=== PATIENT | male | born 1930 | race Caucasian/White ===

== ENCOUNTER 2018-11-24 11:47 | Inpatient (IN) | payer MEDICARE, OTHER ==
[~2018-11-24] VITALS: Ht 177.8 cm; Wt 61.9 kg
--- NOTE | 2018-11-24 12:27 | ERD ---
ER Documentation Chief Complaint Chief Complaint pt bib family with c/o weakness and slurred speech Sun/Mon sent by PMD HPI 88-year-old male with a history of hypertension sent by his primary care doctor, Dr. Sada Morris, for evaluation of possible stroke. Patient has had progressive generalized weakness, mostly in bilateral legs with associated slurred speech. Denies any headache, vision disturbance, focal weakness or numbness. 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 ROS All systems reviewed and are negative except as per history of present illness. Allergies Allergies: Coded Allergies: Sulfa (Sulfonamide Antibiotics) (Verified Allergy, Unknown, 11/24/18) metformin (Verified Allergy, Unknown, 11/24/18) paroxetine (Verified Allergy, Unknown, 11/24/18) pramipexole (Verified Allergy, Unknown, 11/24/18) PMhx/Soc History of Surgery: Yes (Whipple surgery) Hx Cardiac Disorders: Yes (HTN) Hx Miscellaneous Medical Probl: Yes (Duodenal cancer, bladder cancer, DM) FmHx Family History: No diabetes Physical Exam Vitals Vital Signs Date Temp Pulse Resp B/P (MAP) Pulse Ox O2 O2 Flow FiO2 Time Delivery Rate 11/24/18 Nasal 2 12:27 Cannula 11/24/18 97.6 71 16 153/94 100 11:54 (113) Physical Exam Const: No acute distress Head: Atraumatic Eyes: Normal Conjunctiva, PERRLA, EOMI, no nystagmus ENT: Normal External Ears, Nose and Mouth. Neck: Full range of motion. No meningismus. Resp: Clear to auscultation bilaterally Cardio: Regular rate and rhythm, no murmurs. 2+ distal pulses Abd: Soft, non tender, non distended. Normal bowel sounds Skin: No petechiae or rashes Back: No midline or flank tenderness Ext: No cyanosis, or edema Neur: Awake and alert, oriented x3, somewhat slowed speech, not really slurred. No facial asymmetry. Cranial nerves intact. Strength and sensations grossly intact in all 4 extremities. Able to lift and hold legs for about 10 seconds. No pronator drift. Psych: Normal Mood and Affect Result Diagram: 11/24/18 1229 11/24/18 1229 Results 24 hrs Laboratory Tests Test 11/24/18 12:29 White Blood Count 3.1 10^3/ul Red Blood Count 3.75 10^6/ul Hemoglobin 11.8 g/dl Hematocrit 35.3 % Mean Corpuscular Volume 94.1 fl Mean Corpuscular Hemoglobin 31.5 pg Mean Corpuscular Hemoglobin Concent 33.4 g/dl Red Cell Distribution Width 14.5 % Platelet Count 80 10^3/UL Mean Platelet Volume 9.9 fl Immature Granulocytes % 0.300 % Neutrophils % 71.0 % Lymphocytes % 17.3 % Monocytes % 6.8 % Eosinophils % 3.6 % Basophils % 1.0 % Nucleated Red Blood Cells % 0.0 /100WBC Immature Granulocytes # 0.010 10^3/ul Neutrophils # 2.2 10^3/ul Lymphocytes # 0.5 10^3/ul Monocytes # 0.2 10^3/ul Eosinophils # 0.1 10^3/ul Basophils # 0.0 10^3/ul Nucleated Red Blood Cells # 0.0 10^3/ul Prothrombin Time 13.5 Sec Prothrombin Time Ratio 1.1 INR International Normalized Ratio 1.02 Activated Partial Thromboplast Time 31.7 Sec Sodium Level 142 mmol/L Potassium Level 4.6 mmol/L Chloride Level 109 mmol/L Carbon Dioxide Level 24 mmol/L Anion Gap 9 Blood Urea Nitrogen 30 mg/dl Creatinine 1.25 mg/dl Est Glomerular Filtrat Rate mL/min mL/min Glucose Level 202 mg/dl Hemoglobin A1c 7.7 % Calcium Level 9.6 mg/dl Troponin I < 0.012 ng/ml Triglycerides Level 111 mg/dl Cholesterol Level 126 mg/dl LDL Cholesterol, Calculated 45 mg/dl HDL Cholesterol 59 mg/dl Cholesterol/HDL Ratio 2.1 RATIO Current Medications Medications Dose Sig/Korin Start Time Status Last (Trade) Ordered Route PRN Stop Time Admin Dose Reason Admin Ondansetron 4 mg ER BRIDGE 11/24/18 HCl (Zofran PRN IV 13:30 11/25/18 Inj) NAUSEA/VOMITI 13:29 NG 650 mg ER BRIDGE 11/24/18 Acetaminophen PRN PO 13:30 11/25/18 (Tylenol .MILD PAIN 13:29 Tab) 1-3 OR TEMP Procedures/MDM EMERGENT LABS AND DIAGNOSTIC STUDIES: Lab Results above were reviewed and interpreted by me. CBC: Pancytopenia with leukopenia, mild anemia, and thrombocytopenia of unclear etiology CMP: Elevated BUN and creatinine, may be secondary to dehydration versus renal failure. No evidence of clinically significant electrolyte abnormality, acidosis, hypoglycemia Troponin within normal limits, not indicative of cardiac ischemia UA: Pending 12-lead EKG was interpreted by Kalin Rosario MD: Sinus bradycardia at 59 beats per minute Normal axis Normal intervals No acute ST or T wave changes suggestive of acute ischemia or STEMI. Radiology Results as interpreted by Radiology below were reviewed by Rell Rosario MD: Chest x-ray shows no acute abnormalities CT brain shows no acute abnormalities MRI brain pending Initial Nursing notes reviewed. Previous Medical Records requested via the Electronic Health Record. EMERGENCY DEPARTMENT COURSE / MEDICAL DECISION MAKING: Patient is presenting with a few days of generalized weakness and slurred speech noticed by family. He is not having any focal findings on exam other than somewhat slurred speech. However this seems more slowed to me than slurred. As the patient's symptoms have been going on for several days, he is not a TPA candidate regardless. CT brain was done showing no acute abnormalities and no evidence of recent stroke. MRI brain was ordered and is pending. He was noted to have pancytopenia on his labs, but the chronicity of this is unclear at this time. He also has some evidence of renal insufficiency again chronicity unknown as no previous labs are available. There is no evidence of ACS. No evidence of acute infection but urinalysis is still pending. I spoke with Dr. Sada Morris, who will be admitting the patient for further work-up and management. Accepting Care Team: Current data and ongoing care discussed. Time: Time of admission Primary Provider: Dr. Sada Morris Outstanding Data: MRI Brain Departure Diagnosis: Primary Impression: Acute weakness Additional Impressions: Pancytopenia Renal insufficiency Condition: Fair GEORGE ROSARIO MD Nov 24, 2018 12:27
[2018-11-24] MEDS ORDERED: ONDANSETRON 4 MG INJ IV PRN (13:30)
[2018-11-24] MEDS ORDERED: ACETAMINOPHEN 325 MG TAB PO PRN ×2 (13:30→23:30)
[2018-11-24] MEDS ORDERED: ERGO500013 PO (14:04)
[2018-11-24] MEDS ORDERED: INSU100I27 SQ (14:05)
[2018-11-24] MEDS ORDERED: OMEP40CA6 PO (14:06)
[2018-11-24] MEDS ORDERED: GABA300C16 PO (14:06)
[2018-11-24] MEDS ORDERED: GLIP5TAB13 PO (14:07)
[2018-11-24] MEDS ORDERED: LIPA1CAP45 PO (14:07)
[2018-11-24] MEDS ORDERED: LEVO175T6 PO (14:07)
--- NOTE | 2018-11-24 19:00 | CONS ---
DATE OF ADMISSION: 11/24/2018 DATE OF CONSULTATION: 11/24/2018 HISTORY OF PRESENT ILLNESS: The patient is an 88-year old with a past medical history of hypertensio n, diabetes. The patient was admitted with acute onset of slurred speech and acute confusion status, in which I get a call about him by Dr. Sada Morris for more evaluation and treatment. The patient is in the emergency room bed 19, awaiting for his MRI. ALLERGIES: THE PATIENT HAS ALLERGY TO MULTIPLE MEDICATIONS INCLUDIN. SULFA. 2. METFORMIN. 3. PAXIL. 4. . CURRENT MEDICATIONS: Include. 1. Zofran 4 mg every 4 hours. 2. Tylenol 650 mg once a day. PHYSICAL EXAMINATION: GENERAL: Today, the patient is alert, awake and follows simple commands, accompanied by his in the room. CRANIAL NERVES: Cranial nerve II: Pupils are equal on both sides, reactive to light. Cranial nerve s III, IV and : Extraocular muscles are intact without nystagmus. Cranial nerve V: Equal sensati on to face. Cranial nerve VII: Symmetrical face. Cranial nerve VIII: Decreased hearing bilaterall y. Cranial IX and X: Elevates palate. Cranial nerve XI: Elevates shoulder 5/5. Cranial nerve XII : With straight tongue. MOTOR: Moving both upper and lower extremity against gravity, scored 4+/5. Sensation decreased for glove and sock area for light touch and temperature. COORDINATION: Nrgrtc-tz-teod test intact. CARDIOVASCULAR: Regular rate and rhythm. LUNGS: Equal breath sounds. ABDOMEN: Soft, relaxed, nondistended, no tenderness. ASSESSMENT AND PLAN: 1. The patient is an 88-year male with the possibility of underlying new transient ischemic attack. I will start the patient on aspirin 81 mg for stroke prophylaxis. Follow up the patient with caroti d Doppler, 2D echocardiogram. MRI was ordered, still pending. CT scan of his head done, no acute ch evelyne with generalized atrophy. 2. Possibility of underlying seizure. Follow up the patient with electroencephalogram for more eval uation and treatment. 3. Keep the patient under fall precaution and seizure precaution for now. 4. Keep the patient under deep venous thrombosis prophylaxis and decubitus ulcer prophylaxis. 5. History of hypertension. Keep the blood pressure at the level of 130/80 to avoid any extension o f the stroke. 6. History of diabetes. Follow up the patient with sliding scale insulin, Accu-Chek. 7. Follow up the patient with lipid panel. Again, thank you for asking me to see the patient with you. Dictated By: DANETTE BECK/GILBERT Conf#: [id number] DID#: [id number]
[2018-11-24 21:00] VITALS: PULSE 63
[2018-11-24] MEDS ORDERED: hydrALAzine 20 MG INJ IV PRN (21:30)
[2018-11-24] MEDS ORDERED: SOD CHLORIDE 0.9% 500 ML IV ONE (21:30)
[2018-11-24] MEDS ORDERED: INSULIN DETEMIR [LEVEMIR] 3ML CART SC SCH (21:30)
[2018-11-24 21:36] VITALS: Ht 177.8 cm; Wt 61.9 kg
[2018-11-24] MEDS: SOD CHLORIDE 0.9% 1,000 ML IV SCH (23:43)
[2018-11-24 23:46] VITALS: BP 156/70; PULSE 57
[2018-11-25] VITALS (13 sets, daily range): BP systolic 134–165; BP diastolic 62–87; PULSE 54–72; RESP 16–18
[2018-11-25] MEDS: ACCU-CHEK XX SCH (02:00)
[2018-11-25] MEDS: LORAZEPAM 0.5 MG TAB PO PRN ×2 (02:05→21:33)
[2018-11-25] MEDS: LEVOTHYROXINE 175 MCG TAB PO SCH (06:11)
[2018-11-25] MEDS: PANTOPRAZOLE (EC) 40 MG TAB PO SCH ×2 (06:12→18:23)
[2018-11-25] MEDS: INSULIN ASPART [NOVOLOG] 3 ML PEN SC SCH ×4 (07:55→21:32)
[2018-11-25] MEDS: GABAPENTIN 100 MG CAP PO SCH (08:10)
[2018-11-25] MEDS: ASPIRIN 81 MG TAB PO SCH (08:10)
[2018-11-25] MEDS: BENAZEPRIL 10 MG TAB PO SCH (08:11)
[2018-11-25] MEDS: INSULIN GLARGINE [LANTus] (100 UNITS/ML) SYG SC SCH (08:16)
--- NOTE | 2018-11-25 16:48 | HP ---
Date/Time of Note Date/Time of Note DATE: 11/24/18 TIME: 10:48 Assessment/Plan VTE Prophylaxis Risk score (from Ns)>0 risk: 4 SCD applied (from [facility]): Yes Pharmacological prophylaxis: other (asa, plavix) Lines/Catheters IV Catheter Type (from Nrs): Saline Lock Central line still needed: No Urinary Cath still in place: No Assessment/Plan Assessment/Plan 1. balance/ gait/ fine motor ds---cerebellum prob? 2. multi chr ischemia of cerebrum 3. 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 anxiety/ depression 5. fluctuating bp 6. copd 7. dm 8. periph neuropathy leg pain 9. dehydration/ low po eleanor intake/ wt loss ---admit tele bed ---neuro ref ---ivf ---PT/ OT eval ---ST swallow eval Result Diagram: 11/25/18 0759 11/24/18 1229 Results 24hrs Laboratory Tests Test 11/24/18 19:24 11/24/18 21:18 11/25/18 07:59 11/25/18 08:09 Urine Color YELLOW Urine Clarity CLEAR Urine pH 6.0 Urine Specific [place] 1.009 Urine Ketones NEGATIVE Urine Nitrite NEGATIVE Urine Bilirubin NEGATIVE Urine Urobilinogen NEGATIVE Urine Leukocyte Esterase NEGATIVE Urine Hemoglobin NEGATIVE Urine Glucose NEGATIVE Urine Total Protein NEGATIVE Urine Opiates Screen Negative Urine Barbiturates Negative Urine Amphetamines Negative Screen Urine Benzodiazepines Negative Screen Urine Cocaine Screen Negative Urine Cannabinoids Negative Bedside Glucose 227 H 114 White Blood Count 2.2 #L Red Blood Count 3.39 L Hemoglobin 10.8 L Hematocrit 32.1 L Mean Corpuscular Volume 94.7 Mean Corpuscular 31.9 Hemoglobin Mean Corpuscular 33.6 Hemoglobin Concent Red Cell Distribution 14.3 Width Platelet Count 73 L Mean Platelet Volume 10.2 Immature Granulocytes % 0.000 L Neutrophils % Segmented Neutrophils 70 % (Manual) Lymphocytes % Lymphocytes % (Manual) 18 Monocytes % Monocytes % (Manual) 9 Eosinophils % Eosinophils % (Manual) 2 Basophils % Myelocytes % (Manual) 1 H Nucleated Red Blood 0.0 Cells % Immature Granulocytes # 0.000 Neutrophils # Lymphocytes (Manual) 0.3 L Lymphocytes # Monocytes # Monocytes # (Manual) 0.1 L Eosinophils # Basophils # Myelocytes # 0.0 Nucleated Red Blood Cells # Platelet Estimate DECREASED Giant Platelets 1 H Poikilocytosis 1+ Calcium Level 9.1 Magnesium Level 1.9 Ammonia 31 H Creatine Kinase 37 Creatine Kinase Index 2.0 Creatinine Kinase MB 0.73 (Mass) Troponin I < 0.012 B-Type Natriuretic 295 Peptide Test 11/25/18 12:28 Bedside Glucose 194 HPI/ROS Admit Date/Time Admit Date/Time Nov 24, 2018 at 13:04 Hx of Present Illness no f/c/v/cp/sob/dysuria/bm change, yes feeling n/ anorexia. for a few days; low bp, more balance/ gait unsteady, more feeling shaky doing anything, more sleepy. but while in [facility] er, very high bp, very high gluc. brain mri showing cerebellar impinging & chr multi ischemic changes. PMH/Family/Social Past Medical History dm, htn, high chol, copd, gerd, ckd II, anemia, anxiety, depression, periph neuropathy leg pain Medications Current Medications Pantoprazole (Protonix Tab) 40 mg BID@06,18 PO Last administered on 11/25/18at 06:12; Admin Dose 40 MG; Start 11/25/18 at 06:00 Aspirin (Aspirin) 81 mg DAILY PO Last administered on 11/25/18at 08:10; Admin Dose 81 MG; Start 11/25/18 at 09:00 Levothyroxine Sodium (Synthroid) 175 mcg BEFORE BREAKFAST PO Last administered on 11/25/18at 06:11; Admin Dose 175 MCG; Start 11/25/18 at 07:00 Gabapentin (Neurontin) 100 mg AM PO Last administered on 11/25/18at 08:10; Admin Dose 100 MG; Start 11/25/18 at 09:00 Gabapentin (Neurontin) 300 mg HS PO ; Start 11/25/18 at 21:00 Lorazepam (Ativan) 0.5 mg QID PRN PO ANXIETY Last administered on 11/25/18at 02:05; Admin Dose 0.5 MG; Start 11/24/18 at 21:30 Diagnostic Test (Pha) (Accu-Chek) 1 ea 02 XX ; Start 11/25/18 at 02:00 Insulin Aspart (Novolog Insulin Pen) NOVOLOG *MILD* ALGORITHM WITH MEALS BEDTIME SC Last administered on 11/25/18at 12:36; Admin Dose 2 UNIT; Start 11/25/18 at 07:55 Sodium Chloride 1,000 ml @ 50 mls/hr Q20H IV Last administered on 11/24/18at 23:43; Admin Dose 50 MLS/HR; Start 11/24/18 at 21:30 Hydralazine HCl (Apresoline) 10 mg Q6H PRN IV ELEVATED BLOOD PRESSURE; Start 11/24/18 at 21:30 Insulin Glargine (Lantus) 15 units DAILY SC Last administered on 11/25/18at 08:16; Admin Dose 15 UNITS; Start 11/25/18 at 09:00 Acetaminophen (Tylenol Tab) 650 mg Q6H PRN PO MILD PAIN(1-3)OR ELEVATED TEMP; Start 11/24/18 at 23:30 Benazepril HCl (Lotensin) 10 mg DAILY PO Last administered on 11/25/18at 08:11; Admin Dose 10 MG; Start 11/25/18 at 09:00 Coded Allergies: Sulfa (Sulfonamide Antibiotics) (Verified Allergy, Unknown, 11/24/18) metformin (Verified Allergy, Unknown, 11/24/18) paroxetine (Verified Allergy, Unknown, 11/24/18) pramipexole (Verified Allergy, Unknown, 11/24/18) Past Surgical History whiple's, turp Family History Significant Family History: heart disease, COPD, diabetes Social History Alcohol Use: rarely Smoking Status: Former smoker Drug Use: none Exam/Review of Systems Vital Signs Vitals Vital Signs Date Temp Pulse Resp B/P (MAP) Pulse Ox O2 O2 Flow FiO2 Time Delivery Rate 11/25/18 65 16:14 11/25/18 97.7 16 134/62 98 Room Air 15:14 (86) 11/24/18 2 12:27 Intake and Output 11/24/18 11/24/18 11/25/18 1515:00 23:00 07:00 IntakeIntake Total 800 ml OutputOutput Total 500 ml BalanceBalance 300 ml Exam Exam a&o x3, eyes--perrla, eomi, ears/ nose/ throat--nl, neck--supple/ no bruite or jvd, lungs--cta, heart--rr syst m+, abd--nd/ nt/ hypo-bs/ no mass, ext--no c/c/e vasc--+1 pulses thruout, neuro--c2-12 grossly intact, sensory dec toward legs & toes, motor strength 3/5, worsening hand shakings when intended+ VIRGINIA CA MD Nov 25, 2018 16:48
--- NOTE | 2018-11-25 16:56 | PN ---
Date/Time of Note Date/Time of Note DATE: 11/25/18 TIME: 16:48 Subjective weak, still shaky Objective Vitals Vital Signs Date Temp Pulse Resp B/P (MAP) Pulse Ox O2 O2 Flow FiO2 Time Delivery Rate 11/25/18 65 16:14 11/25/18 97.7 16 134/62 98 Room Air 15:14 (86) 11/24/18 2 12:27 Intake and Output 11/24/18 11/24/18 11/25/18 1515:00 23:00 07:00 IntakeIntake Total 800 ml OutputOutput Total 500 ml BalanceBalance 300 ml rr, cta, no c/c/e, pale+, voluntary shaking+ Results Result Diagram: 11/25/18 0759 11/24/18 1229 Medications Medications Current Medications Pantoprazole (Protonix Tab) 40 mg BID@06,18 PO Last administered on 11/25/18at 06:12; Admin Dose 40 MG; Start 11/25/18 at 06:00 Aspirin (Aspirin) 81 mg DAILY PO Last administered on 11/25/18at 08:10; Admin Dose 81 MG; Start 11/25/18 at 09:00 Levothyroxine Sodium (Synthroid) 175 mcg BEFORE BREAKFAST PO Last administered on 11/25/18at 06:11; Admin Dose 175 MCG; Start 11/25/18 at 07:00 Gabapentin (Neurontin) 100 mg AM PO Last administered on 11/25/18at 08:10; Admin Dose 100 MG; Start 11/25/18 at 09:00 Gabapentin (Neurontin) 300 mg HS PO ; Start 11/25/18 at 21:00 Lorazepam (Ativan) 0.5 mg QID PRN PO ANXIETY Last administered on 11/25/18at 02:05; Admin Dose 0.5 MG; Start 11/24/18 at 21:30 Diagnostic Test (Pha) (Accu-Chek) 1 ea 02 XX ; Start 11/25/18 at 02:00 Insulin Aspart (Novolog Insulin Pen) NOVOLOG *MILD* ALGORITHM WITH MEALS BEDTIME SC Last administered on 11/25/18at 12:36; Admin Dose 2 UNIT; Start 11/25/18 at 07:55 Sodium Chloride 1,000 ml @ 50 mls/hr Q20H IV Last administered on 11/24/18at 23:43; Admin Dose 50 MLS/HR; Start 11/24/18 at 21:30 Hydralazine HCl (Apresoline) 10 mg Q6H PRN IV ELEVATED BLOOD PRESSURE; Start 11/24/18 at 21:30 Insulin Glargine (Lantus) 15 units DAILY SC Last administered on 11/25/18at 08:16; Admin Dose 15 UNITS; Start 11/25/18 at 09:00 Acetaminophen (Tylenol Tab) 650 mg Q6H PRN PO MILD PAIN(1-3)OR ELEVATED TEMP; Start 11/24/18 at 23:30 Benazepril HCl (Lotensin) 10 mg DAILY PO Last administered on 11/25/18at 08:11; Admin Dose 10 MG; Start 11/25/18 at 09:00 VTE Prophylaxis Risk score (from Ns)>0 risk: 4 SCD applied (from [facility]): Yes Lines/Catheters IV Catheter Type: Saline Lock Central line still needed: No Smith in Place: No Assessment/Plan Assessment/Plan 1. 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 anxiety/ depression 4. copd 5. severe gerd 6. low bp/ multi chr cerebral ischemia 7. periph neuropathy burning leg pain 8. dm 9. no appetite/ dehydration/ low po eleanor intake 10. anemia/ ckd II ---per neuro ---cont ivf ---cont all supportive cares ---PT/ OT eval & exercises ---ST swallow VIRGINIA Herbert MD Nov 25, 2018 16:56
--- NOTE | 2018-11-25 17:21 | RADRPT ---
Echocardiogram Report Patient Name: ELIZABETH MCKINNONPatient ID: [id number] : 1930 (88y 3m)Study Date: 11/25/2018 8:22:06 AM Gender: Angellacession #: [id number] Tech: LE Location: [facility] Ref.Physician: DANETTE ADAM Height(Cm): BSA: Weight(Kg): Quality: GoodOrder Physician: DANETTE ADAM Account #: Procedures: Echocardiographic Report: Transthoracic echocardiogram with complete 2D, M-Mode, and doppler examination. Indications: Cerebrovascular Accident. Measurements: 2D/M Mode Doppler Measurement Value Normal Range Measurement Value Normal Range LVIDd 2D 4.5 [ 4.2 - 5.8 ] cm AV Mean Dillan 1.1 [ 70.0 - 90.0 ] cm/sec LVIDs 2D 3.0 [ 2.5 - 4.0 ] cm AV Mean PG 5.0 [ 2.0 - 4.0 ] mmHg LVPWd 2D 1.1 [ 0.6 - 1.0 ] cm AV Peak Dillan 1.8 [ 100.0 - 170.0 ] cm/sec IVSd 2D 1.0 [ 0.6 - 1.0 ] cm AV Peak PG 12.0 [ 2.0 - 9.0 ] mmHg EDV 2D 92.4 [ 62.0 - 150.0 ] ml AV VTI 37.8 cm ESV 2D 36.4 [ 21.0 - 61.0 ] ml LVOT Peak Dillan 1.1 [ 70.0 - 110.0 ] cm/sec EF 2D 60.6 [ 52.0 - 72.0 ] percent LVOT Peak PG 5.0 [ 2.0 - 6.0 ] mmHg LVOT Diam 2.1 [ 2.3 - 2.9 ] cm MV E Peak Dillan 0.9 [ 60.0 - 130.0 ] cm/sec MV A Peak Dillan 1.0 [ 100.0 - 120.0 ] cm/sec MV E/A 0.8 [ 0.8 - 1.5 ] ratio MV Decel Time 310 [ 104 - 258 ] msec Lat E` Dillan 0.1 [ 10.0 - 15.0 ] cm/sec Lateral E/E` 10.1 [ 1.0 - 2.0 ] ratio Med E` Dillan 0.1 cm/sec MV E/A 0.8 [ 0.8 - 1.5 ] ratio TR Peak Dillan 2.3 [ 100.0 - 280.0 ] cm/sec TR Peak PG 22.0 mmHg PV Peak Dillan 0.9 [ 40.0 - 80.0 ] cm/sec PV Peak PG 3.0 mmHg Findings: Left Ventricle: Normal left ventricular systolic function. Normal left ventricular cavity size. Normal left ventricular wall thickness. Ejection fraction is visually estimated at 60 %. Tissue Doppler/Mitral Doppler indices are consistent with impaired relaxation (Stage I diastolic dysfunction). Right Ventricle: Normal right ventricular size. Normal right ventricular systolic function. Left Atrium: There is mild enlargement of left atrium. Right Atrium: The right atrium is normal in size. Mitral Valve: Normal appearance and function of the mitral valve with trace physiologic regurgitation. Aortic Valve: Normal appearance of the aortic valve. No significant aortic stenosis or insufficiency. Tricuspid Valve: Normal appearance of the tricuspid valve. The estimated Peak RVSP is 25 mmHg. There is trace tricuspid regurgitation. Pulmonic Valve: Normal pulmonic valve appearance. Pericardium: Normal pericardium with no significant pericardial effusion. Possible pleural effusion seen. Aorta: Normal aortic root. IVC: Normal size and normal respiratory collapse consistent with normal right atrial pressure. Conclusions: Normal left ventricular systolic function. Normal left ventricular cavity size. Normal left ventricular wall thickness. Ejection fraction is visually estimated at 60 %. Tissue Doppler/Mitral Doppler indices are consistent with impaired relaxation (Stage I diastolic dysfunction). There is mild enlargement of left atrium. Normal appearance and function of the mitral valve with trace physiologic regurgitation. Normal appearance of the aortic valve. No significant aortic stenosis or insufficiency. Normal appearance of the tricuspid valve. The estimated Peak RVSP is 25 mmHg. There is trace tricuspid regurgitation. Electronically Signed By: Familia Dukes 2018-11-25 17:20:36 PDT
--- NOTE | 2018-11-25 17:23 | RADRPT ---
Vent Rate: 65 bpm RR Interval: 916 msec WA Interval: 229 msec QRS Duration: 107 msec QT Interval: 468 msec QTC Interval: 489 msec P-R-T Hutchinson: 57 - 7 - 56 degrees Sinus rhythm...normal P axis, V-rate 50- 99 Prolonged WA interval...WA >220, V-rate 50- 90 Electronically Signed By: Familia Dukes
[2018-11-25] MEDS: SOD CHLORIDE 0.9% 1,000 ML IV SCH (17:30)
[2018-11-25] MEDS ORDERED: NA PHOSPHATE/BIPHOS 133 ML ENEMA PR ONE (19:30)
[2018-11-25] MEDS ORDERED: MAGNESIUM HYDROXIDE 30ML CUP PO PRN (19:30)
[2018-11-25] MEDS: DOCUSATE SODIUM 100 MG CAP PO PRN (21:34)
[2018-11-25] MEDS: GABAPENTIN 300 MG CAP PO SCH (21:35)
[2018-11-26] VITALS (11 sets, daily range): BP systolic 121–146; BP diastolic 59–71; PULSE 53–68; RESP 17–19
[2018-11-26] MEDS: ACCU-CHEK XX SCH (02:33)
[2018-11-26] MEDS: SOD CHLORIDE 0.9% 1,000 ML IV SCH (03:23)
--- NOTE | 2018-11-26 05:51 | CONS ---
DATE OF ADMISSION: 11/24/2018 DATE OF CONSULTATION: HISTORY OF PRESENT ILLNESS: The patient was admitted to the hospital with acute onset of slurred spe ech, word-finding difficulty, acute confusion status, in which the patient was admitted to the hospit al for more evaluation and treatment. CURRENT MEDICATIONS: Include: 1. Protonix 40 mg once a day. 2. Aspirin 81 mg once a day. 3. Levothyroxine 175 mcg once a day. 4. Gabapentin 300 mg at night. 5. Ativan 0.5 mg as needed. 6. Hydralazine 10 mg as needed for elevated blood pressure. 7. Insulin sliding scale. 8. Lantus 15 units subcutaneous once a night. 9. Tylenol as needed. 10. Benazepril 10 mg once a day. PHYSICAL EXAMINATION: GENERAL: The patient is alert, awake, looks angry. He looks confused. CRANIAL NERVES: Cranial nerve II: Pupils are equal on both sides, reactive to light. Cranial nerve s III, IV and : Extraocular muscle intact. No nystagmus. Cranial nerve V: Equal sensation to fa ce. Cranial nerve VII: Symmetrical face. Cranial nerve VIII: Decreased hearing bilaterally. Cran ial nerve IX and X: Elevates palate. Cranial nerve XI: Elevates shoulder 5/5. Cranial nerve XII: With straight tongue. MOTOR: Moving both upper and lower extremity against gravity. Decreased bilateral hand radio program director. Sensa tion decreased for glove and sock area for light touch and temperature. COORDINATION: [id number]-st-mlks test intact. CARDIOVASCULAR: Regular rate and rhythm. LUNGS: Equal breath sounds. ABDOMEN: Soft, relaxed, nondistended, no tenderness. ASSESSMENT AND PLAN: 1. The patient is an 88-year old who is suspected of underlying transient ischemic attack. Keep the patient on aspirin 81 mg for stroke prophylaxis. 2. 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 Underlying postictal status in which I am going to start the patient on Keppra 250 mg twice a day and keep the patient under seizure precaution and fall precaution. 4. Hypertension. Keep the blood pressure at the level of 130/80. 5. History of diabetes. Follow up the patient with sliding scale insulin. 6. We will follow up the patient with carotid Doppler, 2D echocardiogram. 7. Peripheral neuropathy, probably secondary to diabetes. We will follow up the patient with nerve conduction study and electromyogram when he is stable as an outpatient. 8. We will follow up the patient with physical therapy. Again, thank you for asking me to see the patient with you. Dictated By: DANETTE BECK/NTS Conf#: [id number] DID#: [id number] CC: VIRGINIA CA MD;*EndCC*
[2018-11-26] MEDS: PANTOPRAZOLE (EC) 40 MG TAB PO SCH ×2 (06:13→17:56)
[2018-11-26] MEDS: LEVOTHYROXINE 175 MCG TAB PO SCH (06:13)
[2018-11-26] MEDS: GABAPENTIN 100 MG CAP PO SCH (08:54)
[2018-11-26] MEDS: ASPIRIN 81 MG TAB PO SCH (08:54)
[2018-11-26] MEDS: BENAZEPRIL 10 MG TAB PO SCH (08:54)
[2018-11-26] MEDS: LEVETIRACETAM 250 MG TAB PO SCH ×2 (08:55→20:36)
[2018-11-26] MEDS ORDERED: RIFA550T4 PO (08:59)
[2018-11-26] MEDS: INSULIN ASPART [NOVOLOG] 3 ML PEN SC SCH ×4 (10:20→20:36)
[2018-11-26] MEDS: INSULIN GLARGINE [LANTus] (100 UNITS/ML) SYG SC SCH (10:20)
[2018-11-26] MEDS: RIFAXIMIN 550 MG TAB PO SCH (12:31)
[2018-11-26] MEDS: metFORMIN (XR) 500 MG TAB PO SCH (17:56)
[2018-11-26] MEDS ORDERED: RISPERIDONE 0.25 MG TAB PO PRN (19:00)
[2018-11-26] MEDS ORDERED: DIPHENHYDRAMINE 25 MG CAP PO PRN (19:00)
[2018-11-26] MEDS: GABAPENTIN 300 MG CAP PO SCH (20:12)
--- NOTE | 2018-11-26 23:33 | PN ---
DATE: 11/26/2018 SUBJECTIVE: The patient without complaints. This patient is sleeping comfortably. OBJECTIVE: VITAL SIGNS: Temperature 97.5, pulse 62, respirations 18, blood pressure 134/66, oxygen saturation 9 8% on room air. GENERAL: A well-developed, thin male in no acute distress, lying in bed. CHEST: Clear to auscultation bilaterally. HEART: Regular rate and rhythm without ectopy. ABDOMEN: Normoactive bowel sounds, nontender. EXTREMITIES: No cyanosis or clubbing. LABORATORY DATA: White blood cell count 3.0, hemoglobin 11.4, hematocrit 33.2, platelets of 74. Sod ium 138, potassium 4.6, bicarbonate 22, chloride 105, BUN of 26, creatinine 1.19, glucose 200, calciu m 9.0. ASSESSMENT AND PLAN 1. Gait abnormality. 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 We will continue with attempts at physical therapy as the patient is refusing due to weakness. The patient may not be a candidate for acute rehabilitation due to the patient's level of participation and may need a fdc facility instead. Appreciate __ ___ input into this case. 2. Diabetes. Stable. Continue with meds, diet, and sliding scale. 3. Possible seizure activity. The patient refused the Keppra that was ordered earlier as he claims it causes fatigue. We will continue to try to push the medications in further seizure activity. 4. Hypothyroidism, stable. Continue with meds. 5. Hypertension, stable. Continue with meds. 6. Pancytopenia. We will continue to monitor, but no intervention is needed at this time. 7. 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 The patient is on gabapentin for this at this time. Dictated By: STEVEN MALIK MD SR/NTS Conf#: [id number] DID#: [id number] CC: BEAU CHATTERJEE MD; [place] CA MD;*End*
[2018-11-27] VITALS (13 sets, daily range): BP systolic 115–161; BP diastolic 63–96; PULSE 56–74; RESP 17–19
[2018-11-27] MEDS: ACCU-CHEK XX SCH (02:00)
[2018-11-27] MEDS: LEVOTHYROXINE 175 MCG TAB PO SCH (06:05)
[2018-11-27] MEDS: PANTOPRAZOLE (EC) 40 MG TAB PO SCH ×2 (06:05→18:13)
[2018-11-27] MEDS: metFORMIN (XR) 500 MG TAB PO SCH ×2 (07:55→17:19)
[2018-11-27] MEDS: SOD CHLORIDE 0.9% 1,000 ML IV SCH (08:03)
[2018-11-27] MEDS: GABAPENTIN 100 MG CAP PO SCH (08:04)
[2018-11-27] MEDS: RIFAXIMIN 550 MG TAB PO SCH (08:04)
[2018-11-27] MEDS: DOCUSATE SODIUM 100 MG CAP PO PRN (08:04)
[2018-11-27] MEDS: ASPIRIN 81 MG TAB PO SCH (08:05)
[2018-11-27] MEDS: BENAZEPRIL 10 MG TAB PO SCH (08:10)
[2018-11-27] MEDS: LEVETIRACETAM 250 MG TAB PO SCH ×2 (08:10→21:00)
[2018-11-27] MEDS: INSULIN GLARGINE [LANTus] (100 UNITS/ML) SYG SC SCH (08:22)
[2018-11-27] MEDS: INSULIN ASPART [NOVOLOG] 3 ML PEN SC SCH ×4 (08:22→21:15)
[2018-11-27] MEDS ORDERED: CYANOCOBALAMIN 1000 MCG INJ IM ONE (10:30)
--- NOTE | 2018-11-27 10:44 | CONS ---
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 He will continue with insulin regimen but I will add back in his multifold operator. (2) Diabetes mellitus type 2 in nonobese Onset Date: ~ 11/2003 Status: Chronic Comment: Use of low-dose multifold operator therapy. 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 He had been in his usual state of health and was admitted with a possible neurologic event. These note he has not been having hypoglycemic reactions and to the best of my knowledge had never had seizure disorder. He did have a history of diabetic peripheral neuropathy treated with gabapentin, and also hypothyroidism Constitutional: no complaints (Denies any fevers chills or sweats) Eyes: no complaints ENT: no complaints Respiratory: no complaints Cardiovascular: no complaints Gastrointestinal: no complaints, constipation Neurologic: other (Ulceration ambulation and speech) Past Medical History Medical History: diabetes (Combination of insulin resistance and pancreatic beta cell insufficiency), GERD, hypothyroid, other (Post pancreatectomy with pancreatic exocrine insufficiency; beta cell insufficiency; vitamin D deficiency) Home Meds Reported Medications Rifaximin* (Xifaxan*) 550 Mg Tablet, 550 MG PO DAILY, TAB 11/26/18 Ceyvzd-Ecmrjjqt-Okmyuys* (Ho TURNER* 36,000) 36,000 L-114,000-180,000 Unit Capsule., 1 CAP PO WITH MEALS, CAP 11/24/18 Levothyroxine Sodium* (Levothyroxine Sodium*) 175 Mcg Tablet, 175 MCG PO BEFORE BREAKFAST, #30 TAB 11/24/18 Glipizide* (Glipizide*) 5 Mg Tablet, 5 MG PO AC BREAKFAST DINNER, TAB 11/24/18 Omeprazole* (Omeprazole*) 40 Mg Capsule.dr, 40 MG PO DAILY, #30 CAP 11/24/18 Gabapentin* (Gabapentin*) 300 Mg Capsule, 300 MG PO BID, #60 CAP TAKE 1 CAP-QAM AND 3 CAP-QHS 11/24/18 Insulin Detemir (Levemir Flextouch) 100 Unit/1 Ml Insuln.pen, UNIT SQ DAILY, EA SLIDING SCALE 11/24/18 Ergocalciferol (Vitamin D2) (VITAMIN D2) 50,000 Unit Capsule, 66535 UNIT PO Q NOEL N, CAP 11/24/18 Medications Current Medications Pantoprazole (Protonix Tab) 40 mg BID@06,18 PO Last administered on 11/27/18at 06:05; Admin Dose 40 MG; Start 11/25/18 at 06:00 Aspirin (Aspirin) 81 mg DAILY PO Last administered on 11/27/18at 08:05; Admin Dose 81 MG; Start 11/25/18 at 09:00 Levothyroxine Sodium (Synthroid) 175 mcg BEFORE BREAKFAST PO Last administered on 11/27/18at 06:05; Admin Dose 175 MCG; Start 11/25/18 at 07:00 Gabapentin (Neurontin) 100 mg AM PO Last administered on 11/27/18at 08:04; Admin Dose 100 MG; Start 11/25/18 at 09:00 Gabapentin (Neurontin) 300 mg HS PO Last administered on 11/26/18at 20:12; Admin Dose 300 MG; Start 11/25/18 at 21:00 Diagnostic Test (Pha) (Accu-Chek) 1 ea 02 XX Last administered on 11/27/18at 02:00; Admin Dose 1 EA; Start 11/25/18 at 02:00 Insulin Aspart (Novolog Insulin Pen) NOVOLOG *MILD* ALGORITHM WITH MEALS BEDTIME SC Last administered on 11/27/18at 08:22; Admin Dose 1 UNIT; Start 11/25/18 at 07:55 Sodium Chloride 1,000 ml @ 50 mls/hr Q20H IV Last administered on 11/27/18at 08:03; Admin Dose 50 MLS/HR; Start 11/24/18 at 21:30 Hydralazine HCl (Apresoline) 10 mg Q6H PRN IV ELEVATED BLOOD PRESSURE; Start at 21:30 Insulin Glargine (Lantus) 15 units DAILY SC Last administered on 11/27/18 08:22; Admin Dose 15 UNITS; Start 11/25/18 at 09:00 Acetaminophen (Tylenol Tab) 650 mg Q6H PRN PO MILD PAIN(1-3)OR ELEVATED TEMP; Start 11/24/18 at 23:30 Benazepril HCl (Lotensin) 10 mg DAILY PO Last administered on 11/27/18at 08:10; Admin Dose 10 MG; Start 11/25/18 at 09:00 Docusate Sodium (Colace) 100 mg BID PRN PO CONSTIPATION Last administered on 11/27/18 08:04; Admin Dose 100 MG; Start 11/25/18 at 19:30 Magnesium Hydroxide (Milk Of Mag) 30 ml DAILY PRN PO constipation Last administered on 11/25/18 21:36; Admin Dose 30 ML; Start 11/25/18 at 19:30 Levetiracetam (Keppra) 250 mg BID PO Last administered on 11/26/18at 08:55; Admin Dose 250 MG; Start 11/26/18 at 09:00 Rifaximin (Xifaxan) 550 mg DAILY PO Last administered on 11/27/18 08:04; Admin Dose 550 MG; Start 11/26/18 at 11:30 Metformin HCl (Glucophage Xr) 500 mg BID WITH MEALS PO Last administered on 11/27/18 07:55; Admin Dose 500 MG; Start 11/26/18 at 17:55 Diphenhydramine HCl (Benadryl) 25 mg HS PRN PO insomnia; Start 11/26/18 at 19:00 Risperidone (Risperdal) 0.25 mg BID PRN PO agitation; Start 11/26/18 at 19:00 Allergies: Coded Allergies: Sulfa (Sulfonamide Antibiotics) (Verified Allergy, Unknown, 11/24/18) paroxetine (Verified Allergy, Unknown, 11/24/18) pramipexole (Verified Allergy, Unknown, 11/24/18) Past Surgical History Past Surgical Hx: other (Status post pancreatectomy) Family History Significant Family History: no pertinent family hx Social History Alcohol Use: rarely Smoking Status: Former smoker Drug Use: none Exam/Review of Systems Exam Vitals Vital Signs Date Temp Pulse Resp B/P (MAP) Pulse Ox O2 O2 Flow FiO2 Time Delivery Rate 11/27/18 97.4 64 18 161/81 97 Room Air 08:14 (107) 11/24/18 2 12:27 Intake and Output 11/26/18 11/26/18 11/27/18 1515:00 23:00 07:00 OutputOutput Total 700 ml BalanceBalance -700 ml Constitutional: alert, oriented ENMT: nl external ears & nose, nl lips & teeth, nl nasal mucosa & septum, mucosa pink and moist Neck: supple, non-tender Neurological: other (His speech is significantly changed versus where it was 2 months ago) Results Result Diagram: 11/27/18 0554 11/27/18 0554 Results 24hrs Laboratory Tests Test 11/26/18 10:44 11/26/18 12:34 11/26/18 17:54 11/26/18 20:08 White Blood Count 3.0 #L Red Blood Count 3.57 L Hemoglobin 11.4 L Hematocrit 33.2 L Mean Corpuscular 93.0 Volume Mean Corpuscular 31.9 Hemoglobin Mean Corpuscular 34.3 Hemoglobin Concent Red Cell Distribution 14.3 Width Platelet Count 74 L Mean Platelet Volume 9.8 Immature Granulocytes 0.300 % Neutrophils % 73.9 Segmented Neutrophils 77 % (Manual) Lymphocytes % 13.1 L Lymphocytes % 9 L (Manual) Reactive Lymphocytes 3 H % (Manual) Monocytes % 8.4 Monocytes % (Manual) 4 Eosinophils % 4.0 Eosinophils % 7 (Manual) Basophils % 0.3 Nucleated Red Blood 0.0 Cells % Immature Granulocytes 0.010 # Neutrophils # 2.2 Lymphocytes (Manual) 0.2 L Lymphocytes # 0.4 L Reactive Lymphocytes 0.0 # Monocytes # 0.3 Monocytes # (Manual) 0.1 L Eosinophils # 0.1 Basophils # 0.0 Nucleated Red Blood 0.0 Cells # Platelet Estimate SIG DECREASED Polychromasia 3+ Poikilocytosis 1+ Anisocytosis 1+ Ovalocytes 1+ Sodium Level 138 Potassium Level 4.6 Chloride Level 108 Carbon Dioxide Level 22 Anion Gap 8 Blood Urea Nitrogen 26 H Creatinine 1.19 Est Glomerular Filtrat Rate mL/min Glucose Level 200 Calcium Level 9.0 Bedside Glucose 222 H 168 235 H Test 11/27/18 02:51 11/27/18 05:54 11/27/18 07:52 Bedside Glucose 186 166 White Blood Count 2.9 L Red Blood Count 3.75 L Hemoglobin 12.0 L Hematocrit 35.1 L Mean Corpuscular 93.6 Volume Mean Corpuscular 32.0 Hemoglobin Mean Corpuscular 34.2 Hemoglobin Concent Red Cell Distribution 14.5 Width Platelet Count 82 L Mean Platelet Volume 10.3 Immature Granulocytes 0.000 L % Neutrophils % 68.2 Lymphocytes % 17.5 Monocytes % 9.1 Eosinophils % 4.5 Basophils % 0.7 Nucleated Red Blood 0.0 Cells % Immature Granulocytes 0.000 # Neutrophils # 2.0 Lymphocytes # 0.5 L Monocytes # 0.3 Eosinophils # 0.1 Basophils # 0.0 Nucleated Red Blood 0.0 Cells # Sodium Level 141 Potassium Level 4.5 Chloride Level 112 H Carbon Dioxide Level 23 Anion Gap 6 Blood Urea Nitrogen 23 H Creatinine 1.10 Est Glomerular Filtrat Rate mL/min Glucose Level 168 Calcium Level 9.4 Phosphorus Level 3.4 Magnesium Level 2.2 Ammonia 110 #H Medications Medication Current Medications Pantoprazole (Protonix Tab) 40 mg BID@06,18 PO Last administered on 11/27/18 06:05; Admin Dose 40 MG; Start 11/25/18 at 06:00 Aspirin (Aspirin) 81 mg DAILY PO Last administered on 11/27/18 08:05; Admin Dose 81 MG; Start 11/25/18 at 09:00 Levothyroxine Sodium (Synthroid) 175 mcg BEFORE BREAKFAST PO Last administered on 11/27/18 06:05; Admin Dose 175 MCG; Start 11/25/18 at 07:00 Gabapentin (Neurontin) 100 mg AM PO Last administered on 11/27/18at 08:04; Admin Dose 100 MG; Start 11/25/18 at 09:00 Gabapentin (Neurontin) 300 mg HS PO Last administered on 11/26/18 20:12; Admin Dose 300 MG; Start 11/25/18 at 21:00 Diagnostic Test (Pha) (Accu-Chek) 1 ea 02 XX Last administered on 11/27/18 02:00; Admin Dose 1 EA; Start 11/25/18 at 02:00 Insulin Aspart (Novolog Insulin Pen) NOVOLOG *MILD* ALGORITHM WITH MEALS BEDTIME SC Last administered on 11/27/18 08:22; Admin Dose 1 UNIT; Start 11/25/18 at 07:55 Sodium Chloride 1,000 ml @ 50 mls/hr Q20H IV Last administered on 11/27/18 08:03; Admin Dose 50 MLS/HR; Start 11/24/18 at 21:30 Hydralazine HCl (Apresoline) 10 mg Q6H PRN IV ELEVATED BLOOD PRESSURE; Start 11/24/18 at 21:30 Insulin Glargine (Lantus) 15 units DAILY SC Last administered on 11/27/18 08:22; Admin Dose 15 UNITS; Start 11/25/18 at 09:00 Acetaminophen (Tylenol Tab) 650 mg Q6H PRN PO MILD PAIN(1-3)OR ELEVATED TEMP; Start 11/24/18 at 23:30 Benazepril HCl (Lotensin) 10 mg DAILY PO Last administered on 11/27/18 08:10; Admin Dose 10 MG; Start 11/25/18 at 09:00 Docusate Sodium (Colace) 100 mg BID PRN PO CONSTIPATION Last administered on 11/27/18 08:04; Admin Dose 100 MG; Start 11/25/18 at 19:30 Magnesium Hydroxide (Milk Of Mag) 30 ml DAILY PRN PO constipation Last administered on 11/25/18 21:36; Admin Dose 30 ML; Start 11/25/18 at 19:30 Levetiracetam (Keppra) 250 mg BID PO Last administered on 11/26/18 08:55; Admin Dose 250 MG; Start 11/26/18 at 09:00 Rifaximin (Xifaxan) 550 mg DAILY PO Last administered on 11/27/18 08:04; Admin Dose 550 MG; Start 11/26/18 at 11:30 Metformin HCl (Glucophage Xr) 500 mg BID WITH MEALS PO Last administered on 11/27/18 07:55; Admin Dose 500 MG; Start 11/26/18 at 17:55 Diphenhydramine HCl (Benadryl) 25 mg HS PRN PO insomnia; Start 11/26/18 at 19:00 Risperidone (Risperdal) 0.25 mg BID PRN PO agitation; Start 11/26/18 at 19:00 BEAU CHATTERJEE MD Nov 27, 2018 10:44
[2018-11-27] MEDS ORDERED: GLUCOSE GEL 15 GRAM TUBE BUCCAL PRN (11:30)
[2018-11-27] MEDS ORDERED: GLUCAGON 1 MG INJ IM PRN (11:30)
[2018-11-27] MEDS ORDERED: DEXTROSE 50% 50 ML SYRINGE IV PRN ×2 (11:30)
[2018-11-27] MEDS ORDERED: GLUCOSE GEL 15 GRAM TUBE PO PRN ×2 (11:30)
[2018-11-27] MEDS ORDERED: LACTULOSE 30ML CUP PO ONE (15:00)
[2018-11-27] MEDS: ARTIFICIAL TEARS 15 ML OPH BOTH EYES SCH ×3 (15:00→21:06)
[2018-11-27] MEDS: GABAPENTIN 300 MG CAP PO SCH (21:06)
[2018-11-28] VITALS (11 sets, daily range): BP systolic 103–144; BP diastolic 55–89; PULSE 51–81; RESP 18–20
--- NOTE | 2018-11-28 00:54 | PN ---
DATE: 11/27/2018 SUBJECTIVE: The patient is without complaint. The patient is sleeping and did not wake up ____. OBJECTIVE: VITAL SIGNS: Temperature 97.4, pulse regular and 73, respirations 19 and unlabored, blood pressure 1 47/64, oxygen saturation 98% on room air. GENERAL: Well-developed, thin male in no acute distress, lying in bed. LUNGS: Clear to auscultation bilaterally. HEART: Regular rate and rhythm. ABDOMEN: Normoactive bowel sounds, soft, nondistended. NEUROLOGIC: Nonfocal. LABORATORY DATA: Sodium 141, potassium 4.5, chloride 112, bicarbonate 23, BUN of 23, creatinine 1.10 , glucose 168. Magnesium 2.2, phosphorus 3.4, calcium 9.4, hemoglobin 12.0, hematocrit 35.1, platele ts 82, white blood cell count 2.9, ammonia level 110. ASSESSMENT AND PLAN: 1. Gait abnormality. The patient with no further incidents. The patient has been accepted to acute rehab for rehabilitation for possible cerebellar hygroma versus transient ischemic attack. The priscila ent needs clearance from cardiology, as the patient had a run of nonsustained ventricular tachycardia . 2. Nonsustained ventricular tachycardia. The patient with multiple PVCs multifocal as well as a run of nonsustained ventricular tachycardia of 3 beats. We will continue with telemetry monitoring. Mo nitor potassium, magnesium and electrolytes; and await cardiology consultation. 3. Diabetes, some lability. I appreciate Dr. Goodrich's input and adjustments of medications. We will continue with diet, medications, sliding scale. 4. Possible seizure. The patient continues to refuse Keppra despite possible benefits. The patient is adamant against taking it and will continue off this, but continue to offer the medication. 5. Hypothyroidism, stable. Continue with medications. 6. Hypertension, stable. Continue with medications and diet. 7. Pancytopenia, stable. Continue to monitor, unclear etiology. Dictated By: STEVEN MALIK MD SR/NTS Conf#: [id number] DID#: [id number] CC: [place] CA MD;*EndCC*
[2018-11-28] MEDS: ACCU-CHEK XX SCH (02:08)
[2018-11-28] MEDS: LEVOTHYROXINE 175 MCG TAB PO SCH (06:03)
[2018-11-28] MEDS: PANTOPRAZOLE (EC) 40 MG TAB PO SCH ×2 (06:03→17:12)
[2018-11-28] MEDS: ARTIFICIAL TEARS 15 ML OPH BOTH EYES SCH ×4 (08:07→22:28)
[2018-11-28] MEDS: BENAZEPRIL 10 MG TAB PO SCH (08:07)
[2018-11-28] MEDS: LEVETIRACETAM 250 MG TAB PO SCH (08:07)
[2018-11-28] MEDS: MEGESTROL (40 MG/ML) 10ML CUP PO SCH (08:07)
[2018-11-28] MEDS: ASPIRIN 81 MG TAB PO SCH (08:08)
[2018-11-28] MEDS: GABAPENTIN 100 MG CAP PO SCH (08:08)
[2018-11-28] MEDS: RIFAXIMIN 550 MG TAB PO SCH (08:08)
[2018-11-28] MEDS: INSULIN GLARGINE [LANTus] (100 UNITS/ML) SYG SC SCH (08:32)
[2018-11-28] MEDS: INSULIN ASPART [NOVOLOG] 3 ML PEN SC SCH ×4 (08:32→21:00)
[2018-11-28] MEDS ORDERED: SERTRALINE 50 MG TAB PO SCH (09:00)
[2018-11-28] MEDS ORDERED: MEGESTROL 40 MG TAB PO SCH (09:00)
--- NOTE | 2018-11-28 12:20 | EN ---
Date/Time of Note Date/Time of Note DATE: 11/28/18 TIME: 12:10 Event Note Medicine Medicine Event Note Rapid response called for sustained V tach followed by vomiting. Briefly, this is an 88 yo man admitted by Dr. Morris on 11/25 for lethargy and unsteady gait. When I saw the patient he was awake but lethargic. BP 112/58, pulse low 60s, saturating well on room air in no respiratory distress. He was covered in yellowish-brown emesis. He reported feeling better after vomiting, before which he felt "sick". Denies chest pain, pressure, or palpitations. He was disoriented to date but oriented to name. His was at bedside. 12-lead EKG was done showing normal sinus alternating with runs of PVCs. Review of tele was more concerning. Around 10:24 am he had a 57 second run of continuous V tach (56 beats with a sinus pause, then 17 beats). Then there was normal sinus mixed with bigeminy and trigeminy. Then again, around 11:26 (just after walking with PT) he had another interrupted episode of Vtach. Again, the patient was hemodynamically stable and denies ischemic chest pain, so per ACS protocol no cardioversion. I tried to call Dr. Morris's office and spoke to the receptionist scheduler who said she would call the doctor. The last several progress notes mention a cardiology consult in the plan but I see no cardiology notes. The nurse reached out to Dr. Dukes who said he will see the patient. PLAN: 1. Keep patient on telemetry 2. Urgent cardiology consult 3. Consider cardioversion if patient develops V tach with ischemic symptoms or hemodynamic instability 40 minutes of critical care time spent on this patient. SHON PARSON MD Nov 28, 2018 12:20
--- NOTE | 2018-11-28 13:23 | PN ---
Date/Time of Note Date/Time of Note DATE: 11/28/18 TIME: 13:13 Subjective weak, sleepy Objective Vitals Vital Signs Date Temp Pulse Resp B/P (MAP) Pulse Ox O2 O2 Flow FiO2 Time Delivery Rate 11/28/18 66 12:11 11/28/18 97.0 18 106/59 95 Room Air 11:47 (75) 11/24/18 2 12:27 Intake and Output 11/27/18 11/27/18 11/28/18 1515:00 23:00 07:00 IntakeIntake Total 600 ml 250 ml OutputOutput Total 700 ml 300 ml BalanceBalance -100 ml -50 ml in bed, soft voice, awakable, a&o x2, dry mouth+ irreg irreg on/off, cta, mouth open breather+ no c/c/e, Results Result Diagram: 11/28/18 0811/28/18 08 Medications Medications Current Medications Pantoprazole (Protonix Tab) 40 mg BID@06,18 PO Last administered on 11/28/18 06:03; Admin Dose 40 MG; Start 11/25/18 at 06:00 Aspirin (Aspirin) 81 mg DAILY PO Last administered on 11/28/18 08:08; Admin Dose 81 MG; Start 11/25/18 at 09:00 Levothyroxine Sodium (Synthroid) 175 mcg BEFORE BREAKFAST PO Last administered on 11/28/18 06:03; Admin Dose 175 MCG; Start 11/25/18 at 07:00 Gabapentin (Neurontin) 100 mg AM PO Last administered on 11/28/18 08:08; Admin Dose 100 MG; Start 11/25/18 at 09:00 Gabapentin (Neurontin) 300 mg HS PO Last administered on 11/27/18at 21:06; Admin Dose 300 MG; Start 11/25/18 at 21:00 Diagnostic Test (Pha) (Accu-Chek) 1 ea 02 XX Last administered on 11/28/18at 02:08; Admin Dose 1 EA; Start 11/25/18 at 02:00 Insulin Aspart (Novolog Insulin Pen) NOVOLOG *MILD* ALGORITHM WITH MEALS BEDTIME SC Last administered on 11/28/18at 12:07; Admin Dose 2 UNIT; Start 11/25/18 at 07:55 Hydralazine HCl (Apresoline) 10 mg Q6H PRN IV ELEVATED BLOOD PRESSURE; Start 11/24/18 at 21:30 Insulin Glargine (Lantus) 15 units DAILY SC Last administered on 11/28/18at 08:32; Admin Dose 15 UNITS; Start 11/25/18 at 09:00 Acetaminophen (Tylenol Tab) 650 mg Q6H PRN PO MILD PAIN(1-3)OR ELEVATED TEMP; Start 11/24/18 at 23:30 Benazepril HCl (Lotensin) 10 mg DAILY PO Last administered on 11/28/18at 08:07; Admin Dose 10 MG; Start 11/25/18 at 09:00 Docusate Sodium (Colace) 100 mg BID PRN PO CONSTIPATION Last administered on 11/27/18at 08:04; Admin Dose 100 MG; Start 11/25/18 at 19:30 Magnesium Hydroxide (Milk Of Mag) 30 ml DAILY PRN PO constipation Last administered on 11/25/18at 21:36; Admin Dose 30 ML; Start 11/25/18 at 19:30 Rifaximin (Xifaxan) 550 mg DAILY PO Last administered on 11/28/18at 08:08; Admin Dose 550 MG; Start 11/26/18 at 11:30 Diphenhydramine HCl (Benadryl) 25 mg HS PRN PO insomnia; Start 11/26/18 at 19:00 Risperidone (Risperdal) 0.25 mg BID PRN PO agitation; Start 11/26/18 at 19:00 Metformin HCl (Glucophage Xr) 500 mg AC DINNER PO Last administered on 11/27/18at 17:19; Admin Dose 500 MG; Start 11/27/18 at 17:25 Miscellaneous Information 1 ea NOTE XX ; Start 11/27/18 at 11:30 Glucose (Glutose) 15 gm Q15M PRN PO DECREASED GLUCOSE; Start 11/27/18 at 11:30 Glucose (Glutose) 22.5 gm Q15M PRN PO DECREASED GLUCOSE; Start 11/27/18 at 11:30 Dextrose (D50w Syringe) 25 ml Q15M PRN IV DECREASED GLUCOSE; Start 11/27/18 at 11:30 Dextrose (D50w Syringe) 50 ml Q15M PRN IV DECREASED GLUCOSE; Start 11/27/18 at 11:30 Glucagon (Glucagen) 1 mg Q15M PRN IM DECREASED GLUCOSE; Start 11/27/18 at 11:30 Glucose (Glutose) 15 gm Q15M PRN BUCCAL DECREASED GLUCOSE; Start 11/27/18 at 11:30 Eye Lubricant (Artificial Tears Oph) 2 drop QID BOTH EYES Last administered on 11/28/18at 11:56; Admin Dose 2 DROP; Start 11/27/18 at 15:00 Megestrol Acetate (Megace Susp) 400 mg DAILY PO Last administered on 11/28/18at 08:07; Admin Dose 400 MG; Start 11/28/18 at 09:00 VTE Prophylaxis Risk score (from [facility])>0 risk: 6 SCD applied (from [facility]): Yes Lines/Catheters IV Catheter Type: Saline Lock Central line still needed: No Smith in Place: No Assessment/Plan Assessment/Plan 1. encephalopathy? 2. tia/ multi chr cerebrum ischemia 3. arrythemia--v tach runs today/ htn/ ashd 4. copd 5. old age weak/ balance-gait ds 6. dm/ worsening neuropathy 7. anxiety/ depression 8. low b12 anemia 9. ckd II ---per neuro ---per cards ---per endo ---must cont PT ---OT? ---thickened fluid only, add glucerna ---will remove any/ every orientation disrupting meds V[place] CA MD Nov 28, 2018 13:23
--- NOTE | 2018-11-28 13:45 | CONS ---
Assessment/Plan Assessment/Plan Problems: (1) Diabetes mellitus type 2 in nonobese Onset Date: ~ 11/2003 Status: Chronic Comment: Sugar control improved with use of combination insulin with a national recruiter drug. Continue current therapeutics. (2) Post-pancreatectomy diabetes Onset Date: ~ 11/2003 Status: Chronic Comment: Please note the beta cell insufficiency hence the usage of insulin to supplement to goal. Doing better (3) Chronic kidney disease, stage II (mild) Comment: Noted and stable (4) Hypothyroidism Status: Chronic Comment: On replacement therapy Qualifiers: Hypothyroidism type: acquired Qualified Codes: E03.9 - Hypothyroidism, unspecified Consultation Date/Type/Reason Admit Date/Time Nov 24, 2018 at 13:04 Initial Consult Date 11/26/18 Type of Consult Endocrinology Reason for Consultation Patient reports he is still feeling tired. Requesting Provider: STEVEN MALIK MD- Date/Time of Note DATE: 11/28/18 TIME: 13:42 24 HR Interval Summary Constitutional: no complaints Detailed Summary Respiratory: no complaints Cardiovascular: no complaints Gastrointestinal: no complaints Exam/Review of Systems Exam Vitals Vital Signs Date Temp Pulse Resp B/P (MAP) Pulse Ox O2 O2 Flow FiO2 Time Delivery Rate 11/28/18 66 12:11 11/28/18 97.0 18 106/59 95 Room Air 11:47 (75) 11/24/18 2 12:27 Intake and Output 11/27/18 11/27/18 11/28/18 1515:00 23:00 07:00 IntakeIntake Total 600 ml 250 ml OutputOutput Total 700 ml 300 ml BalanceBalance -100 ml -50 ml Constitutional: alert, oriented Respiratory: clear to auscultation, normal air movement Cardiovascular: regular rate and rhythm, nl pulses Gastrointestinal: soft, nl liver, spleen, non-tender Neurological: other (Right facial droop; right-sided weakness) Results Result Diagram: 11/28/18 0802 11/28/18 0802 Results 24hrs Laboratory Tests Test 11/27/18 17:17 11/27/18 21:05 11/28/18 02:05 11/28/18 08:02 Bedside Glucose 199 189 176 White Blood Count 4.0 #L Red Blood Count 3.95 L Hemoglobin 12.5 L Hematocrit 36.6 L Mean Corpuscular 92.7 Volume Mean Corpuscular 31.6 Hemoglobin Mean Corpuscular 34.2 Hemoglobin Concent Red Cell 14.7 H Distribution Width Platelet Count 88 L Mean Platelet Volume 10.8 H Immature 0.200 Granulocytes % Neutrophils % 72.1 Lymphocytes % 13.5 L Monocytes % 9.5 Eosinophils % 4.0 Basophils % 0.7 Nucleated Red Blood 0.0 Cells % Immature 0.010 Granulocytes # Neutrophils # 2.9 Lymphocytes # 0.5 L Monocytes # 0.4 Eosinophils # 0.2 Basophils # 0.0 Nucleated Red Blood 0.0 Cells # Sodium Level 144 Potassium Level 4.3 Chloride Level 113 H Carbon Dioxide Level 22 Anion Gap 9 Blood Urea Nitrogen 28 H Creatinine 1.33 H Est Glomerular Filtrat Rate mL/min Glucose Level 151 Calcium Level 9.3 Magnesium Level 2.2 Ammonia 103 H B-Type Natriuretic 736 H Peptide Test 11/28/18 08:06 11/28/18 11:54 Bedside Glucose 149 217 Medications Medication Current Medications Pantoprazole (Protonix Tab) 40 mg BID@06,18 PO Last administered on 11/28/18 06:03; Admin Dose 40 MG; Start 11/25/18 at 06:00 Aspirin (Aspirin) 81 mg DAILY PO Last administered on 11/28/18 08:08; Admin Dose 81 MG; Start 11/25/18 at 09:00 Levothyroxine Sodium (Synthroid) 175 mcg BEFORE BREAKFAST PO Last administered on 11/28/18 06:03; Admin Dose 175 MCG; Start 11/25/18 at 07:00 Gabapentin (Neurontin) 100 mg AM PO Last administered on 11/28/18 08:08; Admin Dose 100 MG; Start 11/25/18 at 09:00 Gabapentin (Neurontin) 300 mg HS PO Last administered on 11/27/18 21:06; Admin Dose 300 MG; Start 11/25/18 at 21:00 Diagnostic Test (Pha) (Accu-Chek) 1 ea 02 XX Last administered on 11/28/18 02:08; Admin Dose 1 EA; Start 11/25/18 at 02:00 Insulin Aspart (Novolog Insulin Pen) NOVOLOG *MILD* ALGORITHM WITH MEALS BEDTIME SC Last administered on 11/28/18 12:07; Admin Dose 2 UNIT; Start 11/25/18 at 07:55 Hydralazine HCl (Apresoline) 10 mg Q6H PRN IV ELEVATED BLOOD PRESSURE; Start 11/24/18 at 21:30 Insulin Glargine (Lantus) 15 units DAILY SC Last administered on 11/28/18at 08:32; Admin Dose 15 UNITS; Start 11/25/18 at 09:00 Acetaminophen (Tylenol Tab) 650 mg Q6H PRN PO MILD PAIN(1-3)OR ELEVATED TEMP; Start 11/24/18 at 23:30 Benazepril HCl (Lotensin) 10 mg DAILY PO Last administered on 11/28/18at 08:07; Admin Dose 10 MG; Start 11/25/18 at 09:00 Docusate Sodium (Colace) 100 mg BID PRN PO CONSTIPATION Last administered on 11/27/18at 08:04; Admin Dose 100 MG; Start 11/25/18 at 19:30 Magnesium Hydroxide (Milk Of Mag) 30 ml DAILY PRN PO constipation Last administered on 11/25/18at 21:36; Admin Dose 30 ML; Start 11/25/18 at 19:30 Rifaximin (Xifaxan) 550 mg DAILY PO Last administered on 11/28/18at 08:08; Admin Dose 550 MG; Start 11/26/18 at 11:30 Diphenhydramine HCl (Benadryl) 25 mg HS PRN PO insomnia; Start 11/26/18 at 19:00 Risperidone (Risperdal) 0.25 mg BID PRN PO agitation; Start 11/26/18 at 19:00 Metformin HCl (Glucophage Xr) 500 mg AC DINNER PO Last administered on 11/27/18at 17:19; Admin Dose 500 MG; Start 11/27/18 at 17:25 Miscellaneous Information 1 ea NOTE XX ; Start 11/27/18 at 11:30 Glucose (Glutose) 15 gm Q15M PRN PO DECREASED GLUCOSE; Start 11/27/18 at 11:30 Glucose (Glutose) 22.5 gm Q15M PRN PO DECREASED GLUCOSE; Start 11/27/18 at 11:30 Dextrose (D50w Syringe) 25 ml Q15M PRN IV DECREASED GLUCOSE; Start 11/27/18 at 11:30 Dextrose (D50w Syringe) 50 ml Q15M PRN IV DECREASED GLUCOSE; Start 11/27/18 at 11:30 Glucagon (Glucagen) 1 mg Q15M PRN IM DECREASED GLUCOSE; Start 11/27/18 at 11:30 Glucose (Glutose) 15 gm Q15M PRN BUCCAL DECREASED GLUCOSE; Start 11/27/18 at 11:30 Eye Lubricant (Artificial Tears Oph) 2 drop QID BOTH EYES Last administered on 11/28/18at 11:56; Admin Dose 2 DROP; Start 11/27/18 at 15:00 Megestrol Acetate (Megace Susp) 400 mg DAILY PO Last administered on 11/28/18at 08:07; Admin Dose 400 MG; Start 11/28/18 at 09:00 Potassium Chloride 10 meq/ Sodium Chloride 1,005 ml @ 60 mls/hr [id number] IV ; Start 11/28/18 at 14:30 Testosterone Cypionate (Depo-Testosterone) 200 mg ONCE ONCE IM ; Start 11/28/18 at 14:00; Stop 11/28/18 at 14:01; Status BEAU ORTEGA MD Nov 28, 2018 13:45
[2018-11-28] MEDS ORDERED: METOPROLOL 5 MG INJ IV PRN (14:00)
[2018-11-28] MEDS ORDERED: TESTOSTERONE CYPIONATE 200 MG/ML INJ IM ONE (14:00)
[2018-11-28] MEDS: METOPROLOL 25 MG TAB PO SCH ×2 (14:53→22:29)
[2018-11-28] MEDS: POTASSIUM CHLORIDE 10 MEQ in SOD CHLORIDE 0.45% 1,000 ML IV SCH (14:54)
--- NOTE | 2018-11-28 16:07 | CONS ---
DATE OF ADMISSION: 11/24/2018 DATE OF CONSULTATION: 11/28/2018 TYPE OF CONSULTATION: Cardiology. REASON FOR CONSULTATION: Wide complex tachycardia, assess for nonsustained ventricular tachycardia a s well as episodes of bigeminy. REQUESTING PHYSICIAN: Sada Ca MD HISTORY OF PRESENT ILLNESS: Mr. Sanchez is an 88-year-old male with history of diabetes mellitus, COPD with a [id number] smoking, has not smoked now 20 years per patient, peripheral neuropathy, sta tus post prior Whipple procedure and transurethral prostatectomy, coronary artery disease, who presen tara from his chronic care facility with worsening generalized weakness per at bedside of the low er extremities with also decreased balance, unsteady gait, generalized lethargy and low blood pressur e per chart biopsy. Initially upon arrival, temperature was 97.6, blood pressure 150/94, pulse 79, r espiratory rate 16, satting 100%. The patient's labs revealed a white blood cell count of 3.1, hemog lobin 11.8, platelet count of 80, sodium 144, potassium 4.3, creatinine 1.33, BUN 28, BNP of 736, ___ __. INR 1.0. Tox screen negative. 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 The patient's electrocardi ogram revealed a sinus rhythm, rate 65 with normal axis, normal intervals, nonspecific ST-T wave abno rmalities. The patient was subsequently admitted to the floor and since admit to floor was counseled by neurology due to lower extremity weakness and hygroma formation. The patient additionally has be en seen by the endocrinology service due to hypothyroidism, post-pancreatectomy and diabetes. The tramaine masters has been then monitored on telemetry and was noted to have recurrent episodes of possible bigem iny and episodes of wide complex tachycardia with multiple beats up to 50 at time which were extremel y irregular, wide complex, likely concerning for aberrant atrial fibrillation. The patient then had intervening episodes of just wide complex rhythms with intervening narrow complex rhythms. The patie nt's heart rates have remained in the 60s when in sinus rhythm and not having tachycardia. Episodes of wide complex tachyarrhythmias up to the 130s to 150s which were extremely irregular, concerning fo r probable aberrant atrial fibrillation and also has episodes of bigeminy. The patient's heart rates when not in tachyarrhythmias primarily remained in the 60s to 70s, no significant bradyarrhythmias n oted. The patient since admit additionally undergone 2D echo revealing preserved ejection fraction o f 60% with no significant valvular abnormalities and thus far, the patient has had negative troponins x2. Upon further questioning, the patient is slow to respond but denies chest pain, shortness of br eath. PAST MEDICAL HISTORY: As above in HPI. MEDICATIONS CURRENTLY IN HOSPITAL: 1. Potassium chloride. 2. Megace 40 mg daily. 3. Metformin 500 mg daily. 4. Risperdal. 5. Rifaximin. 6. Gabapentin 300 mg at bedtime. 7. Colace p.r.n. 8. Aspirin 81 mg daily. 9. Gabapentin 100 mg daily. 10. Lantus 15 units subcutaneously daily. 11. Benazepril 10 mg daily. 12. Protonix. 13. Synthroid 175 mcg daily. 14. Tylenol. ALLERGIES: 1. SULFA. 2. PAROXETINE. SOCIAL HISTORY: No current tobacco, EtOH or illicit drug use with positive history of tobacco approx imately [id number]. REVIEW OF SYSTEMS: As above in HPI. CONSTITUTIONAL: No fevers, chills. PULMONARY: No current shortness of breath. CARDIOVASCULAR: No current chest pain, but arrhythmias. GASTROINTESTINAL: No nausea, vomiting. GENITOURINARY: No hematuria, dysuria. MUSCULOSKELETAL: Degenerative joint disease. PSYCHIATRIC: No documented psych history. NEUROLOGICAL: Hygroma. ENDOCRINE: Diabetes mellitus, hypothyroidism. PHYSICAL EXAMINATION: VITAL SIGNS: Temperature of 97, blood pressure 106/59, pulse 88, respiratory rate 18, satting 95%. GENERAL: The patient is alert, awake, but somewhat lethargic and slow to respond to questions. NECK: JVP of 8 to 9 cm of water. CHEST: Fair air movement throughout. HEART: Currently regular rate and rhythm. Normal S1, S2 with some ectopic beats, nondisplaced PMI. ABDOMEN: Positive bowel sounds, soft. EXTREMITIES: No edema. A 1+ pulses bilaterally posterior tibial. LABORATORY DATA: As above in HPI with most recently from today: Sodium 144, potassium 4.3, creatini ne 1.33, BUN of 28. White blood cell count 4.0, hemoglobin 12.5, platelet count of 88. IMAGING STUDIES: As above in HPI. No further imaging studies for my review at this time. ELECTROCARDIOGRAM: As above in HPI with followup EKG most recently from today revealing normal sinus rhythm at a rate of 62, normal axis, normal intervals, nonspecific ST-T wave abnormalities. IMPRESSION: 1. Wide complex tachycardia, likely more consistent with aberrant atrial fibrillation at this time. 2. Intermittent bigeminy and generalized wide complex rhythms, rule out acute coronary syndrome with wide complex rhythms likely consistent with generalized progression of conduction system disease in this 88-year-old male. 3. Hypertension, labile, at this time and generally under reasonable control. 4. Episodes of nausea and vomiting. 5. Gait instability with signs of hygroma, rule out transient ischemic attack. Neurology is followi ambrocio. 6. Diabetes mellitus, status post pancreatectomy, status post Whipple. 7. Hypothyroidism. 8. Pancytopenia with more pronounced leukopenia and thrombocytopenia. RECOMMENDATIONS: 1. At this time, we would complete the patient's rule out for myocardial infarction to assure that t he patient's coughing symptoms and wide complex rhythms are not due to any acute coronary syndromes s uch as an acute myocardial infarction unlikely at this time with negative troponin x2. 2. We will continue to check serial EKGs to assess for any significant ongoing changes. 3. Continue to monitor the patient closely on telemetry for ongoing cardiac arrhythmia. 4. We will initiate the patient on low dose beta william and follow for developing any bradycardia, heart block with possible suppression of wide complex rhythms and follow blood pressure closely but p ossible need to adjust benazepril as patient's blood pressure becomes low. 5. Check a TSH to further assess patient's current thyroid state at this time and its possible contr ibution to any wide complex tachyarrhythmias such as aberrant atrial fibrillation. 6. Ongoing treatment and evaluation of patient's diabetes per endocrinology with adjustment of insul in as necessary. 7. Continue the patient's Synthroid at this time and we will adjust it according to TSH as stated ab ove. 8. PT evaluation. 9. Ongoing neurologic followup of hygroma. 10. We will initiate the patient on very low dose of Lovenox along with aspirin for prevention of po ssible thromboembolic complications in setting of a probable aberrant episodes of paroxysmal atrial f ibrillation. Thank you for allowing me to take part in the care of this patient. I will continue to follow him ve ry closely with you with further recommendations to be made as the patient progresses through his [facility] clinical [facility]. Dictated By: SHON ELLER/NTS Conf#: [id number] DID#: [id number] CC: SADA CA MD;*EndCC*
[2018-11-28] MEDS: metFORMIN (XR) 500 MG TAB PO SCH (17:12)
[2018-11-28] MEDS: GABAPENTIN 300 MG CAP PO SCH (22:28)
[2018-11-29] VITALS (11 sets, daily range): BP systolic 130–149; BP diastolic 63–69; PULSE 49–65; RESP 18–20
[2018-11-29] MEDS: ACCU-CHEK XX SCH (02:00)
[2018-11-29] MEDS: LEVOTHYROXINE 175 MCG TAB PO SCH (05:43)
[2018-11-29] MEDS: PANTOPRAZOLE (EC) 40 MG TAB PO SCH ×2 (05:43→17:24)
[2018-11-29] MEDS: POTASSIUM CHLORIDE 10 MEQ in SOD CHLORIDE 0.45% 1,000 ML IV SCH (07:52)
[2018-11-29] MEDS: INSULIN ASPART [NOVOLOG] 3 ML PEN SC SCH ×4 (07:55→20:38)
[2018-11-29] MEDS: METOPROLOL 25 MG TAB PO SCH ×2 (09:00→20:27)
[2018-11-29] MEDS: ARTIFICIAL TEARS 15 ML OPH BOTH EYES SCH ×4 (09:11→20:26)
[2018-11-29] MEDS: MEGESTROL (40 MG/ML) 10ML CUP PO SCH (09:11)
[2018-11-29] MEDS: RIFAXIMIN 550 MG TAB PO SCH (09:12)
[2018-11-29] MEDS: BENAZEPRIL 10 MG TAB PO SCH (09:12)
[2018-11-29] MEDS: ASPIRIN 81 MG TAB PO SCH (09:13)
[2018-11-29] MEDS: GABAPENTIN 100 MG CAP PO SCH (09:13)
[2018-11-29] MEDS: ENOXAPARIN 30 MG/0.3 ML SYG SC SCH (09:29)
[2018-11-29] MEDS: INSULIN GLARGINE [LANTus] (100 UNITS/ML) SYG SC SCH (09:30)
--- NOTE | 2018-11-29 10:54 | CONS ---
Consult Date/Type/Reason Admit Date/Time Nov 24, 2018 at 13:04 Initial Consult Date 11/26/18 Requesting Provider: TSEVEN MALIK MD- Date/Time of Note DATE: 11/29/18 TIME: 10:52 Subjective NO acute events - becky without pauses - sleepy, but abusable - family at bedside - no recurrent WCT noted. ROS: No fever, no chills, no nausea, no vomiting, no diarrhea/constipation + fatigue, + hypersomnolence per family No recent weight changes No chest pain, no PND, no orthopnea No dizziness, blurred vision No thirst, no heat or cold intolerance Objective Vitals Vital Signs Date Temp Pulse Resp B/P (MAP) Pulse Ox O2 O2 Flow FiO2 Time Delivery Rate 11/29/18 51 08:17 11/29/18 97.6 20 146/68 96 Room Air 07:43 (94) Intake and Output 11/28/18 11/28/18 11/29/18 1515:00 23:00 07:00 IntakeIntake Total 360 ml OutputOutput Total 300 ml BalanceBalance 60 ml Exam General: WN/WD/NAD, AOx 1-2 sleepy HEENT: Unicetric/atraumatic/EOMI (does not follow commands) NECK: JVD elevated, no thyromegaly Lymph: no lymphadenopathy HEART: regular with no S3, II/ systolic murmur at apex, becky LUNGS: Coarse sounds ABD: soft, NT, ND, +BS : Intact Neuro: non focal SKIN: chronic changes EXT: trace edema Results/Medications Result Diagram: 11/28/18 0802 11/29/18 0552 Results 24 hrs Laboratory Tests Test 11/28/18 11:54 11/28/18 13:50 11/28/18 15:18 11/28/18 15:20 Bedside Glucose 217 Urine Color YELLOW Urine Clarity SLIGHTLY CLOUDY A Urine pH 5.0 Urine Specific 1.017 Gilbert Urine Ketones NEGATIVE Urine Nitrite NEGATIVE Urine Bilirubin NEGATIVE Urine NEGATIVE Urobilinogen Urine Leukocyte NEGATIVE Esterase Urine Microscopic 0 RBC Urine Microscopic 0 WBC Urine Amorphous FEW A Crystals Urine Bacteria FEW A Urine Hemoglobin NEGATIVE Urine Glucose NEGATIVE Urine Total NEGATIVE Protein Thyroid 0.190 L Stimulating Hormone (TSH) Ammonia 127 H Test 11/28/18 17:11 11/28/18 17:40 11/28/18 22:26 11/29/18 00:42 Bedside Glucose 234 H 172 Troponin I < 0.012 0.015 Test 11/29/18 05:52 11/29/18 07:53 Sodium Level 143 Potassium Level 4.3 Chloride Level 112 H Carbon Dioxide 22 Level Anion Gap 9 Blood Urea 34 H Nitrogen Creatinine 1.28 H Est Glomerular Filtrat Rate mL/min Glucose Level 123 Calcium Level 9.3 B-Type 562 H Natriuretic Peptide Bedside Glucose 121 Home Meds Reported Medications Rifaximin* (Xifaxan*) 550 Mg Tablet, 550 MG PO DAILY, TAB 11/26/18 Jakixf-[id number]-Hjmkprr* (Ho TURNER* 36,000) 36,000 L-114,000-180,000 Unit Capsule.dr, 1 CAP PO WITH MEALS, CAP 11/24/18 Levothyroxine Sodium* (Levothyroxine Sodium*) 175 Mcg Tablet, 175 MCG PO BEFORE BREAKFAST, #30 TAB 11/24/18 Glipizide* (Glipizide*) 5 Mg Tablet, 5 MG PO AC BREAKFAST DINNER, TAB 11/24/18 Omeprazole* (Omeprazole*) 40 Mg Capsule.dr, 40 MG PO DAILY, #30 CAP 11/24/18 Gabapentin* (Gabapentin*) 300 Mg Capsule, 300 MG PO BID, #60 CAP TAKE 1 CAP-QAM AND 3 CAP-QHS 11/24/18 Insulin Detemir (Levemir Flextouch) 100 Unit/1 Ml Insuln.pen, UNIT SQ DAILY, EA SLIDING SCALE 11/24/18 Ergocalciferol (Vitamin D2) (VITAMIN D2) 50,000 Unit Capsule, 06008 UNIT PO Q SUN, CAP 11/24/18 Medications Current Medications Pantoprazole (Protonix Tab) 40 mg BID@06,18 PO Last administered on 11/29/18at 05:43; Admin Dose 40 MG; Start 11/25/18 at 06:00 Aspirin (Aspirin) 81 mg DAILY PO Last administered on 11/29/18at 09:13; Admin Dose 81 MG; Start 11/25/18 at 09:00 Levothyroxine Sodium (Synthroid) 175 mcg BEFORE BREAKFAST PO Last administered on 11/29/18at 05:43; Admin Dose 175 MCG; Start 11/25/18 at 07:00 Gabapentin (Neurontin) 100 mg AM PO Last administered on 11/29/18 09:13; Admin Dose 100 MG; Start 11/25/18 at 09:00 Gabapentin (Neurontin) 300 mg HS PO Last administered on 11/28/18 22:28; Admin Dose 300 MG; Start 11/25/18 at 21:00 Diagnostic Test (Pha) (Accu-Chek) 1 ea 02 XX Last administered on 11/28/18 02:08; Admin Dose 1 EA; Start 11/25/18 at 02:00 Insulin Aspart (Novolog Insulin Pen) NOVOLOG *MILD* ALGORITHM WITH MEALS BEDTIME SC Last administered on 11/28/18 17:36; Admin Dose 3 UNIT; Start 11/25/18 at 07:55 Hydralazine HCl (Apresoline) 10 mg Q6H PRN IV ELEVATED BLOOD PRESSURE; Start 11/24/18 at 21:30 Insulin Glargine (Lantus) 15 units DAILY SC Last administered on 11/29/18 09:30; Admin Dose 15 UNITS; Start 11/25/18 at 09:00 Acetaminophen (Tylenol Tab) 650 mg Q6H PRN PO MILD PAIN(1-3)OR ELEVATED TEMP; Start 11/24/18 at 23:30 Benazepril HCl (Lotensin) 10 mg DAILY PO Last administered on 11/29/18 09:12; Admin Dose 10 MG; Start 11/25/18 at 09:00 Docusate Sodium (Colace) 100 mg BID PRN PO CONSTIPATION Last administered on 11/27/18 08:04; Admin Dose 100 MG; Start 11/25/18 at 19:30 Magnesium Hydroxide (Milk Of Mag) 30 ml DAILY PRN PO constipation Last adminis tered on 11/25/18 21:36; Admin Dose 30 ML; Start 11/25/18 at 19:30 Rifaximin (Xifaxan) 550 mg DAILY PO Last administered on 11/29/18 09:12; Admin Dose 550 MG; Start 11/26/18 at 11:30 Diphenhydramine HCl (Benadryl) 25 mg HS PRN PO insomnia; Start 11/26/18 at 19:00 Risperidone (Risperdal) 0.25 mg BID PRN PO agitation; Start 11/26/18 at 19:00 Metformin HCl (Glucophage Xr) 500 mg AC DINNER PO Last administered on 11/28/18at 17:12; Admin Dose 500 MG; Start 11/27/18 at 17:25 Miscellaneous Information 1 ea NOTE XX ; Start 11/27/18 at 11:30 Glucose (Glutose) 15 gm Q15M PRN PO DECREASED GLUCOSE; Start 11/27/18 at 11:30 Glucose (Glutose) 22.5 gm Q15M PRN PO DECREASED GLUCOSE; Start 11/27/18 at 11:30 Dextrose (D50w Syringe) 25 ml Q15M PRN IV DECREASED GLUCOSE; Start 11/27/18 at 11:30 Dextrose (D50w Syringe) 50 ml Q15M PRN IV DECREASED GLUCOSE; Start 11/27/18 at 11:30 Glucagon (Glucagen) 1 mg Q15M PRN IM DECREASED GLUCOSE; Start 11/27/18 at 11:30 Glucose (Glutose) 15 gm Q15M PRN BUCCAL DECREASED GLUCOSE; Start 11/27/18 at 11:30 Eye Lubricant (Artificial Tears Oph) 2 drop QID BOTH EYES Last administered on 11/29/18at 09:11; Admin Dose 2 DROP; Start 11/27/18 at 15:00 Megestrol Acetate (Megace Susp) 400 mg DAILY PO Last administered on 11/29/18at 09:11; Admin Dose 400 MG; Start 11/28/18 at 09:00 Potassium Chloride 10 meq/ Sodium Chloride 1,005 ml @ 60 mls/hr [id number] IV Last administered on 11/29/18at 07:52; Admin Dose 60 MLS/HR; Start 11/28/18 at 14:30 Metoprolol Tartrate (Lopressor) 25 mg BID PO Last administered on 11/28/18at 22:29; Admin Dose 25 MG; Start 11/28/18 at 14:00 Metoprolol Tartrate (Lopressor) 5 mg Q4H PRN IV HR>110 Hold SBP<100; Start 11/28/18 at 14:00 Enoxaparin Sodium (Lovenox) 30 mg DAILY SC Last administered on 11/29/18at 09:29; Admin Dose 30 MG; Start 11/29/18 at 09:00 Assessment/Plan Hospital Course (Demo Recall) 1. Wide complex tachycardia, likely more consistent with aberrant atrial fibrillation at this time - now in sinus, becky with norm,al BP - will monitor and try to keep more awake per family. 2. Intermittent bigeminy and generalized wide complex rhythms, rule out acute coronary syndrome with wide complex rhythms likely consistent with generalized progression of conduction system disease in this 88-year-old male. Flaco monitor to gather more information. 3. Hypertension, labile, at this time and generally under reasonable control. Stable now. 4. Episodes of nausea and vomiting. 5. Gait instability with signs of hygroma, rule out transient ischemic attack. Neurology is following. Treated. 6. Diabetes mellitus, status post pancreatectomy, status post Whipple.Surgical team follows. 7. Hypothyroidism. 8. Pancytopenia with more pronounced leukopenia and thrombocytopenia. RYLEE PITT MD Nov 29, 2018 10:54
--- NOTE | 2018-11-29 12:12 | PN ---
Date/Time of Note Date/Time of Note DATE: 11/29/18 TIME: 12:12 Subjective still sleepy, no appetite, whispers Objective Vitals Vital Signs Date Temp Pulse Resp B/P (MAP) Pulse Ox O2 O2 Flow FiO2 Time Delivery Rate 11/29/18 97.4 65 20 144/63 98 Room Air 11:38 (90) Intake and Output 11/28/18 11/28/18 11/29/18 1515:00 23:00 07:00 IntakeIntake Total 360 ml OutputOutput Total 300 ml BalanceBalance 60 ml in bed, awakable, cta, mouth breather, rr syst m+, no c/c/e Results Result Diagram: 11/28/18 0811/29/18 0552 Medications Medications Current Medications Pantoprazole (Protonix Tab) 40 mg BID@06,18 PO Last administered on 11/29/18at 05:43; Admin Dose 40 MG; Start 11/25/18 at 06:00 Aspirin (Aspirin) 81 mg DAILY PO Last administered on 11/29/18at 09:13; Admin Dose 81 MG; Start 11/25/18 at 09:00 Levothyroxine Sodium (Synthroid) 175 mcg BEFORE BREAKFAST PO Last administered on 11/29/18at 05:43; Admin Dose 175 MCG; Start 11/25/18 at 07:00 Gabapentin (Neurontin) 100 mg AM PO Last administered on 11/29/18at 09:13; Admin Dose 100 MG; Start 11/25/18 at 09:00 Gabapentin (Neurontin) 300 mg HS PO Last administered on 11/28/18at 22:28; Admin Dose 300 MG; Start 11/25/18 at 21:00 Diagnostic Test (Pha) (Accu-Chek) 1 ea 02 XX Last administered on 11/28/18at 02:08; Admin Dose 1 EA; Start 11/25/18 at 02:00 Insulin Aspart (Novolog Insulin Pen) NOVOLOG *MILD* ALGORITHM WITH MEALS BEDTIME SC Last administered on 11/28/18at 17:36; Admin Dose 3 UNIT; Start 11/25/18 at 07:55 Hydralazine HCl (Apresoline) 10 mg Q6H PRN IV ELEVATED BLOOD PRESSURE; Start 11/24/18 at 21:30 Insulin Glargine (Lantus) 15 units DAILY SC Last administered on 11/29/18at 09:30; Admin Dose 15 UNITS; Start 11/25/18 at 09:00 Acetaminophen (Tylenol Tab) 650 mg Q6H PRN PO MILD PAIN(1-3)OR ELEVATED TEMP; Start 11/24/18 at 23:30 Benazepril HCl (Lotensin) 10 mg DAILY PO Last administered on 11/29/18at 09:12; Admin Dose 10 MG; Start 11/25/18 at 09:00 Docusate Sodium (Colace) 100 mg BID PRN PO CONSTIPATION Last administered on 11/27/18at 08:04; Admin Dose 100 MG; Start 11/25/18 at 19:30 Magnesium Hydroxide (Milk Of Mag) 30 ml DAILY PRN PO constipation Last administered on 11/25/18at 21:36; Admin Dose 30 ML; Start 11/25/18 at 19:30 Rifaximin (Xifaxan) 550 mg DAILY PO Last administered on 11/29/18at 09:12; Admin Dose 550 MG; Start 11/26/18 at 11:30 Diphenhydramine HCl (Benadryl) 25 mg HS PRN PO insomnia; Start 11/26/18 at 19:00 Risperidone (Risperdal) 0.25 mg BID PRN PO agitation; Start 11/26/18 at 19:00 Metformin HCl (Glucophage Xr) 500 mg AC DINNER PO Last administered on 11/28/18at 17:12; Admin Dose 500 MG; Start 11/27/18 at 17:25 Miscellaneous Information 1 ea NOTE XX ; Start 11/27/18 at 11:30 Glucose (Glutose) 15 gm Q15M PRN PO DECREASED GLUCOSE; Start 11/27/18 at 11:30 Glucose (Glutose) 22.5 gm Q15M PRN PO DECREASED GLUCOSE; Start 11/27/18 at 11:30 Dextrose (D50w Syringe) 25 ml Q15M PRN IV DECREASED GLUCOSE; Start 11/27/18 at 11:30 Dextrose (D50w Syringe) 50 ml Q15M PRN IV DECREASED GLUCOSE; Start 11/27/18 at 11:30 Glucagon (Glucagen) 1 mg Q15M PRN IM DECREASED GLUCOSE; Start 11/27/18 at 11:30 Glucose (Glutose) 15 gm Q15M PRN BUCCAL DECREASED GLUCOSE; Start 11/27/18 at 11:30 Eye Lubricant (Artificial Tears Oph) 2 drop QID BOTH EYES Last administered on 11/29/18 09:11; Admin Dose 2 DROP; Start 11/27/18 at 15:00 Megestrol Acetate (Megace Susp) 400 mg DAILY PO Last administered on 11/29/18 09:11; Admin Dose 400 MG; Start 11/28/18 at 09:00 Potassium Chloride 10 meq/ Sodium Chloride 1,005 ml @ 60 mls/hr [id number] IV Last administered on 11/29/18at 07:52; Admin Dose 60 MLS/HR; Start 11/28/18 at 14:30 Metoprolol Tartrate (Lopressor) 25 mg BID PO Last administered on 11/28/18 22:29; Admin Dose 25 MG; Start 11/28/18 at 14:00 Metoprolol Tartrate (Lopressor) 5 mg Q4H PRN IV HR>110 Hold SBP<100; Start 11/28/18 at 14:00 Enoxaparin Sodium (Lovenox) 30 mg DAILY SC Last administered on 11/29/18 09:29; Admin Dose 30 MG; Start 11/29/18 at 09:00 VTE Prophylaxis Risk score (from Ns)>0 risk: 9 SCD applied (from Ns): Yes Lines/Catheters IV Catheter Type: Saline Lock Central line still needed: No Smith in Place: No Assessment/Plan Assessment/Plan 1. tia/ cerebellum synd/ shakes/ unstead balance-gait 2. encephalopathy/ ams 3. copd 4. dysrhythemia/ htn/ pvd 5. dm/ neuropathy 6. ckd II/ anemia 7. depression-anxiety ---full PT/ OT exercise ---per neuro ---per pulm ---per cards ---per endo ---must inc po eleanor intake ---let him stay awake more during daytime [place] MD Nov 29, 2018 12:12
--- NOTE | 2018-11-29 16:52 | RADRPT ---
Vent Rate: 61 bpm RR Interval: 980 msec NM Interval: 218 msec QRS Duration: 109 msec QT Interval: 469 msec QTC Interval: 474 msec P-R-T [place]: 22 - 3 - 63 degrees Sinus rhythm...normal P axis, V-rate 50- 99 Borderline prolonged NM interval...NM >212, V-rate 50- 90 Electronically Signed By: Chau London
--- NOTE | 2018-11-29 16:54 | RADRPT ---
Vent Rate: 62 bpm RR Interval: 0 msec VA Interval: 208 msec QRS Duration: 96 msec QT Interval: 446 msec QTC Interval: 452 msec P-R-T [place]: 43 - -9 - 75 degrees Normal sinus rhythm Low voltage QRS Borderline ECG Electronically Signed By: Chau London
[2018-11-29] MEDS: metFORMIN (XR) 500 MG TAB PO SCH (17:12)
--- NOTE | 2018-11-29 17:37 | CONS ---
Assessment/Plan Assessment/Plan Problems: (1) Diabetes mellitus type 2 in nonobese Onset Date: ~ 11/2003 Status: Chronic Comment: At this time with the current regimen in controlled setting we have adequate glycemic control. 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 Requesting Provider: STEVEN MALIK MD- Date/Time of Note DATE: 11/29/18 TIME: 17:35 24 HR Interval Summary Free Text/Dictation Patient complains that he is not feeling well. Detailed Summary Respiratory: no complaints Cardiovascular: no complaints Endocrine: no complaints Psychological: depression Exam/Review of Systems Exam Vitals Vital Signs Date Temp Pulse Resp B/P (MAP) Pulse Ox O2 O2 Flow FiO2 Time Delivery Rate 11/29/18 54 16:41 11/29/18 97.5 20 142/63 99 Room Air 15:22 (89) Intake and Output 11/28/18 11/28/18 11/29/18 1515:00 23:00 07:00 IntakeIntake Total 360 ml OutputOutput Total 300 ml BalanceBalance 60 ml Constitutional: alert, oriented Respiratory: clear to auscultation, normal air movement Cardiovascular: regular rate and rhythm, nl pulses Gastrointestinal: soft, nl liver, spleen, non-tender Results Result Diagram: 11/28/18 0802 11/29/18 0552 Results 24hrs Laboratory Tests Test 11/28/18 17:40 11/28/18 22:26 11/29/18 00:42 11/29/18 05:52 Troponin I < 0.012 0.015 Bedside Glucose 172 Sodium Level 143 Potassium Level 4.3 Chloride Level 112 H Carbon Dioxide Level 22 Anion Gap 9 Blood Urea Nitrogen 34 H Creatinine 1.28 H Est Glomerular Filtrat Rate mL/min Glucose Level 123 Calcium Level 9.3 B-Type Natriuretic 562 H Peptide Test 11/29/18 07:53 11/29/18 11:53 11/29/18 17:13 Bedside Glucose 121 209 136 Medications Medication Current Medications Pantoprazole (Protonix Tab) 40 mg BID@06,18 PO Last administered on 11/29/18at 17:24; Admin Dose 40 MG; Start 11/25/18 at 06:00 Aspirin (Aspirin) 81 mg DAILY PO Last administered on 11/29/18 09:13; Admin Dose 81 MG; Start 11/25/18 at 09:00 Levothyroxine Sodium (Synthroid) 175 mcg BEFORE BREAKFAST PO Last administered on 11/29/18 05:43; Admin Dose 175 MCG; Start 11/25/18 at 07:00 Gabapentin (Neurontin) 100 mg AM PO Last administered on 11/29/18 09:13; Admin Dose 100 MG; Start 11/25/18 at 09:00 Gabapentin (Neurontin) 300 mg HS PO Last administered on 11/28/18 22:28; Admin Dose 300 MG; Start 11/25/18 at 21:00 Diagnostic Test (Pha) (Accu-Chek) 1 ea 02 XX Last administered on 11/28/18 02:08; Admin Dose 1 EA; Start 11/25/18 at 02:00 Insulin Aspart (Novolog Insulin Pen) NOVOLOG *MILD* ALGORITHM WITH MEALS BEDTIME SC Last administered on 11/29/18 11:56; Admin Dose 2 UNIT; Start 11/25/18 at 07:55 Hydralazine HCl (Apresoline) 10 mg Q6H PRN IV ELEVATED BLOOD PRESSURE; Start 11/24/18 at 21:30 Insulin Glargine (Lantus) 15 units DAILY SC Last administered on 11/29/18 09:30; Admin Dose 15 UNITS; Start 11/25/18 at 09:00 Acetaminophen (Tylenol Tab) 650 mg Q6H PRN PO MILD PAIN(1-3)OR ELEVATED TEMP; Start 11/24/18 at 23:30 Benazepril HCl (Lotensin) 10 mg DAILY PO Last administered on 11/29/18 09:12; Admin Dose 10 MG; Start 11/25/18 at 09:00 Docusate Sodium (Colace) 100 mg BID PRN PO CONSTIPATION Last administered on 11/27/18 08:04; Admin Dose 100 MG; Start 11/25/18 at 19:30 Magnesium Hydroxide (Milk Of Mag) 30 ml DAILY PRN PO constipation Last administered on 11/25/18 21:36; Admin Dose 30 ML; Start 11/25/18 at 19:30 Rifaximin (Xifaxan) 550 mg DAILY PO Last administered on 11/29/18at 09:12; Admin Dose 550 MG; Start 11/26/18 at 11:30 Diphenhydramine HCl (Benadryl) 25 mg HS PRN PO insomnia; Start 11/26/18 at 19:00 Risperidone (Risperdal) 0.25 mg BID PRN PO agitation; Start 11/26/18 at 19:00 Metformin HCl (Glucophage Xr) 500 mg AC DINNER PO Last administered on 11/19 07/09at 17:12; Admin Dose 500 MG; Start 11/27/18 at 17:25 Miscellaneous Information 1 ea NOTE XX ; Start 11/27/18 at 11:30 Glucose (Glutose) 15 gm Q15M PRN PO DECREASED GLUCOSE; Start 11/27/18 at 11:30 Glucose (Glutose) 22.5 gm Q15M PRN PO DECREASED GLUCOSE; Start 11/27/18 at 11:30 Dextrose (D50w Syringe) 25 ml Q15M PRN IV DECREASED GLUCOSE; Start 11/27/18 at 11:30 Dextrose (D50w Syringe) 50 ml Q15M PRN IV DECREASED GLUCOSE; Start 11/27/18 at 11:30 Glucagon (Glucagen) 1 mg Q15M PRN IM DECREASED GLUCOSE; Start 11/27/18 at 11:30 Glucose (Glutose) 15 gm Q15M PRN BUCCAL DECREASED GLUCOSE; Start 11/27/18 at 11:30 Eye Lubricant (Artificial Tears Oph) 2 drop QID BOTH EYES Last administered on 11/29/18at 17:12; Admin Dose 2 DROP; Start 11/27/18 at 15:00 Megestrol Acetate (Megace Susp) 400 mg DAILY PO Last administered on 11/29/18at 09:11; Admin Dose 400 MG; Start 11/28/18 at 09:00 Potassium Chloride 10 meq/ Sodium Chloride 1,005 ml @ 60 mls/hr [id number] IV Last administered on 11/29/18at 07:52; Admin Dose 60 MLS/HR; Start 11/28/18 at 14:30 Metoprolol Tartrate (Lopressor) 25 mg BID PO Last administered on 11/28/18at 22:29; Admin Dose 25 MG; Start 11/28/18 at 14:00 Metoprolol Tartrate (Lopressor) 5 mg Q4H PRN IV HR>110 Hold SBP<100; Start 11/28/18 at 14:00 Enoxaparin Sodium (Lovenox) 30 mg DAILY SC Last administered on 11/29/18at 09:29; Admin Dose 30 MG; Start 11/29/18 at 09:00 BEAU CHATTERJEE MD Nov 29, 2018 17:37
[2018-11-29] MEDS: GABAPENTIN 300 MG CAP PO SCH (20:27)
[2018-11-30] VITALS (12 sets, daily range): BP systolic 130–159; BP diastolic 60–67; PULSE 50–83; RESP 17–18
[2018-11-30] MEDS: ACCU-CHEK XX SCH (01:33)
[2018-11-30] MEDS: POTASSIUM CHLORIDE 10 MEQ in SOD CHLORIDE 0.45% 1,000 ML IV SCH ×2 (01:33→16:15)
[2018-11-30] MEDS: LEVOTHYROXINE 175 MCG TAB PO SCH (05:45)
[2018-11-30] MEDS: PANTOPRAZOLE (EC) 40 MG TAB PO SCH ×2 (05:45→17:11)
[2018-11-30] MEDS: INSULIN ASPART [NOVOLOG] 3 ML PEN SC SCH ×4 (07:55→21:44)
[2018-11-30] MEDS: METOPROLOL 25 MG TAB PO SCH ×3 (08:25→21:14)
[2018-11-30] MEDS: RIFAXIMIN 550 MG TAB PO SCH (08:25)
[2018-11-30] MEDS: MEGESTROL (40 MG/ML) 10ML CUP PO SCH (08:25)
[2018-11-30] MEDS: GABAPENTIN 100 MG CAP PO SCH (08:25)
[2018-11-30] MEDS: ASPIRIN 81 MG TAB PO SCH (08:25)
[2018-11-30] MEDS: ARTIFICIAL TEARS 15 ML OPH BOTH EYES SCH ×4 (08:25→21:13)
[2018-11-30] MEDS: BENAZEPRIL 10 MG TAB PO SCH (08:25)
[2018-11-30] MEDS: INSULIN GLARGINE [LANTus] (100 UNITS/ML) SYG SC SCH (08:38)
[2018-11-30] MEDS: ENOXAPARIN 30 MG/0.3 ML SYG SC SCH (08:39)
--- NOTE | 2018-11-30 13:40 | CONS ---
Assessment/Plan Assessment/Plan Hospital Course (Demo Recall) IMPRESSION: 1. 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 NL EF by echo 2. Intermittent bigeminy and generalized wide complex rhythms, rule out acute coronary syndrome with wide complex rhythms likely consistent with generalized progression of conduction system disease in this 88-year-old male.- some recurrent wide complex rhythms but rate in 60's. 3. Hypertension, labile, at this time and generally under reasonable control. 4. Episodes of nausea and vomiting. 5. Gait instability with signs of hygroma, rule out transient ischemic attack. Neurology is following. 6. Diabetes mellitus, status post pancreatectomy, status post Whipple. 7. Hypothyroidism. 8. Pancytopenia with more pronounced leukopenia and thrombocytopenia. 9. Bradycardia to high 40's intermittent and mainly 50's-stable to elevated BP,- no definite indication for PPM at this time Recc: -Tele one more additional day to assure rate stability -Contineu low dose BB and ACEI -check Free T4 to further assess current thyroid state given suppresed TSH -Continue asa -PT Consultation Date/Type/Reason Admit Date/Time Nov 24, 2018 at 13:04 Initial Consult Date 11/26/18 Type of Consult Cardiology Reason for Consultation wide complex tachycardia Requesting Provider: STEVEN MALIK MD- Date/Time of Note DATE: 11/30/18 TIME: 13:31 Exam/Review of Systems Vital Signs Vitals Vital Signs Date Temp Pulse Resp B/P (MAP) Pulse Ox O2 O2 Flow FiO2 Time Delivery Rate 11/30/18 98.9 51 17 130/60 98 11:12 (83) 11/30/18 Room Air 04:05 Intake and Output 11/29/18 11/29/18 11/30/18 1515:00 23:00 07:00 IntakeIntake Total 350 ml 1120 ml 405 ml OutputOutput Total 400 ml 800 ml 700 ml BalanceBalance -50 ml 320 ml -295 ml Exam Exam Review of Systems: CONSTITUTIONAL: No fevers, chills. PULMONARY: No sob CARDIOVASCULAR: No chest pain/palpitations GASTROINTESTINAL: No nausea/vomiting. GENITOURINARY: No hematuria/dysuria. MUSCULOSKELETAL: No myagias/arthalgias. PSYCHIATRIC: The patient denies depression. NEUROLOGIC: No weakness Constitutional: alert Psych: no complaints ENMT: mucosa pink and moist Neck: supple, jvd (9 cm water) Respiratory: clear to auscultation Cardiovascular: other (bradycardic, regular rhythm) Gastrointestinal: soft, non-tender Musculoskeletal: muscle weakness (mild generalized weakness) Extremities: edema (none) Neurological: other (generealized weakness/unstable gait) Labs Result Diagram: 11/28/18 0802 11/29/18 0552 Results 24hrs Laboratory Tests Test 11/29/18 17:13 11/29/18 20:22 11/30/18 01:32 11/30/18 08:23 Bedside Glucose 136 203 90 95 Test 11/30/18 12:01 Bedside Glucose 187 Medications Medications Current Medications Pantoprazole (Protonix Tab) 40 mg BID@06,18 PO Last administered on 11/30/18 05:45; Admin Dose 40 MG; Start 11/25/18 at 06:00 Aspirin (Aspirin) 81 mg DAILY PO Last administered on 11/30/18 08:25; Admin Dose 81 MG; Start 11/25/18 at 09:00 Levothyroxine Sodium (Synthroid) 175 mcg BEFORE BREAKFAST PO Last administered on 11/30/18 05:45; Admin Dose 175 MCG; Start 11/25/18 at 07:00 Gabapentin (Neurontin) 100 mg AM PO Last administered on 11/30/18 08:25; Admin Dose 100 MG; Start 11/25/18 at 09:00 Gabapentin (Neurontin) 300 mg HS PO Last administered on 11/29/18 20:27; Admin Dose 300 MG; Start 11/25/18 at 21:00 Diagnostic Test (Pha) (Accu-Chek) 1 ea 02 XX Last administered on 11/30/18 01:33; Admin Dose 1 EA; Start 11/25/18 at 02:00 Insulin Aspart (Novolog Insulin Pen) NOVOLOG *MILD* ALGORITHM WITH MEALS BEDTIME SC Last administered on 11/30/18 12:08; Admin Dose 2 UNIT; Start 11/25/18 at 07:55 Hydralazine HCl (Apresoline) 10 mg Q6H PRN IV ELEVATED BLOOD PRESSURE; Start 11/24/18 at 21:30 Insulin Glargine (Lantus) 15 units DAILY SC Last administered on 6/12/19at 08:38; Admin Dose 15 UNITS; Start 11/25/18 at 09:00 Acetaminophen (Tylenol Tab) 650 mg Q6H PRN PO MILD PAIN(1-3)OR ELEVATED TEMP; Start 11/24/18 at 23:30 Benazepril HCl (Lotensin) 10 mg DAILY PO Last administered on 11/30/18at 08:25; Admin Dose 10 MG; Start 11/25/18 at 09:00 Docusate Sodium (Colace) 100 mg BID PRN PO CONSTIPATION Last administered on 11/27/18at 08:04; Admin Dose 100 MG; Start 11/25/18 at 19:30 Magnesium Hydroxide (Milk Of Mag) 30 ml DAILY PRN PO constipation Last administered on 11/25/18at 21:36; Admin Dose 30 ML; Start 11/25/18 at 19:30 Rifaximin (Xifaxan) 550 mg DAILY PO Last administered on 11/30/18at 08:25; Admin Dose 550 MG; Start 11/26/18 at 11:30 Diphenhydramine HCl (Benadryl) 25 mg HS PRN PO insomnia; Start 11/26/18 at 19:00 Risperidone (Risperdal) 0.25 mg BID PRN PO agitation; Start 11/26/18 at 19:00 Metformin HCl (Glucophage Xr) 500 mg AC DINNER PO Last administered on 11/29/18at 17:12; Admin Dose 500 MG; Start 11/27/18 at 17:25 Miscellaneous Information 1 ea NOTE XX ; Start 11/27/18 at 11:30 Glucose (Glutose) 15 gm Q15M PRN PO DECREASED GLUCOSE; Start 11/27/18 at 11:30 Glucose (Glutose) 22.5 gm Q15M PRN PO DECREASED GLUCOSE; Start 11/27/18 at 11:30 Dextrose (D50w Syringe) 25 ml Q15M PRN IV DECREASED GLUCOSE; Start 11/27/18 at 11:30 Dextrose (D50w Syringe) 50 ml Q15M PRN IV DECREASED GLUCOSE; Start 11/27/18 at 11:30 Glucagon (Glucagen) 1 mg Q15M PRN IM DECREASED GLUCOSE; Start 11/27/18 at 11:30 Glucose (Glutose) 15 gm Q15M PRN BUCCAL DECREASED GLUCOSE; Start 11/27/18 at 11:30 Eye Lubricant (Artificial Tears Oph) 2 drop QID BOTH EYES Last administered on 11/30/18 12:04; Admin Dose 2 DROP; Start 11/27/18 at 15:00 Megestrol Acetate (Megace Susp) 400 mg DAILY PO Last administered on 11/30/18 08:25; Admin Dose 400 MG; Start 11/28/18 at 09:00 Potassium Chloride 10 meq/ Sodium Chloride 1,005 ml @ 60 mls/hr [id number] IV Last administered on 11/30/18at 01:33; Admin Dose 60 MLS/HR; Start 11/28/18 at 14:30 Metoprolol Tartrate (Lopressor) 25 mg BID PO Last administered on 11/30/18 09:19; Admin Dose 25 MG; Start 11/28/18 at 14:00 Metoprolol Tartrate (Lopressor) 5 mg Q4H PRN IV HR>110 Hold SBP<100; Start 11/28/18 at 14:00 Enoxaparin Sodium (Lovenox) 30 mg DAILY SC Last administered on 11/30/18at 08:39 ; Admin Dose 30 MG; Start 11/29/18 at 09:00 [place] Nov 30, 2018 13:40
--- NOTE | 2018-11-30 16:47 | CONS ---
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 No new complaints Exam/Review of Systems Exam Vitals Vital Signs Date Temp Pulse Resp B/P (MAP) Pulse Ox O2 O2 Flow FiO2 Time Delivery Rate 11/30/18 52 16:07 11/30/18 98.2 17 134/62 99 15:13 (86) 11/30/18 Room Air 04:05 Intake and Output 11/29/18 11/29/18 11/30/18 1515:00 23:00 07:00 IntakeIntake Total 350 ml 1120 ml 405 ml OutputOutput Total 400 ml 800 ml 700 ml BalanceBalance -50 ml 320 ml -295 ml Exam Slightly more alert and vibrant today Respiratory: clear to auscultation, normal air movement Cardiovascular: regular rate and rhythm, nl pulses Gastrointestinal: soft, nl liver, spleen, non-tender Results Result Diagram: 11/28/18 0802 11/29/18 0552 Results 24hrs Laboratory Tests Test 11/29/18 17:13 11/29/18 20:22 11/30/18 01:32 11/30/18 08:23 Bedside Glucose 136 203 90 95 Test 11/30/18 12:01 11/30/18 14:59 Bedside Glucose 187 Free Thyroxine 2.08 H Medications Medication Current Medications Pantoprazole (Protonix Tab) 40 mg BID@06,18 PO Last administered on 11/30/18at 05:45; Admin Dose 40 MG; Start 11/25/18 at 06:00 Aspirin (Aspirin) 81 mg DAILY PO Last administered on 11/30/18at 08:25; Admin Dose 81 MG; Start 11/25/18 at 09:00 Levothyroxine Sodium (Synthroid) 175 mcg BEFORE BREAKFAST PO Last administered on 11/30/18 05:45; Admin Dose 175 MCG; Start 11/25/18 at 07:00 Gabapentin (Neurontin) 100 mg AM PO Last administered on 11/30/18 08:25; Admin Dose 100 MG; Start 11/25/18 at 09:00 Gabapentin (Neurontin) 300 mg HS PO Last administered on 11/29/18 20:27; Admin Dose 300 MG; Start 11/25/18 at 21:00 Diagnostic Test (Pha) (Accu-Chek) 1 ea 02 XX Last administered on 11/30/18 01:33; Admin Dose 1 EA; Start 11/25/18 at 02:00 Insulin Aspart (Novolog Insulin Pen) NOVOLOG *MILD* ALGORITHM WITH MEALS BEDTIME SC Last administered on 11/30/18 12:08; Admin Dose 2 UNIT; Start 11/25/18 at 07:55 Hydralazine HCl (Apresoline) 10 mg Q6H PRN IV ELEVATED BLOOD PRESSURE; Start 11/24/18 at 21:30 Insulin Glargine (Lantus) 15 units DAILY SC Last administered on 11/30/18 08:38; Admin Dose 15 UNITS; Start 11/25/18 at 09:00 Acetaminophen (Tylenol Tab) 650 mg Q6H PRN PO MILD PAIN(1-3)OR ELEVATED TEMP; Start 11/24/18 at 23:30 Benazepril HCl (Lotensin) 10 mg DAILY PO Last administered on 11/30/18 08:25; Admin Dose 10 MG; Start 11/25/18 at 09:00 Docusate Sodium (Colace) 100 mg BID PRN PO CONSTIPATION Last administered on 11/27/18 08:04; Admin Dose 100 MG; Start 11/25/18 at 19:30 Magnesium Hydroxide (Milk Of Mag) 30 ml DAILY PRN PO constipation Last administered on 11/25/18 21:36; Admin Dose 30 ML; Start 11/25/18 at 19:30 Rifaximin (Xifaxan) 550 mg DAILY PO Last administered on 11/30/18 08:25; Admin Dose 550 MG; Start 11/26/18 at 11:30 Diphenhydramine HCl (Benadryl) 25 mg HS PRN PO insomnia; Start 11/26/18 at 19:00 Risperidone (Risperdal) 0.25 mg BID PRN PO agitation; Start 11/26/18 at 19:00 Metformin HCl (Glucophage Xr) 500 mg AC DINNER PO Last administered on 11/29/18at 17:12; Admin Dose 500 MG; Start 11/27/18 at 17:25 Miscellaneous Information 1 ea NOTE XX ; Start 11/27/18 at 11:30 Glucose (Glutose) 15 gm Q15M PRN PO DECREASED GLUCOSE; Start 11/27/18 at 11:30 Glucose (Glutose) 22.5 gm Q15M PRN PO DECREASED GLUCOSE; Start 11/27/18 at 11:30 Dextrose (D50w Syringe) 25 ml Q15M PRN IV DECREASED GLUCOSE; Start 11/27/18 at 11:30 Dextrose (D50w Syringe) 50 ml Q15M PRN IV DECREASED GLUCOSE; Start 11/27/18 at 11:30 Glucagon (Glucagen) 1 mg Q15M PRN IM DECREASED GLUCOSE; Start 11/27/18 at 11:30 Glucose (Glutose) 15 gm Q15M PRN BUCCAL DECREASED GLUCOSE; Start 11/27/18 at 11:30 Eye Lubricant (Artificial Tears Oph) 2 drop QID BOTH EYES Last administered on 11/30/18at 16:15; Admin Dose 2 DROP; Start 11/27/18 at 15:00 Megestrol Acetate (Megace Susp) 400 mg DAILY PO Last administered on 11/30/18at 08:25; Admin Dose 400 MG; Start 11/28/18 at 09:00 Potassium Chloride 10 meq/ Sodium Chloride 1,005 ml @ 60 mls/hr [id number] IV Last administered on 11/30/18at 16:15; Admin Dose 60 MLS/HR; Start 11/28/18 at 14:30 Metoprolol Tartrate (Lopressor) 25 mg BID PO Last administered on 11/30/18at 09:19; Admin Dose 25 MG; Start 11/28/18 at 14:00 Metoprolol Tartrate (Lopressor) 5 mg Q4H PRN IV HR>110 Hold SBP<100; Start 11/28/18 at 14:00 Enoxaparin Sodium (Lovenox) 30 mg DAILY SC Last administered on 11/30/18at 08:39; Admin Dose 30 MG; Start 11/29/18 at 09:00 BEAU CHATTERJEE MD Nov 30, 2018 16:47
[2018-11-30] MEDS: metFORMIN (XR) 500 MG TAB PO SCH (17:11)
--- NOTE | 2018-11-30 19:17 | PN ---
Date/Time of Note Date/Time of Note DATE: 11/30/18 TIME: 13:10 Subjective more awake, more coherent speech Objective Vitals Vital Signs Date Temp Pulse Resp B/P (MAP) Pulse Ox O2 O2 Flow FiO2 Time Delivery Rate 11/30/18 52 16:07 11/30/18 98.2 17 134/62 99 15:13 (86) 11/30/18 Room Air 04:05 Intake and Output 11/29/18 11/29/18 11/30/18 1515:00 23:00 07:00 IntakeIntake Total 350 ml 1120 ml 405 ml OutputOutput Total 400 ml 800 ml 700 ml BalanceBalance -50 ml 320 ml -295 ml in bed, ate more, exercised outside bed more with PT, rr syst m+, cta, no c/c/e Results Result Diagram: 11/28/18 0802 11/29/18 0552 Medications Medications Current Medications Pantoprazole (Protonix Tab) 40 mg BID@06,18 PO Last administered on 11/30/18at 17:11; Admin Dose 40 MG; Start 11/25/18 at 06:00 Aspirin (Aspirin) 81 mg DAILY PO Last administered on 11/30/18 08:25; Admin Dose 81 MG; Start 11/25/18 at 09:00 Gabapentin (Neurontin) 100 mg AM PO Last administered on 11/30/18 08:25; Admin Dose 100 MG; Start 11/25/18 at 09:00 Gabapentin (Neurontin) 300 mg HS PO Last administered on 11/29/18 20:27; Admin Dose 300 MG; Start 11/25/18 at 21:00 Diagnostic Test (Pha) (Accu-Chek) 1 ea 02 XX Last administered on 11/30/18at 01:33; Admin Dose 1 EA; Start 11/25/18 at 02:00 Insulin Aspart (Novolog Insulin Pen) NOVOLOG *MILD* ALGORITHM WITH MEALS BEDTIME SC Last administered on 11/30/18 12:08; Admin Dose 2 UNIT; Start 11/25/18 at 07:55 Hydralazine HCl (Apresoline) 10 mg Q6H PRN IV ELEVATED BLOOD PRESSURE; Start 11/24/18 at 21:30 Insulin Glargine (Lantus) 15 units DAILY SC Last administered on 11/30/18at 08:38; Admin Dose 15 UNITS; Start 11/25/18 at 09:00 Acetaminophen (Tylenol Tab) 650 mg Q6H PRN PO MILD PAIN(1-3)OR ELEVATED TEMP; Start 11/24/18 at 23:30 Benazepril HCl (Lotensin) 10 mg DAILY PO Last administered on 11/30/18at 08:25; Admin Dose 10 MG; Start 11/25/18 at 09:00 Docusate Sodium (Colace) 100 mg BID PRN PO CONSTIPATION Last administered on 11/27/18at 08:04; Admin Dose 100 MG; Start 11/25/18 at 19:30 Magnesium Hydroxide (Milk Of Mag) 30 ml DAILY PRN PO constipation Last a dministered on 11/25/18at 21:36; Admin Dose 30 ML; Start 11/25/18 at 19:30 Rifaximin (Xifaxan) 550 mg DAILY PO Last administered on 11/30/18at 08:25; Admin Dose 550 MG; Start 11/26/18 at 11:30 Diphenhydramine HCl (Benadryl) 25 mg HS PRN PO insomnia; Start 11/26/18 at 19:00 Risperidone (Risperdal) 0.25 mg BID PRN PO agitation; Start 11/26/18 at 19:00 Metformin HCl (Glucophage Xr) 500 mg AC DINNER PO Last administered on 11/30/18at 17:11; Admin Dose 500 MG; Start 11/27/18 at 17:25 Miscellaneous Information 1 ea NOTE XX ; Start 11/27/18 at 11:30 Glucose (Glutose) 15 gm Q15M PRN PO DECREASED GLUCOSE; Start 11/27/18 at 11:30 Glucose (Glutose) 22.5 gm Q15M PRN PO DECREASED GLUCOSE; Start 11/27/18 at 11:30 Dextrose (D50w Syringe) 25 ml Q15M PRN IV DECREASED GLUCOSE; Start 11/27/18 at 11:30 Dextrose (D50w Syringe) 50 ml Q15M PRN IV DECREASED GLUCOSE; Start 11/27/18 at 11:30 Glucagon (Glucagen) 1 mg Q15M PRN IM DECREASED GLUCOSE; Start 11/27/18 at 11:30 Glucose (Glutose) 15 gm Q15M PRN BUCCAL DECREASED GLUCOSE; Start 11/27/18 at 11:30 Eye Lubricant (Artificial Tears Oph) 2 drop QID BOTH EYES Last administered on 11/30/18 16:15; Admin Dose 2 DROP; Start 11/27/18 at 15:00 Megestrol Acetate (Megace Susp) 400 mg DAILY PO Last administered on 11/30/18 08:25; Admin Dose 400 MG; Start 11/28/18 at 09:00 Potassium Chloride 10 meq/ Sodium Chloride 1,005 ml @ 60 mls/hr [id number] IV Last administered on 11/30/18at 16:15; Admin Dose 60 MLS/HR; Start 11/28/18 at 14:30 Metoprolol Tartrate (Lopressor) 25 mg BID PO Last administered on 11/30/18 09:19; Admin Dose 25 MG; Start 11/28/18 at 14:00 Metoprolol Tartrate (Lopressor) 5 mg Q4H PRN IV HR>110 Hold SBP<100; Start 11/28/18 at 14:00 Enoxaparin Sodium (Lovenox) 30 mg DAILY SC Last administered on 11/30/18at 08:39; Admin Dose 30 MG; Start 11/29/18 at 09:00 Levothyroxine Sodium (Synthroid) 150 mcg BEFORE BREAKFAST PO ; Start 12/01/18 at 07:00 VTE Prophylaxis Risk score (from Nsg)>0 risk: 9 SCD applied (from Nsg): Yes Pharmacological prophylaxis: other (plavix) Lines/Catheters IV Catheter Type: Saline Lock Central line still needed: No Smith in Place: No Assessment/Plan Assessment/Plan 1. cerebellum synd/ tia/ shaking 2. cardiac dysrrythemia/ htn 3. encephalopathy/ ams 4. dm/ neuropathy 5. depression-anxiety 6. hard hearing 7. low t4 8. ckd II/ anemia ---per neuro ---per cards ---per PT/ OT, do full exercises ---per endo ---cont all supportive cares ---awaits acute rehab transfer V[place] CA MD Nov 30, 2018 19:17
[2018-11-30] MEDS ORDERED: MEGE400O4 PO (19:40)
[2018-11-30] MEDS ORDERED: BENA10TA4 PO (19:40)
[2018-11-30] MEDS ORDERED: GLUC1VIA6 IM (19:40)
[2018-11-30] MEDS ORDERED: DEXT37.54 PO (19:40)
[2018-11-30] MEDS ORDERED: DOCU-144 PO (19:40)
[2018-11-30] MEDS ORDERED: METO-448 PO (19:40)
[2018-11-30] MEDS ORDERED: GABA100C14 PO (19:40)
[2018-11-30] MEDS ORDERED: BEN25 PO (19:40)
[2018-11-30] MEDS ORDERED: ACET325T33 PO (19:40)
[2018-11-30] MEDS ORDERED: METF500T3 PO (19:40)
[2018-11-30] MEDS ORDERED: DEXT50DI2 IV (19:40)
[2018-11-30] MEDS ORDERED: Nursing Note XX (19:40)
[2018-11-30] MEDS ORDERED: UDMOM PO (19:40)
[2018-11-30] MEDS ORDERED: DEXT37.54 BUCCAL (19:40)
[2018-11-30] MEDS ORDERED: RISP0.2553 PO (19:40)
[2018-11-30] MEDS ORDERED: NOVO3I SC (19:40)
[2018-11-30] MEDS ORDERED: Insulin Glargine SC (19:40)
[2018-11-30] MEDS ORDERED: ENOX30DI2 SC (19:40)
[2018-11-30] MEDS ORDERED: Accu-Chek XX (19:40)
[2018-11-30] MEDS ORDERED: GABA300C16 PO (19:40)
[2018-11-30] MEDS ORDERED: LEVO150T7 PO (19:40)
[2018-11-30] MEDS ORDERED: POLY15DR11 BOTH EYES (19:40)
--- NOTE | 2018-11-30 19:58 | DS ---
Date/Time of Note Date/Time of Note DATE: 11/30/18 TIME: 19:42 Discharge Summary Admission/Discharge Info Admit Date/Time Nov 24, 2018 at 13:04 Discharge Date/Time 12/01/2018 Discharge Diagnosis 1. tia/ cerebellum synd 2. encephalopathy/ ams 3. dysrrhythemia/ htn 4. copd 5. dm/ neuropathy 6. low t4 7. ckd II/ anemia 8. depression-anxiety 9. hard hearing Patient Condition: Fair Consults PT, OT, ST, Neurology, Cardiology, Endocrinology, Acute Rehab Procedures brain ct & mri, carotid doppler, 2d echo, ekg, indu, blood/ urine tests Hx of Present Illness no f/c/v/cp/sob/dysuria/bm change, yes feeling n/ anorexia. for a few days; low bp, more balance/ gait unsteady, more feeling shaky doing anything, more sleepy. but while in [facility] er, very high bp, very high gluc. brain mri showing cerebellar impinging & chr multi ischemic changes. Hospital Course 1. neuro started anticoag & sz prevention meds, pt showed more ams, sz & benzo were stopped. 2. cards needed to add heart rate controlling meds, pt responded well, his rate & bp controlled better. 3. endo changed meds to control high gluc & high t4, pt responded well. 4. ST swallow eval recommended thicked liquid & soft diet. 5. PT/ OT slowly increased oob exercises for strengthening & pt cooperated & tolerated well. 6. afebrile, vss so far without any further cardiovasc incidents. Home Meds Active Scripts Acetaminophen* (Tylenol*) 325 Mg Tablet, 650 MG PO Q6H PRN for MILD PAIN(1-3)OR ELEVATED TEMP for 14 Days, TAB Prov:SADA MORRIS MD 11/30/18 [Nursing Note] 1 EA EA No Conflict Check, 1 EA XX NOTE Prov:SADA MORRIS MD 11/30/18 Megestrol Acetate (Megestrol Acetate) 400 Mg/10 Ml Oral.susp, 400 MG PO DAILY for 14 Days Prov:SADA MORRIS MD 11/30/18 Metformin* (Glucophage* XR) 500 Mg Tab.sr.24h, 500 MG PO AC DINNER for 14 Days Prov:SADA MORRIS MD 11/30/18 Levothyroxine Sodium* (Levothyroxine Sodium*) 150 Mcg Tablet, 150 MCG PO BEFORE BREAKFAST for 14 Days, TAB Prov:SADA MORRIS MD 11/30/18 [Insulin Glargine] 100 UNITS/ML SOLN No Conflict Check, 15 UNITS SC DAILY Prov:SADA MORRIS MD 11/30/18 Insulin Aspart* (Novolog Insulin Pen*) 100 Unit/Ml Soln, 0 UNIT SC WITH MEALS BEDTIME for 14 Days Prov:SADA MORRIS MD 11/30/18 Glucagon HCl (Glucagon HCl) 1 Mg Vial, 1 MG IM Q15M PRN for DECREASED GLUCOSE for 14 Days, VIAL Prov:SADA MORRIS MD 11/30/18 Magnesium Hydroxide* (Fox' MOM*) 30 Ml Susp, 30 ML PO DAILY PRN for con stipation for 14 Days Prov:SADA MORRIS MD 11/30/18 Docusate Sodium* (Colace*) 100 Mg Capsule, 100 MG PO BID PRN for CONSTIPATION for 14 Days, CAP Prov:SADA MORRIS MD 11/30/18 Polyvinyl Alcohol* (Akwa Tears*) 1.4% - 15 Ml Drops, 2 DROP BOTH EYES QID for 14 Days, BOTTLE Prov:SADA MORRIS MD 11/30/18 Dextrose* (D50W Syringe*) 50 Ml Soln, 50 ML IV Q15M PRN for DECREASED GLUCOSE for 14 Days Prov:SADA MORRIS MD 11/30/18 Dextrose* (D50W Syringe*) 50 Ml Soln, 25 ML IV Q15M PRN for DECREASED GLUCOSE for 14 Days Prov:SADA MORRIS MD 11/30/18 Dextrose (Glutose 15) 37.5 Gm Gel..gm., 15 GM BUCCAL Q15M PRN for DECREASED GLUCOSE for 14 Days Prov:SADA MORRIS MD 11/30/18 Dextrose (Glutose 15) 37.5 Gm Gel..gm., 22.5 GM PO Q15M PRN for DECREASED GLUCOSE for 14 Days Prov:SADA MORRIS MD 11/30/18 Dextrose (Glutose 15) 37.5 Gm Gel..gm., 15 GM PO Q15M PRN for DECREASED GLUCOSE for 14 Days Prov:SADA MORRIS MD 11/30/18 [Accu-Chek] 1 EA EA No Conflict Check, 1 EA XX 02 Prov:SDAA MORRIS MD 11/30/18 Risperidone* (Risperdal*) 0.25 Mg Tablet, 0.25 MG PO BID PRN for agitation for 14 Days, TAB Prov:SADA MORRIS MD 11/30/18 Gabapentin* (Gabapentin*) 100 Mg Capsule, 100 MG PO AM for 14 Days, CAP Prov:SADA MORRIS MD 11/30/18 Gabapentin* (Gabapentin*) 300 Mg Capsule, 300 MG PO HS for 14 Days, CAP Prov:SADA MORRIS MD 11/30/18 Metoprolol Tartrate* (Lopressor*) 25 Mg Tab, 25 MG PO BID for 14 Days, TAB Prov:SADA MORRIS MD 11/30/18 Benazepril Hcl* (Benazepril Hcl*) 10 Mg Tablet, 10 MG PO DAILY for 14 Days, TAB Prov:SADA MORRIS MD 11/30/18 Diphenhydramine Hcl* (Benadryl*) 25 Mg Cap, 25 MG PO HS PRN for insomnia for 15 Days, CAP Prov:SADA MORRIS MD 11/30/18 Enoxaparin Sodium* (Enoxaparin Sodium*) 30 Mg/0.3 Ml Syringe, 30 MG SC DAILY for 15 Days Prov:SADA MORRIS MD 11/30/18 Reported Medications Rifaximin* (Xifaxan*) 550 Mg Tablet, 550 MG PO DAILY, TAB 11/26/18 Omeprazole* (Omeprazole*) 40 Mg Capsule., 40 MG PO DAILY, #30 CAP 11/24/18 Ergocalciferol (Vitamin D2) (VITAMIN D2) 50,000 Unit Capsule, 77187 UNIT PO Q SUN, CAP 11/24/18 Discontinued Reported Medications Lxubnj-Bnhgoodk-Vguvsdq* (Ho TURNER* 36,000) 36,000 L-114,000-180,000 Unit Capsul e., 1 CAP PO WITH MEALS, CAP 11/24/18 Levothyroxine Sodium* (Levothyroxine Sodium*) 175 Mcg Tablet, 175 MCG PO BEFORE BREAKFAST, #30 TAB 11/24/18 Glipizide* (Glipizide*) 5 Mg Tablet, 5 MG PO AC BREAKFAST DINNER, TAB 11/24/18 Gabapentin* (Gabapentin*) 300 Mg Capsule, 300 MG PO BID, #60 CAP TAKE 1 CAP-QAM AND 3 CAP-QHS 11/24/18 Insulin Detemir (Levemir Flextouch) 100 Unit/1 Ml Insuln.pen, UNIT SQ DAILY, EA SLIDING SCALE 11/24/18 Follow-up Plan pt will go to acute rehab, E MD Arturo will follow, ada [id number] eleanor thickened diet, do full PT/ OT strengthening exercises, Primary Care Provider Sada Morris MD Time spent on discharge: > 30 minutes Pending Labs Laboratory Tests Test 11/29/18 20:22 11/30/18 01:32 11/30/18 08:23 11/30/18 12:01 Bedside 203 90 95 187 Glucose mg/dL (70-220) mg/dL (70-220) mg/dL (70-220) mg/dL (70-220) Test 11/30/18 14:59 11/30/18 17:10 Free Thyroxine 2.08 ng/dl (0.85-1.9 3) Bedside 136 Glucose mg/dL (70-220) SADA MORRIS MD Nov 30, 2018 19:52
[2018-11-30] MEDS: GABAPENTIN 300 MG CAP PO SCH (21:13)
[2018-12-01] VITALS (10 sets, daily range): BP systolic 130–145; BP diastolic 60–67; PULSE 44–73; RESP 16–19
[2018-12-01] MEDS: POTASSIUM CHLORIDE 10 MEQ in SOD CHLORIDE 0.45% 1,000 ML IV SCH (00:18)
[2018-12-01] MEDS: ACCU-CHEK XX SCH (02:00)
[2018-12-01] MEDS: PANTOPRAZOLE (EC) 40 MG TAB PO SCH (06:10)
[2018-12-01] MEDS ORDERED: LEVOTHYROXINE 150 MCG TAB PO SCH (07:00)
[2018-12-01] MEDS: INSULIN ASPART [NOVOLOG] 3 ML PEN SC SCH ×2 (07:55→11:28)
[2018-12-01] MEDS: INSULIN GLARGINE [LANTus] (100 UNITS/ML) SYG SC SCH (08:05)
[2018-12-01] MEDS: GABAPENTIN 100 MG CAP PO SCH (09:19)
[2018-12-01] MEDS: MEGESTROL (40 MG/ML) 10ML CUP PO SCH (09:19)
[2018-12-01] MEDS: ARTIFICIAL TEARS 15 ML OPH BOTH EYES SCH ×2 (09:19→13:47)
[2018-12-01] MEDS: ASPIRIN 81 MG TAB PO SCH (09:20)
[2018-12-01] MEDS: RIFAXIMIN 550 MG TAB PO SCH (09:20)
[2018-12-01] MEDS: BENAZEPRIL 10 MG TAB PO SCH (09:20)
[2018-12-01] MEDS: METOPROLOL 25 MG TAB PO SCH (09:21)
[2018-12-01] MEDS: ENOXAPARIN 30 MG/0.3 ML SYG SC SCH (09:26)
[2018-12-01] MEDS ORDERED: CREON (24K-76K-120K) 1 CAP PO SCH (11:50)
== END 2018-12-01 17:23 | disposition short-term general hospital (02) | DRG 69 ==
LOC: E/R 11:47 → TEL 13:04
PROVIDERS: ADMIT Internal Medicine; ATTEND Internal Medicine
DX: G45.9 Transient cerebral ischemic attack, unspecified (principal); Z68.1 Body mass index [BMI] 19.9 or less, adult; D61.818 Other pancytopenia; G93.40 Encephalopathy, unspecified; I47.2 Ventricular tachycardia; E89.1 Postprocedural hypoinsulinemia; D18.1 Lymphangioma, any site; F32.9 Major depressive disorder, single episode, unspecified; F41.9 Anxiety disorder, unspecified; J44.9 Chronic obstructive pulmonary disease, unspecified; E86.0 Dehydration; I67.82 Cerebral ischemia; I12.9 Hypertensive chronic kidney disease with stage 1 through stage 4 chronic kidney disease, or unspecified chronic kidney disease; N18.2 Chronic kidney disease, stage 2 (mild); E78.00 Pure hypercholesterolemia, unspecified; D64.9 Anemia, unspecified; R00.1 Bradycardia, unspecified; I48.91 Unspecified atrial fibrillation; R63.4 Abnormal weight loss; E03.9 Hypothyroidism, unspecified; K21.9 Gastro-esophageal reflux disease without esophagitis; E13.42 Other specified diabetes mellitus with diabetic polyneuropathy; E13.22 Other specified diabetes mellitus with diabetic chronic kidney disease; Z88.2 Allergy status to sulfonamides; Z85.048 Personal history of other malignant neoplasm of rectum, rectosigmoid junction, and anus; Z85.51 Personal history of malignant neoplasm of bladder; Z90.411 Acquired partial absence of pancreas; Z79.4 Long term (current) use of insulin; Z79.82 Long term (current) use of aspirin; Z87.891 Personal history of nicotine dependence
CPT/HCPCS: 36415; 70450; 70551; 71045; 80048; 80061; 80307; 81001; 81003; 82140; 82310; 82550; 82553; 82607; 82962; 83036; 83735; 83880; 84100; 84439; 84443; 84484; 85025; 85610; 85730; 86765; 92523; 92526; 92610; 93005; 93306; 93880; 95819; 97110; 97116; 97162; 97165; 97168; 97530; J0360; J1071; J1650; J1815; J3420; J3480; J7030; J7040

== ENCOUNTER 2018-12-01 12:11 | Inpatient (IN) | payer MEDICARE, OTHER ==
[~2018-12-01] VITALS: Ht 177.8 cm; Wt 65.5 kg
[~2018-12-01 12:11] MED LIST: ACET325T33 PO; Accu-Chek XX; BEN25 PO; BENA10TA4 PO; DEXT37.54 BUCCAL; DEXT37.54 PO; DEXT50DI2 IV; DOCU-144 PO; ENOX30DI2 SC; ERGO500013 PO; GABA100C14 PO; GABA300C16 PO; GLUC1VIA6 IM; Insulin Glargine SC; LEVO150T7 PO; MEGE400O4 PO; METF500T3 PO; METO-448 PO; NOVO3I SC; Nursing Note XX; OMEP40CA6 PO; POLY15DR11 BOTH EYES; RIFA550T4 PO; RISP0.2553 PO; UDMOM PO
[2018-12-01 17:45] VITALS: BP 135/68; PULSE 88; RESP 18
[2018-12-01] MEDS ORDERED: LACTULOSE 30ML CUP PO PRN (19:00)
[2018-12-01] MEDS ORDERED: BISACODYL 10 MG SUPP PR PRN (19:00)
[2018-12-01 19:46] VITALS: BP 152/72; PULSE 68; RESP 18
[2018-12-01] MEDS ORDERED: metFORMIN (XR) 500 MG TAB PO SCH (20:14)
[2018-12-01] MEDS ORDERED: METOPROLOL 5 MG INJ IV PRN (20:14)
[2018-12-01] MEDS ORDERED: RISPERIDONE 0.25 MG TAB PO PRN (20:14)
[2018-12-01] MEDS ORDERED: GLUCAGON 1 MG INJ IM PRN (20:14)
[2018-12-01] MEDS ORDERED: BENAZEPRIL 10 MG TAB PO SCH (20:14)
[2018-12-01] MEDS ORDERED: GABAPENTIN 300 MG CAP PO SCH (20:14)
[2018-12-01] MEDS ORDERED: RIFAXIMIN 550 MG TAB PO SCH (20:14)
[2018-12-01] MEDS ORDERED: DIPHENHYDRAMINE 25 MG CAP PO PRN (20:14)
[2018-12-01] MEDS ORDERED: ACETAMINOPHEN 325 MG TAB PO PRN (20:14)
[2018-12-01] MEDS ORDERED: ENOXAPARIN 30 MG/0.3 ML SYG SC SCH (20:14)
[2018-12-01] MEDS ORDERED: INSULIN GLARGINE [LANTus] (100 UNITS/ML) SYG SC SCH (20:14)
[2018-12-01] MEDS ORDERED: MEGESTROL (40 MG/ML) 10ML CUP PO SCH (20:14)
[2018-12-01] MEDS ORDERED: ASPIRIN 81 MG TAB PO SCH (20:14)
[2018-12-01] MEDS ORDERED: GABAPENTIN 100 MG CAP PO SCH (20:14)
[2018-12-01] MEDS ORDERED: GLUCOSE GEL 15 GRAM TUBE BUCCAL PRN (20:14)
[2018-12-01] MEDS ORDERED: CREON (24K-76K-120K) 1 CAP PO SCH (20:14)
[2018-12-01] MEDS ORDERED: hydrALAzine 20 MG INJ IV PRN (20:14)
[2018-12-01] MEDS ORDERED: MAGNESIUM HYDROXIDE 30ML CUP PO PRN (20:14)
[2018-12-01] MEDS ORDERED: GLUCOSE GEL 15 GRAM TUBE PO PRN ×2 (20:14)
[2018-12-01] MEDS ORDERED: DEXTROSE 50% 50 ML SYRINGE IV PRN ×2 (20:14)
[2018-12-01] MEDS ORDERED: DOCUSATE SODIUM 100 MG CAP PO PRN (20:14)
--- NOTE | 2018-12-01 20:16 | CONS ---
Assessment/Plan Assessment/Plan Hospital Course (Demo Recall) IMPRESSION: 1. 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 NL EF by echo 2. Intermittent bigeminy and generalized wide complex rhythms, rule out acute coronary syndrome with wide complex rhythms likely consistent with generalized progression of conduction system disease in this 88-year-old male.- some recurrent wide complex rhythms but rate in 60's. 3. Hypertension, labile, at this time and generally under reasonable control. 4. Episodes of nausea and vomiting. 5. Gait instability with signs of hygroma, rule out transient ischemic attack. Neurology is following. 6. Diabetes mellitus, status post pancreatectomy, status post Whipple. 7. Hypothyroidism. 8. Pancytopenia with more pronounced leukopenia and thrombocytopenia. 9. Bradycardia to high 40's intermittent and mainly 50's-stable to elevated BP,- no definite indication for PPM at this time Recc: -Now transferred to rehab -Resume low dose BB on rehab and continue ACEI -Continue asa -PT Consultation Date/Type/Reason Admit Date/Time Dec 01, 2018 at 17:38 Initial Consult Date 11/30/18 Type of Consult Cardiology Reason for Consultation wide complex tachy Requesting Provider: VIRGINIA CA MD Date/Time of Note DATE: 12/01/18 TIME: 20:11 Exam/Review of Systems Vital Signs Vitals Vital Signs Date Temp Pulse Resp B/P (MAP) Pulse Ox O2 O2 Flow FiO2 Time Delivery Rate 12/01/18 98.0 68 18 152/72 94 Room Air 19:46 (98) Exam Exam Review of Systems: CONSTITUTIONAL: No fevers, chills. PULMONARY: No sob CARDIOVASCULAR: No chest pain/palpitations GASTROINTESTINAL: No nausea/vomiting. GENITOURINARY: No hematuria/dysuria. MUSCULOSKELETAL: No myagias/arthalgias. PSYCHIATRIC: The patient denies depression. NEUROLOGIC: generalized weakness Constitutional: alert Psych: no complaints Head: normocephalic ENMT: mucosa pink and moist Neck: supple, jvd Respiratory: clear to auscultation Cardiovascular: regular rate and rhythm Gastrointestinal: soft, non-tender Musculoskeletal: muscle tone (normal) Extremities: edema (none) Neurological: other (No focal deficits) Labs Results 24hrs Laboratory Tests Test 12/01/18 18:06 Bedside Glucose 137 Medications Medications Current Medications Docusate Sodium (Colace) 100 mg BID PO ; Start 12/01/18 at 21:00 Senna (Senokot) 1 tab HS PO ; Start 12/01/18 at 21:00 Lactulose (Enulose) 20 gm DAILY PRN PO CONSTIPATION; Start 12/01/18 at 19:00 Bisacodyl (Dulcolax Supp) 10 mg DAILY PRN [place] CONSTIPATION; Start 12/01/18 at 19:00 [place] Dec 01, 2018 20:16
[2018-12-01] MEDS ORDERED: DOCUSATE SODIUM 100 MG CAP PO SCH (21:00)
[2018-12-01 22:00] VITALS: Ht 177.8 cm; Wt 65.5 kg
[2018-12-01] MEDS: METOPROLOL 25 MG TAB PO SCH (22:15)
[2018-12-01] MEDS: ARTIFICIAL TEARS 15 ML OPH BOTH EYES SCH (22:15)
[2018-12-01] MEDS: SENNA TAB PO SCH (22:15)
[2018-12-01] MEDS: INSULIN ASPART [NOVOLOG] 3 ML PEN SC SCH (22:31)
--- NOTE | 2018-12-02 00:40 | CONS ---
Consult Date/Type/Reason Admit Date/Time Dec 01, 2018 at 17:38 Initial Consult Date 12/02/2018 Type of Consultation: Int Med Reason for Consultation 1. cerebellum synd/ tia 2. encephalopathy/ ams 3. sun downs 4. copd 5. dysrrhythemia/ htn/ pvd 6. dm/ neuropathy 7. depression-anxiety 8. low t4 Requesting Provider: VIRGINIA CA MD Date/Time of Note DATE: 12/02/18 TIME: 08:39 Subjective lying bed, sleeping Objective Vitals Vital Signs Date Temp Pulse Resp B/P (MAP) Pulse Ox O2 O2 Flow FiO2 Time Delivery Rate 12/01/18 98.0 68 18 152/72 94 Room Air 19:46 (98) Exam per nurse, pt disoriented at night, took benadryl @ 10pm, rr syst m+, cta, dry mouth+, no c/c/e Results/Medications Results 24 hrs Laboratory Tests Test 12/01/18 18:06 12/01/18 22:29 Bedside Glucose 137 197 Home Meds Active Scripts Acetaminophen* (Tylenol*) 325 Mg Tablet, 650 MG PO Q6H PRN for MILD PAIN(1-3)OR ELEVATED TEMP for 14 Days, TAB Prov:VIR[place]IA CA MD 11/30/18 [Nursing Note] 1 EA EA No Conflict Check, 1 EA XX NOTE Prov:VIR[place]IA CA MD 11/30/18 Megestrol Acetate (Megestrol Acetate) 400 Mg/10 Ml Oral.susp, 400 MG PO DAILY for 14 Days Prov:VIR[place]IA CA MD 11/30/18 Metformin* (Glucophage* XR) 500 Mg Tab.sr.24h, 500 MG PO AC DINNER for 14 Days Prov:VIR[place]IA CA MD 11/30/18 Levothyroxine Sodium* (Levothyroxine Sodium*) 150 Mcg Tablet, 150 MCG PO BEFORE BREAKFAST for 14 Days, TAB Prov:VIR[place]IA CA MD 11/30/18 [Insulin Glargine] 100 UNITS/ML SOLN No Conflict Check, 15 UNITS SC DAILY Prov:VIR[place]IA CA MD 11/30/18 Insulin Aspart* (Novolog Insulin Pen*) 100 Unit/Ml Soln, 0 UNIT SC WITH MEALS BEDTIME for 14 Days Prov:VIR[place]IA CA MD 11/30/18 Glucagon HCl (Glucagon HCl) 1 Mg Vial, 1 MG IM Q15M PRN for DECREASED GLUCOSE for 14 Days, VIAL Prov:VIRGINIA CA MD 11/30/18 Magnesium Hydroxide* (Fox' MOM*) 30 Ml Susp, 30 ML PO DAILY PRN for constipation for 14 Days Prov:VIR[place] CA MD 11/30/18 Docusate Sodium* (Colace*) 100 Mg Capsule, 100 MG PO BID PRN for CONSTIPATION for 14 Days, CAP Prov:VIR[place]IA CA MD 11/30/18 Polyvinyl Alcohol* (Akwa Tears*) 1.4% - 15 Ml Drops, 2 DROP BOTH EYES QID for 14 Days, BOTTLE Prov:VIR[place]IA CA MD 11/30/18 Dextrose* (D50W Syringe*) 50 Ml Soln, 50 ML IV Q15M PRN for DECREASED GLUCOSE for 14 Days Prov:VIR[place] CA MD 11/30/18 Dextrose* (D50W Syringe*) 50 Ml Soln, 25 ML IV Q15M PRN for DECREASED GLUCOSE for 14 Days Prov:VIR[place]IA CA MD 11/30/18 Dextrose (Glutose 15) 37.5 Gm Gel..gm., 15 GM BUCCAL Q15M PRN for DECREASED GLUCOSE for 14 Days Prov:VIR[place]IA CA MD 11/30/18 Dextrose (Glutose 15) 37.5 Gm Gel..gm., 22.5 GM PO Q15M PRN for DECREASED GLUCOSE for 14 Days Prov:VIR[place]IA CA MD 11/30/18 Dextrose (Glutose 15) 37.5 Gm Gel..gm., 15 GM PO Q15M PRN for DECREASED GLUCOSE for 14 Days Prov:V[place] CA MD 11/30/18 [Accu-Chek] 1 EA EA No Conflict Check, 1 EA XX 02 Prov:V[place] CA MD 11/30/18 Risperidone* (Risperdal*) 0.25 Mg Tablet, 0.25 MG PO BID PRN for agitation for 14 Days, TAB Prov:V[place]IA CA MD 11/30/18 Gabapentin* (Gabapentin*) 100 Mg Capsule, 100 MG PO AM for 14 Days, CAP Prov:VIR[place]IA CA MD 11/30/18 Gabapentin* (Gabapentin*) 300 Mg Capsule, 300 MG PO HS for 14 Days, CAP Prov:V[place]IA CA MD 11/30/18 Metoprolol Tartrate* (Lopressor*) 25 Mg Tab, 25 MG PO BID for 14 Days, TAB Prov:V[place] CA MD 11/30/18 Benazepril Hcl* (Benazepril Hcl*) 10 Mg Tablet, 10 MG PO DAILY for 14 Days, TAB Prov:VIRGIINA CA MD 11/30/18 Diphenhydramine Hcl* (Benadryl*) 25 Mg Cap, 25 MG PO HS PRN for insomnia for 15 Days, CAP Prov:V[place]IA CA MD 11/30/18 Enoxaparin Sodium* (Enoxaparin Sodium*) 30 Mg/0.3 Ml Syringe, 30 MG SC DAILY for 15 Days Prov:VIR[place]IA CA MD 11/30/18 Reported Medications Rifaximin* (Xifaxan*) 550 Mg Tablet, 550 MG PO DAILY, TAB 11/26/18 Omeprazole* (Omeprazole*) 40 Mg Capsule.dr, 40 MG PO DAILY, #30 CAP 11/24/18 Ergocalciferol (Vitamin D2) (VITAMIN D2) 50,000 Unit Capsule, 43404 UNIT PO Q SUN, CAP 11/24/18 Discontinued Reported Medications Nactnb-Xxpkwbsw-Wkzuspg* (Olga TURNER* 36,000) 36,000 L-114,000-180,000 Unit Capsule.dr, 1 CAP PO WITH MEALS, CAP 11/24/18 Levothyroxine Sodium* (Levothyroxine Sodium*) 175 Mcg Tablet, 175 MCG PO BEFORE BREAKFAST, #30 TAB 11/24/18 Glipizide* (Glipizide*) 5 Mg Tablet, 5 MG PO AC BREAKFAST DINNER, TAB 11/24/18 Gabapentin* (Gabapentin*) 300 Mg Capsule, 300 MG PO BID, #60 CAP TAKE 1 CAP-QAM AND 3 CAP-QHS 11/24/18 Insulin Detemir (Levemir Flextouch) 100 Unit/1 Ml Insuln.pen, UNIT SQ DAILY, EA SLIDING SCALE 11/24/18 Medications Current Medications Docusate Sodium (Colace) 100 mg BID PO Last administered on 12/01/18at 22:15; Admin Dose 100 MG; Start 12/01/18 at 21:00 Senna (Senokot) 1 tab HS PO Last administered on 12/01/18at 22:15; Admin Dose 1 TAB; Start 12/01/18 at 21:00 Lactulose (Enulose) 20 gm DAILY PRN PO CONSTIPATION; Start 12/01/18 at 19:00 Bisacodyl (Dulcolax Supp) 10 mg DAILY PRN [place] CONSTIPATION; Start 12/01/18 at 19:00 Pantoprazole (Protonix Tab) 40 mg BID@06,18 PO ; Start 12/01/18 at 20:14 Gabapentin (Neurontin) 100 mg AM PO ; Start 12/01/18 at 20:14 Gabapentin (Neurontin) 300 mg HS PO Last administered on 12/01/18at 22:14; Admin Dose 300 MG; Start 12/01/18 at 20:14 Diagnostic Test (Pha) (Accu-Chek) 1 ea 02 XX ; Start 12/01/18 at 20:14 Insulin Aspart (Novolog Insulin Pen) NOVOLOG *MILD* ALGORITHM WITH MEALS B EDTIME SC Last administered on 12/01/18at 22:31; Admin Dose 1 UNIT; Start 12/01/18 at 20:14 Insulin Glargine (Lantus) 15 units DAILY SC ; Start 12/01/18 at 20:14 Acetaminophen (Tylenol Tab) 650 mg Q6H PRN PO MILD PAIN(1-3)OR ELEVATED TEMP; Start 12/01/18 at 20:14 Benazepril HCl (Lotensin) 10 mg DAILY PO ; Start 12/01/18 at 20:14 Docusate Sodium (Colace) 100 mg BID PRN PO CONSTIPATION; Start 12/01/18 at 20:14 Magnesium Hydroxide (Milk Of Mag) 30 ml DAILY PRN PO constipation; Start 12/01/18 at 20:14 Rifaximin (Xifaxan) 550 mg DAILY PO ; Start 12/01/18 at 20:14 Diphenhydramine HCl (Benadryl) 25 mg HS PRN PO insomnia Last administered on 12/01/18at 22:15; Admin Dose 25 MG; Start 12/01/18 at 20:14 Risperidone (Risperdal) 0.25 mg BID PRN PO agitation; Start 12/01/18 at 20:14 Metformin HCl (Glucophage Xr) 500 mg AC DINNER PO ; Start 12/01/18 at 20:14 Miscellaneous Information 1 ea NOTE XX ; Start 12/01/18 at 20:14 Glucose (Glutose) 15 gm Q15M PRN PO DECREASED GLUCOSE; Start 12/01/18 at 20:14 Glucose (Glutose) 22.5 gm Q15M PRN PO DECREASED GLUCOSE; Start 12/01/18 at 20:14 Dextrose (D50w Syringe) 25 ml Q15M PRN IV DECREASED GLUCOSE; Start 12/01/18 at 20:14 Dextrose (D50w Syringe) 50 ml Q15M PRN IV DECREASED GLUCOSE; Start 12/01/18 at 20:14 Glucagon (Glucagen) 1 mg Q15M PRN IM DECREASED GLUCOSE; Start 12/01/18 at 20:14 Glucose (Glutose) 15 gm Q15M PRN BUCCAL DECREASED GLUCOSE; Start 12/01/18 at 20:14 Eye Lubricant (Artificial Tears Oph) 2 drop QID BOTH EYES Last administered on 12/01/18at 22:15; Admin Dose 2 DROP; Start 12/01/18 at 20:14 Megestrol Acetate (Megace Susp) 400 mg DAILY PO ; Start 12/01/18 at 20:14 Metoprolol Tartrate (Lopressor) 25 mg BID PO Last administered on 12/01/18at 22:15; Admin Dose 25 MG; Start 12/01/18 at 20:14 Enoxaparin Sodium (Lovenox) 30 mg DAILY SC ; Start 12/01/18 at 20:14 Levothyroxine Sodium (Synthroid) 150 mcg BEFORE BREAKFAST PO ; Start 12/01/18 at 20:14 Assessment/Plan Assessment/Plan (Daily) As Above reason to consult pt ---per rehab ---full PT/ OT exercises ---o2 2l/min to mouth ---inc po eleanor intake ---cont all supportive care ---more time oob ---restart olga 1 [facility] VIR[place]IA CA MD Dec 02, 2018 00:40
[2018-12-02] MEDS: ACCU-CHEK XX SCH (02:40)
[2018-12-02 02:45] VITALS: BP 152/60; PULSE 58; RESP 18
[2018-12-02 07:00] VITALS: BP_SYST 155; BP_SYST 175; BP_DIAS 72; PULSE 65; RESP 18
[2018-12-02] MEDS: LEVOTHYROXINE 150 MCG TAB PO SCH (07:00)
[2018-12-02] MEDS: PANTOPRAZOLE (EC) 40 MG TAB PO SCH ×2 (07:00→17:53)
[2018-12-02] MEDS: INSULIN ASPART [NOVOLOG] 3 ML PEN SC SCH ×4 (07:35→21:00)
[2018-12-02] MEDS: METOPROLOL 25 MG TAB PO SCH ×2 (09:00→21:29)
[2018-12-02] MEDS ORDERED: PETROLATUM 5 GM OINT TOP PRN (10:30)
[2018-12-02] MEDS: ARTIFICIAL TEARS 15 ML OPH BOTH EYES SCH ×4 (10:33→21:39)
[2018-12-02] MEDS ORDERED: PENDING SANTYL ORDER FOR WOUND CARE XX PRN (12:00)
[2018-12-02] MEDS: CREON (24K-76K-120K) 1 CAP PO SCH ×2 (12:00→17:35)
[2018-12-02 14:00] VITALS: BP 155/66; PULSE 68; RESP 18
[2018-12-02] MEDS ORDERED: SOD CHLORIDE 0.45% IV SCH (15:00)
[2018-12-02] MEDS ORDERED: POTASSIUM CHLORIDE IV SCH (15:00)
--- NOTE | 2018-12-02 18:00 | CONS ---
Assessment/Plan Assessment/Plan Hospital Course (Demo Recall) IMPRESSION: 1. 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 NL EF by echo this index admission 2. Intermittent bigeminy and generalized wide complex rhythms, rule out acute coronary syndrome with wide complex rhythms likely consistent with generalized progression of conduction system disease in this 88-year-old male.- some recurrent wide complex rhythms but rate in 60's while on tele 3. Hypertension-elevated today but did not receive medications due to lethargy 4. Episodes of nausea and vomiting. 5. Gait instability with signs of hygroma, rule out transient ischemic attack. Neurology is following. 6. Diabetes mellitus, status post pancreatectomy, status post Whipple. 7. Hypothyroidism. 8. Pancytopenia with more pronounced leukopenia and thrombocytopenia. 9. Bradycardia-stable now to 50's at times by vital sign asessment Recc: -Now in rehab -Continue BB/ACEI as able, held today due to lethargy after recieving benadryl overnight when agitated -Continue asa -PT as able -Follow MS closely and d/c or limit sedative medications(Benadryl/gabapentin) Consultation Date/Type/Reason Admit Date/Time Dec 01, 2018 at 17:38 Initial Consult Date 11/30/18 Type of Consult Cardiology Reason for Consultation tachycardia/wide complex tachycardia Requesting Provider: VIRGINIA CA MD Date/Time of Note DATE: 12/02/18 TIME: 17:55 Exam/Review of Systems Vital Signs Vitals Vital Signs Date Temp Pulse Resp B/P (MAP) Pulse Ox O2 O2 Flow FiO2 Time Delivery Rate 12/02/18 97.3 68 18 155/66 100 Nasal 2.0 14:00 (95) Cannula Intake and Output 12/01/18 12/01/18 12/02/18 1515:00 23:00 07:00 IntakeIntake Total 100 ml OutputOutput Total 800 ml BalanceBalance -700 ml Exam Exam Review of Systems: CONSTITUTIONAL: No fevers, chills. PULMONARY: No sob CARDIOVASCULAR: No chest pain/palpitations GASTROINTESTINAL: No nausea/vomiting. GENITOURINARY: No hematuria/dysuria. MUSCULOSKELETAL: No myagias/arthalgias. PSYCHIATRIC: The patient denies depression. NEUROLOGIC: lethargic with ams today Constitutional: other (awake now but lethargic) Head: normocephalic ENMT: mucosa pink and moist Neck: supple, jvd (8 cm water) Respiratory: clear to auscultation Cardiovascular: regular rate and rhythm Gastrointestinal: soft, non-tender Musculoskeletal: muscle weakness (mild generalized) Extremities: edema (none) Neurological: lethargic Labs Result Diagram: 12/02/18 0631 12/02/18 0631 Results 24hrs Laboratory Tests Test 12/01/18 18:06 12/01/18 22:29 12/02/18 02:26 12/02/18 06:31 Bedside Glucose 137 197 147 White Blood Count 4.2 L Red Blood Count 3.87 L Hemoglobin 12.3 L Hematocrit 35.2 L Mean Corpuscular 91.0 Volume Mean Corpuscular 31.8 Hemoglobin Mean Corpuscular 34.9 Hemoglobin Concent Red Cell 14.7 H Distribution Width Platelet Count 78 L Mean Platelet Volume 10.3 Immature 0.200 Granulocytes % Neutrophils % 70.5 Lymphocytes % 16.4 Monocytes % 9.5 Eosinophils % 2.9 Basophils % 0.5 Nucleated Red Blood 0.0 Cells % Immature 0.010 Granulocytes # Neutrophils # 3.0 Lymphocytes # 0.7 L Monocytes # 0.4 Eosinophils # 0.1 Basophils # 0.0 Nucleated Red Blood 0.0 Cells # Sodium Level 140 Potassium Level 4.5 Chloride Level 110 Carbon Dioxide Level 21 Anion Gap 9 Blood Urea Nitrogen 25 H Creatinine 1.29 H Est Glomerular Filtrat Rate mL/min Glucose Level 140 Calcium Level 10.1 Total Bilirubin 1.6 H Direct Bilirubin 0.00 Indirect Bilirubin 1.6 H Aspartate Amino 52 H Transf (AST/SGOT) Alanine 51 Aminotransferase (AL T/SGPT) Alkaline Phosphatase 168 H Total Protein 6.7 Albumin 3.7 Globulin 3.00 Albumin/Globulin 1.23 Ratio Test 12/02/18 08:54 12/02/18 11:44 12/02/18 17:50 Bedside Glucose 167 162 148 Medications Medications Current Medications Senna (Senokot) 1 tab HS PO Last administered on 12/01/18at 22:15; Admin Dose 1 TAB; Start 12/01/18 at 21:00 Lactulose (Enulose) 20 gm DAILY PRN PO CONSTIPATION; Start 12/01/18 at 19:00 Pantoprazole (Protonix Tab) 40 mg BID@06,18 PO ; Start 12/01/18 at 20:14 Diagnostic Test (Pha) (Accu-Chek) 1 ea 02 XX Last administered on 12/02/18at 02:40; Admin Dose 1 EA; Start 12/01/18 at 20:14 Insulin Aspart (Novolog Insulin Pen) NOVOLOG *MILD* ALGORITHM WITH MEALS BEDTIME SC Last administered on 12/01/18at 22:31; Admin Dose 1 UNIT; Start 12/01/18 at 20:14 Insulin Glargine (Lantus) 15 units DAILY SC ; Start 12/01/18 at 20:14 Acetaminophen (Tylenol Tab) 650 mg Q6H PRN PO MILD PAIN(1-3)OR ELEVATED TEMP; Start 12/01/18 at 20:14 Benazepril HCl (Lotensin) 10 mg DAILY PO ; Start 12/01/18 at 20:14 Docusate Sodium (Colace) 100 mg BID PRN PO CONSTIPATION; Start 12/01/18 at 20:14 Rifaximin (Xifaxan) 550 mg DAILY PO ; Start 12/01/18 at 20:14 Risperidone (Risperdal) 0.25 mg BID PRN PO agitation; Start 12/01/18 at 20:14 Metformin HCl (Glucophage Xr) 500 mg AC DINNER PO ; Start 12/01/18 at 20:14 Miscellaneous Information 1 ea NOTE XX ; Start 12/01/18 at 20:14 Glucose (Glutose) 15 gm Q15M PRN PO DECREASED GLUCOSE; Start 12/01/18 at 20:14 Glucose (Glutose) 22.5 gm Q15M PRN PO DECREASED GLUCOSE; Start 12/01/18 at 20:14 Dextrose (D50w Syringe) 25 ml Q15M PRN IV DECREASED GLUCOSE; Start 12/01/18 at 20:14 Dextrose (D50w Syringe) 50 ml Q15M PRN IV DECREASED GLUCOSE; Start 12/01/18 at 20:14 Glucagon (Glucagen) 1 mg Q15M PRN IM DECREASED GLUCOSE; Start 12/01/18 at 20:14 Glucose (Glutose) 15 gm Q15M PRN BUCCAL DECREASED GLUCOSE; Start 12/01/18 at 20:14 Eye Lubricant (Artificial Tears Oph) 2 drop QID BOTH EYES Last administered on 12/02/18at 17:45; Admin Dose 2 DROP; Start 12/01/18 at 20:14 Megestrol Acetate (Megace Susp) 400 mg DAILY PO ; Start 12/01/18 at 20:14 Metoprolol Tartrate (Lopressor) 25 mg BID PO Last administered on 12/01/18at 22:15; Admin Dose 25 MG; Start 12/01/18 at 20:14 Enoxaparin Sodium (Lovenox) 30 mg DAILY SC ; Start 12/01/18 at 20:14 Levothyroxine Sodium (Synthroid) 150 mcg BEFORE BREAKFAST PO ; Start 12/01/18 at 20:14 Amylase/Lipase/ Protease (Creon ([id number])) 1 cap WITH MEALS PO ; Start 12/02/18 at 12:00 Petrolatum (Vaseline) 1 ea PRN PRN TOP for dry lips; Start 12/02/18 at 10:30 Miscellaneous Information (Pending [facility] Order For Wound Care) This patient padilla... PRN PRN XX WOUND CARE; Start 12/02/18 at 12:00 Potassium Chloride 10 meq/ Sodium Chloride 505 ml @ 100 mls/hr Q5H3M IV Last administered on 12/02/18at 15:12; Admin Dose 100 MLS/HR; Start 12/02/18 at 15:00; Stop 12/02/18 at 20:02 Gabapentin (Neurontin) 300 mg DAILY@1700 PO ; Start 12/03/18 at 17:00 [place] Dec 02, 2018 18:00
[2018-12-02 20:02] VITALS: BP 150/62; PULSE 64; RESP 18
[2018-12-02] MEDS: SENNA TAB PO SCH (21:00)
[2018-12-03 02:00] VITALS: BP 153/64; PULSE 67; RESP 18
[2018-12-03] MEDS: ACCU-CHEK XX SCH (02:00)
--- NOTE | 2018-12-03 04:25 | CONS ---
DATE OF ADMISSION: 12/01/2018 DATE OF CONSULTATION: 12/02/2018 TYPE OF CONSULTATION: REHABILITATION POST-ADMISSION PHYSICIAN EVALUATION. REHABILITATION IMPAIRMENT CATEGORY: Cerebellar syndrome and metabolic encephalopathy. ACTIVE COMORBIDITIES: 1. Cardiac dysrhythmia. 2. 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 3. Hypertension. 4. Hypothyroidism. 5. Gastroesophageal reflux disease. 6. Chronic kidney disease. 7. Anemia. 8. Chronic obstructive pulmonary disease. 9. History of depression and anxiety. 10. Impairments in self-care, mobility and cognition. HISTORY OF PRESENT ILLNESS: The patient is an 88-year-old gentleman with a history of multiple medical comorbidities, who was admitted with the acute onset of dysarthria, confusion, lethargy. Imaging studies were performed and a brain MRI did demonstrate cerebellar impingement from a hygroma. The patient was also followed closely by endocrinology for his hypothyroidism and post-pancreatectomy and diabetes. The patient was followed closely by cardiology for cardiac arrhythmias. The patient had been cleared to transfer to the rehabilitation unit for comprehensive interdisciplinary rehab care. The patient reportedly had agitation last night and was given Benadryl to assist with sleep. The patient is currently quite lethargic. FUNCTIONAL HISTORY: Prior to recent events, the patient was independent with self-care tasks and mobility. Currently, requires total assist for self-care and mobility tasks. I have reviewed the preadmission screen, and the patient's current functional status does seem lower than the preadmission screen. FAMILY AND SOCIAL HISTORY: The patient lives at home with family and they hope to have him return home upon discharge. PAST MEDICAL HISTORY: 1. Diabetes with pancreatic beta cell insufficiency. 2. Pancreatectomy. 3. Hypertension. 4. Hypothyroidism. 5. Gastroesophageal reflux disease. 6. Chronic kidney disease. 7. Anemia. 8. Depression and anxiety. 9. Chronic obstructive pulmonary disease. CURRENT MEDICATIONS: 1. Lotensin 10 mg p.o. daily. 2. Insulin sliding scale. 3. Lovenox 30 mg subcutaneous daily. 4. Gabapentin 100 mg p.o. q.a.m. and 300 mg at bedtime. 5. Lantus 15 units subcu q. daily. 6. Synthroid 150 mcg p.o. q.a.m. 7. Megace 400 mg p.o. daily. 8. Glucophage 500 mg p.o. at bedtime. 9. Lopressor 25 mg p.o. b.i.d. 10. Protonix 40 mg p.o. b.i.d. 11. Rifaximin 550 mg p.o. daily. 12. Risperdal 0.25 mg p.o. b.i.d. p.r.n. ALLERGIES: 1. SULFA. 2. PAROXETINE. 3. PRAMIPEXOLE. PHYSICAL EXAMINATION: VITAL SIGNS: He is currently afebrile with stable vital signs. HEENT: The extraocular motions appear intact. Oropharynx clear. NECK: Supple. LUNGS: Clear anteriorly. CARDIAC: S1, S2. ABDOMEN: Soft, nontender, positive bowel sounds. NEUROLOGIC: He is quite lethargic. He does have withdrawal response to stimulation. PLAN: The patient has been admitted for comprehensive interdisciplinary acute rehabilitation. He currently is quite lethargic, presumed secondary to medications. The goal is to have him tolerate: 1. Physical therapy to focus on bed mobility, transfers, wheelchair mobility and progressive ambulation as tolerated. 2. Occupational therapy to focus on hygiene, grooming, dressing, bathing, and toileting activities with the goal of having the patient reach a standby assist level. 3. Rehabilitation nursing for carryover of therapeutic interventions, the goal of continent of bowel and bladder, and the goal of patient education with regard to the aforementioned issues. 4. Speech therapy for full cognitive assessment and retraining with the goal of having the patient return to baseline cognition and meet nutritional needs by mouth. 5. Neuropsychology for oversight of cognitive program, full cognitive evaluation and training. REHABILITATION BARRIER: Cognition, lethargy INTERVENTION FOR BARRIER: Interdisciplinary approach. ESTIMATED LENGTH OF STAY: 14 days. DISPOSITION GOAL: Home with family. I acknowledge that I performed a full physical examination on this patient within 24 hours of admission to the rehabilitation unit. I believe that the patient is a candidate for interdisciplinary rehabilitation given his diagnosis, however will need to monitor level of arousal/ cognition as the effects of his medications wear off. Will have neuro checks in place, and increase activities as tolerated. Dictated By: LIONEL ROSS/GILBERT Conf#: [id number] DID#: [id number] MTDD
[2018-12-03] MEDS: PANTOPRAZOLE (EC) 40 MG TAB PO SCH (06:53)
[2018-12-03] MEDS: LEVOTHYROXINE 150 MCG TAB PO SCH (06:53)
[2018-12-03 07:00] VITALS: BP 143/66; PULSE 68; RESP 18
[2018-12-03] MEDS: INSULIN ASPART [NOVOLOG] 3 ML PEN SC SCH (08:16)
[2018-12-03] MEDS ORDERED: GABAPENTIN 300 MG CAP PO SCH (17:00)
--- NOTE | 2018-12-09 13:00 | DS ---
Date/Time of Note Date/Time of Note DATE: 12/09/18 TIME: 12:56 Discharge Summary Admission/Discharge Info Admit Date/Time Dec 01, 2018 at 17:38 Discharge Date/Time Dec 03, 2018 at 09:25 Discharge Diagnosis 1. Altered Level of Consciousness, Cerebellar syndrome and metabolic encephalopathy. 2. 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 3. Hypertension. 4. Hypothyroidism. 5. Gastroesophageal reflux disease. 6. Chronic kidney disease. 7. Cardiac dysrhythmia. 8. Chronic obstructive pulmonary disease. 9. History of depression and anxiety. 10. Anemia 10. Impairments in self-care, mobility and cognition. Patient Condition: Serious Hospital Course Patient was admitted for comprehensive interdisciplinary rehabilitation program. He was noted to have significant lethargy after benadryl. His decreased level of arousal persisted, and patient was transferred to acute floor for closer monitoring and work up. Home Meds Active Scripts Acetaminophen* (Tylenol*) 325 Mg Tablet, 650 MG PO Q6H PRN for MILD PAIN(1-3)OR ELEVATED TEMP for 14 Days, TAB Prov:VIRGINIA CA MD 11/30/18 [Nursing Note] 1 EA EA No Conflict Check, 1 EA XX NOTE Prov:VIRGINIA CA MD 11/30/18 Megestrol Acetate (Megestrol Acetate) 400 Mg/10 Ml Oral.susp, 400 MG PO DAILY for 14 Days Prov:VIRGINIA CA MD 11/30/18 Metformin* (Glucophage* XR) 500 Mg Tab.sr.24h, 500 MG PO AC DINNER for 14 Days Prov:VIRGINIA CA MD 11/30/18 Levothyroxine Sodium* (Levothyroxine Sodium*) 150 Mcg Tablet, 150 MCG PO BEFORE BREAKFAST for 14 Days, TAB Prov:VIRGINIA CA MD 11/30/18 [Insulin Glargine] 100 UNITS/ML SOLN No Conflict Check, 15 UNITS SC DAILY Prov:VIRGINIA CA MD 11/30/18 Insulin Aspart* (Novolog Insulin Pen*) 100 Unit/Ml Soln, 0 UNIT SC WITH MEALS BEDTIME for 14 Days Prov:VIRGINIA CA MD 11/30/18 Glucagon HCl (Glucagon HCl) 1 Mg Vial, 1 MG IM Q15M PRN for DECREASED GLUCOSE for 14 Days, VIAL Prov:VIRGINIA CA MD 11/30/18 Magnesium Hydroxide* (Fox' MOM*) 30 Ml Susp, 30 ML PO DAILY PRN for constipation for 14 Days Prov:VIRGINIA CA MD 11/30/18 Docusate Sodium* (Colace*) 100 Mg Capsule, 100 MG PO BID PRN for CONSTIPATION for 14 Days, CAP Prov:VIRGINIA CA MD 11/30/18 Polyvinyl Alcohol* (Akwa Tears*) 1.4% - 15 Ml Drops, 2 DROP BOTH EYES QID for 14 Days, BOTTLE Prov:VIRGINIA CA MD 11/30/18 Dextrose* (D50W Syringe*) 50 Ml Soln, 50 ML IV Q15M PRN for DECREASED GLUCOSE for 14 Days Prov:VIRGINIA CA MD 11/30/18 Dextrose* (D50W Syringe*) 50 Ml Soln, 25 ML IV Q15M PRN for DECREASED GLUCOSE for 14 Days Prov:VIRGINIA CA MD 11/30/18 Dextrose (Glutose 15) 37.5 Gm Gel..gm., 15 GM BUCCAL Q15M PRN for DECREASED GLUCOSE for 14 Days Prov:VIRGINIA CA MD 11/30/18 Dextrose (Glutose 15) 37.5 Gm Gel..gm., 22.5 GM PO Q15M PRN for DECREASED GLUCOSE for 14 Days Prov:VIRGINIA CA MD 11/30/18 Dextrose (Glutose 15) 37.5 Gm Gel..gm., 15 GM PO Q15M PRN for DECREASED GLUCOSE for 14 Days Prov:VIRGINIA CA MD 11/30/18 [Accu-Chek] 1 EA EA No Conflict Check, 1 EA XX 02 Prov:VIRGINIA CA MD 11/30/18 Risperidone* (Risperdal*) 0.25 Mg Tablet, 0.25 MG PO BID PRN for agitation for 14 Days, TAB Prov:VIRGINIA CA MD 11/30/18 Gabapentin* (Gabapentin*) 100 Mg Capsule, 100 MG PO AM for 14 Days, CAP Prov:VIRGINIA CA MD 11/30/18 Gabapentin* (Gabapentin*) 300 Mg Capsule, 300 MG PO HS for 14 Days, CAP Prov:VIRGINIA CA MD 11/30/18 Metoprolol Tartrate* (Lopressor*) 25 Mg Tab, 25 MG PO BID for 14 Days, TAB Prov:VIRGINIA CA MD 11/30/18 Benazepril Hcl* (Benazepril Hcl*) 10 Mg Tablet, 10 MG PO DAILY for 14 Days, TAB Prov:VIRGINIA CA MD 11/30/18 Diphenhydramine Hcl* (Benadryl*) 25 Mg Cap, 25 MG PO HS PRN for insomnia for 15 Days, CAP Prov:VIRGINIA CA MD 11/30/18 Enoxaparin Sodium* (Enoxaparin Sodium*) 30 Mg/0.3 Ml Syringe, 30 MG SC DAILY for 15 Days Prov:VIRGINIA CA MD 11/30/18 Reported Medications Rifaximin* (Xifaxan*) 550 Mg Tablet, 550 MG PO DAILY, TAB 11/26/18 Omeprazole* (Omeprazole*) 40 Mg Capsule.dr, 40 MG PO DAILY, #30 CAP 11/24/18 Ergocalciferol (Vitamin D2) (VITAMIN D2) 50,000 Unit Capsule, 31290 UNIT PO Q SUN, CAP 11/24/18 Primary Care Provider MD CM Chin LIVA L. MD Dec 09, 2018 13:00
== END 2018-12-03 09:25 | disposition short-term general hospital (02) | DRG 70 ==
LOC: VRC 17:38
PROVIDERS: ADMIT Physical Medicine & Rehabilitation; ATTEND Internal Medicine
PROC: F07Z9FZ Gait Training/Functional Ambulation Treatment using Assistive, Adaptive, Supportive or Protective Equipment (ICD-10-PCS; principal; 2018-12-01)
PROC: F07Z8FZ Transfer Training Treatment using Assistive, Adaptive, Supportive or Protective Equipment (ICD-10-PCS; 2018-12-01)
PROC: F07Z5FZ Bed Mobility Treatment using Assistive, Adaptive, Supportive or Protective Equipment (ICD-10-PCS; 2018-12-01)
PROC: F08Z2FZ Grooming/Personal Hygiene Treatment using Assistive, Adaptive, Supportive or Protective Equipment (ICD-10-PCS; 2018-12-01)
PROC: F08Z0FZ Bathing/Showering Techniques Treatment using Assistive, Adaptive, Supportive or Protective Equipment (ICD-10-PCS; 2018-12-01)
PROC: F08Z1FZ Dressing Techniques Treatment using Assistive, Adaptive, Supportive or Protective Equipment (ICD-10-PCS; 2018-12-01)
DX: G46.4 Cerebellar stroke syndrome (principal); G93.41 Metabolic encephalopathy; E89.1 Postprocedural hypoinsulinemia; D61.818 Other pancytopenia; R53.83 Other fatigue; I12.9 Hypertensive chronic kidney disease with stage 1 through stage 4 chronic kidney disease, or unspecified chronic kidney disease; N18.9 Chronic kidney disease, unspecified; E03.9 Hypothyroidism, unspecified; K21.9 Gastro-esophageal reflux disease without esophagitis; D64.9 Anemia, unspecified; J44.9 Chronic obstructive pulmonary disease, unspecified; F32.9 Major depressive disorder, single episode, unspecified; F41.9 Anxiety disorder, unspecified; I48.91 Unspecified atrial fibrillation; R26.9 Unspecified abnormalities of gait and mobility; R00.1 Bradycardia, unspecified; E13.40 Other specified diabetes mellitus with diabetic neuropathy, unspecified; Z90.411 Acquired partial absence of pancreas; Z88.2 Allergy status to sulfonamides
CPT/HCPCS: 70450; 80053; 81001; 82962; 85025; 87081; 87086; 92610; 97163; 97167; J1650; J1815; J3480

== ENCOUNTER 2018-12-03 10:30 | Inpatient (IN) | payer MEDICARE, OTHER ==
[~2018-12-03] VITALS: Ht 177.8 cm; Wt 64.0 kg
[2018-12-03] VITALS (8 sets, daily range): BP systolic 134–152; BP diastolic 63–77; PULSE 68–92; RESP 18–20
[2018-12-03] MEDS: RIFAXIMIN 550 MG TAB PO SCH (12:30)
[2018-12-03] MEDS: BENAZEPRIL 10 MG TAB PO SCH (12:30)
[2018-12-03] MEDS ORDERED: RISPERIDONE 0.25 MG TAB PO PRN (12:30)
[2018-12-03] MEDS: ASPIRIN 81 MG TAB PO SCH (12:30)
--- NOTE | 2018-12-03 12:33 | PN ---
Date/Time of Note Date/Time of Note DATE: 12/03/18 TIME: 12:33 Subjective awakable, quickly drowsy, no pain, not angry Objective Vitals Vital Signs Date Temp Pulse Resp B/P (MAP) Pulse Ox O2 O2 Flow FiO2 Time Delivery Rate 12/03/18 71 12:18 12/03/18 98.0 18 136/77 96 11:18 (96) longer than 24hrs, pt's been sleeping, could not participate in full 3hr/day PT exercise, open mouth breather, dry mucus, has not eaten ~18hrs, rr, cta, no c/c/e Medications Medications Current Medications Potassium Chloride 10 meq/ Sodium Chloride 1,005 ml @ 100 mls/hr Q10H3M IV ; Start 12/03/18 at 12:30; Status UNV Levothyroxine Sodium (Synthroid) 137 mcg DAILY@06 PO ; Start 12/04/18 at 06:00; Status UNV VTE Prophylaxis SCD applied (from [facility] [place]): Yes SCD contraindication: bilateral LE trauma Lines/Catheters IV Catheter Type: Saline Lock Central line still needed: No Smith in Place: No Assessment/Plan Assessment/Plan 1. ams/ encephalopathy--today's CT brain showing no new change 2. tia/ cerebellum synd 3. htn/ pvd/ 4. dm/ neuropathy 5. low t4 6. anemia/ ckd II 7. depression-anxiety 8. sun down while in hosp ---back to Tele floor bed ---no lovenox ---no gabapentin ---no ativan ---no benadryl ---per cards ---start ivf till pt more awake to po intake ---ST & PT full eval & exercise VIRGINIA CA MD Dec 03, 2018 12:33
[2018-12-03] MEDS ORDERED: GLUCOSE GEL 15 GRAM TUBE PO PRN ×2 (13:00)
[2018-12-03] MEDS ORDERED: GLUCAGON 1 MG INJ IM PRN (13:00)
[2018-12-03] MEDS ORDERED: GLUCOSE GEL 15 GRAM TUBE BUCCAL PRN (13:00)
[2018-12-03] MEDS ORDERED: DEXTROSE 50% 50 ML SYRINGE IV PRN ×2 (13:00)
[2018-12-03] MEDS: POTASSIUM CHLORIDE 10 MEQ in SOD CHLORIDE 0.45% 1,000 ML IV SCH (15:02)
[2018-12-03] MEDS: INSULIN ASPART [NOVOLOG] 3 ML PEN SC SCH ×3 (15:02→21:08)
--- NOTE | 2018-12-03 17:19 | CONS ---
Assessment/Plan Assessment/Plan Assessment/Plan (Daily) Abnormal electrocardiogram Hypertension. Diabetes mellitus, status post pancreatectomy, status post Whipple. Hypothyroidism. Pancytopenia Continue Lopressor Stopped Benazepril due to renal failure Continue asa Continue Protonix Continue Levothyroxine Continue Metformin and Insulin Monitor on tele Trend Trops, BNP and TSH Echo Consultation Date/Type/Reason Admit Date/Time Dec 03, 2018 at 10:30 Type of Consult Cardiology Date/Time of Note DATE: 12/03/18 TIME: 17:13 Past Medical History Home Meds Active Scripts Acetaminophen* (Tylenol*) 325 Mg Tablet, 650 MG PO Q6H PRN for MILD PAIN(1-3)OR ELEVATED TEMP for 14 Days, TAB Prov:VIRGINIA CA MD 11/30/18 [Nursing Note] 1 EA EA No Conflict Check, 1 EA XX NOTE Prov:VIRGINIA CA MD 11/30/18 Megestrol Acetate (Megestrol Acetate) 400 Mg/10 Ml Oral.susp, 400 MG PO DAILY for 14 Days Prov:VIRGINIA CA MD 11/30/18 Metformin* (Glucophage* XR) 500 Mg Tab.sr.24h, 500 MG PO AC DINNER for 14 Days Prov:VIRGINIA CA MD 11/30/18 Levothyroxine Sodium* (Levothyroxine Sodium*) 150 Mcg Tablet, 150 MCG PO BEFORE BREAKFAST for 14 Days, TAB Prov:VIRGINIA CA MD 11/30/18 [Insulin Glargine] 100 UNITS/ML SOLN No Conflict Check, 15 UNITS SC DAILY Prov:VIRGINIA CA MD 11/30/18 Insulin Aspart* (Novolog Insulin Pen*) 100 Unit/Ml Soln, 0 UNIT SC WITH MEALS BEDTIME for 14 Days Prov:VIRGINIA CA MD 11/30/18 Glucagon HCl (Glucagon HCl) 1 Mg Vial, 1 MG IM Q15M PRN for DECREASED GLUCOSE for 14 Days, VIAL Prov:VIRGINIA CA MD 11/30/18 Magnesium Hydroxide* (Fox' MOM*) 30 Ml Susp, 30 ML PO DAILY PRN for constipation for 14 Days Prov:VIRGINIA CA MD 11/30/18 Docusate Sodium* (Colace*) 100 Mg Capsule, 100 MG PO BID PRN for CONSTIPATION for 14 Days, CAP Prov:VIRGINIA CA MD 11/30/18 Polyvinyl Alcohol* (Akwa Tears*) 1.4% - 15 Ml Drops, 2 DROP BOTH EYES QID for 14 Days, BOTTLE Prov:VIRGINIA CA MD 11/30/18 Dextrose* (D50W Syringe*) 50 Ml Soln, 50 ML IV Q15M PRN for DECREASED GLUCOSE for 14 Days Prov:VIRGINIA CA MD 11/30/18 Dextrose* (D50W Syringe*) 50 Ml Soln, 25 ML IV Q15M PRN for DECREASED GLUCOSE for 14 Days Prov:VIRGINIA CA MD 11/30/18 Dextrose (Glutose 15) 37.5 Gm Gel..gm., 15 GM BUCCAL Q15M PRN for DECREASED GLUCOSE for 14 Days Prov:VIRGINIA CA MD 11/30/18 Dextrose (Glutose 15) 37.5 Gm Gel..gm., 22.5 GM PO Q15M PRN for DECREASED GLUCOSE for 14 Days Prov:VIRGINIA CA MD 11/30/18 Dextrose (Glutose 15) 37.5 Gm Gel..gm., 15 GM PO Q15M PRN for DECREASED GLUCOSE for 14 Days Prov:VIRGINIA CA MD 11/30/18 [Accu-Chek] 1 EA EA No Conflict Check, 1 EA XX 02 Prov:VIRGINIA CA MD 11/30/18 Risperidone* (Risperdal*) 0.25 Mg Tablet, 0.25 MG PO BID PRN for agitation for 14 Days, TAB Prov:VIRGINIA CA MD 11/30/18 Gabapentin* (Gabapentin*) 100 Mg Capsule, 100 MG PO AM for 14 Days, CAP Prov:VIRGINIA CA MD 11/30/18 Gabapentin* (Gabapentin*) 300 Mg Capsule, 300 MG PO HS for 14 Days, CAP Prov:VIRGINIA CA MD 11/30/18 Metoprolol Tartrate* (Lopressor*) 25 Mg Tab, 25 MG PO BID for 14 Days, TAB Prov:VIRGINIA CA MD 11/30/18 Benazepril Hcl* (Benazepril Hcl*) 10 Mg Tablet, 10 MG PO DAILY for 14 Days, TAB Prov:VIRGINIA CA MD 11/30/18 Diphenhydramine Hcl* (Benadryl*) 25 Mg Cap, 25 MG PO HS PRN for insomnia for 15 Days, CAP Prov:VIRGINIA CA MD 11/30/18 Enoxaparin Sodium* (Enoxaparin Sodium*) 30 Mg/0.3 Ml Syringe, 30 MG SC DAILY for 15 Days Prov:VIRGINIA CA MD 11/30/18 Reported Medications Rifaximin* (Xifaxan*) 550 Mg Tablet, 550 MG PO DAILY, TAB 11/26/18 Omeprazole* (Omeprazole*) 40 Mg Capsule.dr, 40 MG PO DAILY, #30 CAP 11/24/18 Ergocalciferol (Vitamin D2) (VITAMIN D2) 50,000 Unit Capsule, 58228 UNIT PO Q SUN, CAP 11/24/18 Discontinued Reported Medications Fadcoq-Azcbroiz-Lbcmeje* (Ho TURNER* 36,000) 36,000 L-114,000-180,000 Unit Capsule.dr, 1 CAP PO WITH MEALS, CAP 11/24/18 Levothyroxine Sodium* (Levothyroxine Sodium*) 175 Mcg Tablet, 175 MCG PO BEFORE BREAKFAST, #30 TAB 11/24/18 Glipizide* (Glipizide*) 5 Mg Tablet, 5 MG PO AC BREAKFAST DINNER, TAB 11/24/18 Gabapentin* (Gabapentin*) 300 Mg Capsule, 300 MG PO BID, #60 CAP TAKE 1 CAP-QAM AND 3 CAP-QHS 11/24/18 Insulin Detemir (Levemir Flextouch) 100 Unit/1 Ml Insuln.pen, UNIT SQ DAILY, EA SLIDING SCALE 11/24/18 Medications Current Medications Potassium Chloride 10 meq/ Sodium Chloride 1,005 ml @ 100 mls/hr Q10H3M IV Last administered on 12/03/18at 15:02; Admin Dose 100 MLS/HR; Start 12/03/18 at 14:00 Levothyroxine Sodium (Synthroid) 137 mcg DAILY@06 PO ; Start 12/04/18 at 06:00 Benazepril HCl (Lotensin) 10 mg DAILY PO ; Start 12/03/18 at 12:30 Aspirin (Aspirin) 81 mg DAILY PO ; Start 12/03/18 at 12:30 Rifaximin (Xifaxan) 550 mg DAILY PO ; Start 12/03/18 at 12:30 Amylase/Lipase/ Protease (Creon ([id number])) 1 cap WITH MEALS PO ; Start 12/03/18 at 17:55 Risperidone (Risperdal) 0.25 mg BID PRN PO ANXIETY; Start 12/03/18 at 12:30 Metformin HCl (Glucophage) 500 mg WITH DINNER PO ; Start 12/03/18 at 17:55 Diagnostic Test (Pha) (Accu-Chek) 1 ea 02 XX ; Start 12/04/18 at 02:00 Insulin Aspart (Novolog Insulin Pen) NOVOLOG *MILD* ALGORI... Q4 SC Last administered on 12/03/18at 15:02; Admin Dose 2 UNIT; Start 12/03/18 at 13:30 Metoprolol Tartrate (Lopressor) 25 mg BID PO ; Start 12/03/18 at 21:00 Pantoprazole (Protonix Tab) 40 mg BID@06,18 PO ; Start 12/03/18 at 18:00 Risperidone (Risperdal) 0.25 mg BID PO ; Start 12/03/18 at 21:00 Senna (Senokot) 1 tab DAILY PO ; Start 12/04/18 at 09:00 Magnesium Hydroxide (Milk Of Mag) 30 ml DAILY PO ; Start 12/04/18 at 09:00 Miscellaneous Information 1 ea NOTE XX ; Start 12/03/18 at 13:00 Glucose (Glutose) 15 gm Q15M PRN PO DECREASED GLUCOSE; Start 12/03/18 at 13:00 Glucose (Glutose) 22.5 gm Q15M PRN PO DECREASED GLUCOSE; Start 12/03/18 at 13:00 Dextrose (D50w Syringe) 25 ml Q15M PRN IV DECREASED GLUCOSE; Start 12/03/18 at 13:00 Dextrose (D50w Syringe) 50 ml Q15M PRN IV DECREASED GLUCOSE; Start 12/03/18 at 13:00 Glucagon (Glucagen) 1 mg Q15M PRN IM DECREASED GLUCOSE; Start 12/03/18 at 13:00 Glucose (Glutose) 15 gm Q15M PRN BUCCAL DECREASED GLUCOSE; Start 12/03/18 at 13:00 Allergies: Coded Allergies: Sulfa (Sulfonamide Antibiotics) (Verified Allergy, Unknown, 11/24/18) paroxetine (Verified Allergy, Unknown, 11/24/18) pramipexole (Verified Allergy, Unknown, 11/24/18) Past Surgical History Past Surgical Hx: other Social History Smoking Status: Never smoker Exam/Review of Systems Vital Signs Vitals Vital Signs Date Temp Pulse Resp B/P (MAP) Pulse Ox O2 O2 Flow FiO2 Time Delivery Rate 12/03/18 68 16:12 12/03/18 98.4 19 136/63 99 15:54 (87) 12/03/18 Room Air 10:30 Exam Constitutional: other (lethergic) Neck: supple, non-tender Respiratory: clear to auscultation Cardiovascular: regular rate and rhythm (no m/r/g) Gastrointestinal: soft, non-tender Medications Medications Current Medications Potassium Chloride 10 meq/ Sodium Chloride 1,005 ml @ 100 mls/hr Q10H3M IV [place] st administered on 12/03/18at 15:02; Admin Dose 100 MLS/HR; Start 12/03/18 at 14:00 Levothyroxine Sodium (Synthroid) 137 mcg DAILY@06 PO ; Start 12/04/18 at 06:00 Benazepril HCl (Lotensin) 10 mg DAILY PO ; Start 12/03/18 at 12:30 Aspirin (Aspirin) 81 mg DAILY PO ; Start 12/03/18 at 12:30 Rifaximin (Xifaxan) 550 mg DAILY PO ; Start 12/03/18 at 12:30 Amylase/Lipase/ Protease (Creon ([id number])) 1 cap WITH MEALS PO ; Start 12/03/18 at 17:55 Risperidone (Risperdal) 0.25 mg BID PRN PO ANXIETY; Start 12/03/18 at 12:30 Metformin HCl (Glucophage) 500 mg WITH DINNER PO ; Start 12/03/18 at 17:55 Diagnostic Test (Pha) (Accu-Chek) 1 ea 02 XX ; Start 12/04/18 at 02:00 Insulin Aspart (Novolog Insulin Pen) NOVOLOG *MILD* ALGORI... Q4 SC Last administered on 12/03/18at 15:02; Admin Dose 2 UNIT; Start 12/03/18 at 13:30 Metoprolol Tartrate (Lopressor) 25 mg BID PO ; Start 12/03/18 at 21:00 Pantoprazole (Protonix Tab) 40 mg BID@06,18 PO ; Start 12/03/18 at 18:00 Risperidone (Risperdal) 0.25 mg BID PO ; Start 12/03/18 at 21:00 Senna (Senokot) 1 tab DAILY PO ; Start 12/04/18 at 09:00 Magnesium Hydroxide (Milk Of Mag) 30 ml DAILY PO ; Start 12/04/18 at 09:00 Miscellaneous Information 1 ea NOTE XX ; Start 12/03/18 at 13:00 Glucose (Glutose) 15 gm Q15M PRN PO DECREASED GLUCOSE; Start 12/03/18 at 13:00 Glucose (Glutose) 22.5 gm Q15M PRN PO DECREASED GLUCOSE; Start 12/03/18 at 13:00 Dextrose (D50w Syringe) 25 ml Q15M PRN IV DECREASED GLUCOSE; Start 12/03/18 at 13:00 Dextrose (D50w Syringe) 50 ml Q15M PRN IV DECREASED GLUCOSE; Start 12/03/18 at 13:00 Glucagon (Glucagen) 1 mg Q15M PRN IM DECREASED GLUCOSE; Start 12/03/18 at 13:00 Glucose (Glutose) 15 gm Q15M PRN BUCCAL DECREASED GLUCOSE; Start 12/03/18 at 13:00 CAREY BLAND M.D. Dec 03, 2018 17:19
[2018-12-03] MEDS: metFORMIN 500 MG TAB PO SCH (17:25)
[2018-12-03] MEDS: CREON (24K-76K-120K) 1 CAP PO SCH (17:25)
[2018-12-03] MEDS: PANTOPRAZOLE (EC) 40 MG TAB PO SCH (17:25)
[2018-12-03] MEDS: METOPROLOL 25 MG TAB PO SCH (21:00)
[2018-12-03] MEDS ORDERED: RISPERIDONE 0.25 MG TAB PO SCH (21:00)
[2018-12-04] VITALS (8 sets, daily range): BP systolic 133–148; BP diastolic 59–66; PULSE 59–86; RESP 18–20
[2018-12-04] MEDS: POTASSIUM CHLORIDE 10 MEQ in SOD CHLORIDE 0.45% 1,000 ML IV SCH ×2 (01:51→12:34)
[2018-12-04] MEDS: INSULIN ASPART [NOVOLOG] 3 ML PEN SC SCH ×6 (02:09→22:26)
[2018-12-04] MEDS: ACCU-CHEK XX SCH (02:28)
[2018-12-04] MEDS: PANTOPRAZOLE (EC) 40 MG TAB PO SCH ×2 (05:57→18:00)
[2018-12-04] MEDS: LEVOTHYROXINE 137 MCG TAB PO SCH (05:57)
[2018-12-04] MEDS: CREON (24K-76K-120K) 1 CAP PO SCH ×3 (07:55→17:55)
[2018-12-04] MEDS: MAGNESIUM HYDROXIDE 30ML CUP PO SCH (09:00)
[2018-12-04] MEDS: SENNA TAB PO SCH (09:00)
[2018-12-04] MEDS ORDERED: RIFAXIMIN 550 MG TAB PO SCH (09:00)
[2018-12-04] MEDS: METOPROLOL 25 MG TAB PO SCH ×2 (09:00→21:03)
[2018-12-04] MEDS: ASPIRIN 81 MG TAB PO SCH (09:00)
[2018-12-04] MEDS: BENAZEPRIL 10 MG TAB PO SCH (09:00)
[2018-12-04] MEDS: RIFAXIMIN 550 MG TAB PO SCH (09:00)
--- NOTE | 2018-12-04 13:51 | CONS ---
Assessment/Plan Assessment/Plan Assessment/Plan (Daily) Abnormal electrocardiogram Hypertension. Diabetes mellitus, status post pancreatectomy, status post Whipple. Hypothyroidism. Anemia Thrombocytopenia GERD Ruled out for ACS Clinically not in heart failure Tele Sinus rhythm with Bigeminy Continue Lopressor Stopped Benazepril due to renal failure Continue asa Continue Protonix Continue Levothyroxine Continue Metformin and Insulin Monitor on tele Consultation Date/Type/Reason Admit Date/Time Dec 03, 2018 at 10:30 Initial Consult Date Type of Consult Cardiology Date/Time of Note DATE: 12/04/18 TIME: 13:47 Exam/Review of Systems Vital Signs Vitals Vital Signs Date Temp Pulse Resp B/P (MAP) Pulse Ox O2 O2 Flow FiO2 Time Delivery Rate 12/04/18 59 12:00 12/04/18 97.6 20 145/63 99 Room Air 11:30 (90) Intake and Output 12/03/18 12/03/18 12/04/18 1515:00 23:00 07:00 OutputOutput Total 100 ml 250 ml BalanceBalance -100 ml -250 ml Exam Head: normocephalic, atraumatic Neck: supple, non-tender Respiratory: clear to auscultation Cardiovascular: regular rate and rhythm (no m/r/g) Gastrointestinal: soft Extremities: normal pulses Labs Result Diagram: 12/04/18 0610 12/04/18 0610 Results 24hrs Laboratory Tests Test 12/03/18 16:45 12/03/18 17:41 12/03/18 17:53 12/03/18 20:31 Urine Color TRICIA Urine Clarity SLIGHTLY CLOUDY A Urine pH 5.0 Urine Specific 1.016 [place] Urine Ketones 1+ H Urine Nitrite NEGATIVE Urine Bilirubin NEGATIVE Urine 2+ H Urobilinogen Urine Leukocyte NEGATIVE Esterase Urine Microscopic 1 RBC Urine Microscopic 2 WBC Urine Bacteria FEW A Urine Mucus FEW A Urine Hemoglobin NEGATIVE Urine Glucose NEGATIVE Urine Total NEGATIVE Protein Bedside Glucose 185 167 Troponin I 0.020 B-Type 679 H Natriuretic Peptide Thyroid 0.495 Stimulating Hormone (TSH) Test 12/04/18 00:59 12/04/18 01:50 12/04/18 05:27 12/04/18 06:10 Troponin I 0.035 0.029 Bedside Glucose 164 164 White Blood Count 4.8 Red Blood Count 3.82 L Hemoglobin 12.4 L Hematocrit 35.4 L Mean Corpuscular 92.7 Volume Mean Corpuscular 32.5 Hemoglobin Mean Corpuscular 35.0 Hemoglobin Concen t Red Cell 15.7 H Distribution Width Platelet Count 96 #L Mean Platelet 10.5 H Volume Immature 0.200 Granulocytes % Neutrophils % 71.1 Lymphocytes % 15.6 Monocytes % 9.4 Eosinophils % 3.1 Basophils % 0.6 Nucleated Red 0.0 Blood Cells % Immature 0.010 Granulocytes # Neutrophils # 3.4 Lymphocytes # 0.8 Monocytes # 0.5 Eosinophils # 0.2 Basophils # 0.0 Nucleated Red 0.0 Blood Cells # Prothrombin Time 15.1 H Prothrombin Time 1.2 Ratio INR International 1.18 Normalized Ratio Sodium Level 139 Potassium Level 4.7 Chloride Level 109 Carbon Dioxide 19 L Level Anion Gap 11 Blood Urea 38 #H Nitrogen Creatinine 1.58 H Est Glomerular Filtrat Rate mL/min Glucose Level 165 Calcium Level 9.4 Magnesium Level 1.8 Ammonia 50 H B-Type 761 H Natriuretic Peptide Free Thyroxine 2.04 H Test 12/04/18 09:09 12/04/18 12:33 Bedside Glucose 154 177 Medications Medications Current Medications Potassium Chloride 10 meq/ Sodium Chloride 1,005 ml @ 50 mls/hr Q20H6M IV Last administered on 12/04/18at 01:51; Admin Dose 100 MLS/HR; Start 12/03/18 at 14:00 Levothyroxine Sodium (Synthroid) 137 mcg DAILY@06 PO ; Start 12/04/18 at 06:00 Benazepril HCl (Lotensin) 10 mg DAILY PO ; Start 12/03/18 at 12:30 Aspirin (Aspirin) 81 mg DAILY PO ; Start 12/03/18 at 12:30 Rifaximin (Xifaxan) 550 mg DAILY PO ; Start 12/03/18 at 12:30 Amylase/Lipase/ Protease (Creon ([id number])) 1 cap WITH MEALS PO ; Start 12/03/18 at 17:55 Risperidone (Risperdal) 0.25 mg BID PRN PO ANXIETY; Start 12/03/18 at 12:30 Metformin HCl (Glucophage) 500 mg WITH DINNER PO ; Start 12/03/18 at 17:55 Diagnostic Test (Pha) (Accu-Chek) 1 ea 02 XX Last administered on 12/04/18at 02:28; Admin Dose 1 EA; Start 12/04/18 at 02:00 Insulin Aspart (Novolog Insulin Pen) NOVOLOG *MILD* ALGORI... Q4 SC Last ad ministered on 12/04/18at 09:56; Admin Dose 1 UNIT; Start 12/03/18 at 13:30 Metoprolol Tartrate (Lopressor) 25 mg BID PO ; Start 12/03/18 at 21:00 Pantoprazole (Protonix Tab) 40 mg BID@06,18 PO ; Start 12/03/18 at 18:00 Senna (Senokot) 1 tab DAILY PO ; Start 12/04/18 at 09:00 Magnesium Hydroxide (Milk Of Mag) 30 ml DAILY PO ; Start 12/04/18 at 09:00 Miscellaneous Information 1 ea NOTE XX ; Start 12/03/18 at 13:00 Glucose (Glutose) 15 gm Q15M PRN PO DECREASED GLUCOSE; Start 12/03/18 at 13:00 Glucose (Glutose) 22.5 gm Q15M PRN PO DECREASED GLUCOSE; Start 12/03/18 at 13:00 Dextrose (D50w Syringe) 25 ml Q15M PRN IV DECREASED GLUCOSE; Start 12/03/18 at 13:00 Dextrose (D50w Syringe) 50 ml Q15M PRN IV DECREASED GLUCOSE; Start 12/03/18 at 13:00 Glucagon (Glucagen) 1 mg Q15M PRN IM DECREASED GLUCOSE; Start 12/03/18 at 13:00 Glucose (Glutose) 15 gm Q15M PRN BUCCAL DECREASED GLUCOSE; Start 12/03/18 at 13:00 CAREY BLAND M.D. Dec 04, 2018 13:51
[2018-12-04] MEDS: metFORMIN 500 MG TAB PO SCH (17:55)
[2018-12-05] VITALS (10 sets, daily range): BP systolic 107–152; BP diastolic 54–65; PULSE 44–73; RESP 16–20
[2018-12-05] MEDS: INSULIN ASPART [NOVOLOG] 3 ML PEN SC SCH ×6 (00:52→22:14)
--- NOTE | 2018-12-05 01:43 | PN ---
Date/Time of Note Date/Time of Note DATE: 12/04/18 TIME: 08:42 Subjective awakable, but easy to fall back to sleep, denies of any pain Objective Vitals Vital Signs Date Temp Pulse Resp B/P (MAP) Pulse Ox O2 O2 Flow FiO2 Time Delivery Rate 12/05/18 49 00:00 12/05/18 98.0 20 152/65 100 00:00 (94) 12/04/18 Room Air 11:30 Intake and Output 12/04/18 12/04/18 12/05/18 1515:00 23:00 07:00 IntakeIntake Total 30 ml OutputOutput Total 500 ml BalanceBalance -470 ml in bed, hasn't eaten due to sleepiness, rr, cta, dry mucus, no c/c/e, no shaking Results Result Diagram: 12/04/18 0610 12/04/18 0610 Medications Medications Current Medications Potassium Chloride 10 meq/ Sodium Chloride 1,005 ml @ 50 mls/hr Q20H6M IV Last administered on 12/04/18at 12:34; Admin Dose 50 MLS/HR; Start 12/03/18 at 14:00 Levothyroxine Sodium (Synthroid) 137 mcg DAILY@06 PO ; Start 12/04/18 at 06:00 Aspirin (Aspirin) 81 mg DAILY PO ; Start 12/03/18 at 12:30 Rifaximin (Xifaxan) 550 mg DAILY PO ; Start 12/03/18 at 12:30 Amylase/Lipase/ Protease (Creon ([id number])) 1 cap WITH MEALS PO ; Start 12/03/18 at 17:55 Risperidone (Risperdal) 0.25 mg BID PRN PO ANXIETY; Start 12/03/18 at 12:30 Metformin HCl (Glucophage) 500 mg WITH DINNER PO ; Start 12/03/18 at 17:55 Diagnostic Test (Pha) (Accu-Chek) 1 ea 02 XX Last administered on 12/04/18at 02:28; Admin Dose 1 EA; Start 12/04/18 at 02:00 Insulin Aspart (Novolog Insulin Pen) NOVOLOG *MILD* ALGORI... Q4 SC Last administered on 12/05/18at 00:52; Admin Dose 1 UNIT; Start 12/03/18 at 13:30 Metoprolol Tartrate (Lopressor) 25 mg BID PO Last administered on 12/04/18at 21:03; Admin Dose 25 MG; Start 12/03/18 at 21:00 Pantoprazole (Protonix Tab) 40 mg BID@06,18 PO ; Start 12/03/18 at 18:00 Senna (Senokot) 1 tab DAILY PO ; Start 12/04/18 at 09:00 Magnesium Hydroxide (Milk Of Mag) 30 ml DAILY PO ; Start 12/04/18 at 09:00 Miscellaneous Information 1 ea NOTE XX ; Start 12/03/18 at 13:00 Glucose (Glutose) 15 gm Q15M PRN PO DECREASED GLUCOSE; Start 12/03/18 at 13:00 Glucose (Glutose) 22.5 gm Q15M PRN PO DECREASED GLUCOSE; Start 12/03/18 at 13:00 Dextrose (D50w Syringe) 25 ml Q15M PRN IV DECREASED GLUCOSE; Start 12/03/18 at 13:00 Dextrose (D50w Syringe) 50 ml Q15M PRN IV DECREASED GLUCOSE; Start 12/03/18 at 13:00 Glucagon (Glucagen) 1 mg Q15M PRN IM DECREASED GLUCOSE; Start 12/03/18 at 13:00 Glucose (Glutose) 15 gm Q15M PRN BUCCAL DECREASED GLUCOSE; Start 12/03/18 at 13:00 VTE Prophylaxis Risk score (from Nsg)>0 risk: 7 SCD applied (from Ns): Yes Lines/Catheters IV Catheter Type: Saline Lock Central line still needed: No Smith in Place: No Assessment/Plan Assessment/Plan 1. 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 depression/ anorexia 3. copd 4. dysrrhythemia/ htn/ chf/ pvd 5. dm/ neuropathy 6. ckd II/ amenia ---per cards ---per PT ---per ST swallow eval ---dec ivf ---will call neuro again, steroid trial?, ---cont all supportive cares VIR[place]IA CA MD Dec 05, 2018 01:43
[2018-12-05] MEDS: ACCU-CHEK XX SCH (02:18)
[2018-12-05] MEDS: PANTOPRAZOLE (EC) 40 MG TAB PO SCH ×2 (05:19→17:07)
[2018-12-05] MEDS: LEVOTHYROXINE 137 MCG TAB PO SCH (05:19)
[2018-12-05] MEDS: POTASSIUM CHLORIDE 10 MEQ in SOD CHLORIDE 0.45% 1,000 ML IV SCH (06:36)
[2018-12-05] MEDS: MAGNESIUM HYDROXIDE 30ML CUP PO SCH (09:00)
[2018-12-05] MEDS: ASPIRIN 81 MG TAB PO SCH (09:15)
[2018-12-05] MEDS: RIFAXIMIN 550 MG TAB PO SCH (09:15)
[2018-12-05] MEDS: CLOPIDOGREL 75 MG TAB PO SCH (09:16)
[2018-12-05] MEDS: SENNA TAB PO SCH (09:16)
[2018-12-05] MEDS: METOPROLOL 25 MG TAB PO SCH ×2 (09:17→21:00)
[2018-12-05] MEDS: CREON (24K-76K-120K) 1 CAP PO SCH ×3 (09:18→17:07)
[2018-12-05] MEDS: BALSAM PERU/CASTOR OIL 60 GM TUBE TOP SCH ×2 (11:01→22:07)
[2018-12-05] MEDS: DICLOFENAC SODIUM 1% GEL 100 GM TUBE TP SCH ×3 (14:28→22:08)
[2018-12-05] MEDS: metFORMIN 500 MG TAB PO SCH (17:07)
--- NOTE | 2018-12-05 17:38 | CONS ---
Assessment/Plan Assessment/Plan Hospital Course (Demo Recall) 1. Wide complex tachycardia-suppreseed for most part on low dose BB as tolerated. Had an episode which looked more like abberrant AF when first admittedNL EF by echo this index admission 2. Intermittent bigeminy and generalized wide complex rhythms-generally suppressed on low dose of BB. 3. Hypertension-reasonable control on monotherapy with BB with ACEI held in the setting of renal failure 4. Episodes of nausea and vomiting. 5. Gait instability with signs of hygroma-had been in PT but transferred back to med-surg for AMS. Was initially followed by neurology 6. Diabetes mellitus, status post pancreatectomy, status post Whipple. 7. Hypothyroidism. 8. Pancytopenia with more pronounced leukopenia and thrombocytopenia. 9. Bradycardia-stable now to 40's at times by vital sign asessment with stable BP. NL TSH with actually mmildly elevated Free T4 10.urinary retention s/p arredondo placement Recc: -Tele -Continue low dose BB as tolerated -Continue asa/plavix for now and follow closely for any bleeding complications and if platelet count falls further would d/c plavix likely -Continue creon -Continue synthroid -Follow MS closely now on risperdal Consultation Date/Type/Reason Admit Date/Time Dec 03, 2018 at 10:30 Initial Consult Date 12/03/18 Type of Consult Cardiology Reason for Consultation wide complex tachycardia/bradycardia Requesting Provider: VIRGINIA CA MD Date/Time of Note DATE: 12/05/18 TIME: 17:30 Exam/Review of Systems Vital Signs Vitals Vital Signs Date Temp Pulse Resp B/P (MAP) Pulse Ox O2 O2 Flow FiO2 Time Delivery Rate 12/05/18 98.4 44 18 107/54 98 15:27 (71) 12/04/18 Room Air 11:30 Intake and Output 12/04/18 12/04/18 12/05/18 1515:00 23:00 07:00 IntakeIntake Total 30 ml OutputOutput Total 500 ml BalanceBalance -470 ml Exam Exam Review of Systems: CONSTITUTIONAL: No fevers, chills. PULMONARY: No sob CARDIOVASCULAR: No chest pain/palpitations GASTROINTESTINAL: No nausea/vomiting. GENITOURINARY: No hematuria/dysuria. MUSCULOSKELETAL: No myagias/arthalgias. PSYCHIATRIC: The patient denies depression. NEUROLOGIC: confused Constitutional: alert Psych: confusion Head: normocephalic ENMT: mucosa pink and moist Neck: supple, jvd (9 cm water) Respiratory: clear to auscultation Cardiovascular: regular rate and rhythm (bradycardic, regular rhythm) Gastrointestinal: soft, non-tender Musculoskeletal: muscle tone (normal) Neurological: focal weakness (generalized) Labs Result Diagram: 12/04/18 0610 12/05/18 0639 Results 24hrs Laboratory Tests Test 12/04/18 18:14 12/04/18 20:48 12/05/18 00:25 12/05/18 00:41 Troponin I 0.021 0.023 Bedside Glucose 181 176 Test 12/05/18 05:18 12/05/18 06:39 12/05/18 09:14 12/05/18 12:18 Bedside Glucose 153 169 222 H Sodium Level 138 Potassium Level 4.4 Chloride Level 108 Carbon Dioxide Level 20 L Anion Gap 10 Blood Urea Nitrogen 36 H Creatinine 1.40 H Est Glomerular Filtrat Rate mL/min Glucose Level 173 Calcium Level 9.2 B-Type Natriuretic 616 H Peptide Test 12/05/18 17:06 Bedside Glucose 200 Medications Medications Current Medications Potassium Chloride 10 meq/ Sodium Chloride 1,005 ml @ 50 mls/hr Q20H6M IV Last administered on 12/05/18at 06:36; Admin Dose 50 MLS/HR; Start 12/03/18 at 14:00 Levothyroxine Sodium (Synthroid) 137 mcg DAILY@06 PO Last administered on 12/05/18at 05:19; Admin Dose 137 MCG; Start 12/04/18 at 06:00 Aspirin (Aspirin) 81 mg DAILY PO Last administered on 12/05/18at 09:15; Admin Dose 81 MG; Start 12/03/18 at 12:30 Rifaximin (Xifaxan) 550 mg DAILY PO Last administered on 12/05/18at 09:15; Admin Dose 550 MG; Start 12/03/18 at 12:30 Amylase/Lipase/ Protease (Creon ([id number])) 1 cap WITH MEALS PO Last administered on 12/05/18at 17:07; Admin Dose 1 CAP; Start 12/03/18 at 17:55 Risperidone (Risperdal) 0.25 mg BID PRN PO ANXIETY; Start 12/03/18 at 12:30 Metformin HCl (Glucophage) 500 mg WITH DINNER PO Last administered on at 17:07; Admin Dose 500 MG; Start 12/03/18 at 17:55 Diagnostic Test (Pha) (Accu-Chek) 1 ea 02 XX Last administered on 12/05/18at 02:18; Admin Dose 1 EA; Start 12/04/18 at 02:00 Insulin Aspart (Novolog Insulin Pen) NOVOLOG *MILD* ALGORI... Q4 SC Last administered on 12/05/18at 17:28; Admin Dose 2 UNIT; Start 12/03/18 at 13:30 Metoprolol Tartrate (Lopressor) 25 mg BID PO Last administered on 12/05/18at 09:17; Admin Dose 25 MG; Start 12/03/18 at 21:00 Pantoprazole (Protonix Tab) 40 mg BID@06,18 PO Last administered on 12/05/18at 17:07; Admin Dose 40 MG; Start 12/03/18 at 18:00 Senna (Senokot) 1 tab DAILY PO Last administered on 12/05/18at 09:16; Admin Dose 1 TAB; Start 12/04/18 at 09:00 Magnesium Hydroxide (Milk Of Mag) 30 ml DAILY PO ; Start 12/04/18 at 09:00 Miscellaneous Information 1 ea NOTE XX ; Start 12/03/18 at 13:00 Glucose (Glutose) 15 gm Q15M PRN PO DECREASED GLUCOSE; Start 12/03/18 at 13:00 Glucose (Glutose) 22.5 gm Q15M PRN PO DECREASED GLUCOSE; Start 12/03/18 at 13:0 0 Dextrose (D50w Syringe) 25 ml Q15M PRN IV DECREASED GLUCOSE; Start 12/03/18 at 13:00 Dextrose (D50w Syringe) 50 ml Q15M PRN IV DECREASED GLUCOSE; Start 12/03/18 at 13:00 Glucagon (Glucagen) 1 mg Q15M PRN IM DECREASED GLUCOSE; Start 12/03/18 at 13:00 Glucose (Glutose) 15 gm Q15M PRN BUCCAL DECREASED GLUCOSE; Start 12/03/18 at 13:00 Clopidogrel Bisulfate (plaVIX) 75 mg DAILY PO Last administered on 12/05/18at 09:16; Admin Dose 75 MG; Start 12/05/18 at 09:00 Diclofenac Sodium (Voltaren 1% Gel) 2 gm QID TP Last administered on 12/05/18at 17:07; Admin Dose 2 GM; Start 12/05/18 at 14:00 [place] Dec 05, 2018 17:38
--- NOTE | 2018-12-05 22:32 | PN ---
Date/Time of Note Date/Time of Note DATE: 12/05/18 TIME: 11:31 Subjective more awake, low abd pain, cannot pee Objective Vitals Vital Signs Date Temp Pulse Resp B/P (MAP) Pulse Ox O2 O2 Flow FiO2 Time Delivery Rate 12/05/18 97.5 73 16 124/61 99 Nasal 20:20 (82) Cannula Intake and Output 12/04/18 12/04/18 12/05/18 1515:00 23:00 07:00 IntakeIntake Total 30 ml OutputOutput Total 500 ml BalanceBalance -470 ml bladder scan showing urine retention, using condom cath, rr cta no c/c/e c/o burning sole pain+ Results Result Diagram: 12/04/18 0610 12/05/18 0639 Medications Medications Current Medications Potassium Chloride 10 meq/ Sodium Chloride 1,005 ml @ 50 mls/hr Q20H6M IV Last administered on 12/05/18at 06:36; Admin Dose 50 MLS/HR; Start 12/03/18 at 14:00 Levothyroxine Sodium (Synthroid) 137 mcg DAILY@06 PO Last administered on 12/05/18at 05:19; Admin Dose 137 MCG; Start 12/04/18 at 06:00 Aspirin (Aspirin) 81 mg DAILY PO Last administered on 12/05/18at 09:15; Admin Dose 81 MG; Start 12/03/18 at 12:30 Rifaximin (Xifaxan) 550 mg DAILY PO Last administered on 12/05/18at 09:15; Admin Dose 550 MG; Start 12/03/18 at 12:30 Amylase/Lipase/ Protease (Creon ([id number])) 1 cap WITH MEALS PO Last administered on 12/05/18at 17:07; Admin Dose 1 CAP; Start 12/03/18 at 17:55 Risperidone (Risperdal) 0.25 mg BID PRN PO ANXIETY; Start 12/03/18 at 12:30 Metformin HCl (Glucophage) 500 mg WITH DINNER PO Last administered on 12/05/18at 17:07; Admin Dose 500 MG; Start 12/03/18 at 17:55 Diagnostic Test (Pha) (Accu-Chek) 1 ea 02 XX Last administered on 12/05/18at 02:18; Admin Dose 1 EA; Start 12/04/18 at 02:00 Insulin Aspart (Novolog Insulin Pen) NOVOLOG *MILD* ALGORI... Q4 SC Last administered on 12/05/18at 22:14; Admin Dose 2 UNIT; Start 12/03/18 at 13:30 Metoprolol Tartrate (Lopressor) 25 mg BID PO Last administered on 12/05/18at 09:17; Admin Dose 25 MG; Start 12/03/18 at 21:00 Pantoprazole (Protonix Tab) 40 mg BID@,18 PO Last administered on 12/05/18at 17:07; Admin Dose 40 MG; Start 12/03/18 at 18:00 Senna (Senokot) 1 tab DAILY PO Last administered on 12/05/18at 09:16; Admin Dose 1 TAB; Start 12/04/18 at 09:00 Magnesium Hydroxide (Milk Of Mag) 30 ml DAILY PO ; Start 12/04/18 at 09:00 Miscellaneous Information 1 ea NOTE XX ; Start 12/03/18 at 13:00 Glucose (Glutose) 15 gm Q15M PRN PO DECREASED GLUCOSE; Start 12/03/18 at 13:00 Glucose (Glutose) 22.5 gm Q15M PRN PO DECREASED GLUCOSE; Start 12/03/18 at 13:00 Dextrose (D50w Syringe) 25 ml Q15M PRN IV DECREASED GLUCOSE; Start 12/03/18 at 13:00 Dextrose (D50w Syringe) 50 ml Q15M PRN IV DECREASED GLUCOSE; Start 12/03/18 at 13:00 Glucagon (Glucagen) 1 mg Q15M PRN IM DECREASED GLUCOSE; Start 12/03/18 at 13:00 Glucose (Glutose) 15 gm Q15M PRN BUCCAL DECREASED GLUCOSE; Start 12/03/18 at 13:00 Clopidogrel Bisulfate (plaVIX) 75 mg DAILY PO Last administered on 12/05/18at 09:16; Admin Dose 75 MG; Start 12/05/18 at 09:00 Diclofenac Sodium (Voltaren 1% Gel) 2 gm QID TP Last administered on 12/05/18at 22:08; Admin Dose 2 GM; Start 12/05/18 at 14:00 VTE Prophylaxis Risk score (from Nsg)>0 risk: 7 SCD applied (from Nsg): Yes Lines/Catheters IV Catheter Type: Saline Lock Central line still needed: No Arredondo in Place: No Assessment/Plan Assessment/Plan 1. ams/ encephalopathy/ due to a few new psych mental meds? 2. hygroma pinching on cerebellum/ balance-gait ds 3. copd 4. a fib/ ashd/ chf 5. anxiety-depression 6. low t4 7. ckd II/ ---no mental/ emotiona/ pain meds--wake him up, ---per cards ---per PT/ OT ---inc po eleanor intake ---megace 40mg qd trial ---arredondo cath if necessary [place] CA MD Dec 05, 2018 22:31
[2018-12-06] VITALS (12 sets, daily range): BP systolic 113–140; BP diastolic 58–61; PULSE 51–62; RESP 18
[2018-12-06] MEDS: ACCU-CHEK XX SCH ×2 (02:00→17:50)
[2018-12-06] MEDS: POTASSIUM CHLORIDE 10 MEQ in SOD CHLORIDE 0.45% 1,000 ML IV SCH (02:25)
[2018-12-06] MEDS: INSULIN ASPART [NOVOLOG] 3 ML PEN SC SCH ×6 (03:31→20:51)
[2018-12-06] MEDS: LEVOTHYROXINE 137 MCG TAB PO SCH (05:35)
[2018-12-06] MEDS: PANTOPRAZOLE (EC) 40 MG TAB PO SCH ×2 (05:35→17:50)
--- NOTE | 2018-12-06 08:26 | CONS ---
Consult Date/Type/Reason Admit Date/Time Dec 03, 2018 at 10:30 Initial Consult Date Requesting Provider: VIRGINIA CA MD Date/Time of Note DATE: 12/06/18 TIME: 08:24 Subjective NO acute events - pt in sinus now, pleasant but confused - BP well maintained - no pauses on tele ROS: No fever, no chills, no nausea, no vomiting, no diarrhea/constipation No recent weight changes No chest pain, no PND, no orthopnea No dizziness, blurred vision No thirst, no heat or cold intolerance Objective Vitals Vital Signs Date Temp Pulse Resp B/P (MAP) Pulse Ox O2 O2 Flow FiO2 Time Delivery Rate 12/06/18 98.0 62 18 140/60 98 07:57 (86) 12/06/18 Room Air 03:58 Intake and Output 12/05/18 12/05/18 12/06/18 1515:00 23:00 07:00 IntakeIntake Total 210 ml OutputOutput Total 850 ml BalanceBalance -640 ml Exam General: WN/WD/NAD, AOx 1 - confused HEENT: Unicetric/atraumatic/EOMI ( follows commands) NECK: JVD elevated, no thyromegaly Lymph: no lymphadenopathy HEART: regular with no S3, II/ systolic murmur at apex LUNGS: Coarse sounds ABD: soft, NT, ND, +BS : Intact Neuro: non focal SKIN: chronic changes EXT: trace edema Results/Medications Result Diagram: 12/06/18 0621 12/06/18 0622 Results 24 hrs Laboratory Tests Test 12/05/18 09:14 12/05/18 12:18 12/05/18 17:06 12/05/18 21:58 Bedside Glucose 169 222 H 200 186 Test 12/06/18 03:24 12/06/18 05:34 12/06/18 06:21 12/06/18 06:22 Bedside Glucose 148 142 White Blood Count 3.8 #L Red Blood Count 3.45 L Hemoglobin 11.2 L Hematocrit 32.4 L Mean Corpuscular 93.9 Volume Mean Corpuscular 32.5 Hemoglobin Mean Corpuscular 34.6 Hemoglobin Concent Red Cell 15.5 H Distribution Width Platelet Count 80 L Mean Platelet Volume 10.1 Immature 0.000 L Granulocytes % Neutrophils % 63.4 Lymphocytes % 19.2 Monocytes % 10.8 Eosinophils % 5.8 Basophils % 0.8 Nucleated Red Blood 0.0 Cells % Immature 0.000 Granulocytes # Neutrophils # 2.4 Lymphocytes # 0.7 L Monocytes # 0.4 Eosinophils # 0.2 Basophils # 0.0 Nucleated Red Blood 0.0 Cells # Sodium Level 140 Potassium Level 4.1 Chloride Level 108 Carbon Dioxide Level 21 Anion Gap 11 Blood Urea Nitrogen 32 H Creatinine 1.31 H Est Glomerular Filtrat Rate mL/min Glucose Level 141 Calcium Level 8.9 Home Meds Active Scripts Acetaminophen* (Tylenol*) 325 Mg Tablet, 650 MG PO Q6H PRN for MILD PAIN(1-3)OR ELEVATED TEMP for 14 Days, TAB Prov:VIRGINIA CA MD 11/30/18 [Nursing Note] 1 EA EA No Conflict Check, 1 EA XX NOTE Prov:VIRGINIA CA MD 11/30/18 Megestrol Acetate (Megestrol Acetate) 400 Mg/10 Ml Oral.susp, 400 MG PO DAILY for 14 Days Prov:VIRGINIA CA MD 11/30/18 Metformin* (Glucophage* XR) 500 Mg Tab.sr.24h, 500 MG PO AC DINNER for 14 Days Prov:VIRGINIA CA MD 11/30/18 Levothyroxine Sodium* (Levothyroxine Sodium*) 150 Mcg Tablet, 150 MCG PO BEFORE BREAKFAST for 14 Days, TAB Prov:VIRGINIA CA MD 11/30/18 [Insulin Glargine] 100 UNITS/ML SOLN No Conflict Check, 15 UNITS SC DAILY Prov:VIRGINIA CA MD 11/30/18 Insulin Aspart* (Novolog Insulin Pen*) 100 Unit/Ml Soln, 0 UNIT SC WITH MEALS BEDTIME for 14 Days Prov:VIRGINIA CA MD 11/30/18 Glucagon HCl (Glucagon HCl) 1 Mg Vial, 1 MG IM Q15M PRN for DECREASED GLUCOSE for 14 Days, VIAL Prov:VIRGINIA CA MD 11/30/18 Magnesium Hydroxide* (Fox' MOM*) 30 Ml Susp, 30 ML PO DAILY PRN for constipation for 14 Days Prov:VIRGINIA CA MD 11/30/18 Docusate Sodium* (Colace*) 100 Mg Capsule, 100 MG PO BID PRN for CONSTIPATION for 14 Days, CAP Prov:VIRGINIA CA MD 11/30/18 Polyvinyl Alcohol* (Akwa Tears*) 1.4% - 15 Ml Drops, 2 DROP BOTH EYES QID for 14 Days, BOTTLE Prov:VIRGINIA CA MD 11/30/18 Dextrose* (D50W Syringe*) 50 Ml Soln, 50 ML IV Q15M PRN for DECREASED GLUCOSE for 14 Days Prov:VIRGINIA CA MD 11/30/18 Dextrose* (D50W Syringe*) 50 Ml Soln, 25 ML IV Q15M PRN for DECREASED GLUCOSE fo r 14 Days Prov:IVRGINIA CA MD 11/30/18 Dextrose (Glutose 15) 37.5 Gm Gel..gm., 15 GM BUCCAL Q15M PRN for DECREASED GLUCOSE for 14 Days Prov:VIRGINIA CA MD 11/30/18 Dextrose (Glutose 15) 37.5 Gm Gel..gm., 22.5 GM PO Q15M PRN for DECREASED GLUCOSE for 14 Days Prov:VIRGINIA CA MD 11/30/18 Dextrose (Glutose 15) 37.5 Gm Gel..gm., 15 GM PO Q15M PRN for DECREASED GLUCOSE for 14 Days Prov:VIRGINIA CA MD 11/30/18 [Accu-Chek] 1 EA EA No Conflict Check, 1 EA XX 02 Prov:VIRGINIA CA MD 11/30/18 Risperidone* (Risperdal*) 0.25 Mg Tablet, 0.25 MG PO BID PRN for agitation for 14 Days, TAB Prov:VIRGINIA CA MD 11/30/18 Gabapentin* (Gabapentin*) 100 Mg Capsule, 100 MG PO AM for 14 Days, CAP Prov:VIRGINIA CA MD 11/30/18 Gabapentin* (Gabapentin*) 300 Mg Capsule, 300 MG PO HS for 14 Days, CAP Prov:VIRGINIA CA MD 11/30/18 Metoprolol Tartrate* (Lopressor*) 25 Mg Tab, 25 MG PO BID for 14 Days, TAB Prov:VIRGINIA CA MD 11/30/18 Benazepril Hcl* (Benazepril Hcl*) 10 Mg Tablet, 10 MG PO DAILY for 14 Days, TAB Prov:VIRGINIA CA MD 11/30/18 Diphenhydramine Hcl* (Benadryl*) 25 Mg Cap, 25 MG PO HS PRN for insomnia for 15 Days, CAP Prov:VIRGINIA CA MD 11/30/18 Enoxaparin Sodium* (Enoxaparin Sodium*) 30 Mg/0.3 Ml Syringe, 30 MG SC DAILY for 15 Days Prov:VIRGINIA CA MD 11/30/18 Reported Medications Rifaximin* (Xifaxan*) 550 Mg Tablet, 550 MG PO DAILY, TAB 11/26/18 Omeprazole* (Omeprazole*) 40 Mg Capsule.dr, 40 MG PO DAILY, #30 CAP 11/24/18 Ergocalciferol (Vitamin D2) (VITAMIN D2) 50,000 Unit Capsule, 79634 UNIT PO Q SUN, CAP 11/24/18 Discontinued Reported Medications Mmtghn-[id number]-Yuhrmvd* (Ho TURNER* 36,000) 36,000 L-114,000-180,000 Unit Capsule.dr, 1 CAP PO WITH MEALS, CAP 11/24/18 Levothyroxine Sodium* (Levothyroxine Sodium*) 175 Mcg Tablet, 175 MCG PO BEFORE BREAKFAST, #30 TAB 11/24/18 Glipizide* (Glipizide*) 5 Mg Tablet, 5 MG PO AC BREAKFAST DINNER, TAB 11/24/18 Gabapentin* (Gabapentin*) 300 Mg Capsule, 300 MG PO BID, #60 CAP TAKE 1 CAP-QAM AND 3 CAP-QHS 11/24/18 Insulin Detemir (Levemir Flextouch) 100 Unit/1 Ml Insuln.pen, UNIT SQ DAILY, EA SLIDING SCALE 11/24/18 Medications Current Medications Potassium Chloride 10 meq/ Sodium Chloride 1,005 ml @ 50 mls/hr Q20H6M IV Last administered on 12/05/18at 06:36; Admin Dose 50 MLS/HR; Start 12/03/18 at 14:00 Levothyroxine Sodium (Synthroid) 137 mcg DAILY@06 PO Last administered on at 05:35; Admin Dose 137 MCG; Start 12/04/18 at 06:00 Aspirin (Aspirin) 81 mg DAILY PO Last administered on 12/05/18at 09:15; Admin Dose 81 MG; Start 12/03/18 at 12:30 Rifaximin (Xifaxan) 550 mg DAILY PO Last administered on 12/05/18at 09:15; Admin Dose 550 MG; Start 12/03/18 at 12:30 Amylase/Lipase/ Protease (Creon ([id number])) 1 cap WITH MEALS PO Last administered on 12/05/18at 17:07; Admin Dose 1 CAP; Start 12/03/18 at 17:55 Risperidone (Risperdal) 0.25 mg BID PRN PO ANXIETY; Start 12/03/18 at 12:30 Metformin HCl (Glucophage) 500 mg WITH DINNER PO Last administered on 12/05/18at 17:07; Admin Dose 500 MG; Start 12/03/18 at 17:55 Diagnostic Test (Pha) (Accu-Chek) 1 ea 02 XX Last administered on 12/06/18at 02:00; Admin Dose 1 EA; Start 12/04/18 at 02:00 Insulin Aspart (Novolog Insulin Pen) NOVOLOG *MILD* ALGORI... Q4 SC Last administered on 12/06/18at 05:36; Admin Dose 1 UNIT; Start 12/03/18 at 13:30 Metoprolol Tartrate (Lopressor) 25 mg BID PO Last administered on 12/05/18at 0 9:17; Admin Dose 25 MG; Start 12/03/18 at 21:00 Pantoprazole (Protonix Tab) 40 mg BID@06,18 PO Last administered on 12/06/18at 05:35; Admin Dose 40 MG; Start 12/03/18 at 18:00 Senna (Senokot) 1 tab DAILY PO Last administered on 12/05/18at 09:16; Admin Dose 1 TAB; Start 12/04/18 at 09:00 Magnesium Hydroxide (Milk Of Mag) 30 ml DAILY PO ; Start 12/04/18 at 09:00 Miscellaneous Information 1 ea NOTE XX ; Start 12/03/18 at 13:00 Glucose (Glutose) 15 gm Q15M PRN PO DECREASED GLUCOSE; Start 12/03/18 at 13:00 Glucose (Glutose) 22.5 gm Q15M PRN PO DECREASED GLUCOSE; Start 12/03/18 at 13:00 Dextrose (D50w Syringe) 25 ml Q15M PRN IV DECREASED GLUCOSE; Start 12/03/18 at 13:00 Dextrose (D50w Syringe) 50 ml Q15M PRN IV DECREASED GLUCOSE; Start 12/03/18 at 13:00 Glucagon (Glucagen) 1 mg Q15M PRN IM DECREASED GLUCOSE; Start 12/03/18 at 13:00 Glucose (Glutose) 15 gm Q15M PRN BUCCAL DECREASED GLUCOSE; Start 12/03/18 at 13:00 Clopidogrel Bisulfate (plaVIX) 75 mg DAILY PO Last administered on 12/05/18at 09:16; Admin Dose 75 MG; Start 12/05/18 at 09:00 Diclofenac Sodium (Voltaren 1% Gel) 2 gm QID TP Last administered on 12/05/18at 22:08; Admin Dose 2 GM; Start 12/05/18 at 14:00 Megestrol Acetate (Megace Susp) 400 mg DAILY PO ; Start 12/06/18 at 09:00 Assessment/Plan Hospital Course (Demo Recall) 1. Wide complex tachycardia-suppreseed for most part on low dose BB as tolerated. Had an episode which looked more like abberrant AF when first admittedNL EF by echo this index admission - in sinus now. Pt somewhat bready, but BP stable and overall, poor functional capacity - he dies not have Class I indication for pacer now and I think given overall state of health, medical Rx is reasonable. 2. Intermittent bigeminy and generalized wide complex rhythms-generally suppressed on low dose of BB. Sinus now. 3. Hypertension-reasonable control on monotherapy with BB with ACEI held in the setting of renal failure - improved with RX. 4. Episodes of nausea and vomiting. 5. Gait instability with signs of hygroma-had been in PT but transferred back to med-surg for AMS. Was initially followed by neurology - defer to neuro team. 6. Diabetes mellitus, status post pancreatectomy, status post Whipple. 7. Hypothyroidism. 8. Pancytopenia with more pronounced leukopenia and thrombocytopenia. 9. Bradycardia-stable now to 40's at times by vital sign asessment with stable BP. NL TSH with actually mmildly elevated Free T4 - clinical follow up expected now. 10.urinary retention s/p RYLEE Maier MD Dec 06, 2018 08:26
[2018-12-06] MEDS: BALSAM PERU/CASTOR OIL 60 GM TUBE TOP SCH ×2 (09:00→21:55)
[2018-12-06] MEDS ORDERED: MEGESTROL 40 MG TAB PO ONE (09:00)
[2018-12-06] MEDS ORDERED: MEGESTROL (40 MG/ML) 10ML CUP PO SCH (09:00)
[2018-12-06] MEDS: METOPROLOL 25 MG TAB PO SCH ×2 (09:00→20:38)
[2018-12-06] MEDS ORDERED: MAGNESIUM HYDROXIDE 30ML CUP PO PRN (09:30)
[2018-12-06] MEDS: RIFAXIMIN 550 MG TAB PO SCH (09:38)
[2018-12-06] MEDS: ASPIRIN 81 MG TAB PO SCH (09:38)
[2018-12-06] MEDS: CLOPIDOGREL 75 MG TAB PO SCH (09:38)
[2018-12-06] MEDS: SENNA TAB PO SCH (09:38)
[2018-12-06] MEDS: CREON (24K-76K-120K) 1 CAP PO SCH ×3 (09:38→17:43)
[2018-12-06] MEDS: DICLOFENAC SODIUM 1% GEL 100 GM TUBE TP SCH ×4 (10:12→20:41)
--- NOTE | 2018-12-06 10:13 | PN ---
Date/Time of Note Date/Time of Note DATE: 12/06/18 TIME: 10:03 Objective Vitals Vital Signs Date Temp Pulse Resp B/P (MAP) Pulse Ox O2 O2 Flow FiO2 Time Delivery Rate 12/06/18 59 08:32 12/06/18 98.0 18 140/60 98 07:57 (86) 12/06/18 Room Air 03:58 Intake and Output 12/05/18 12/05/18 12/06/18 1515:00 23:00 07:00 IntakeIntake Total 210 ml OutputOutput Total 850 ml BalanceBalance -640 ml sat on the edge of bed, stood, slid 1 inch to right, fully awake, 2-3 words at a time, extreme tired after short pt/ ot am exercise, rr, cta, slight bruise on arms, legs musc atrophy+, Results Result Diagram: 12/06/1821 12/06/18 0622 Medications Medications Current Medications Potassium Chloride 10 meq/ Sodium Chloride 1,005 ml @ 50 mls/hr Q20H6M IV Last administered on 12/05/18at 06:36; Admin Dose 50 MLS/HR; Start 12/03/18 at 14:00 Levothyroxine Sodium (Synthroid) 137 mcg DAILY@06 PO Last administered on 12/06/18at 05:35; Admin Dose 137 MCG; Start 12/04/18 at 06:00 Aspirin (Aspirin) 81 mg DAILY PO Last administered on 12/05/18at 09:15; Admin Dose 81 MG; Start 12/03/18 at 12:30 Rifaximin (Xifaxan) 550 mg DAILY PO Last administered on 12/05/18at 09:15; Admin Dose 550 MG; Start 12/03/18 at 12:30 Amylase/Lipase/ Protease (Creon ([id number])) 1 cap WITH MEALS PO Last administered on 12/05/18at 17:07; Admin Dose 1 CAP; Start 12/03/18 at 17:55 Risperidone (Risperdal) 0.25 mg BID PRN PO ANXIETY; Start 12/03/18 at 12:30 Metformin HCl (Glucophage) 500 mg WITH DINNER PO Last administered on 12/05/18at 17:07; Admin Dose 500 MG; Start 12/03/18 at 17:55 Diagnostic Test (Pha) (Accu-Chek) 1 ea 02 XX Last administered on 12/06/18at 02:00; Admin Dose 1 EA; Start 12/04/18 at 02:00 Insulin Aspart (Novolog Insulin Pen) NOVOLOG *MILD* ALGORI... Q4 SC Last administered on 12/06/18at 05:36; Admin Dose 1 UNIT; Start 12/03/18 at 13:30 Metoprolol Tartrate (Lopressor) 25 mg BID PO Last administered on 12/05/18at 09:17; Admin Dose 25 MG; Start 12/03/18 at 21:00 Pantoprazole (Protonix Tab) 40 mg BID@18 PO Last administered on 12/06/18at 05:35; Admin Dose 40 MG; Start 12/03/18 at 18:00 Senna (Senokot) 1 tab DAILY PO Last administered on 12/05/18at 09:16; Admin Dose 1 TAB; Start 12/04/18 at 09:00 Miscellaneous Information 1 ea NOTE XX ; Start 12/03/18 at 13:00 Glucose (Glutose) 15 gm Q15M PRN PO DECREASED GLUCOSE; Start 12/03/18 at 13:00 Glucose (Glutose) 22.5 gm Q15M PRN PO DECREASED GLUCOSE; Start 12/03/18 at 13:00 Dextrose (D50w Syringe) 25 ml Q15M PRN IV DECREASED GLUCOSE; Start 12/03/18 at 13:00 Dextrose (D50w Syringe) 50 ml Q15M PRN IV DECREASED GLUCOSE; Start 12/03/18 at 13:00 Glucagon (Glucagen) 1 mg Q15M PRN IM DECREASED GLUCOSE; Start 12/03/18 at 13:00 Glucose (Glutose) 15 gm Q15M PRN BUCCAL DECREASED GLUCOSE; Start 12/03/18 at 13:00 Clopidogrel Bisulfate (plaVIX) 75 mg DAILY PO Last administered on 12/05/18at 09:16; Admin Dose 75 MG; Start 12/05/18 at 09:00 Diclofenac Sodium (Voltaren 1% Gel) 2 gm QID TP Last administered on 12/05/18at 22:08; Admin Dose 2 GM; Start 12/05/18 at 14:00 Megestrol Acetate (Megace Susp) 400 mg DAILY PO ; Start 6/18/19 at 09:00 Magnesium Hydroxide (Milk Of Mag) 30 ml DAILY PRN PO constipation; Start 12/06/18 at 09:30; Status UNV VTE Prophylaxis Risk score (from Ns)>0 risk: 6 SCD applied (from Ns): Yes Lines/Catheters IV Catheter Type: Saline Lock Central line still needed: No Smith in Place: No Assessment/Plan Assessment/Plan 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 old age musc weak/ easy fatigue 3. dysrrythemia/ htn/ pvd 4, copd 5. low t4 6. dm/ neuropathy 7. depression-anxiety ---per PT/ OT, minimum pt needs to transfer to chair & commode, using wt bearing with some type of assisted tansportation ---per cards ---per pulm ---per endo ---will try to use mostly diclofenac gel, instead of any pills for pain complaints due to pt very labile with altered mental status with such meds ---spoken to VIRGINIA CA MD Dec 06, 2018 10:13
[2018-12-06] MEDS: CHOLECALCIFEROL 2,000 UNIT CAP PO SCH (12:02)
[2018-12-06] MEDS: metFORMIN 500 MG TAB PO SCH (17:43)
[2018-12-07] VITALS (12 sets, daily range): BP systolic 112–136; BP diastolic 56–78; PULSE 38–79; RESP 16–20
[2018-12-07] MEDS: LEVOTHYROXINE 137 MCG TAB PO SCH (06:39)
[2018-12-07] MEDS: PANTOPRAZOLE (EC) 40 MG TAB PO SCH ×2 (06:39→17:21)
[2018-12-07] MEDS: CREON (24K-76K-120K) 1 CAP PO SCH ×3 (07:41→17:21)
[2018-12-07] MEDS: ACCU-CHEK XX SCH ×2 (07:42→17:23)
[2018-12-07] MEDS: INSULIN ASPART [NOVOLOG] 3 ML PEN SC SCH ×4 (07:51→21:54)
[2018-12-07] MEDS: MEGESTROL (40 MG/ML) 10ML CUP PO SCH (09:46)
[2018-12-07] MEDS: RIFAXIMIN 550 MG TAB PO SCH (09:47)
[2018-12-07] MEDS: CLOPIDOGREL 75 MG TAB PO SCH (09:47)
[2018-12-07] MEDS: ASPIRIN 81 MG TAB PO SCH (09:47)
[2018-12-07] MEDS: SENNA TAB PO SCH (09:47)
[2018-12-07] MEDS: CHOLECALCIFEROL 2,000 UNIT CAP PO SCH (09:48)
[2018-12-07] MEDS: DICLOFENAC SODIUM 1% GEL 100 GM TUBE TP SCH ×4 (09:48→21:45)
[2018-12-07] MEDS: BALSAM PERU/CASTOR OIL 60 GM TUBE TOP SCH ×2 (09:49→21:45)
[2018-12-07] MEDS: METOPROLOL 25 MG TAB PO SCH ×2 (09:50→21:00)
--- NOTE | 2018-12-07 13:52 | CONS ---
Assessment/Plan Assessment/Plan Hospital Course (Demo Recall) 1. Wide complex tachycardia-suppressed for most part on low dose BB as tolerated. Had an episode which looked more like abberrant AF when first admittedNL EF by echo this index admission 2. Intermittent bigeminy and generalized wide complex rhythms-generally suppressed on low dose of BB when given as tolerated 3. Hypertension-reasonable control on monotherapy with BB with ACEI held in the setting of renal failure 4. Episodes of nausea and vomiting. 5. Gait instability with signs of hygroma-had been in PT but transferred back to med-surg for AMS. Was initially followed by neurology 6. Diabetes mellitus, status post pancreatectomy, status post Whipple. 7. Hypothyroidism. 8. Pancytopenia with more pronounced leukopenia and thrombocytopenia. 9. Bradycardia-stable now to 40's at times by vital sign asessment with stable BP. NL TSH with actually mildly elevated Free T4 10.urinary retention s/p arredondo placement Recc: -Tele -Continue low dose BB as tolerated -Continue asa/plavix for now and follow closely for any bleeding complications and if platelet count falls further would d/c plavix likely -Continue creon -Continue synthroid -Follow MS closely now on risperdal -s/p EP eval yesterday by Brenda with no definite indication for PPM at this time Consultation Date/Type/Reason Admit Date/Time Dec 03, 2018 at 10:30 Initial Consult Date 12/03/18 Type of Consult Cardiology Reason for Consultation bigeminy Requesting Provider: VIRGINIA CA MD Date/Time of Note DATE: 12/07/18 TIME: 13:47 Exam/Review of Systems Vital Signs Vitals Vital Signs Date Temp Pulse Resp B/P (MAP) Pulse Ox O2 O2 Flow FiO2 Time Delivery Rate 12/07/18 97.5 57 18 112/56 99 Room Air 11:40 (74) Intake and Output 12/06/18 12/06/18 12/07/18 1515:00 23:00 07:00 IntakeIntake Total 700 ml OutputOutput Total 800 ml 650 ml BalanceBalance -100 ml -650 ml Exam Exam Review of Systems: CONSTITUTIONAL: No fevers, chills. PULMONARY: No sob CARDIOVASCULAR: No chest pain/palpitations GASTROINTESTINAL: No nausea/vomiting. GENITOURINARY: No hematuria/dysuria. MUSCULOSKELETAL: No myagias/arthalgias. PSYCHIATRIC: The patient denies depression. NEUROLOGIC: somewhat lethargic Constitutional: alert Psych: no complaints Head: normocephalic ENMT: mucosa pink and moist Neck: supple, jvd (9 cm water) Respiratory: diminished breath sounds Cardiovascular: other (bradycardia, regular rhythm) Gastrointestinal: soft, non-tender Musculoskeletal: muscle tone (normal) Extremities: edema (none) Neurological: lethargic (generally but actually more alert than prior days) Labs Result Diagram: 12/06/18 0621 12/07/18 0811 Results 24hrs Laboratory Tests Test 12/06/18 17:42 12/06/18 20:41 12/07/18 07:42 12/07/18 08:11 Bedside Glucose 186 208 188 Sodium Level 141 Potassium Level 4.5 Chloride Level 105 Carbon Dioxide Level 21 Anion Gap 15 H Blood Urea Nitrogen 28 H Creatinine 1.29 H Est Glomerular Filtrat Rate mL/min Glucose Level 190 Calcium Level 9.0 Magnesium Level 1.9 B-Type Natriuretic 619 H Peptide Test 12/07/18 11:55 Bedside Glucose 221 H Medications Medications Current Medications Levothyroxine Sodium (Synthroid) 137 mcg DAILY@06 PO Last administered on 12/07/18 06:39; Admin Dose 137 MCG; Start 12/04/18 at 06:00 Aspirin (Aspirin) 81 mg DAILY PO Last administered on 12/07/18 09:47; Admin Dose 81 MG; Start 12/03/18 at 12:30 Rifaximin (Xifaxan) 550 mg DAILY PO Last administered on 12/07/18 09:47; Admin Dose 550 MG; Start 12/03/18 at 12:30 Amylase/Lipase/ Protease (Creon ([id number])) 1 cap WITH MEALS PO Last administered on 12/07/18at 11:56; Admin Dose 1 CAP; Start 12/03/18 at 17:55 Risperidone (Risperdal) 0.25 mg BID PRN PO ANXIETY; Start 12/03/18 at 12:30 Metformin HCl (Glucophage) 500 mg WITH DINNER PO Last administered on 12/06/18at 17:43; Admin Dose 500 MG; Start 12/03/18 at 17:55 Metoprolol Tartrate (Lopressor) 25 mg BID PO Last administered on 12/07/18 09:50; Admin Dose 25 MG; Start 12/03/18 at 21:00 Pantoprazole (Protonix Tab) 40 mg BID@18 PO Last administered on 12/07/18 06:39; Admin Dose 40 MG; Start 12/03/18 at 18:00 Senna (Senokot) 1 tab DAILY PO Last administered on 12/07/18 09:47; Admin Dose 1 TAB; Start 12/04/18 at 09:00 Miscellaneous Information 1 ea NOTE XX ; Start 12/03/18 at 13:00 Glucose (Glutose) 15 gm Q15M PRN PO DECREASED GLUCOSE; Start 12/03/18 at 13:00 Glucose (Glutose) 22.5 gm Q15M PRN PO DECREASED GLUCOSE; Start 12/03/18 at 13:00 Dextrose (D50w Syringe) 25 ml Q15M PRN IV DECREASED GLUCOSE; Start 12/03/18 at 13:00 Dextrose (D50w Syringe) 50 ml Q15M PRN IV DECREASED GLUCOSE; Start 12/03/18 at 13:00 Glucagon (Glucagen) 1 mg Q15M PRN IM DECREASED GLUCOSE; Start 12/03/18 at 13:00 Glucose (Glutose) 15 gm Q15M PRN BUCCAL DECREASED GLUCOSE; Start 12/03/18 at 13:00 Clopidogrel Bisulfate (plaVIX) 75 mg DAILY PO Last administered on 12/07/18 09:47; Admin Dose 75 MG; Start 12/05/18 at 09:00 Diclofenac Sodium (Voltaren 1% Gel) 2 gm QID TP Last administered on 12/07/18 13:07; Admin Dose 2 GM; Start 12/05/18 at 14:00 Magnesium Hydroxide (Milk Of Mag) 30 ml DAILY PRN PO constipation; Start 12/06/18 at 09:30 Diagnostic Test (Pha) (Accu-Chek) 1 ea BID WITH MEALS XX Last administered on 12/07/18 07:42; Admin Dose 1 EA; Start 12/06/18 at 17:55 Megestrol Acetate (Megace Susp) 40 mg DAILY PO Last administered on 12/07/18 09:46; Admin Dose 40 MG; Start 12/07/18 at 09:00 Cholecalciferol (Vitamin D) 2,000 unit DAILY PO Last administered on 6/19/19at 09:48; Admin Dose 2,000 UNIT; Start 12/06/18 at 10:30 Insulin Aspart (Novolog Insulin Pen) NOVOLOG *MILD* ALGORI... AC MEALS AND BE DTIME SC Last administered on 12/07/18at 12:04; Admin Dose 3 UNIT; Start 12/06/18 at 11:20 Eye Lubricant (Artificial Tears Oph) 2 drop Q2H PRN BOTH EYES DRY EYES; Start 12/06/18 at 22:00 [place] Dec 07, 2018 13:52
[2018-12-07] MEDS: metFORMIN 500 MG TAB PO SCH (17:23)
--- NOTE | 2018-12-07 22:47 | PN ---
Date/Time of Note Date/Time of Note DATE: 12/07/18 TIME: 20:46 Subjective in bed, arousable, somewhat incoherent speech, wanting to get out of bed, no complaints of pain Objective Vitals Vital Signs Date Temp Pulse Resp B/P (MAP) Pulse Ox O2 O2 Flow FiO2 Time Delivery Rate 12/07/18 48 20:06 12/07/18 98.7 16 124/60 100 20:00 (81) 12/07/18 Nasal 15:00 Cannula Intake and Output 12/06/18 12/06/18 12/07/18 1515:00 23:00 07:00 IntakeIntake Total 700 ml OutputOutput Total 800 ml 650 ml BalanceBalance -100 ml -650 ml in bed, pulling on pajama spont, ate 25% tray, urine in arredondo bag concentrated, voiced "wanting to go home", rr, cta, dry mucus, no c/c/e Results Result Diagram: 12/06/18 0621 12/07/18 0811 Medications Medications Current Medications Levothyroxine Sodium (Synthroid) 137 mcg DAILY@06 PO Last administered on 12/07/18at 06:39; Admin Dose 137 MCG; Start 12/04/18 at 06:00 Aspirin (Aspirin) 81 mg DAILY PO Last administered on 12/07/18 09:47; Admin Do se 81 MG; Start 12/03/18 at 12:30 Rifaximin (Xifaxan) 550 mg DAILY PO Last administered on 12/07/18 09:47; Admin Dose 550 MG; Start 12/03/18 at 12:30 Amylase/Lipase/ Protease (Creon ([id number])) 1 cap WITH MEALS PO Last administered on 12/07/18at 17:21; Admin Dose 1 CAP; Start 12/03/18 at 17:55 Risperidone (Risperdal) 0.25 mg BID PRN PO ANXIETY; Start 12/03/18 at 12:30 Metformin HCl (Glucophage) 500 mg WITH DINNER PO Last administered on 12/07/18at 17:23; Admin Dose 500 MG; Start 12/03/18 at 17:55 Metoprolol Tartrate (Lopressor) 25 mg BID PO Last administered on 12/07/18at 09:50; Admin Dose 25 MG; Start 12/03/18 at 21:00 Pantoprazole (Protonix Tab) 40 mg BID@18 PO Last administered on 12/07/18 17:21; Admin Dose 40 MG; Start 12/03/18 at 18:00 Senna (Senokot) 1 tab DAILY PO Last administered on 12/07/18 09:47; Admin Dose 1 TAB; Start 12/04/18 at 09:00 Miscellaneous Information 1 ea NOTE XX ; Start 12/03/18 at 13:00 Glucose (Glutose) 15 gm Q15M PRN PO DECREASED GLUCOSE; Start 12/03/18 at 13:00 Glucose (Glutose) 22.5 gm Q15M PRN PO DECREASED GLUCOSE; Start 12/03/18 at 13 :00 Dextrose (D50w Syringe) 25 ml Q15M PRN IV DECREASED GLUCOSE; Start 12/03/18 at 13:00 Dextrose (D50w Syringe) 50 ml Q15M PRN IV DECREASED GLUCOSE; Start 12/03/18 at 13:00 Glucagon (Glucagen) 1 mg Q15M PRN IM DECREASED GLUCOSE; Start 12/03/18 at 13:00 Glucose (Glutose) 15 gm Q15M PRN BUCCAL DECREASED GLUCOSE; Start 12/03/18 at 13:00 Clopidogrel Bisulfate (plaVIX) 75 mg DAILY PO Last administered on 12/07/18at 09:47; Admin Dose 75 MG; Start 12/05/18 at 09:00 Diclofenac Sodium (Voltaren 1% Gel) 2 gm QID TP Last administered on 12/07/18at 21:45; Admin Dose 2 GM; Start 12/05/18 at 14:00 Magnesium Hydroxide (Milk Of Mag) 30 ml DAILY PRN PO constipation; Start 12/06/18 at 09:30 Diagnostic Test (Pha) (Accu-Chek) 1 ea BID WITH MEALS XX Last administered on 12/07/18 17:23; Admin Dose 1 EA; Start 12/06/18 at 17:55 Megestrol Acetate (Megace Susp) 40 mg DAILY PO Last administered on 12/07/18 09:46; Admin Dose 40 MG; Start 12/07/18 at 09:00 Cholecalciferol (Vitamin D) 2,000 unit DAILY PO Last administered on 12/07/18 09:48; Admin Dose 2,000 UNIT; Start 12/06/18 at 10:30 Insulin Aspart (Novolog Insulin Pen) NOVOLOG *MILD* ALGORI... AC MEALS AND BEDTIME SC Last administered on 12/07/18at 21:54; Admin Dose 1 UNIT; Start 12/06/18 at 11:20 Eye Lubricant (Artificial Tears Oph) 2 drop Q2H PRN BOTH EYES DRY EYES; Start 12/06/18 at 22:00 VTE Prophylaxis Risk score (from [facility] [place] risk: 7 SCD applied (from [facility] [place] Yes Lines/Catheters IV Catheter Type: Saline Lock Central line still needed: No Arredondo in Place: No Assessment/Plan Assessment/Plan 1. Still AMS-- ?12/02 urine dirty, uti not received atbx 2. cerebellum synd/ multi cerebral ischemia 3. arrythemia/ htn/ pvd 4. dm/ neuropathy geronimo legs & feet 5. anxiety-depression 6. low t4 7. ckd II/ anemia 8. h/o duod ca/ bladder ca/ prostate ca 9. 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
[2018-12-07] MEDS ORDERED: CIPROFLOXACIN 200 MG/D5W IVPB 100 ML IVPB ONE (23:30)
[2018-12-08] VITALS (12 sets, daily range): BP systolic 113–137; BP diastolic 53–65; PULSE 54–86; RESP 16–20
[2018-12-08] MEDS: PANTOPRAZOLE (EC) 40 MG TAB PO SCH ×2 (06:17→17:19)
[2018-12-08] MEDS: LEVOTHYROXINE 137 MCG TAB PO SCH (06:17)
[2018-12-08] MEDS: ACCU-CHEK XX SCH ×2 (07:47→17:19)
[2018-12-08] MEDS: CREON (24K-76K-120K) 1 CAP PO SCH ×3 (07:47→17:20)
[2018-12-08] MEDS: INSULIN ASPART [NOVOLOG] 3 ML PEN SC SCH ×4 (07:56→21:14)
[2018-12-08] MEDS ORDERED: POTASSIUM CHLORIDE IV SCH (08:30)
[2018-12-08] MEDS ORDERED: SOD CHLORIDE 0.45% IV SCH (08:30)
[2018-12-08] MEDS ORDERED: POTASSIUM CHLORIDE 20 MEQ in SOD CHLORIDE 0.45% 1,000 ML IV SCH (08:30)
[2018-12-08] MEDS: CLOPIDOGREL 75 MG TAB PO SCH (09:01)
[2018-12-08] MEDS: CHOLECALCIFEROL 2,000 UNIT CAP PO SCH (09:01)
[2018-12-08] MEDS: SENNA TAB PO SCH (09:01)
[2018-12-08] MEDS: RIFAXIMIN 550 MG TAB PO SCH (09:01)
[2018-12-08] MEDS: ASPIRIN 81 MG TAB PO SCH (09:01)
[2018-12-08] MEDS: MEGESTROL (40 MG/ML) 10ML CUP PO SCH (09:03)
[2018-12-08] MEDS: METOPROLOL 25 MG TAB PO SCH ×2 (09:03→20:55)
[2018-12-08] MEDS: DICLOFENAC SODIUM 1% GEL 100 GM TUBE TP SCH ×4 (09:15→21:03)
[2018-12-08] MEDS: BALSAM PERU/CASTOR OIL 60 GM TUBE TOP SCH ×2 (09:15→22:00)
[2018-12-08] MEDS ORDERED: POTASSIUM CHLORIDE 10 MEQ in SOD CHLORIDE 0.45% 1,000 ML IV SCH (09:30)
[2018-12-08] MEDS: CIPROFLOXACIN 400MG/D5W 200 ML IVPB SCH (09:56)
--- NOTE | 2018-12-08 12:53 | CONS ---
Assessment/Plan Assessment/Plan Hospital Course (Demo Recall) 1. Wide complex tachycardia-suppressed for most part on low dose BB as tolerated. Had an episode which looked more like abberrant AF when first admittedNL EF by echo this index admission 2. Intermittent bigeminy and generalized wide complex rhythms-generally suppressed on low dose of BB when given as tolerated 3. Hypertension-reasonable control on monotherapy with BB with ACEI held in the setting of renal failure 4. Episodes of nausea and vomiting. 5. Gait instability with signs of hygroma-had been in PT but transferred back to med-surg for AMS. Was initially followed by neurology 6. Diabetes mellitus, status post pancreatectomy, status post Whipple. 7. Hypothyroidism. 8. Pancytopenia with more pronounced leukopenia and thrombocytopenia. 9. Bradycardia-stable now to 40's at times by vital sign asessment with stable BP. NL TSH with actually mildly elevated Free T4 10.urinary retention s/p arredondo placement Recc: -Tele -Continue low dose BB as tolerated -Continue asa/plavix for now and follow closely for any bleeding complications and if platelet count falls further would d/c plavix likely -Continue creon -Continue synthroid -Follow MS closely now on risperdal -s/p EP eval by Brenda with no definite indication for PPM at this time Consultation Date/Type/Reason Admit Date/Time Dec 03, 2018 at 10:30 Initial Consult Date 12/03/18 Type of Consult Cardiology Reason for Consultation wide complex tachy Requesting Provider: VIRGINIA CA MD Date/Time of Note DATE: 12/08/18 TIME: 12:51 Exam/Review of Systems Vital Signs Vitals Vital Signs Date Temp Pulse Resp B/P (MAP) Pulse Ox O2 O2 Flow FiO2 Time Delivery Rate 12/08/18 97.9 85 18 113/53 98 Room Air 10:59 (73) Intake and Output 12/07/18 12/07/18 12/08/18 1515:00 23:00 07:00 IntakeIntake Total 800 ml 50 ml OutputOutput Total 301 ml 450 ml BalanceBalance 499 ml -400 ml Exam Exam Review of Systems: CONSTITUTIONAL: No fevers, chills. PULMONARY: No sob CARDIOVASCULAR: No chest pain/palpitations GASTROINTESTINAL: No nausea/vomiting. GENITOURINARY: No hematuria/dysuria. MUSCULOSKELETAL: No myagias/arthalgias. PSYCHIATRIC: The patient denies depression. NEUROLOGIC: No weakness Constitutional: alert Psych: no complaints, confusion ENMT: mucosa pink and moist Neck: supple, jvd (8 cm water) Respiratory: diminished breath sounds Cardiovascular: regular rate and rhythm Gastrointestinal: soft, non-tender Musculoskeletal: muscle tone (normal) Extremities: edema (none) Neurological: lethargic Labs Result Diagram: 12/08/18 0611 12/08/18 0611 Results 24hrs Laboratory Tests Test 12/07/18 17:23 12/08/18 06:00 12/08/18 06:11 12/08/18 07:45 Bedside Glucose 222 H 215 Urine Color TRICIA Urine Clarity SLIGHTLY CLOUDY A Urine pH 5.0 Urine Specific 1.018 [place] Urine Ketones NEGATIVE Urine Nitrite NEGATIVE Urine Bilirubin NEGATIVE Urine 2+ H Urobilinogen Urine Leukocyte 2+ H Esterase Urine Microscopic 4 RBC Urine Microscopic > 182 H WBC Urine Bacteria MANY A Urine Mucus MODERATE Urine Hemoglobin NEGATIVE Urine Glucose NEGATIVE Urine Total 1+ H Protein White Blood Count 4.4 L Red Blood Count 3.79 L Hemoglobin 12.3 L Hematocrit 35.5 L Mean Corpuscular 93.7 Volume Mean Corpuscular 32.5 Hemoglobin Mean Corpuscular 34.6 Hemoglobin Concen t Red Cell 16.0 H Distribution Width Platelet Count 71 L Mean Platelet 10.5 H Volume Immature 0.200 Granulocytes % Neutrophils % 83.5 H Lymphocytes % 7.3 L Monocytes % 7.7 Eosinophils % 1.1 Basophils % 0.2 Nucleated Red 0.0 Blood Cells % Immature 0.010 Granulocytes # Neutrophils # 3.7 Lymphocytes # 0.3 L Monocytes # 0.3 Eosinophils # 0.1 Basophils # 0.0 Nucleated Red 0.0 Blood Cells # Sodium Level 141 Potassium Level 4.7 Chloride Level 107 Carbon Dioxide 23 Level Anion Gap 11 Blood Urea 24 H Nitrogen Creatinine 1.27 H Est Glomerular Filtrat Rate mL/min Glucose Level 163 Calcium Level 9.6 Ammonia 80 #H B-Type 467 H Natriuretic Peptide Vitamin B12 Level > 1000 H Folate 16.6 Test 12/08/18 11:48 Bedside Glucose 295 H Medications Medications Current Medications Levothyroxine Sodium (Synthroid) 137 mcg DAILY@06 PO Last administered on 12/08/18at 06:17; Admin Dose 137 MCG; Start 12/04/18 at 06:00 Aspirin (Aspirin) 81 mg DAILY PO Last administered on 12/08/18at 09:01; Admin Dose 81 MG; Start 12/03/18 at 12:30 Rifaximin (Xifaxan) 550 mg DAILY PO Last administered on 12/08/18at 09:01; Admin Dose 550 MG; Start 12/03/18 at 12:30 Amylase/Lipase/ Protease (Creon ([id number])) 1 cap WITH MEALS PO Last administered on 12/08/18at 11:49; Admin Dose 1 CAP; Start 12/03/18 at 17:55 Risperidone (Risperdal) 0.25 mg BID PRN PO ANXIETY; Start 12/03/18 at 12:30 Metformin HCl (Glucophage) 500 mg WITH DINNER PO Last administered on 12/07/18at 17:23; Admin Dose 500 MG; Start 12/03/18 at 17:55 Metoprolol Tartrate (Lopressor) 25 mg BID PO Last administered on 12/08/18at 09:03; Admin Dose 25 MG; Start 12/03/18 at 21:00 Pantoprazole (Protonix Tab) 40 mg BID@,18 PO Last administered on 12/08/18at 06:17; Admin Dose 40 MG; Start 12/03/18 at 18:00 Senna (Senokot) 1 tab DAILY PO Last administered on 12/08/18at 09:01; Admin Dose 1 TAB; Start 12/04/18 at 09:00 Miscellaneous Information 1 ea NOTE XX ; Start 12/03/18 at 13:00 Glucose (Glutose) 15 gm Q15M PRN PO DECREASED GLUCOSE; Start 12/03/18 at 13:00 Glucose (Glutose) 22.5 gm Q15M PRN PO DECREASED GLUCOSE; Start 12/03/18 at 13:00 Dextrose (D50w Syringe) 25 ml Q15M PRN IV DECREASED GLUCOSE; Start 12/03/18 at 13:00 Dextrose (D50w Syringe) 50 ml Q15M PRN IV DECREASED GLUCOSE; Start 12/03/18 at 13:00 Glucagon (Glucagen) 1 mg Q15M PRN IM DECREASED GLUCOSE; Start 12/03/18 at 13:00 Glucose (Glutose) 15 gm Q15M PRN BUCCAL DECREASED GLUCOSE; Start 12/03/18 at 13:00 Clopidogrel Bisulfate (plaVIX) 75 mg DAILY PO Last administered on 12/08/18 09:01; Admin Dose 75 MG; Start 12/05/18 at 09:00 Diclofenac Sodium (Voltaren 1% Gel) 2 gm QID TP Last administered on 12/08/18 09:15; Admin Dose 2 GM; Start 12/05/18 at 14:00 Magnesium Hydroxide (Milk Of Mag) 30 ml DAILY PRN PO constipation; Start 12/06/18 at 09:30 Diagnostic Test (Pha) (Accu-Chek) 1 ea BID WITH MEALS XX Last administered on 12/08/18 07:47; Admin Dose 1 EA; Start 12/06/18 at 17:55 Megestrol Acetate (Megace Susp) 40 mg DAILY PO Last administered on 12/08/18 09:03; Admin Dose 40 MG; Start 12/07/18 at 09:00 Cholecalciferol (Vitamin D) 2,000 unit DAILY PO Last administered on 12/08/18 09:01; Admin Dose 2,000 UNIT; Start 12/06/18 at 10:30 Insulin Aspart (Novolog Insulin Pen) NOVOLOG *MILD* ALGORI... AC MEALS AND BEDTIME SC Last administered on 12/08/18 11:59; Admin Dose 4 UNIT; Start 12/06/18 at 11:20 Eye Lubricant (Artificial Tears Oph) 2 drop Q2H PRN BOTH EYES DRY EYES; Start 12/06/18 at 22:00 Ciprofloxacin/ Dextrose 200 ml @ 200 mls/hr Q24H IVPB Last administered on 12/08/18 09:56; Admin Dose 200 MLS/HR; Start 12/08/18 at 09:00 Potassium Chloride 10 meq/ Sodium Chloride 1,005 ml @ 100 mls/hr Q10H3M IV Last administered on 12/08/18 10:02; Admin Dose 100 MLS/HR; Start 12/08/18 at 09:30; Stop 12/08/18 at 14:29 [place] Dec 08, 2018 12:53
[2018-12-08] MEDS: ARTIFICIAL TEARS 15 ML OPH BOTH EYES PRN (15:12)
[2018-12-08] MEDS: metFORMIN 500 MG TAB PO SCH (17:19)
--- NOTE | 2018-12-08 22:04 | PN ---
Date/Time of Note Date/Time of Note DATE: 12/08/18 TIME: 20:04 Subjective awakable, dry mucus, no pain complaint Objective Vitals Vital Signs Date Temp Pulse Resp B/P (MAP) Pulse Ox O2 O2 Flow FiO2 Time Delivery Rate 12/08/18 97.8 77 18 128/65 100 19:50 (86) 12/08/18 Room Air 15:30 Intake and Output 12/07/18 12/07/18 12/08/18 1515:00 23:00 07:00 IntakeIntake Total 800 ml 50 ml OutputOutput Total 301 ml 450 ml BalanceBalance 499 ml -400 ml more sleepy, rr syst m+, cta, no c/c/e, mouth breather+ Results Result Diagram: 12/08/1861012/08/18610 Medications Medications Current Medications Levothyroxine Sodium (Synthroid) 137 mcg DAILY@06 PO Last administered on 06:17; Admin Dose 137 MCG; Start 12/04/18 at 06:00 Aspirin (Aspirin) 81 mg DAILY PO Last administered on 12/08/18at 09:01; Admin Dose 81 MG; Start 12/03/18 at 12:30 Rifaximin (Xifaxan) 550 mg DAILY PO Last administered on 12/08/18 09:01; Admin Dose 550 MG; Start 12/03/18 at 12:30 Amylase/Lipase/ Protease (Creon ([id number])) 1 cap WITH MEALS PO Last administered on 12/08/18at 11:49; Admin Dose 1 CAP; Start 12/03/18 at 17:55 Risperidone (Risperdal) 0.25 mg BID PRN PO ANXIETY; Start 12/03/18 at 12:30 Metformin HCl (Glucophage) 500 mg WITH DINNER PO Last administered on 12/08/18at 17:19; Admin Dose 500 MG; Start 12/03/18 at 17:55 Metoprolol Tartrate (Lopressor) 25 mg BID PO Last administered on 12/08/18at 09:03; Admin Dose 25 MG; Start 12/03/18 at 21:00 Pantoprazole (Protonix Tab) 40 mg BID@06,18 PO Last administered on 12/08/18at 17:19; Admin Dose 40 MG; Start 12/03/18 at 18:00 Senna (Senokot) 1 tab DAILY PO Last administered on 12/08/18 09:01; Admin Dose 1 TAB; Start 12/04/18 at 09:00 Miscellaneous Information 1 ea NOTE XX ; Start 12/03/18 at 13:00 Glucose (Glutose) 15 gm Q15M PRN PO DECREASED GLUCOSE; Start 12/03/18 at 13:00 Glucose (Glutose) 22.5 gm Q15M PRN PO DECREASED GLUCOSE; Start 12/03/18 at 13:00 Dextrose (D50w Syringe) 25 ml Q15M PRN IV DECREASED GLUCOSE; Start 12/03/18 at 13:00 Dextrose (D50w Syringe) 50 ml Q15M PRN IV DECREASED GLUCOSE; Start 12/03/18 at 13:00 Glucagon (Glucagen) 1 mg Q15M PRN IM DECREASED GLUCOSE; Start 12/03/18 at 13:00 Glucose (Glutose) 15 gm Q15M PRN BUCCAL DECREASED GLUCOSE; Start 12/03/18 at 13:00 Clopidogrel Bisulfate (plaVIX) 75 mg DAILY PO Last administered on 12/08/18at 09:01; Admin Dose 75 MG; Start 12/05/18 at 09:00 Diclofenac Sodium (Voltaren 1% Gel) 2 gm QID TP Last administered on 12/08/18 21:03; Admin Dose 2 GM; Start 12/05/18 at 14:00 Magnesium Hydroxide (Milk Of Mag) 30 ml DAILY PRN PO constipation; Start 12/06/18 at 09:30 Diagnostic Test (Pha) (Accu-Chek) 1 ea BID WITH MEALS XX Last administered on 12/08/18at 17:19; Admin Dose 1 EA; Start 12/06/18 at 17:55 Megestrol Acetate (Megace Susp) 40 mg DAILY PO Last administered on 12/08/18 09:03; Admin Dose 40 MG; Start 12/07/18 at 09:00 Cholecalciferol (Vitamin D) 2,000 unit DAILY PO Last administered on 12/08/18 09:01; Admin Dose 2,000 UNIT; Start 12/06/18 at 10:30 Insulin Aspart (Novolog Insulin Pen) NOVOLOG *MILD* ALGORI... AC MEALS AND BEDTIME SC Last administered on 12/08/18at 21:14; Admin Dose 2 UNIT; Start 12/06/18 at 11:20 Eye Lubricant (Artificial Tears Oph) 2 drop Q2H PRN BOTH EYES DRY EYES Last administered on 12/08/18at 15:12; Admin Dose 2 DROP; Start 12/06/18 at 22:00 Ciprofloxacin/ Dextrose 200 ml @ 200 mls/hr Q24H IVPB Last administered on 12/08/18at 09:56; Admin Dose 200 MLS/HR; Start 12/08/18 at 09:00 VTE Prophylaxis Risk score (from Ns)>0 risk: 7 SCD applied (from [facility]): Yes Lines/Catheters IV Catheter Type: Saline Lock Central line still needed: No Smith in Place: No Assessment/Plan Assessment/Plan 1. uti 2. ams/ tia/ cerebellum synd 3. copd 4. arrythemia/ htn/ pvd 5. dm/ neuropathy 6. hypothyroid ---start iv atbx ---restart ivf ---per cards ---must cont pt/ot oob VIRGINIA CA MD Dec 08, 2018 22:04
[2018-12-09] VITALS (9 sets, daily range): BP systolic 109–154; BP diastolic 49–70; PULSE 60–83; RESP 18–20
[2018-12-09] MEDS: LEVOTHYROXINE 137 MCG TAB PO SCH (06:20)
[2018-12-09] MEDS: PANTOPRAZOLE (EC) 40 MG TAB PO SCH ×2 (06:20→17:20)
--- NOTE | 2018-12-09 06:49 | HKNOTE ---
DATE OF SERVICE: Thank you for asking me to the see the patient with you. HISTORY OF PRESENT ILLNESS: The patient is an 88-year old male who has decreased mini mental status in and out, occasionally follows simple commands. According to his nurse, he became confused a lot o f time. The patient has a history of TIA, hygroma, seizure disorder in which according to the patien t the family refused the Keppra. MEDICATIONS: The patient's current medications include: 1. Megace 40 mg once a day. 2. Eye lubricant. 3. Milk of magnesium 30 mg. 4. Diclofenac 2 grams q.i.d. 5. t.i.d. 6. Plavix 75 mg once a day. 7. Senna 1 tablet once a day. 8. Synthroid 137 mcg once a day. 9. Lopressor 25 mg once a day. 10. Protonix 40 mg once a day. 11. Risperidone 0.25 mg twice a day p.r.n. for anxiety. PHYSICAL EXAMINATION: GENERAL: The patient is alert, awake, looks drowsy and sleepy. CRANIAL NERVES: Cranial nerve II: Pupils equal on both sides, reactive to light. Cranial nerves II I, IV and : Extraocular muscles are intact without nystagmus. Cranial nerve V: Equal sensation t o face. Cranial nerve VII: Symmetrical face. Cranial nerve VIII: Decreased hearing bilaterally. Cranial IX and X: Elevates palate. Cranial nerve XI: Elevates shoulder 5/5. Cranial nerve XII: W ith straight tongue. MOTOR: Moving both upper and lower extremity against gravity. 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 Sensation decreased for glove and sock area for light touch and temperature. COORDINATION: [id number] test intact. HEART: Regular rate and rhythm. LUNGS: Equal breath sounds. ABDOMEN: Soft, relaxed. ASSESSMENT AND PLAN: 1. The patient is an 88-year old status post decreased mini mental status. 2. Possibility of underlying encephalopathy. We will follow up the patient with electroencephalogra m for more evaluation and treatment. 3. Possibility of underlying seizure activity, speech, and the patient has a hygroma. Will follow u p the patient with electroencephalogram. Keep the patient under seizure precaution for now. 4. Hypertension. Keep the blood pressure at the level of 130/80. 5. Diabetes. Keep the patient on sliding scale insulin. 6. Peripheral neuropathy, probably secondary to diabetes. 7. We will follow up the patient with physical therapy and fall precaution, DVT prophylaxis and decu bitus ulcer prophylaxis. Dictated By: DANETTE BECK/GILBERT Conf#: [id number] DID#: [id number] CC: VIRGINIA AC MD;*End*
[2018-12-09] MEDS: ACCU-CHEK XX SCH ×2 (07:55→17:19)
[2018-12-09] MEDS: CREON (24K-76K-120K) 1 CAP PO SCH ×3 (07:55→17:19)
[2018-12-09] MEDS: INSULIN ASPART [NOVOLOG] 3 ML PEN SC SCH ×4 (07:59→20:26)
[2018-12-09] MEDS ORDERED: INSULIN GLARGINE [LANTus] (100 UNITS/ML) SYG SC SCH (08:00)
[2018-12-09] MEDS: METOPROLOL 25 MG TAB PO SCH ×2 (08:14→20:14)
[2018-12-09] MEDS: ASPIRIN 81 MG TAB PO SCH (08:14)
[2018-12-09] MEDS: CHOLECALCIFEROL 2,000 UNIT CAP PO SCH (08:15)
[2018-12-09] MEDS: RIFAXIMIN 550 MG TAB PO SCH (08:15)
[2018-12-09] MEDS: CLOPIDOGREL 75 MG TAB PO SCH (08:15)
[2018-12-09] MEDS: SENNA TAB PO SCH (08:15)
[2018-12-09] MEDS: MEGESTROL (40 MG/ML) 10ML CUP PO SCH (08:15)
[2018-12-09] MEDS: DICLOFENAC SODIUM 1% GEL 100 GM TUBE TP SCH ×4 (09:21→20:14)
[2018-12-09] MEDS: CIPROFLOXACIN 400MG/D5W 200 ML IVPB SCH (09:21)
[2018-12-09] MEDS: BALSAM PERU/CASTOR OIL 60 GM TUBE TOP SCH ×2 (09:22→20:14)
[2018-12-09] MEDS ORDERED: ONDANSETRON 4 MG INJ IV PRN (12:30)
--- NOTE | 2018-12-09 12:42 | CONS ---
Assessment/Plan Assessment/Plan Hospital Course (Demo Recall) 1. Wide complex tachycardia-suppressed for most part on low dose BB as tolerated. Had an episode which looked more like abberrant AF when first admittedNL EF by echo this index admission 2. Intermittent bigeminy and generalized wide complex rhythms-generally suppressed on low dose of BB when given as tolerated 3. Hypertension-reasonable control on monotherapy with BB with ACEI held in the setting of renal failure 4. Episodes of nausea and vomiting. 5. Gait instability with signs of hygroma-had been in PT but transferred back to med-surg for AMS. Was initially followed by neurology 6. Diabetes mellitus, status post pancreatectomy, status post Whipple. 7. Hypothyroidism. 8. Pancytopenia with more pronounced leukopenia and thrombocytopenia. 9. Bradycardia-stable now to 40's at times by vital sign asessment with stable BP. NL TSH with actually mildly elevated Free T4 10.urinary retention s/p arredondo placement 11. N/V today7 Recc: -Tele -Continue low dose BB as tolerated and not given topday due to lethargy. Will write for PRN ICVP BB as necessary -Continue asa/plavix for now and given decreasing platelet count will consider holding plavix at this time -Continue creon -Continue synthroid -risperdal now d/c'd -to have head CT/EEG with ongoing neuro eval -s/p EP eval by Brenda with no definite indication for PPM at this time Consultation Date/Type/Reason Admit Date/Time Dec 03, 2018 at 10:30 Initial Consult Date 12/03/18 Type of Consult Cardiology Reason for Consultation bigeminy Requesting Provider: VIRGINIA CA MD Date/Time of Note DATE: 12/09/18 TIME: 12:38 Exam/Review of Systems Vital Signs Vitals Vital Signs Date Temp Pulse Resp B/P (MAP) Pulse Ox O2 O2 Flow FiO2 Time Delivery Rate 12/09/18 77 12:18 12/09/18 98.0 20 143/67 100 Nasal 11:41 (92) Cannula Intake and Output 12/08/18 12/08/18 12/09/18 1515:00 23:00 07:00 IntakeIntake Total 50 ml 100 ml OutputOutput Total 300 ml 150 ml BalanceBalance -250 ml -50 ml Exam Exam Review of Systems: CONSTITUTIONAL: No fevers, chills. PULMONARY: No sob CARDIOVASCULAR: No chest pain/palpitations GASTROINTESTINAL: No nausea/vomiting. GENITOURINARY: No hematuria/dysuria. MUSCULOSKELETAL: No myagias/arthalgias. PSYCHIATRIC: The patient denies depression. NEUROLOGIC: lethargic, mild confusion Constitutional: other (awake) Psych: no complaints, confusion Head: normocephalic ENMT: mucosa pink and moist Neck: supple, jvd (9 cm water) Respiratory: diminished breath sounds Cardiovascular: regular rate and rhythm Gastrointestinal: soft, non-tender Musculoskeletal: muscle weakness (mild generalized) Extremities: edema (none) Neurological: lethargic Labs Result Diagram: 12/08/18 0611 12/09/18 0829 Results 24hrs Laboratory Tests Test 12/08/18 17:12 12/08/18 21:03 12/09/18 07:50 12/09/18 08:00 Bedside Glucose 190 210 194 Blood Gas Blood arterial Specimen Source Arterial Blood 12/09/2018 7:55:3 Date Drawn 5 AM Arterial Blood pH 7.468 H (Temp corrected) Arterial Blood 25.6 L pCO2 (Temp correct) Arterial Blood 137.9 H pO2 (Temp corrected) Arterial Blood 18.1 L HCO3 Arterial Blood -4.0 L Base Excess Arterial Blood 98.2 Oxygen Saturation Pj Test ACCEPTAB Arterial Blood Right Radial Gas Puncture Site Arterial 0.4 Blood Carboxyhemo globin Arterial Blood 0.1 Methemoglobin Blood Gas A-a O2 24.3 H Differential Oxyhemoglobin 97.7 Percent Blood Gas 37.0 Temperature Blood Gas NASAL CANNULA Modality FiO2 27.0 Blood Gas TM Notified Whom Blood Gas 12/09/2018 8:09:1 Notified Time 7 AM Test 12/09/18 08:29 12/09/18 12:15 Sodium Level 138 Potassium Level 4.6 Chloride Level 107 Carbon Dioxide 20 L Level Anion Gap 11 Blood Urea 26 H Nitrogen Creatinine 1.52 H Est Glomerular Filtrat Rate mL/min Glucose Level 213 Calcium Level 9.1 Bedside Glucose 234 H Medications Medications Current Medications Levothyroxine Sodium (Synthroid) 137 mcg DAILY@06 PO Last administered on 12/09/18at 06:20; Admin Dose 137 MCG; Start 12/04/18 at 06:00 Aspirin (Aspirin) 81 mg DAILY PO Last administered on 12/08/18at 09:01; Admin Dose 81 MG; Start 12/03/18 at 12:30 Rifaximin (Xifaxan) 550 mg DAILY PO Last administered on 12/08/18 09:01; Admin Dose 550 MG; Start 12/03/18 at 12:30 Amylase/Lipase/ Protease (Creon ([id number])) 1 cap WITH MEALS PO Last administered on 12/08/18at 11:49; Admin Dose 1 CAP; Start 12/03/18 at 17:55 Metformin HCl (Glucophage) 500 mg WITH DINNER PO Last administered on 12/08/18 17:19; Admin Dose 500 MG; Start 12/03/18 at 17:55 Metoprolol Tartrate (Lopressor) 25 mg BID PO Last administered on 12/08/18 09 :03; Admin Dose 25 MG; Start 12/03/18 at 21:00 Pantoprazole (Protonix Tab) 40 mg BID@06,18 PO Last administered on 12/09/18 06:20; Admin Dose 40 MG; Start 12/03/18 at 18:00 Senna (Senokot) 1 tab DAILY PO Last administered on 12/08/18 09:01; Admin Dose 1 TAB; Start 12/04/18 at 09:00 Miscellaneous Information 1 ea NOTE XX ; Start 12/03/18 at 13:00 Glucose (Glutose) 15 gm Q15M PRN PO DECREASED GLUCOSE; Start 12/03/18 at 13:00 Glucose (Glutose) 22.5 gm Q15M PRN PO DECREASED GLUCOSE; Start 12/03/18 at 13:00 Dextrose (D50w Syringe) 25 ml Q15M PRN IV DECREASED GLUCOSE; Start 12/03/18 at 13:00 Dextrose (D50w Syringe) 50 ml Q15M PRN IV DECREASED GLUCOSE; Start 12/03/18 at 13:00 Glucagon (Glucagen) 1 mg Q15M PRN IM DECREASED GLUCOSE; Start 12/03/18 at 13:00 Glucose (Glutose) 15 gm Q15M PRN BUCCAL DECREASED GLUCOSE; Start 12/03/18 at 13:00 Clopidogrel Bisulfate (plaVIX) 75 mg DAILY PO Last administered on 12/08/18at 09:01; Admin Dose 75 MG; Start 12/05/18 at 09:00 Diclofenac Sodium (Voltaren 1% Gel) 2 gm QID TP Last administered on 12/09/18 09:21; Admin Dose 2 GM; Start 12/05/18 at 14:00 Magnesium Hydroxide (Milk Of Mag) 30 ml DAILY PRN PO constipation; Start 12/06/18 at 09:30 Diagnostic Test (Pha) (Accu-Chek) 1 ea BID WITH MEALS XX Last administered on 12/08/18 17:19; Admin Dose 1 EA; Start 12/06/18 at 17:55 Megestrol Acetate (Megace Susp) 40 mg DAILY PO Last administered on 12/08/18 09:03; Admin Dose 40 MG; Start 12/07/18 at 09:00 Cholecalciferol (Vitamin D) 2,000 unit DAILY PO Last administered on 12/08/18 09:01; Admin Dose 2,000 UNIT; Start 12/06/18 at 10:30 Insulin Aspart (Novolog Insulin Pen) NOVOLOG *MILD* ALGORI... AC MEALS AND BEDTIME SC Last administered on 12/09/18 12:29; Admin Dose 3 UNIT; Start 12/06/18 at 11:20 Eye Lubricant (Artificial Tears Oph) 2 drop Q2H PRN BOTH EYES DRY EYES Last administered on 12/08/18 15:12; Admin Dose 2 DROP; Start 12/06/18 at 22:00 Ciprofloxacin/ Dextrose 200 ml @ 200 mls/hr Q24H IVPB Last administered on 11/20 09:21; Admin Dose 200 MLS/HR; Start 12/08/18 at 09:00 Insulin Glargine (Lantus) 6 units DAILY@0800 SC ; Start 12/09/18 at 08:00; Status Hold Ondansetron HCl (Zofran Inj) 4 mg Q4H PRN IV NAUSEA AND/OR VOMITING Last administered on 12/09/18 12:18; Admin Dose 4 MG; Start 12/09/18 at 12:30 [place] Dec 09, 2018 12:42
[2018-12-09] MEDS ORDERED: METOPROLOL 5 MG INJ IV PRN (13:00)
[2018-12-09] MEDS ORDERED: MAGNESIUM SULFATE 1 GM/D5W 100 ML IVPB ONE (13:00)
[2018-12-09] MEDS: metFORMIN 500 MG TAB PO SCH (17:19)
--- NOTE | 2018-12-09 18:05 | PN ---
Date/Time of Note Date/Time of Note DATE: 12/09/18 TIME: 08:04 Subjective arousable, more awake compare to yesterday Objective Vitals Vital Signs Date Temp Pulse Resp B/P (MAP) Pulse Ox O2 O2 Flow FiO2 Time Delivery Rate 12/09/18 62 16:52 12/09/18 98.0 20 139/62 100 Nasal 15:52 (87) Cannula 12/09/18 2.0 15:41 Intake and Output 12/08/18 12/08/18 12/09/18 1515:00 23:00 07:00 IntakeIntake Total 50 ml 100 ml OutputOutput Total 300 ml 150 ml BalanceBalance -250 ml -50 ml dry mucus, high gluc due to d5w iv atbx, rr syst+, cta, no c/c/e, aspiration while doing brain mri Results Result Diagram: 12/08/18 0611 12/09/18 0829 Medications Medications Current Medications Levothyroxine Sodium (Synthroid) 137 mcg DAILY@06 PO Last administered on 12/09/18at 06:20; Admin Dose 137 MCG; Start 12/04/18 at 06:00 Aspirin (Aspirin) 81 mg DAILY PO Last administered on 12/08/18at 09:01; Admin Dose 81 MG; Start 12/03/18 at 12:30 Rifaximin (Xifaxan) 550 mg DAILY PO Last administered on 12/08/18at 09:01; Admin Dose 550 MG; Start 12/03/18 at 12:30 Amylase/Lipase/ Protease (Creon ([id number])) 1 cap WITH MEALS PO Last administered on 12/08/18at 11:49; Admin Dose 1 CAP; Start 12/03/18 at 17:55 Metformin HCl (Glucophage) 500 mg WITH DINNER PO Last administered on 12/08/18at 17:19; Admin Dose 500 MG; Start 12/03/18 at 17:55 Metoprolol Tartrate (Lopressor) 25 mg BID PO Last administered on 12/08/18at 09:03; Admin Dose 25 MG; Start 12/03/18 at 21:00 Pantoprazole (Protonix Tab) 40 mg BID@,18 PO Last administered on 12/09/18at 06:20; Admin Dose 40 MG; Start 12/03/18 at 18:00 Senna (Senokot) 1 tab DAILY PO Last administered on 12/08/18 09:01; Admin Dose 1 TAB; Start 12/04/18 at 09:00 Miscellaneous Information 1 ea NOTE XX ; Start 12/03/18 at 13:00 Glucose (Glutose) 15 gm Q15M PRN PO DECREASED GLUCOSE; Start 12/03/18 at 13:00 Glucose (Glutose) 22.5 gm Q15M PRN PO DECREASED GLUCOSE; Start 12/03/18 at 13:00 Dextrose (D50w Syringe) 25 ml Q15M PRN IV DECREASED GLUCOSE; Start 12/03/18 at 13:00 Dextrose (D50w Syringe) 50 ml Q15M PRN IV DECREASED GLUCOSE; Start 12/03/18 at 13:00 Glucagon (Glucagen) 1 mg Q15M PRN IM DECREASED GLUCOSE; Start 12/03/18 at 13:00 Glucose (Glutose) 15 gm Q15M PRN BUCCAL DECREASED GLUCOSE; Start 12/03/18 at 13:00 Clopidogrel Bisulfate (plaVIX) 75 mg DAILY PO Last administered on 12/08/18at 09:01; Admin Dose 75 MG; Start 12/05/18 at 09:00; Status Hold Diclofenac Sodium (Voltaren 1% Gel) 2 gm QID TP Last administered on 12/09/18 09:21; Admin Dose 2 GM; Start 12/05/18 at 14:00 Magnesium Hydroxide (Milk Of Mag) 30 ml DAILY PRN PO constipation; Start 12/06/18 at 09:30 Diagnostic Test (Pha) (Accu-Chek) 1 ea BID WITH MEALS XX Last administered on 12/08/18at 17:19; Admin Dose 1 EA; Start 12/06/18 at 17:55 Megestrol Acetate (Megace Susp) 40 mg DAILY PO Last administered on 12/08/18 09:03; Admin Dose 40 MG; Start 12/07/18 at 09:00 Cholecalciferol (Vitamin D) 2,000 unit DAILY PO Last administered on 12/08/18 09:01; Admin Dose 2,000 UNIT; Start 12/06/18 at 10:30 Insulin Aspart (Novolog Insulin Pen) NOVOLOG *MILD* ALGORI... AC MEALS AND BEDTIME SC Last administered on 12/09/18 17:18; Admin Dose 3 UNIT; Start 12/06/18 at 11:20 Eye Lubricant (Artificial Tears Oph) 2 drop Q2H PRN BOTH EYES DRY EYES Last administered on 12/08/18at 15:12; Admin Dose 2 DROP; Start 12/06/18 at 22:00 Ciprofloxacin/ Dextrose 200 ml @ 200 mls/hr Q24H IVPB Last administered on 12/09/18at 09:21; Admin Dose 200 MLS/HR; Start 12/08/18 at 09:00 Insulin Glargine (Lantus) 6 units DAILY@0800 SC ; Start 12/09/18 at 08:00; Status Hold Ondansetron HCl (Zofran Inj) 4 mg Q4H PRN IV NAUSEA AND/OR VOMITING Last administered on 12/09/18at 12:18; Admin Dose 4 MG; Start 12/09/18 at 12:30 Metoprolol Tartrate (Lopressor) 5 mg Q4H PRN IV HR>110 or significant PVC's; Start 12/09/18 at 13:00 VTE Prophylaxis Risk score (from Nsg)>0 risk: 7 SCD applied (from Ns): Yes Lines/Catheters IV Catheter Type: Saline Lock Central line still needed: No Smith in Place: No Assessment/Plan Assessment/Plan 1. uti 2. s/p aspiration, copd 3. arrythemia/ htn/ pvd 4. dm/ neuropathy/ high gluc 5. hypothyroid 6. 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
[2018-12-10] VITALS (10 sets, daily range): BP systolic 126–151; BP diastolic 60–68; PULSE 64–80; RESP 19–21
[2018-12-10] MEDS: PANTOPRAZOLE (EC) 40 MG TAB PO SCH ×2 (06:00→18:00)
[2018-12-10] MEDS: LEVOTHYROXINE 137 MCG TAB PO SCH (06:00)
[2018-12-10] MEDS: ACCU-CHEK XX SCH ×2 (07:55→18:07)
[2018-12-10] MEDS: CREON (24K-76K-120K) 1 CAP PO SCH ×3 (07:55→17:55)
[2018-12-10] MEDS: MEGESTROL (40 MG/ML) 10ML CUP PO SCH (09:00)
[2018-12-10] MEDS: METOPROLOL 25 MG TAB PO SCH ×2 (09:00→21:00)
[2018-12-10] MEDS: SENNA TAB PO SCH (09:00)
[2018-12-10] MEDS: CHOLECALCIFEROL 2,000 UNIT CAP PO SCH (09:00)
[2018-12-10] MEDS: RIFAXIMIN 550 MG TAB PO SCH (09:00)
[2018-12-10] MEDS: ASPIRIN 81 MG TAB PO SCH (09:00)
--- NOTE | 2018-12-10 09:03 | HKNOTE ---
DATE OF SERVICE: 12/03/2018 HISTORY OF PRESENT ILLNESS: The patient is an 88-year old male status post decreased mini mental sta tus, lack of communication, underlying encephalopathy, UTI. The patient has a history of TIA, hygrom a, seizure. CURRENT MEDICATIONS: 1. Megace 40 mg once a day. 2. Eye lubricant once a day. 3. Milk of magnesium 30 mL every 4 hours as needed. 4. Diclofenac as needed. 5. Plavix 75 mg once a day. 6. Senna 1 tablet once a day. 7. Synthroid 137 mcg once a day. 8. Lopressor 25 mg once a day. 9. Protonix 40 mg once a day. 10. Risperidone 0.25 mg twice a day p.r.n. PHYSICAL EXAMINATION: GENERAL: The patient is alert, awake, looks confused. Cranial nerve II: Pupils equal on both sides. Cranial nerves III, IV and : Extraocular muscles i ntact. Cranial V: Equal sensation to face. Cranial nerve VII: Symmetrical face. Cranial nerve II: Decreased hearing bilaterally. Cranial nerve X: Elevates palate. Cranial nerve XI: Elevates shoulder 5/5. Cranial nerve XII: With straight tongue. MOTOR: Moving both upper and lower extremities against gravity. Sensation decreased for glove and s ock area for light touch and temperature. COORDINATION: Ruejol-re-wftc test intact. HEART: Regular rate and rhythm. LUNGS: Equal breath sounds. ABDOMEN: Soft, relaxed, nondistended, no tenderness. ASSESSMENT AND PLAN: 1. The patient is an 88-year old status post decreased mini mental status. 2. Underlying acute encephalopathy, probably secondary to underlying infection, acute TI. 3. 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 4. Hypertension. Keep the blood pressure level 130/80. 5. Diabetes. Keep the patient with sliding scale insulin and Accu-Chek. 6. Peripheral neuropathy secondary to diabetes. Follow up the patient as an outpatient for electroe ncephalogram and EMG. 7. Continue to keep the patient under deep venous thrombosis prophylaxis and decubitus ulcer prophyl axis. 8. Fall precaution. Follow up the patient with gait training with physical therapy. Dictated By: DANETTE BECK/GILBERT Conf#: [id number] DID#: [id number] CC: VIRGINIA CA MD;*End*
[2018-12-10] MEDS: CIPROFLOXACIN 400MG/D5W 200 ML IVPB SCH (09:50)
[2018-12-10] MEDS: INSULIN ASPART [NOVOLOG] 3 ML PEN SC SCH ×4 (10:13→21:18)
[2018-12-10] MEDS ORDERED: ENALAPRILAT 1.25 MG INJ IV PRN (12:30)
--- NOTE | 2018-12-10 12:36 | PN ---
Date/Time of Note Date/Time of Note DATE: 12/10/18 TIME: 12:31 Assessment/Plan VTE Prophylaxis Risk score (from Ns)>0 risk: 7 SCD applied (from Ns): Yes Pharmacological prophylaxis: NA/contraindicated Pharm contraindication: other Lines/Catheters IV Catheter Type (from [facility]): Saline Lock Urinary Cath still in place: No Assessment/Plan Assessment/Plan 1. Wide complex tachycardia-suppressed for most part on low dose BB as tolerated. Had an episode which looked more like abberrant AF when first admittedNL EF by echo this index admission- followed by cards 2. Intermittent bigeminy and generalized wide complex rhythms-generally suppressed on low dose of BB when given as tolerated--followed by cards 3. Hypertension-reasonable control on monotherapy with BB with ACEI held in the setting of renal failure. due to mentation change will give prn iv enalpril prn elevated bp 4. Episodes of nausea and vomiting. had episode last night x 1 5. Gait instability with signs of hygroma-had been in PT but transferred back to [facility]-surg for AMS. Was initially followed by neurology 6. Diabetes mellitus, status post pancreatectomy, status post Whipple. 7. Hypothyroidism. 8. Pancytopenia with more pronounced leukopenia and thrombocytopenia. menation sedated. sleeping constantly. mri ordered but cancelled due to vomit. mri was reordered for today. awaiting . r/o tia/ cva. hold anticoagulation til get mri result. currently npo due to sedation. Result Diagram: 12/10/18 0538 12/10/18 0538 Results 24hrs Laboratory Tests Test 12/09/18 17:07 12/09/18 20:16 12/09/18 23:08 12/10/18 05:38 Bedside Glucose 225 H 178 Urine Color TRICIA Urine Clarity SLIGHTLY CLOUDY A Urine pH 5.0 Urine Specific 1.019 [place] Urine Ketones TRACE A Urine Nitrite NEGATIVE Urine Bilirubin NEGATIVE Urine 2+ H Urobilinogen Urine Leukocyte 1+ H Esterase Urine Microscopic 3 RBC Urine Microscopic 81 H WBC Urine Bacteria FEW A Urine Mucus FEW A Urine Hemoglobin 2+ H Urine Glucose NEGATIVE Urine Total 1+ H Protein White Blood Count 6.7 # Red Blood Count 3.86 L Hemoglobin 12.5 L Hematocrit 36.9 L Mean Corpuscular 95.6 Volume Mean Corpuscular 32.4 Hemoglobin Mean Corpuscular 33.9 Hemoglobin Concen t Red Cell 17.1 H Distribution Width Platelet Count 95 #L Mean Platelet 11.1 H Volume Immature 0.300 Granulocytes % Neutrophils % 90.5 H Lymphocytes % 4.8 L Monocytes % 3.5 Eosinophils % 0.6 Basophils % 0.3 Nucleated Red 0.0 Blood Cells % Immature 0.020 Granulocytes # Neutrophils # 6.0 Lymphocytes # 0.3 L Monocytes # 0.2 L Eosinophils # 0.0 Basophils # 0.0 Nucleated Red 0.0 Blood Cells # Sodium Level 138 Potassium Level 5.0 Chloride Level 106 Carbon Dioxide 21 Level Anion Gap 11 Blood Urea 27 H Nitrogen Creatinine 1.39 H Est Glomerular Filtrat Rate mL/min Glucose Level 239 H Calcium Level 9.1 Test 12/10/18 09:09 Bedside Glucose 245 H Subjective 24 Hr Interval Summary Free Text/Dictation daughter says he vomited 1x during the night. now sleeping all morning. hard to awaken. in no resp distress. Exam/Review of Systems Exam Vitals Vital Signs Date Temp Pulse Resp B/P (MAP) Pulse Ox O2 O2 Flow FiO2 Time Delivery Rate 12/10/18 98.5 70 21 126/60 96 11:39 (82) 12/10/18 2.0 06:02 12/09/18 Nasal 22:00 Cannula Intake and Output 12/09/18 12/09/18 12/10/18 1515:00 23:00 07:00 IntakeIntake Total 200 ml 100 ml OutputOutput Total 100 ml BalanceBalance 200 ml 100 ml -100 ml Constitutional: non-verbal Neck: supple Respiratory: clear to auscultation Cardiovascular: regular rate and rhythm Results Results 24hrs Laboratory Tests Test 12/09/18 17:07 12/09/18 20:16 12/09/18 23:08 12/10/18 05:38 Bedside Glucose 225 H 178 Urine Color TRICIA Urine Clarity SLIGHTLY CLOUDY A Urine pH 5.0 Urine Specific 1.019 [place] Urine Ketones TRACE A Urine Nitrite NEGATIVE Urine Bilirubin NEGATIVE Urine 2+ H Urobilinogen Urine Leukocyte 1+ H Esterase Urine Microscopic 3 RBC Urine Microscopic 81 H WBC Urine Bacteria FEW A Urine Mucus FEW A Urine Hemoglobin 2+ H Urine Glucose NEGATIVE Urine Total 1+ H Protein White Blood Count 6.7 # Red Blood Count 3.86 L Hemoglobin 12.5 L Hematocrit 36.9 L Mean Corpuscular 95.6 Volume Mean Corpuscular 32.4 Hemoglobin Mean Corpuscular 33.9 Hemoglobin Concen t Red Cell 17.1 H Distribution Width Platelet Count 95 #L Mean Platelet 11.1 H Volume Immature 0.300 Granulocytes % Neutrophils % 90.5 H Lymphocytes % 4.8 L Monocytes % 3.5 Eosinophils % 0.6 Basophils % 0.3 Nucleated Red 0.0 Blood Cells % Immature 0.020 Granulocytes # Neutrophils # 6.0 Lymphocytes # 0.3 L Monocytes # 0.2 L Eosinophils # 0.0 Basophils # 0.0 Nucleated Red 0.0 Blood Cells # Sodium Level 138 Potassium Level 5.0 Chloride Level 106 Carbon Dioxide 21 Level Anion Gap 11 Blood Urea 27 H Nitrogen Creatinine 1.39 H Est Glomerular Filtrat Rate mL/min Glucose Level 239 H Calcium Level 9.1 Test 12/10/18 09:09 Bedside Glucose 245 H Medications Medication Current Medications Levothyroxine Sodium (Synthroid) 137 mcg DAILY@06 PO Last administered on 12/09/18 06:20; Admin Dose 137 MCG; Start 12/04/18 at 06:00 Aspirin (Aspirin) 81 mg DAILY PO Last administered on 12/08/18 09:01; Admin Dose 81 MG; Start 12/03/18 at 12:30 Rifaximin (Xifaxan) 550 mg DAILY PO Last administered on 12/08/18 09:01; Admin Dose 550 MG; Start 12/03/18 at 12:30 Amylase/Lipase/ Protease (Creon ([id number])) 1 cap WITH MEALS PO Last administered on 12/08/18at 11:49; Admin Dose 1 CAP; Start 12/03/18 at 17:55 Metformin HCl (Glucophage) 500 mg WITH DINNER PO Last administered on 12/08/18 17:19; Admin Dose 500 MG; Start 12/03/18 at 17:55 Metoprolol Tartrate (Lopressor) 25 mg BID PO Last administered on 12/09/18 20:14; Admin Dose 25 MG; Start 12/03/18 at 21:00 Pantoprazole (Protonix Tab) 40 mg BID@06,18 PO Last administered on 12/09/18 06:20; Admin Dose 40 MG; Start 12/03/18 at 18:00 Senna (Senokot) 1 tab DAILY PO Last administered on 12/08/18 09:01; Admin Dose 1 TAB; Start 12/04/18 at 09:00 Miscellaneous Information 1 ea NOTE XX ; Start 12/03/18 at 13:00 Glucose (Glutose) 15 gm Q15M PRN PO DECREASED GLUCOSE; Start 12/03/18 at 13:00 Glucose (Glutose) 22.5 gm Q15M PRN PO DECREASED GLUCOSE; Start 12/03/18 at 13:00 Dextrose (D50w Syringe) 25 ml Q15M PRN IV DECREASED GLUCOSE; Start 12/03/18 at 13:00 Dextrose (D50w Syringe) 50 ml Q15M PRN IV DECREASED GLUCOSE; Start 12/03/18 at 13:00 Glucagon (Glucagen) 1 mg Q15M PRN IM DECREASED GLUCOSE; Start 12/03/18 at 13:00 Glucose (Glutose) 15 gm Q15M PRN BUCCAL DECREASED GLUCOSE; Start 12/03/18 at 13:00 Clopidogrel Bisulfate (plaVIX) 75 mg DAILY PO Last administered on 12/08/18at 09:01; Admin Dose 75 MG; Start 12/05/18 at 09:00; Status Hold Diclofenac Sodium (Voltaren 1% Gel) 2 gm QID TP Last administered on 12/09/18 20:14; Admin Dose 2 GM; Start 12/05/18 at 14:00 Magnesium Hydroxide (Milk Of Mag) 30 ml DAILY PRN PO constipation; Start 12/06/18 at 09:30 Diagnostic Test (Pha) (Accu-Chek) 1 ea BID WITH MEALS XX Last administered on 12/10/18at 07:55; Admin Dose 1 EA; Start 12/06/18 at 17:55 Megestrol Acetate (Megace Susp) 40 mg DAILY PO Last administered on 12/08/18 09:03; Admin Dose 40 MG; Start 12/07/18 at 09:00 Cholecalciferol (Vitamin D) 2,000 unit DAILY PO Last administered on 12/08/18 09:01; Admin Dose 2,000 UNIT; Start 12/06/18 at 10:30 Insulin Aspart (Novolog Insulin Pen) NOVOLOG *MILD* ALGORI... AC MEALS AND BEDTIME SC Last administered on 12/10/18at 10:13; Admin Dose 3 UNIT; Start 12/06/18 at 11:20 Eye Lubricant (Artificial Tears Oph) 2 drop Q2H PRN BOTH EYES DRY EYES Last administered on 12/08/18at 15:12; Admin Dose 2 DROP; Start 12/06/18 at 22:00 Ciprofloxacin/ Dextrose 200 ml @ 200 mls/hr Q24H IVPB Last administered on 12/10/18at 09:50; Admin Dose 200 MLS/HR; Start 12/08/18 at 09:00 Insulin Glargine (Lantus) 6 units DAILY@0800 SC ; Start 12/09/18 at 08:00; Status Hold Ondansetron HCl (Zofran Inj) 4 mg Q4H PRN IV NAUSEA AND/OR VOMITING Last administered on 12/09/18at 12:18; Admin Dose 4 MG; Start 12/09/18 at 12:30 Metoprolol Tartrate (Lopressor) 5 mg Q4H PRN IV HR>110 or significant PVC's; Start 12/09/18 at 13:00 Dextrose/Sodium Chloride 1,000 ml @ 125 mls/hr Q8H IV ; Start 12/10/18 at 12:30 SANJANA HERNANDEZ MD Dec 10, 2018 12:36
[2018-12-10] MEDS: DEXTROSE 5%-0.45% NACL 1,000 ML IV SCH ×2 (12:55→21:03)
[2018-12-10] MEDS: DICLOFENAC SODIUM 1% GEL 100 GM TUBE TP SCH ×4 (12:55→21:04)
[2018-12-10] MEDS: BALSAM PERU/CASTOR OIL 60 GM TUBE TOP SCH ×2 (12:56→21:04)
--- NOTE | 2018-12-10 13:28 | CONS ---
Consult Date/Type/Reason Admit Date/Time Dec 03, 2018 at 10:30 Initial Consult Date Requesting Provider: VIRGINIA CA MD Date/Time of Note DATE: 12/10/18 TIME: 13:25 Subjective NO acute events - pt comfortable - family at bedside - no pauses noted now - no pacer planned currently. ROS: No fever, no chills, no nausea, no vomiting, no diarrhea/constipation No recent weight changes No chest pain, no PND, no orthopnea No dizziness, blurred vision No thirst, no heat or cold intolerance Objective Vitals Vital Signs Date Temp Pulse Resp B/P (MAP) Pulse Ox O2 O2 Flow FiO2 Time Delivery Rate 12/10/18 73 12:00 12/10/18 98.5 21 126/60 96 11:39 (82) 12/10/18 2.0 06:02 12/09/18 Nasal 22:00 Cannula Intake and Output 12/09/18 12/09/18 12/10/18 1515:00 23:00 07:00 IntakeIntake Total 200 ml 100 ml OutputOutput Total 100 ml BalanceBalance 200 ml 100 ml -100 ml Exam General: WN/WD/NAD, AOx sleepy, confused HEENT: Unicetric/atraumatic/EOMI (does not follow commands) NECK: JVD elevated, no thyromegaly Lymph: no lymphadenopathy HEART: regular with no S3, II/ systolic murmur at apex, PMI L LUNGS: Coarse sounds ABD: soft, NT, ND, +BS : Intact Neuro: non focal SKIN: chronic changes EXT: trace edema Results/Medications Result Diagram: 12/10/18 0538 12/10/18 0538 Results 24 hrs Laboratory Tests Test 12/09/18 17:07 12/09/18 20:16 12/09/18 23:08 12/10/18 05:38 Bedside Glucose 225 H 178 Urine Color TRICIA Urine Clarity SLIGHTLY CLOUDY A Urine pH 5.0 Urine Specific 1.019 [place] Urine Ketones TRACE A Urine Nitrite NEGATIVE Urine Bilirubin NEGATIVE Urine 2+ H Urobilinogen Urine Leukocyte 1+ H Esterase Urine Microscopic 3 RBC Urine Microscopic 81 H WBC Urine Bacteria FEW A Urine Mucus FEW A Urine Hemoglobin 2+ H Urine Glucose NEGATIVE Urine Total 1+ H Protein White Blood Count 6.7 # Red Blood Count 3.86 L Hemoglobin 12.5 L Hematocrit 36.9 L Mean Corpuscular 95.6 Volume Mean Corpuscular 32.4 Hemoglobin Mean Corpuscular 33.9 Hemoglobin Concen t Red Cell 17.1 H Distribution Width Platelet Count 95 #L Mean Platelet 11.1 H Volume Immature 0.300 Granulocytes % Neutrophils % 90.5 H Lymphocytes % 4.8 L Monocytes % 3.5 Eosinophils % 0.6 Basophils % 0.3 Nucleated Red 0.0 Blood Cells % Immature 0.020 Granulocytes # Neutrophils # 6.0 Lymphocytes # 0.3 L Monocytes # 0.2 L Eosinophils # 0.0 Basophils # 0.0 Nucleated Red 0.0 Blood Cells # Sodium Level 138 Potassium Level 5.0 Chloride Level 106 Carbon Dioxide 21 Level Anion Gap 11 Blood Urea 27 H Nitrogen Creatinine 1.39 H Est Glomerular Filtrat Rate mL/min Glucose Level 239 H Calcium Level 9.1 Test 12/10/18 09:09 12/10/18 12:58 Bedside Glucose 245 H 254 H Home Meds Active Scripts Acetaminophen* (Tylenol*) 325 Mg Tablet, 650 MG PO Q6H PRN for MILD PAIN(1-3)OR ELEVATED TEMP for 14 Days, TAB Prov:VIRGINIA CA MD 11/30/18 [Nursing Note] 1 EA EA No Conflict Check, 1 EA XX NOTE Prov:VIRGINIA CA MD 11/30/18 Megestrol Acetate (Megestrol Acetate) 400 Mg/10 Ml Oral.susp, 400 MG PO DAILY for 14 Days Prov:VIRGINIA CA MD 11/30/18 Metformin* (Glucophage* XR) 500 Mg Tab.sr.24h, 500 MG PO AC DINNER for 14 Days Prov:VIRGINIA CA MD 11/30/18 Levothyroxine Sodium* (Levothyroxine Sodium*) 150 Mcg Tablet, 150 MCG PO BEFORE BREAKFAST for 14 Days, TAB Prov:VIRGINIA CA MD 11/30/18 [Insulin Glargine] 100 UNITS/ML SOLN No Conflict Check, 15 UNITS SC DAILY Prov:VIRGINIA CA MD 11/30/18 Insulin Aspart* (Novolog Insulin Pen*) 100 Unit/Ml Soln, 0 UNIT SC WITH MEALS BEDTIME for 14 Days Prov:VIRGINIA CA MD 11/30/18 Glucagon HCl (Glucagon HCl) 1 Mg Vial, 1 MG IM Q15M PRN for DECREASED GLUCOSE for 14 Days, VIAL Prov:VIRGINIA CA MD 11/30/18 Magnesium Hydroxide* (Fox' MOM*) 30 Ml Susp, 30 ML PO DAILY PRN for constipation for 14 Days Prov:VIRGINIA CA MD 11/30/18 Docusate Sodium* (Colace*) 100 Mg Capsule, 100 MG PO BID PRN for CONSTIPATION for 14 Days, CAP Prov:VIRGINIA CA MD 11/30/18 Polyvinyl Alcohol* (Akwa Tears*) 1.4% - 15 Ml Drops, 2 DROP BOTH EYES QID for 14 Days, BOTTLE Prov:VIRGINIA CA MD 11/30/18 Dextrose* (D50W Syringe*) 50 Ml Soln, 50 ML IV Q15M PRN for DECREASED GLUCOSE for 14 Days Prov:VIRGINIA CA MD 11/30/18 Dextrose* (D50W Syringe*) 50 Ml Soln, 25 ML IV Q15M PRN for DECREASED GLUCOSE for 14 Days Prov:VIRGINIA CA MD 11/30/18 Dextrose (Glutose 15) 37.5 Gm Gel..gm., 15 GM BUCCAL Q15M PRN for DECREASED GLUCOSE for 14 Days Prov:VIRGINIA CA MD 11/30/18 Dextrose (Glutose 15) 37.5 Gm Gel..gm., 22.5 GM PO Q15M PRN for DECREASED GLUCOSE for 14 Days Prov:VIRGINIA CA MD 11/30/18 Dextrose (Glutose 15) 37.5 Gm Gel..gm., 15 GM PO Q15M PRN for DECREASED GLUCOSE for 14 Days Prov:VIRGINIA CA MD 11/30/18 [Accu-Chek] 1 EA EA No Conflict Check, 1 EA XX 02 Prov:VIRGINIA CA MD 11/30/18 Risperidone* (Risperdal*) 0.25 Mg Tablet, 0.25 MG PO BID PRN for agitation for 14 Days, TAB Prov:VIRGINIA CA MD 11/30/18 Gabapentin* (Gabapentin*) 100 Mg Capsule, 100 MG PO AM for 14 Days, CAP Prov:VIRGINIA CA MD 11/30/18 Gabapentin* (Gabapentin*) 300 Mg Capsule, 300 MG PO HS for 14 Days, CAP Prov:VIRGINIA CA MD 11/30/18 Metoprolol Tartrate* (Lopressor*) 25 Mg Tab, 25 MG PO BID for 14 Days, TAB Prov:VIRGINIA CA MD 11/30/18 Benazepril Hcl* (Benazepril Hcl*) 10 Mg Tablet, 10 MG PO DAILY for 14 Days, TAB Prov:VIRGINIA CA MD 11/30/18 Diphenhydramine Hcl* (Benadryl*) 25 Mg Cap, 25 MG PO HS PRN for insomnia for 15 Days, CAP Prov:VIRGINIA CA MD 11/30/18 Enoxaparin Sodium* (Enoxaparin Sodium*) 30 Mg/0.3 Ml Syringe, 30 MG SC DAILY for 15 Days Prov:VIRGINIA CA MD 11/30/18 Reported Medications Rifaximin* (Xifaxan*) 550 Mg Tablet, 550 MG PO DAILY, TAB 11/26/18 Omeprazole* (Omeprazole*) 40 Mg Capsule.dr, 40 MG PO DAILY, #30 CAP 11/24/18 Ergocalciferol (Vitamin D2) (VITAMIN D2) 50,000 Unit Capsule, 15269 UNIT PO Q SUN, CAP 11/24/18 Medications Current Medications Levothyroxine Sodium (Synthroid) 137 mcg DAILY@06 PO Last administered on 12/09/18at 06:20; Admin Dose 137 MCG; Start 12/04/18 at 06:00 Aspirin (Aspirin) 81 mg DAILY PO Last administered on 12/08/18at 09:01; Admin Dose 81 MG; Start 12/03/18 at 12:30 Rifaximin (Xifaxan) 550 mg DAILY PO Last administered on 12/08/18at 09:01; Admin Dose 550 MG; Start 12/03/18 at 12:30 Amylase/Lipase/ Protease (Creon ([id number])) 1 cap WITH MEALS PO Last administered on 12/08/18at 11:49; Admin Dose 1 CAP; Start 12/03/18 at 17:55 Metformin HCl (Glucophage) 500 mg WITH DINNER PO Last administered on 12/08/18at 17:19; Admin Dose 500 MG; Start 12/03/18 at 17:55 Metoprolol Tartrate (Lopressor) 25 mg BID PO Last administered on 12/09/18at 20:14; Admin Dose 25 MG; Start 12/03/18 at 21:00 Pantoprazole (Protonix Tab) 40 mg BID@,18 PO Last administered on 12/09/18 06:20; Admin Dose 40 MG; Start 12/03/18 at 18:00 Senna (Senokot) 1 tab DAILY PO Last administered on 12/08/18 09:01; Admin Dose 1 TAB; Start 12/04/18 at 09:00 Miscellaneous Information 1 ea NOTE XX ; Start 12/03/18 at 13:00 Glucose (Glutose) 15 gm Q15M PRN PO DECREASED GLUCOSE; Start 12/03/18 at 13:00 Glucose (Glutose) 22.5 gm Q15M PRN PO DECREASED GLUCOSE; Start 12/03/18 at 13:00 Dextrose (D50w Syringe) 25 ml Q15M PRN IV DECREASED GLUCOSE; Start 12/03/18 at 13:00 Dextrose (D50w Syringe) 50 ml Q15M PRN IV DECREASED GLUCOSE; Start 12/03/18 at 13:00 Glucagon (Glucagen) 1 mg Q15M PRN IM DECREASED GLUCOSE; Start 12/03/18 at 13:00 Glucose (Glutose) 15 gm Q15M PRN BUCCAL DECREASED GLUCOSE; Start 12/03/18 at 13:00 Clopidogrel Bisulfate (plaVIX) 75 mg DAILY PO Last administered on 12/08/18at 09:01; Admin Dose 75 MG; Start 12/05/18 at 09:00; Status Hold Diclofenac Sodium (Voltaren 1% Gel) 2 gm QID TP Last administered on 12/10/18at 12:55; Admin Dose 2 GM; Start 12/05/18 at 14:00 Magnesium Hydroxide (Milk Of Mag) 30 ml DAILY PRN PO constipation; Start 12/06/18 at 09:30 Diagnostic Test (Pha) (Accu-Chek) 1 ea BID WITH MEALS XX Last administered on 12/10/18at 07:55; Admin Dose 1 EA; Start 12/06/18 at 17:55 Megestrol Acetate (Megace Susp) 40 mg DAILY PO Last administered on 12/08/18at 09:03; Admin Dose 40 MG; Start 12/07/18 at 09:00 Cholecalciferol (Vitamin D) 2,000 unit DAILY PO Last administered on 12/08/18 09:01; Admin Dose 2,000 UNIT; Start 12/06/18 at 10:30 Insulin Aspart (Novolog Insulin Pen) NOVOLOG *MILD* ALGORI... AC MEALS AND BEDTIME SC Last administered on 12/10/18 13:04; Admin Dose 3 UNIT; Start 12/06/18 at 11:20 Eye Lubricant (Artificial Tears Oph) 2 drop Q2H PRN BOTH EYES DRY EYES Last administered on 12/08/18 15:12; Admin Dose 2 DROP; Start 12/06/18 at 22:00 Ciprofloxacin/ Dextrose 200 ml @ 200 mls/hr Q24H IVPB Last administered on 12/10/18 09:50; Admin Dose 200 MLS/HR; Start 12/08/18 at 09:00 Insulin Glargine (Lantus) 6 units DAILY@0800 SC ; Start 12/09/18 at 08:00; Status Hold Ondansetron HCl (Zofran Inj) 4 mg Q4H PRN IV NAUSEA AND/OR VOMITING Last administered on 12/09/18at 12:18; Admin Dose 4 MG; Start 12/09/18 at 12:30 Metoprolol Tartrate (Lopressor) 5 mg Q4H PRN IV HR>110 or significant PVC's; Start 12/09/18 at 13:00 Dextrose/Sodium Chloride 1,000 ml @ 125 mls/hr Q8H IV Last administered on 12/10/18at 12:55; Admin Dose 125 MLS/HR; Start 12/10/18 at 12:30 Enalaprilat (Vasotec Iv) 0.625 mg Q6H PRN IV sbp>170; Start 12/10/18 at 12:30 Assessment/Plan Hospital Course (Demo Recall) 1. Wide complex tachycardia-suppreseed for most part on low dose BB as tolerated. Had an episode which looked more like abberrant AF when first admittedNL EF by echo this index admission - in sinus now. Pt somewhat bready, but BP stable and overall, poor functional capacity - he dies not have Class I indication for pacer now and I think given overall state of health, medical Rx is reasonable. Now HR stable - no pauses noted. 2. Intermittent bigeminy and generalized wide complex rhythms-generally suppressed on low dose of BB. Sinus now, rare controlled. 3. Hypertension-reasonable control on monotherapy with BB with ACEI held in the setting of renal failure - improved with RX. 4. Episodes of nausea and vomiting. 5. Gait instability with signs of hygroma-had been in PT but transferred back to med-surg for AMS. Was initially followed by neurology - defer to neuro team. 6. Diabetes mellitus, status post pancreatectomy, status post Whipple. Con't to recover. 7. Hypothyroidism. 8. Pancytopenia with more pronounced leukopenia and thrombocytopenia. 9. Bradycardia-stable now to 40's at times by vital sign assessment with stable BP. NL TSH with actually mildly elevated Free T4 - clinical follow up expected now. 10.Urinary retention s/p Smith placement RYLEE PITT MD Dec 10, 2018 13:28
[2018-12-10] MEDS: metFORMIN 500 MG TAB PO SCH (17:55)
[2018-12-11] VITALS (12 sets, daily range): BP systolic 136–155; BP diastolic 64–81; PULSE 70–88; RESP 18–20
[2018-12-11] MEDS: DEXTROSE 5%-0.45% NACL 1,000 ML IV SCH ×3 (04:38→23:52)
[2018-12-11] MEDS: INSULIN ASPART [NOVOLOG] 3 ML PEN SC SCH ×5 (04:48→22:03)
[2018-12-11] MEDS: PANTOPRAZOLE (EC) 40 MG TAB PO SCH ×2 (06:00→17:36)
[2018-12-11] MEDS: LEVOTHYROXINE 137 MCG TAB PO SCH (06:00)
[2018-12-11] MEDS: CREON (24K-76K-120K) 1 CAP PO SCH ×3 (07:55→17:36)
[2018-12-11] MEDS: ASPIRIN 81 MG TAB PO SCH (08:31)
[2018-12-11] MEDS: METOPROLOL 25 MG TAB PO SCH ×2 (08:32→20:58)
[2018-12-11] MEDS: SENNA TAB PO SCH (08:32)
[2018-12-11] MEDS: CHOLECALCIFEROL 2,000 UNIT CAP PO SCH (08:32)
[2018-12-11] MEDS: RIFAXIMIN 550 MG TAB PO SCH (08:32)
[2018-12-11] MEDS: MEGESTROL (40 MG/ML) 10ML CUP PO SCH (08:32)
[2018-12-11] MEDS: DICLOFENAC SODIUM 1% GEL 100 GM TUBE TP SCH ×4 (08:33→20:58)
[2018-12-11] MEDS: BALSAM PERU/CASTOR OIL 60 GM TUBE TOP SCH ×2 (08:33→20:58)
[2018-12-11] MEDS: CIPROFLOXACIN 400MG/D5W 200 ML IVPB SCH (08:48)
--- NOTE | 2018-12-11 14:14 | PN ---
Date/Time of Note Date/Time of Note DATE: 12/11/18 TIME: 14:10 Assessment/Plan VTE Prophylaxis Risk score (from Ns)>0 risk: 6 SCD applied (from Ns): Yes Pharmacological prophylaxis: NA/contraindicated Pharm contraindication: thrombocytopenia Lines/Catheters [facility] Peripheral IV Urinary Cath still in place: No Assessment/Plan Assessment/Plan 1. Wide complex tachycardia-suppressed for most part on low dose BB as tolerated. Had an episode which looked more like abberrant AF when first admittedNL EF by echo this index admission- followed by cards 2. Intermittent bigeminy and generalized wide complex rhythms-generally suppressed on low dose of BB when given as tolerated--followed by cards 3. Hypertension-reasonable control on monotherapy with BB with ACEI held in the setting of renal failure. due to mentation change will give prn iv enalpril prn elevated bp 4. Episodes of nausea and vomiting. had episode x 1 5. Gait instability with signs of hygroma-had been in PT but transferred back to med-surg for AMS. Was initially followed by neurology 6. Diabetes mellitus, status post pancreatectomy, status post Whipple. saniya vated sugar while on d5. on sliding scale. 7. Hypothyroidism. 8. Pancytopenia with more pronounced leukopenia and thrombocytopenia. cont to fluctuate. sedation- mri neg, cxr neg. wbc normal. unclear source. --will hold zofran . Result Diagram: 12/11/18 0536 12/11/18 0536 Results 24hrs Laboratory Tests Test 12/10/18 17:58 12/10/18 21:11 12/11/18 03:41 12/11/18 04:36 Bedside Glucose 333 H 277 H 316 H 320 H Test 12/11/18 05:36 12/11/18 08:35 12/11/18 12:31 White Blood Count 5.9 Red Blood Count 3.34 L Hemoglobin 10.8 L Hematocrit 31.4 L Mean Corpuscular 94.0 Volume Mean Corpuscular 32.3 Hemoglobin Mean Corpuscular 34.4 Hemoglobin Concent Red Cell 17.1 H Distribution Width Platelet Count 79 L Mean Platelet Volume 11.2 H Immature 0.300 Granulocytes % Neutrophils % 81.5 H Segmented 63 Neutrophils % (Manual) Band Neutrophils % 22 H (Manual) Lymphocytes % 7.0 L Lymphocytes % 10 L (Manual) Monocytes % 9.3 Monocytes % (Manual) 4 Eosinophils % 1.7 Basophils % 0.2 Metamyelocytes % 1 H (manual) Nucleated Red Blood 0.0 Cells % Immature 0.020 Granulocytes # Neutrophils # 4.8 Neutrophils # 3.8 (Manual) Band Neutrophils # 1.2 H Lymphocytes (Manual) 0.5 L Lymphocytes # 0.4 L Monocytes # 0.6 Monocytes # (Manual) 0.2 L Eosinophils # 0.1 Basophils # 0.0 Metamyelocytes # 0.0 Nucleated Red Blood 0.0 Cells # Platelet Estimate DECREASED Giant Platelets 3 H Poikilocytosis 3+ Anisocytosis 1+ Microcytosis 1+ Sodium Level 136 Potassium Level 4.0 Chloride Level 108 Carbon Dioxide Level 19 L Anion Gap 9 Blood Urea Nitrogen 27 H Creatinine 1.25 H Est Glomerular Filtrat Rate mL/min Glucose Level 320 H Calcium Level 8.4 Total Bilirubin 1.6 H Direct Bilirubin 0.00 Indirect Bilirubin 1.6 H Aspartate Amino 37 Transf (AST/SGOT) Alanine 53 Aminotransferase (AL T/SGPT) Alkaline Phosphatase 126 H Total Protein 5.7 L Albumin 2.9 L Globulin 2.80 Albumin/Globulin 1.03 Ratio Bedside Glucose 297 H 314 H Subjective 24 Hr Interval Summary Free Text/Dictation still sedated. no source. no sig improvement. in no discomfort. mri and cxr neg. Exam/Review of Systems Exam Vitals Vital Signs Date Temp Pulse Resp B/P (MAP) Pulse Ox O2 O2 Flow FiO2 Time Delivery Rate 12/11/18 2.0 12:10 12/11/18 70 12:00 12/11/18 97.7 20 142/78 97 11:34 (99) 12/11/18 Nasal 07:35 Cannula Intake and Output 12/10/18 12/10/18 12/11/18 1515:00 23:00 07:00 IntakeIntake Total 875 ml BalanceBalance 875 ml Head: normocephalic Respiratory: clear to auscultation Gastrointestinal: soft Results Results 24hrs Laboratory Tests Test 12/10/18 17:58 12/10/18 21:11 12/11/18 03:41 12/11/18 04:36 Bedside Glucose 333 H 277 H 316 H 320 H Test 12/11/18 05:36 12/11/18 08:35 12/11/18 12:31 White Blood Count 5.9 Red Blood Count 3.34 L Hemoglobin 10.8 L Hematocrit 31.4 L Mean Corpuscular 94.0 Volume Mean Corpuscular 32.3 Hemoglobin Mean Corpuscular 34.4 Hemoglobin Concent Red Cell 17.1 H Distribution Width Platelet Count 79 L Mean Platelet Volume 11.2 H Immature 0.300 Granulocytes % Neutrophils % 81.5 H Segmented 63 Neutrophils % (Manual) Band Neutrophils % 22 H (Manual) Lymphocytes % 7.0 L Lymphocytes % 10 L (Manual) Monocytes % 9.3 Monocytes % (Manual) 4 Eosinophils % 1.7 Basophils % 0.2 Metamyelocytes % 1 H (manual) Nucleated Red Blood 0.0 Cells % Immature 0.020 Granulocytes # Neutrophils # 4.8 Neutrophils # 3.8 (Manual) Band Neutrophils # 1.2 H Lymphocytes (Manual) 0.5 L Lymphocytes # 0.4 L Monocytes # 0.6 Monocytes # (Manual) 0.2 L Eosinophils # 0.1 Basophils # 0.0 Metamyelocytes # 0.0 Nucleated Red Blood 0.0 Cells # Platelet Estimate DECREASED Giant Platelets 3 H Poikilocytosis 3+ Anisocytosis 1+ Microcytosis 1+ Sodium Level 136 Potassium Level 4.0 Chloride Level 108 Carbon Dioxide Level 19 L Anion Gap 9 Blood Urea Nitrogen 27 H Creatinine 1.25 H Est Glomerular Filtrat Rate mL/min Glucose Level 320 H Calcium Level 8.4 Total Bilirubin 1.6 H Direct Bilirubin 0.00 Indirect Bilirubin 1.6 H Aspartate Amino 37 Transf (AST/SGOT) Alanine 53 Aminotransferase (AL T/SGPT) Alkaline Phosphatase 126 H Total Protein 5.7 L Albumin 2.9 L Globulin 2.80 Albumin/Globulin 1.03 Ratio Bedside Glucose 297 H 314 H Medications Medication Current Medications Levothyroxine Sodium (Synthroid) 137 mcg DAILY@06 PO Last administered on 12/09/18at 06:20; Admin Dose 137 MCG; Start 12/04/18 at 06:00 Aspirin (Aspirin) 81 mg DAILY PO Last administered on 12/08/18at 09:01; Admin Dose 81 MG; Start 12/03/18 at 12:30 Rifaximin (Xifaxan) 550 mg DAILY PO Last administered on 12/08/18at 09:01; Admin Dose 550 MG; Start 12/03/18 at 12:30 Amylase/Lipase/ Protease (Creon ([id number])) 1 cap WITH MEALS PO Last administered on 12/08/18at 11:49; Admin Dose 1 CAP; Start 12/03/18 at 17:55 Metformin HCl (Glucophage) 500 mg WITH DINNER PO Last administered on 12/08/18at 17:19; Admin Dose 500 MG; Start 12/03/18 at 17:55 Metoprolol Tartrate (Lopressor) 25 mg BID PO Last administered on 12/09/18at 20:14; Admin Dose 25 MG; Start 12/03/18 at 21:00 Pantoprazole (Protonix Tab) 40 mg BID@,18 PO Last administered on 12/09/18at 06:20; Admin Dose 40 MG; Start 12/03/18 at 18:00 Senna (Senokot) 1 tab DAILY PO Last administered on 12/08/18at 09:01; Admin Dose 1 TAB; Start 12/04/18 at 09:00 Miscellaneous Information 1 ea NOTE XX ; Start 12/03/18 at 13:00 Glucose (Glutose) 15 gm Q15M PRN PO DECREASED GLUCOSE; Start 12/03/18 at 13:00 Glucose (Glutose) 22.5 gm Q15M PRN PO DECREASED GLUCOSE; Start 12/03/18 at 13:00 Dextrose (D50w Syringe) 25 ml Q15M PRN IV DECREASED GLUCOSE; Start 12/03/18 at 13:00 Dextrose (D50w Syringe) 50 ml Q15M PRN IV DECREASED GLUCOSE; Start 12/03/18 at 13:00 Glucagon (Glucagen) 1 mg Q15M PRN IM DECREASED GLUCOSE; Start 12/03/18 at 13:00 Glucose (Glutose) 15 gm Q15M PRN BUCCAL DECREASED GLUCOSE; Start 12/03/18 at 13:00 Clopidogrel Bisulfate (plaVIX) 75 mg DAILY PO Last administered on 12/08/18at 09:01; Admin Dose 75 MG; Start 12/05/18 at 09:00; Status Hold Diclofenac Sodium (Voltaren 1% Gel) 2 gm QID TP Last administered on 12/11/18at 13:34; Admin Dose 2 GM; Start 12/05/18 at 14:00 Magnesium Hydroxide (Milk Of Mag) 30 ml DAILY PRN PO constipation; Start 12/06/18 at 09:30 Megestrol Acetate (Megace Susp) 40 mg DAILY PO Last administered on 12/08/18 09:03; Admin Dose 40 MG; Start 12/07/18 at 09:00 Cholecalciferol (Vitamin D) 2,000 unit DAILY PO Last administered on 12/08/18 09:01; Admin Dose 2,000 UNIT; Start 12/06/18 at 10:30 Eye Lubricant (Artificial Tears Oph) 2 drop Q2H PRN BOTH EYES DRY EYES Last administered on 12/08/18 15:12; Admin Dose 2 DROP; Start 12/06/18 at 22:00 Ciprofloxacin/ Dextrose 200 ml @ 200 mls/hr Q24H IVPB Last administered on 12/11/18 08:48; Admin Dose 200 MLS/HR; Start 12/08/18 at 09:00 Insulin Glargine (Lantus) 6 units DAILY@0800 SC ; Start 12/09/18 at 08:00; Status Hold Ondansetron HCl (Zofran Inj) 4 mg Q4H PRN IV NAUSEA AND/OR VOMITING Last administered on 12/09/18 12:18; Admin Dose 4 MG; Start 12/09/18 at 12:30 Metoprolol Tartrate (Lopressor) 5 mg Q4H PRN IV HR>110 or significant PVC's; Start 12/09/18 at 13:00 Dextrose/Sodium Chloride 1,000 ml @ 80 mls/hr [id number] IV Last administered on 12/11/18 12:33; Admin Dose 125 MLS/HR; Start 12/10/18 at 12:30 Enalaprilat (Vasotec Iv) 0.625 mg Q6H PRN IV sbp>170; Start 12/10/18 at 12:30 Insulin Aspart (Novolog Insulin Pen) NOVOLOG *MILD* ALGORI... Q4 SC Last administered on 12/11/18 12:37; Admin Dose 5 UNIT; Start 12/11/18 at 05:00 SANJANA HERNANDEZ MD Dec 11, 2018 14:14
--- NOTE | 2018-12-11 15:17 | CONS ---
Consult Date/Type/Reason Admit Date/Time Dec 03, 2018 at 10:30 Initial Consult Date Requesting Provider: VIRGINIA CA MD Date/Time of Note DATE: 12/11/18 TIME: 15:15 Subjective NO acute events- PVCs noted - no active cp - clinically stable. ROS: No fever, no chills, no nausea, no vomiting, no diarrhea/constipation No recent weight changes No chest pain, no PND, no orthopnea No dizziness, blurred vision No thirst, no heat or cold intolerance Objective Vitals Vital Signs Date Temp Pulse Resp B/P (MAP) Pulse Ox O2 O2 Flow FiO2 Time Delivery Rate 12/11/18 2.0 12:10 12/11/18 70 12:00 12/11/18 97.7 20 142/78 97 11:34 (99) 12/11/18 Nasal 07:35 Cannula Intake and Output 12/10/18 12/10/18 12/11/18 1515:00 23:00 07:00 IntakeIntake Total 875 ml BalanceBalance 875 ml Exam General: WN/WD/NAD, AOx 0 sleeepy HEENT: Unicetric/atraumatic/EOMI (does not follow commands) NECK: JVD elevated, no thyromegaly Lymph: no lymphadenopathy HEART: regular with no S3, II/ systolic murmur at apex, PMI L LUNGS: Coarse sounds ABD: soft, NT, ND, +BS : Intact Neuro: non focal SKIN: chronic changes EXT: trace edema Results/Medications Result Diagram: 12/11/18 0536 12/11/18 0536 Results 24 hrs Laboratory Tests Test 12/10/18 17:58 12/10/18 21:11 12/11/18 03:41 12/11/18 04:36 Bedside Glucose 333 H 277 H 316 H 320 H Test 12/11/18 05:36 12/11/18 08:35 12/11/18 12:31 White Blood Count 5.9 Red Blood Count 3.34 L Hemoglobin 10.8 L Hematocrit 31.4 L Mean Corpuscular 94.0 Volume Mean Corpuscular 32.3 Hemoglobin Mean Corpuscular 34.4 Hemoglobin Concent Red Cell 17.1 H Distribution Width Platelet Count 79 L Mean Platelet Volume 11.2 H Immature 0.300 Granulocytes % Neutrophils % 81.5 H Segmented 63 Neutrophils % (Manual) Band Neutrophils % 22 H (Manual) Lymphocytes % 7.0 L Lymphocytes % 10 L (Manual) Monocytes % 9.3 Monocytes % (Manual) 4 Eosinophils % 1.7 Basophils % 0.2 Metamyelocytes % 1 H (manual) Nucleated Red Blood 0.0 Cells % Immature 0.020 Granulocytes # Neutrophils # 4.8 Neutrophils # 3.8 (Manual) Band Neutrophils # 1.2 H Lymphocytes (Manual) 0.5 L Lymphocytes # 0.4 L Monocytes # 0.6 Monocytes # (Manual) 0.2 L Eosinophils # 0.1 Basophils # 0.0 Metamyelocytes # 0.0 Nucleated Red Blood 0.0 Cells # Platelet Estimate DECREASED Giant Platelets 3 H Poikilocytosis 3+ Anisocytosis 1+ Microcytosis 1+ Sodium Level 136 Potassium Level 4.0 Chloride Level 108 Carbon Dioxide Level 19 L Anion Gap 9 Blood Urea Nitrogen 27 H Creatinine 1.25 H Est Glomerular Filtrat Rate mL/min Glucose Level 320 H Calcium Level 8.4 Total Bilirubin 1.6 H Direct Bilirubin 0.00 Indirect Bilirubin 1.6 H Aspartate Amino 37 Transf (AST/SGOT) Alanine 53 Aminotransferase (AL T/SGPT) Alkaline Phosphatase 126 H Total Protein 5.7 L Albumin 2.9 L Globulin 2.80 Albumin/Globulin 1.03 Ratio Bedside Glucose 297 H 314 H Home Meds Active Scripts Acetaminophen* (Tylenol*) 325 Mg Tablet, 650 MG PO Q6H PRN for MILD PAIN(1-3)OR ELEVATED TEMP for 14 Days, TAB Prov:VIRGINIA CA MD 11/30/18 [Nursing Note] 1 EA EA No Conflict Check, 1 EA XX NOTE Prov:VIRGINIA CA MD 11/30/18 Megestrol Acetate (Megestrol Acetate) 400 Mg/10 Ml Oral.susp, 400 MG PO DAILY for 14 Days Prov:VIRGINIA CA MD 11/30/18 Metformin* (Glucophage* XR) 500 Mg Tab.sr.24h, 500 MG PO AC DINNER for 14 Days Prov:VIRGINIA CA MD 11/30/18 Levothyroxine Sodium* (Levothyroxine Sodium*) 150 Mcg Tablet, 150 MCG PO BEFORE BREAKFAST for 14 Days, TAB Prov:VIRGINIA CA MD 11/30/18 [Insulin Glargine] 100 UNITS/ML SOLN No Conflict Check, 15 UNITS SC DAILY Prov:VIRGINIA CA MD 11/30/18 Insulin Aspart* (Novolog Insulin Pen*) 100 Unit/Ml Soln, 0 UNIT SC WITH MEALS BEDTIME for 14 Days Prov:VIRGINIA CA MD 11/30/18 Glucagon HCl (Glucagon HCl) 1 Mg Vial, 1 MG IM Q15M PRN for DECREASED GLUCOSE for 14 Days, VIAL Prov:VIRGINIA CA MD 11/30/18 Magnesium Hydroxide* (Fox' MOM*) 30 Ml Susp, 30 ML PO DAILY PRN for constipation for 14 Days Prov:VIRGINIA CA MD 11/30/18 Docusate Sodium* (Colace*) 100 Mg Capsule, 100 MG PO BID PRN for CONSTIPATION for 14 Days, CAP Prov:VIRGINIA CA MD 11/30/18 Polyvinyl Alcohol* (Akwa Tears*) 1.4% - 15 Ml Drops, 2 DROP BOTH EYES QID for 14 Days, BOTTLE Prov:VIRGINIA CA MD 11/30/18 Dextrose* (D50W Syringe*) 50 Ml Soln, 50 ML IV Q15M PRN for DECREASED GLUCOSE for 14 Days Prov:VIRGINIA CA MD 11/30/18 Dextrose* (D50W Syringe*) 50 Ml Soln, 25 ML IV Q15M PRN for DECREASED GLUCOSE for 14 Days Prov:VIRGINIA CA MD 11/30/18 Dextrose (Glutose 15) 37.5 Gm Gel..gm., 15 GM BUCCAL Q15M PRN for DECREASED GLUCOSE for 14 Days Prov:VIRGINIA CA MD 11/30/18 Dextrose (Glutose 15) 37.5 Gm Gel..gm., 22.5 GM PO Q15M PRN for DECREASED GLUCOSE for 14 Days Prov:VIRGINIA CA MD 11/30/18 Dextrose (Glutose 15) 37.5 Gm Gel..gm., 15 GM PO Q15M PRN for DECREASED GLUCOSE for 14 Days Prov:VIRGINIA CA MD 11/30/18 [Accu-Chek] 1 EA EA No Conflict Check, 1 EA XX 02 Prov:VIRGINIA CA MD 11/30/18 Risperidone* (Risperdal*) 0.25 Mg Tablet, 0.25 MG PO BID PRN for agitation for 14 Days, TAB Prov:VIRGINIA CA MD 11/30/18 Gabapentin* (Gabapentin*) 100 Mg Capsule, 100 MG PO AM for 14 Days, CAP Prov:VIRGINIA CA MD 11/30/18 Gabapentin* (Gabapentin*) 300 Mg Capsule, 300 MG PO HS for 14 Days, CAP Prov:VIRGINIA CA MD 11/30/18 Metoprolol Tartrate* (Lopressor*) 25 Mg Tab, 25 MG PO BID for 14 Days, TAB Prov:VIRGINIA CA MD 11/30/18 Benazepril Hcl* (Benazepril Hcl*) 10 Mg Tablet, 10 MG PO DAILY for 14 Days, TAB Prov:VIRGINIA CA MD 11/30/18 Diphenhydramine Hcl* (Benadryl*) 25 Mg Cap, 25 MG PO HS PRN for insomnia for 15 Days, CAP Prov:VIRGINIA CA MD 11/30/18 Enoxaparin Sodium* (Enoxaparin Sodium*) 30 Mg/0.3 Ml Syringe, 30 MG SC DAILY for 15 Days Prov:VIRGINIA CA MD 11/30/18 Reported Medications Rifaximin* (Xifaxan*) 550 Mg Tablet, 550 MG PO DAILY, TAB 11/26/18 Omeprazole* (Omeprazole*) 40 Mg Capsule.dr, 40 MG PO DAILY, #30 CAP 11/24/18 Ergocalciferol (Vitamin D2) (VITAMIN D2) 50,000 Unit Capsule, 05313 UNIT PO Q SUN, CAP 11/24/18 Medications Current Medications Levothyroxine Sodium (Synthroid) 137 mcg DAILY@06 PO Last administered on 12/09/18at 06:20; Admin Dose 137 MCG; Start 12/04/18 at 06:00 Aspirin (Aspirin) 81 mg DAILY PO Last administered on 12/08/18at 09:01; Admin Dose 81 MG; Start 12/03/18 at 12:30 Rifaximin (Xifaxan) 550 mg DAILY PO Last administered on 12/08/18at 09:01; Admin Dose 550 MG; Start 12/03/18 at 12:30 Amylase/Lipase/ Protease (Creon (29x-[id number])) 1 cap WITH MEALS PO Last administered on 12/08/18at 11:49; Admin Dose 1 CAP; Start 12/03/18 at 17:55 Metformin HCl (Glucophage) 500 mg WITH DINNER PO Last administered on 12/08/18at 17:19; Admin Dose 500 MG; Start 12/03/18 at 17:55 Metoprolol Tartrate (Lopressor) 25 mg BID PO Last administered on 12/09/18at 20:14; Admin Dose 25 MG; Start 12/03/18 at 21:00 Pantoprazole (Protonix Tab) 40 mg BID@18 PO Last administered on 12/09/18at 06:20; Admin Dose 40 MG; Start 12/03/18 at 18:00 Senna (Senokot) 1 tab DAILY PO Last administered on 12/08/18at 09:01; Admin Dose 1 TAB; Start 12/04/18 at 09:00 Miscellaneous Information 1 ea NOTE XX ; Start 12/03/18 at 13:00 Glucose (Glutose) 15 gm Q15M PRN PO DECREASED GLUCOSE; Start 12/03/18 at 13:00 Glucose (Glutose) 22.5 gm Q15M PRN PO DECREASED GLUCOSE; Start 12/03/18 at 13:00 Dextrose (D50w Syringe) 25 ml Q15M PRN IV DECREASED GLUCOSE; Start 12/03/18 at 13:00 Dextrose (D50w Syringe) 50 ml Q15M PRN IV DECREASED GLUCOSE; Start 12/03/18 at 13:00 Glucagon (Glucagen) 1 mg Q15M PRN IM DECREASED GLUCOSE; Start 12/03/18 at 13:00 Glucose (Glutose) 15 gm Q15M PRN BUCCAL DECREASED GLUCOSE; Start 12/03/18 at 13:00 Clopidogrel Bisulfate (plaVIX) 75 mg DAILY PO Last administered on 12/08/18at 09:01; Admin Dose 75 MG; Start 12/05/18 at 09:00; Status Hold Diclofenac Sodium (Voltaren 1% Gel) 2 gm QID TP Last administered on 12/11/18at 13:34; Admin Dose 2 GM; Start 12/05/18 at 14:00 Magnesium Hydroxide (Milk Of Mag) 30 ml DAILY PRN PO constipation; Start 12/06/18 at 09:30 Megestrol Acetate (Megace Susp) 40 mg DAILY PO Last administered on 12/08/18at 09:03; Admin Dose 40 MG; Start 12/07/18 at 09:00 Cholecalciferol (Vitamin D) 2,000 unit DAILY PO Last administered on 12/08/18 09:01; Admin Dose 2,000 UNIT; Start 12/06/18 at 10:30 Eye Lubricant (Artificial Tears Oph) 2 drop Q2H PRN BOTH EYES DRY EYES Last administered on 12/08/18at 15:12; Admin Dose 2 DROP; Start 12/06/18 at 22:00 Ciprofloxacin/ Dextrose 200 ml @ 200 mls/hr Q24H IVPB Last administered on 12/11/18 08:48; Admin Dose 200 MLS/HR; Start 12/08/18 at 09:00 Insulin Glargine (Lantus) 6 units DAILY@0800 SC ; Start 12/09/18 at 08:00; Status Hold Ondansetron HCl (Zofran Inj) 4 mg Q4H PRN IV NAUSEA AND/OR VOMITING Last administered on 12/09/18at 12:18; Admin Dose 4 MG; Start 12/09/18 at 12:30; Status Hold Metoprolol Tartrate (Lopressor) 5 mg Q4H PRN IV HR>110 or significant PVC's; Start 12/09/18 at 13:00 Dextrose/Sodium Chloride 1,000 ml @ 80 mls/hr [id number] IV Last administered on 12/11/18at 12:33; Admin Dose 125 MLS/HR; Start 12/10/18 at 12:30 Enalaprilat (Vasotec Iv) 0.625 mg Q6H PRN IV sbp>170; Start 12/10/18 at 12:30 Insulin Aspart (Novolog Insulin Pen) NOVOLOG *MILD* ALGORI... Q4 SC Last administered on 12/11/18at 12:37; Admin Dose 5 UNIT; Start 12/11/18 at 05:00 Diagnostic Test (Pha) (Accu-Chek) 1 ea Q6 XX ; Start 12/11/18 at 18:00 Assessment/Plan Hospital Course (Demo Recall) 1. Wide complex tachycardia-suppreseed for most part on low dose BB as tolerated. Had an episode which looked more like abberrant AF when first admittedNL EF by echo this index admission - in sinus now. Pt somewhat bready, but BP stable and overall, poor functional capacity - he dies not have Class I indication for pacer now and I think given overall state of health, medical Rx is reasonable. Now HR stable - no pauses noted. Now PVCs - conservative rx advised. 2. Intermittent bigeminy and generalized wide complex rhythms-generally suppressed on low dose of BB. Sinus now, rare controlled. 3. Hypertension-reasonable control on monotherapy with BB with ACEI held in the setting of renal failure - improved with RX. 4. Episodes of nausea and vomiting. 5. Gait instability with signs of hygroma-had been in PT but transferred back to med-surg for AMS. Was initially followed by neurology - defer to neuro team. Unchanged. 6. Diabetes mellitus, status post pancreatectomy, stable now. 7. Hypothyroidism. 8. Pancytopenia with more pronounced leukopenia and thrombocytopenia. 9. Bradycardia-stable now to 40's at times by vital sign assessment with stable BP. NL TSH with actually mildly elevated Free T4 - clinical follow up expected now. 10.Urinary retention s/p Smith placement - urologyto follow. RYLEE PITT MD Dec 11, 2018 15:17
[2018-12-11] MEDS: metFORMIN 500 MG TAB PO SCH (17:36)
[2018-12-11] MEDS: ACCU-CHEK XX SCH (17:37)
[2018-12-12] VITALS (11 sets, daily range): BP systolic 145–185; BP diastolic 66–74; PULSE 40–89; RESP 18–20
[2018-12-12] MEDS: ACCU-CHEK XX SCH ×4 (00:38→18:00)
[2018-12-12] MEDS: INSULIN ASPART [NOVOLOG] 3 ML PEN SC SCH ×6 (00:47→21:51)
[2018-12-12] MEDS: LEVOTHYROXINE 137 MCG TAB PO SCH (06:00)
[2018-12-12] MEDS: PANTOPRAZOLE (EC) 40 MG TAB PO SCH ×2 (06:00→18:00)
[2018-12-12] MEDS: CREON (24K-76K-120K) 1 CAP PO SCH ×3 (07:55→17:55)
[2018-12-12] MEDS: MEGESTROL (40 MG/ML) 10ML CUP PO SCH (09:00)
[2018-12-12] MEDS: CHOLECALCIFEROL 2,000 UNIT CAP PO SCH (09:00)
[2018-12-12] MEDS: METOPROLOL 25 MG TAB PO SCH ×2 (09:00→21:31)
[2018-12-12] MEDS: SENNA TAB PO SCH (09:00)
[2018-12-12] MEDS: RIFAXIMIN 550 MG TAB PO SCH (09:00)
[2018-12-12] MEDS: CIPROFLOXACIN 400MG/D5W 200 ML IVPB SCH (09:08)
[2018-12-12] MEDS: ARTIFICIAL TEARS 15 ML OPH BOTH EYES PRN (09:09)
[2018-12-12] MEDS: ASPIRIN 81 MG TAB PO SCH (10:25)
--- NOTE | 2018-12-12 11:01 | CONS ---
Assessment/Plan Assessment/Plan Hospital Course (Demo Recall) 1. Wide complex tachycardia-suppressed for most part on low dose BB as tolerated. Had an episode which looked more like abberrant AF when first admittedNL EF by echo this index admission 2. Intermittent bigeminy and generalized wide complex rhythms-generally suppressed on low dose of BB when given as tolerated 3. Hypertension-reasonable control on monotherapy with BB with ACEI held in the setting of renal failure 4. Episodes of nausea and vomiting. 5. Gait instability with signs of hygroma-had been in PT but transferred back to med-surg for AMS. Was initially followed by neurology 6. Diabetes mellitus, status post pancreatectomy, status post Whipple. 7. Hypothyroidism. 8. Pancytopenia with more pronounced leukopenia and thrombocytopenia. 9. Bradycardia-stable for most part with intermittent to 40's at times by vital sign asessment with stable BP. NL TSH with actually mildly elevated Free T4. No defitine indication for PPM at this time per EP 10.urinary retention s/p arredondo placement 11. Encephalopathy-MRI with acute findings 12/10 Recc: -Tele -Continue low dose BB as tolerated and not given today due to lethargy. IVP PRN BB as necessary -Continue asa for now with plavix held given decreasing/low platelet count -Continue creon -Continue synthroid -s/p EP eval by Brenda with no definite indication for PPM at this time -ongoing neuro eval of MS Consultation Date/Type/Reason Admit Date/Time Dec 03, 2018 at 10:30 Initial Consult Date 12/03/18 Type of Consult Cardiology Reason for Consultation Wide complex tachy Requesting Provider: VIRGINIA CA MD Date/Time of Note DATE: 12/12/18 TIME: 10:56 Exam/Review of Systems Vital Signs Vitals Vital Signs Date Temp Pulse Resp B/P (MAP) Pulse Ox O2 O2 Flow FiO2 Time Delivery Rate 12/12/18 2.0 09:08 12/12/18 80 08:07 12/12/18 98.3 19 185/74 100 07:16 (111) 12/11/18 Nasal 20:27 Cannula Intake and Output 12/11/18 12/11/18 12/12/18 1515:00 23:00 07:00 IntakeIntake Total 375 ml 1560 ml BalanceBalance 375 ml 1560 ml Exam Exam Review of Systems: CONSTITUTIONAL: No fevers, chills. PULMONARY: No sob CARDIOVASCULAR: No chest pain/palpitations GASTROINTESTINAL: No nausea/vomiting. GENITOURINARY: No hematuria/dysuria. MUSCULOSKELETAL: No myagias/arthalgias. PSYCHIATRIC: The patient denies depression. NEUROLOGIC: encephalopathic Constitutional: other (encephalopathic) Head: normocephalic ENMT: mucosa pink and moist Neck: supple, jvd (9 cm water) Respiratory: diminished breath sounds (at bases/B) Cardiovascular: regular rate and rhythm Gastrointestinal: soft, non-tender Musculoskeletal: muscle weakness (generalized) Extremities: edema (none) Neurological: confused, lethargic Labs Result Diagram: 12/12/18 0559 12/12/18 0559 Results 24hrs Laboratory Tests Test 12/11/18 12:31 12/11/18 17:28 12/11/18 20:50 12/11/18 21:56 Bedside Glucose 314 H 317 H 361 H 324 H Test 12/12/18 00:38 12/12/18 05:12 12/12/18 05:59 12/12/18 09:03 Bedside Glucose 293 H 304 H 286 H White Blood Count 6.2 Red Blood Count 3.81 L Hemoglobin 12.4 L Hematocrit 36.0 L Mean Corpuscular 94.5 Volume Mean Corpuscular 32.5 Hemoglobin Mean Corpuscular 34.4 Hemoglobin Concent Red Cell 16.3 H Distribution Width Platelet Count 103 #L Mean Platelet Volume 10.4 Immature 0.300 Granulocytes % Neutrophils % 79.4 H Lymphocytes % 7.6 L Monocytes % 8.5 Eosinophils % 3.7 Basophils % 0.5 Nucleated Red Blood 0.0 Cells % Immature 0.020 Granulocytes # Neutrophils # 4.9 Lymphocytes # 0.5 L Monocytes # 0.5 Eosinophils # 0.2 Basophils # 0.0 Nucleated Red Blood 0.0 Cells # Sodium Level 138 Potassium Level 4.1 Chloride Level 108 Carbon Dioxide Level 20 L Anion Gap 10 Blood Urea Nitrogen 18 # Creatinine 1.08 Est Glomerular Filtrat Rate mL/min Glucose Level 309 H Calcium Level 8.8 Medications Medications Current Medications Levothyroxine Sodium (Synthroid) 137 mcg DAILY@06 PO Last administered on 12/09/18at 06:20; Admin Dose 137 MCG; Start 12/04/18 at 06:00 Aspirin (Aspirin) 81 mg DAILY PO Last administered on 12/08/18 09:01; Admin Dose 81 MG; Start 12/03/18 at 12:30 Rifaximin (Xifaxan) 550 mg DAILY PO Last administered on 12/08/18 09:01; Admin Dose 550 MG; Start 12/03/18 at 12:30 Amylase/Lipase/ Protease (Creon (63m-90c-156h)) 1 cap WITH MEALS PO Last administered on 12/08/18at 11:49; Admin Dose 1 CAP; Start 12/03/18 at 17:55 Metformin HCl (Glucophage) 500 mg WITH DINNER PO Last administered on 12/08/18 17:19; Admin Dose 500 MG; Start 12/03/18 at 17:55 Metoprolol Tartrate (Lopressor) 25 mg BID PO Last administered on 12/09/18at 20:14; Admin Dose 25 MG; Start 12/03/18 at 21:00 Pantoprazole (Protonix Tab) 40 mg BID@06,18 PO Last administered on 12/09/18at 06:20; Admin Dose 40 MG; Start 12/03/18 at 18:00 Senna (Senokot) 1 tab DAILY PO Last administered on 12/08/18 09:01; Admin Dose 1 TAB; Start 12/04/18 at 09:00 Miscellaneous Information 1 ea NOTE XX ; Start 12/03/18 at 13:00 Glucose (Glutose) 15 gm Q15M PRN PO DECREASED GLUCOSE; Start 12/03/18 at 13:00 Glucose (Glutose) 22.5 gm Q15M PRN PO DECREASED GLUCOSE; Start 12/03/18 at 13:00 Dextrose (D50w Syringe) 25 ml Q15M PRN IV DECREASED GLUCOSE; Start 12/03/18 at 13:00 Dextrose (D50w Syringe) 50 ml Q15M PRN IV DECREASED GLUCOSE; Start 12/03/18 at 13:00 Glucagon (Glucagen) 1 mg Q15M PRN IM DECREASED GLUCOSE; Start 12/03/18 at 13:00 Glucose (Glutose) 15 gm Q15M PRN BUCCAL DECREASED GLUCOSE; Start 12/03/18 at 13:00 Clopidogrel Bisulfate (plaVIX) 75 mg DAILY PO Last administered on 12/08/18at 09:01; Admin Dose 75 MG; Start 12/05/18 at 09:00; Status Hold Diclofenac Sodium (Voltaren 1% Gel) 2 gm QID TP Last administered on 12/11/18 20:58; Admin Dose 2 GM; Start 12/05/18 at 14:00 Magnesium Hydroxide (Milk Of Mag) 30 ml DAILY PRN PO constipation; Start 12/06/18 at 09:30 Megestrol Acetate (Megace Susp) 40 mg DAILY PO Last administered on 12/08/18 09:03; Admin Dose 40 MG; Start 12/07/18 at 09:00 Cholecalciferol (Vitamin D) 2,000 unit DAILY PO Last administered on 12/08/18 09:01; Admin Dose 2,000 UNIT; Start 12/06/18 at 10:30 Eye Lubricant (Artificial Tears Oph) 2 drop Q2H PRN BOTH EYES DRY EYES Last administered on 12/12/18 09:09; Admin Dose 2 DROP; Start 12/06/18 at 22:00 Ciprofloxacin/ Dextrose 200 ml @ 200 mls/hr Q24H IVPB Last administered on 12/12/18 09:08; Admin Dose 200 MLS/HR; Start 12/08/18 at 09:00 Insulin Glargine (Lantus) 6 units DAILY@0800 SC ; Start 12/09/18 at 08:00; Status Hold Ondansetron HCl (Zofran Inj) 4 mg Q4H PRN IV NAUSEA AND/OR VOMITING Last administered on 12/09/18 12:18; Admin Dose 4 MG; Start 12/09/18 at 12:30; Status Hold Metoprolol Tartrate (Lopressor) 5 mg Q4H PRN IV HR>110 or significant PVC's; Start 12/09/18 at 13:00 Dextrose/Sodium Chloride 1,000 ml @ 80 mls/hr [id number] IV Last administered on 12/11/18 23:52; Admin Dose 80 MLS/HR; Start 12/10/18 at 12:30 Enalaprilat (Vasotec Iv) 0.625 mg Q6H PRN IV sbp>170; Start 12/10/18 at 12:30 Insulin Aspart (Novolog Insulin Pen) NOVOLOG *MILD* ALGORI... Q4 SC Last administered on 6/24/19at 10:18; Admin Dose 4 UNIT; Start 12/11/18 at 05:00 Diagnostic Test (Pha) (Accu-Chek) 1 ea Q6 XX Last administered on 12/12/18at 06:00; Admin Dose 1 EA; Start 12/11/18 at 18:00 [place] Dec 12, 2018 11:00
--- NOTE | 2018-12-12 12:55 | PN ---
Date/Time of Note Date/Time of Note DATE: 12/12/18 TIME: 12:27 Subjective arousable, single word answers, not complaining of any pain Objective Vitals Vital Signs Date Temp Pulse Resp B/P (MAP) Pulse Ox O2 O2 Flow FiO2 Time Delivery Rate 12/12/18 98.3 58 18 151/67 99 11:44 (95) 12/12/18 2.0 09:08 12/12/18 Nasal 08:00 Cannula Intake and Output 12/11/18 12/11/18 12/12/18 1515:00 23:00 07:00 IntakeIntake Total 375 ml 1560 ml BalanceBalance 375 ml 1560 ml per--st, not awake enough for po eleanor intake, per ot/ pt-- full assistance to sit at the edge of bed & just a simple arm lifting, cta, rr syst m+, no c/c/e, mouth breathing+, dry mucus+ Results Result Diagram: 12/12/18 0559 12/12/1859 Medications Medications Current Medications Levothyroxine Sodium (Synthroid) 137 mcg DAILY@06 PO Last administered on 12/09/18at 06:20; Admin Dose 137 MCG; Start 12/04/18 at 06:00 Aspirin (Aspirin) 81 mg DAILY PO Last administered on 12/08/18 09:01; Admin Dose 81 MG; Start 12/03/18 at 12:30 Rifaximin (Xifaxan) 550 mg DAILY PO Last administered on 12/08/18at 09:01; Admin Dose 550 MG; Start 12/03/18 at 12:30 Amylase/Lipase/ Protease (Creon (63q-29v-855g)) 1 cap WITH MEALS PO Last administered on 12/08/18at 11:49; Admin Dose 1 CAP; Start 12/03/18 at 17:55 Metformin HCl (Glucophage) 500 mg WITH DINNER PO Last administered on 12/08/18 17:19; Admin Dose 500 MG; Start 12/03/18 at 17:55 Metoprolol Tartrate (Lopressor) 25 mg BID PO Last administered on 12/09/18at 20:14; Admin Dose 25 MG; Start 12/03/18 at 21:00 Pantoprazole (Protonix Tab) 40 mg BID@06,18 PO Last administered on 12/09/18at 06:20; Admin Dose 40 MG; Start 12/03/18 at 18:00 Senna (Senokot) 1 tab DAILY PO Last administered on 12/08/18at 09:01; Admin Dose 1 TAB; Start 12/04/18 at 09:00 Miscellaneous Information 1 ea NOTE XX ; Start 12/03/18 at 13:00 Glucose (Glutose) 15 gm Q15M PRN PO DECREASED GLUCOSE; Start 12/03/18 at 13:00 Glucose (Glutose) 22.5 gm Q15M PRN PO DECREASED GLUCOSE; Start 12/03/18 at 13:00 Dextrose (D50w Syringe) 25 ml Q15M PRN IV DECREASED GLUCOSE; Start 12/03/18 at 13:00 Dextrose (D50w Syringe) 50 ml Q15M PRN IV DECREASED GLUCOSE; Start 12/03/18 at 13:00 Glucagon (Glucagen) 1 mg Q15M PRN IM DECREASED GLUCOSE; Start 12/03/18 at 13:00 Glucose (Glutose) 15 gm Q15M PRN BUCCAL DECREASED GLUCOSE; Start 12/03/18 at 13:00 Clopidogrel Bisulfate (plaVIX) 75 mg DAILY PO Last administered on 12/08/18at 09:01; Admin Dose 75 MG; Start 12/05/18 at 09:00; Status Hold Diclofenac Sodium (Voltaren 1% Gel) 2 gm QID TP Last administered on 12/11/18at 20:58; Admin Dose 2 GM; Start 12/05/18 at 14:00 Magnesium Hydroxide (Milk Of Mag) 30 ml DAILY PRN PO constipation; Start 11/19 02/06 at 09:30 Megestrol Acetate (Megace Susp) 40 mg DAILY PO Last administered on 12/08/18at 09:03; Admin Dose 40 MG; Start 12/07/18 at 09:00 Cholecalciferol (Vitamin D) 2,000 unit DAILY PO Last administered on 12/08/18at 09:01; Admin Dose 2,000 UNIT; Start 12/06/18 at 10:30 Eye Lubricant (Artificial Tears Oph) 2 drop Q2H PRN BOTH EYES DRY EYES Last administered on 12/12/18at 09:09; Admin Dose 2 DROP; Start 12/06/18 at 22:00 Ciprofloxacin/ Dextrose 200 ml @ 200 mls/hr Q24H IVPB Last administered on 12/12/18 09:08; Admin Dose 200 MLS/HR; Start 12/08/18 at 09:00 Insulin Glargine (Lantus) 6 units DAILY@0800 SC ; Start 12/09/18 at 08:00; Status Hold Ondansetron HCl (Zofran Inj) 4 mg Q4H PRN IV NAUSEA AND/OR VOMITING Last administered on 12/09/18at 12:18; Admin Dose 4 MG; Start 12/09/18 at 12:30; Status Hold Metoprolol Tartrate (Lopressor) 5 mg Q4H PRN IV HR>110 or significant PVC's; S tart 12/09/18 at 13:00 Dextrose/Sodium Chloride 1,000 ml @ 80 mls/hr [id number] IV Last administered on 12/11/18at 23:52; Admin Dose 80 MLS/HR; Start 12/10/18 at 12:30 Enalaprilat (Vasotec Iv) 0.625 mg Q6H PRN IV sbp>170; Start 12/10/18 at 12:30 Insulin Aspart (Novolog Insulin Pen) NOVOLOG *MILD* ALGORI... 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 arrythemia/ htn/ pvd 3. h/o dm/ neuropathy 4. h/o anxiety 5. h/o hypothyroid 6. copd ---per neuro ---per cards ---per pulm ---finish off iv atbx ---ped ng tube feed challenge ---keep diaper use ---wet/ moisturize mouth always ---fam plan transfer to palliative home care as early as [place] 12/15 VIRGINIA CA MD Dec 12, 2018 12:55
[2018-12-12] MEDS: DICLOFENAC SODIUM 1% GEL 100 GM TUBE TP SCH ×4 (13:22→21:34)
[2018-12-12] MEDS: BALSAM PERU/CASTOR OIL 60 GM TUBE TOP SCH ×2 (13:22→21:34)
[2018-12-12] MEDS: DEXTROSE 5%-0.45% NACL 1,000 ML IV SCH (13:24)
[2018-12-12] MEDS: metFORMIN 500 MG TAB PO SCH (17:55)
[2018-12-13] VITALS (11 sets, daily range): BP systolic 106–156; BP diastolic 53–74; PULSE 60–88; RESP 19–20
[2018-12-13] MEDS: DEXTROSE 5%-0.45% NACL 1,000 ML IV SCH ×2 (01:12→20:00)
[2018-12-13] MEDS: INSULIN ASPART [NOVOLOG] 3 ML PEN SC SCH ×5 (02:01→18:09)
[2018-12-13] MEDS: ACCU-CHEK XX SCH ×4 (02:02→18:01)
[2018-12-13] MEDS: LEVOTHYROXINE 137 MCG TAB PO SCH (06:35)
[2018-12-13] MEDS: BALSAM PERU/CASTOR OIL 60 GM TUBE TOP SCH ×2 (09:00→21:45)
[2018-12-13] MEDS: DICLOFENAC SODIUM 1% GEL 100 GM TUBE TP SCH ×4 (09:32→21:45)
[2018-12-13] MEDS: CHOLECALCIFEROL 2,000 UNIT CAP PO SCH (09:33)
[2018-12-13] MEDS: RIFAXIMIN 550 MG TAB PO SCH (09:33)
[2018-12-13] MEDS: MEGESTROL (40 MG/ML) 10ML CUP PO SCH (09:33)
[2018-12-13] MEDS: METOPROLOL 25 MG TAB PO SCH ×2 (09:33→21:00)
[2018-12-13] MEDS: CREON (24K-76K-120K) 1 CAP PO SCH ×3 (09:34→17:59)
[2018-12-13] MEDS: ASPIRIN 81 MG TAB PO SCH (09:34)
[2018-12-13] MEDS: LANSOPRAZOLE 15 MG CAP NGT SCH ×2 (09:34→17:59)
[2018-12-13] MEDS: SENNA TAB PO SCH (09:34)
[2018-12-13] MEDS: CIPROFLOXACIN 400MG/D5W 200 ML IVPB SCH (10:30)
--- NOTE | 2018-12-13 13:33 | CONS ---
Consult Date/Type/Reason Admit Date/Time Dec 03, 2018 at 10:30 Initial Consult Date Requesting Provider: VIRGINIA CA MD Date/Time of Note DATE: 12/13/18 TIME: 13:31 Subjective NO acute events -HR controlled - I spoke with family about PEG - might be reasonable option vs NGT - family tentatively agreed - will defer to PMD/GI to follow. ROS: No fever, no chills, no nausea, no vomiting, no diarrhea/constipation - per nurse and family Objective Vitals Vital Signs Date Temp Pulse Resp B/P (MAP) Pulse Ox O2 O2 Flow FiO2 Time Delivery Rate 12/13/18 60 12:01 12/13/18 98.2 19 147/69 100 11:41 (95) 12/13/18 2.0 04:16 12/12/18 Nasal 20:55 Cannula Intake and Output 12/12/18 12/12/18 12/13/18 1515:00 23:00 07:00 IntakeIntake Total 880 ml 725 ml OutputOutput Total 3 ml BalanceBalance 877 ml 725 ml Exam General: WN/WD/NAD, AOx 0 HEENT: Unicetric/atraumatic/EOMI (does not follow commands) - NGT in NECK: JVD elevated, no thyromegaly Lymph: no lymphadenopathy HEART: regular with no S3, II/ systolic murmur at apex LUNGS: Coarse sounds ABD: soft, NT, ND, +BS : Intact Neuro: non focal SKIN: chronic changes EXT: trace edema Results/Medications Result Diagram: 12/12/18 0559 12/13/18 0551 Results 24 hrs Laboratory Tests Test 12/12/18 14:43 12/12/18 18:35 12/12/18 21:32 12/13/18 01:25 Ammonia 27 # B-Type Natriuretic 4070 H Peptide Bedside Glucose 235 H 252 H 236 H Test 12/13/18 05:33 12/13/18 05:51 12/13/18 09:31 12/13/18 12:57 Bedside Glucose 294 H 249 H 306 H Sodium Level 136 Potassium Level 4.1 Chloride Level 104 Carbon Dioxide Level 23 Anion Gap 9 Blood Urea Nitrogen 17 Creatinine 1.11 Est Glomerular Filtrat Rate mL/min Glucose Level 261 H Calcium Level 8.7 Home Meds Active Scripts Acetaminophen* (Tylenol*) 325 Mg Tablet, 650 MG PO Q6H PRN for MILD PAIN(1-3)OR ELEVATED TEMP for 14 Days, TAB Prov:VIRGINIA CA MD 11/30/18 [Nursing Note] 1 EA EA No Conflict Check, 1 EA XX NOTE Prov:VIRGINIA CA MD 11/30/18 Megestrol Acetate (Megestrol Acetate) 400 Mg/10 Ml Oral.susp, 400 MG PO DAILY for 14 Days Prov:VIRGINIA CA MD 11/30/18 Metformin* (Glucophage* XR) 500 Mg Tab.sr.24h, 500 MG PO AC DINNER for 14 Days Prov:VIRGINIA CA MD 11/30/18 Levothyroxine Sodium* (Levothyroxine Sodium*) 150 Mcg Tablet, 150 MCG PO BEFORE BREAKFAST for 14 Days, TAB Prov:VIRGINIA CA MD 11/30/18 [Insulin Glargine] 100 UNITS/ML SOLN No Conflict Check, 15 UNITS SC DAILY Prov:VIRGINIA AC MD 11/30/18 Insulin Aspart* (Novolog Insulin Pen*) 100 Unit/Ml Soln, 0 UNIT SC WITH MEALS BEDTIME for 14 Days Prov:VIRGINIA CA MD 11/30/18 Glucagon HCl (Glucagon HCl) 1 Mg Vial, 1 MG IM Q15M PRN for DECREASED GLUCOSE for 14 Days, VIAL Prov:VIRGINIA CA MD 11/30/18 Magnesium Hydroxide* (Fox' MOM*) 30 Ml Susp, 30 ML PO DAILY PRN for constipation for 14 Days Prov:VIRGINIA CA MD 11/30/18 Docusate Sodium* (Colace*) 100 Mg Capsule, 100 MG PO BID PRN for CONSTIPATION for 14 Days, CAP Prov:VIRGINIA CA MD 11/30/18 Polyvinyl Alcohol* (Akwa Tears*) 1.4% - 15 Ml Drops, 2 DROP BOTH EYES QID for 14 Days, BOTTLE Prov:VIRGINIA CA MD 11/30/18 Dextrose* (D50W Syringe*) 50 Ml Soln, 50 ML IV Q15M PRN for DECREASED GLUCOSE for 14 Days Prov:VIRGINIA CA MD 11/30/18 Dextrose* (D50W Syringe*) 50 Ml Soln, 25 ML IV Q15M PRN for DECREASED GLUCOSE for 14 Days Prov:VIRGINIA CA MD 11/30/18 Dextrose (Glutose 15) 37.5 Gm Gel..gm., 15 GM BUCCAL Q15M PRN for DECREASED GLUCOSE for 14 Days Prov:VIRGINIA CA MD 11/30/18 Dextrose (Glutose 15) 37.5 Gm Gel..gm., 22.5 GM PO Q15M PRN for DECREASED GLUCOSE for 14 Days Prov:VIRGINIA CA MD 11/30/18 Dextrose (Glutose 15) 37.5 Gm Gel..gm., 15 GM PO Q15M PRN for DECREASED GLUCOSE for 14 Days Prov:VIRGINIA CA MD 11/30/18 [Accu-Chek] 1 EA EA No Conflict Check, 1 EA XX 02 Prov:VIRGINIA CA MD 11/30/18 Risperidone* (Risperdal*) 0.25 Mg Tablet, 0.25 MG PO BID PRN for agitation for 14 Days, TAB Prov:VIRGINIA CA MD 11/30/18 Gabapentin* (Gabapentin*) 100 Mg Capsule, 100 MG PO AM for 14 Days, CAP Prov:VIRGINIA CA MD 11/30/18 Gabapentin* (Gabapentin*) 300 Mg Capsule, 300 MG PO HS for 14 Days, CAP Prov:VIRGINIA CA MD 11/30/18 Metoprolol Tartrate* (Lopressor*) 25 Mg Tab, 25 MG PO BID for 14 Days, TAB Prov:VIRGINIA CA MD 11/30/18 Benazepril Hcl* (Benazepril Hcl*) 10 Mg Tablet, 10 MG PO DAILY for 14 Days, TAB Prov:VIRGINIA CA MD 11/30/18 Diphenhydramine Hcl* (Benadryl*) 25 Mg Cap, 25 MG PO HS PRN for insomnia for 15 Days, CAP Prov:VIRGINIA AC MD 11/30/18 Enoxaparin Sodium* (Enoxaparin Sodium*) 30 Mg/0.3 Ml Syringe, 30 MG SC DAILY for 15 Days Prov:VIRGINIA CA MD 11/30/18 Reported Medications Rifaximin* (Xifaxan*) 550 Mg Tablet, 550 MG PO DAILY, TAB 11/26/18 Omeprazole* (Omeprazole*) 40 Mg Capsule.dr, 40 MG PO DAILY, #30 CAP 11/24/18 Ergocalciferol (Vitamin D2) (VITAMIN D2) 50,000 Unit Capsule, 87260 UNIT PO Q SUN, CAP 11/24/18 Medications Current Medications Levothyroxine Sodium (Synthroid) 137 mcg DAILY@06 PO Last administered on 12/13/18at 06:35; Admin Dose 137 MCG; Start 12/04/18 at 06:00 Aspirin (Aspirin) 81 mg DAILY PO Last administered on 12/13/18at 09:34; Admin Dose 81 MG; Start 12/03/18 at 12:30 Rifaximin (Xifaxan) 550 mg DAILY PO Last administered on 12/13/18at 09:33; Admin Dose 550 MG; Start 12/03/18 at 12:30 Amylase/Lipase/ Protease (Creon ([id number])) 1 cap WITH MEALS PO Last administered on 12/13/18at 12:55; Admin Dose 1 CAP; Start 12/03/18 at 17:55 Metformin HCl (Glucophage) 500 mg WITH DINNER PO Last administered on 12/08/18at 17:19; Admin Dose 500 MG; Start 12/03/18 at 17:55 Metoprolol Tartrate (Lopressor) 25 mg BID PO Last administered on 12/13/18at 09:33; Admin Dose 25 MG; Start 12/03/18 at 21:00 Senna (Senokot) 1 tab DAILY PO Last administered on 12/13/18at 09:34; Admin Dose 1 TAB; Start 12/04/18 at 09:00 Miscellaneous Information 1 ea NOTE XX ; Start 12/03/18 at 13:00 Glucose (Glutose) 15 gm Q15M PRN PO DECREASED GLUCOSE; Start 12/03/18 at 13:00 Glucose (Glutose) 22.5 gm Q15M PRN PO DECREASED GLUCOSE; Start 12/03/18 at 13:00 Dextrose (D50w Syringe) 25 ml Q15M PRN IV DECREASED GLUCOSE; Start 12/03/18 at 13:00 Dextrose (D50w Syringe) 50 ml Q15M PRN IV DECREASED GLUCOSE; Start 12/03/18 at 13:00 Glucagon (Glucagen) 1 mg Q15M PRN IM DECREASED GLUCOSE; Start 12/03/18 at 13:00 Glucose (Glutose) 15 gm Q15M PRN BUCCAL DECREASED GLUCOSE; Start 12/03/18 at 13:00 Clopidogrel Bisulfate (plaVIX) 75 mg DAILY PO Last administered on 12/08/18 09:01; Admin Dose 75 MG; Start 12/05/18 at 09:00; Status Hold Diclofenac Sodium (Voltaren 1% Gel) 2 gm QID TP Last administered on 12/13/18 09:32; Admin Dose 2 GM; Start 12/05/18 at 14:00 Magnesium Hydroxide (Milk Of Mag) 30 ml DAILY PRN PO constipation; Start 12/06/18 at 09:30 Megestrol Acetate (Megace Susp) 40 mg DAILY PO Last administered on 12/13/18 09:33; Admin Dose 40 MG; Start 12/07/18 at 09:00 Cholecalciferol (Vitamin D) 2,000 unit DAILY PO Last administered on 12/13/18 09:33; Admin Dose 2,000 UNIT; Start 12/06/18 at 10:30 Eye Lubricant (Artificial Tears Oph) 2 drop Q2H PRN BOTH EYES DRY EYES Last administered on 12/12/18 09:09; Admin Dose 2 DROP; Start 12/06/18 at 22:00 Ciprofloxacin/ Dextrose 200 ml @ 200 mls/hr Q24H IVPB Last administered on 12/13/18 10:30; Admin Dose 200 MLS/HR; Start 12/08/18 at 09:00 Insulin Glargine (Lantus) 6 units DAILY@0800 SC ; Start 12/09/18 at 08:00; Status Hold Ondansetron HCl (Zofran Inj) 4 mg Q4H PRN IV NAUSEA AND/OR VOMITING Last administered on 12/09/18 12:18; Admin Dose 4 MG; Start 12/09/18 at 12:30; Status Hold Metoprolol Tartrate (Lopressor) 5 mg Q4H PRN IV HR>110 or significant PVC's; Start 12/09/18 at 13:00 Enalaprilat (Vasotec Iv) 0.625 mg Q6H PRN IV sbp>170; Start 12/10/18 at 12:30 Insulin Aspart (Novolog Insulin Pen) NOVOLOG *MILD* ALGORI... Q4 SC Last administered on 6/25/19at 13:10; Admin Dose 5 UNIT; Start 12/11/18 at 05:00 Diagnostic Test (Pha) (Accu-Chek) 1 ea Q6 XX Last administered on 12/13/18at 12:58; Admin Dose 1 EA; Start 12/11/18 at 18:00 Lansoprazole (Prevacid) 15 mg BID@06,18 NGT Last administered on 12/13/18at 09:34; Admin Dose 15 MG; Start 12/13/18 at 06:00 Sodium Chloride 1,000 ml @ 30 mls/hr Q24H IV ; Start 12/13/18 at 13:30 Nystatin (Nystatin Powder) 1 applic BID TOP ; Start 12/13/18 at 15:00 Assessment/Plan Hospital Course (Demo Recall) 1. Wide complex tachycardia-suppreseed for most part on low dose BB as tolerated. Had an episode which looked more like abberrant AF when first admittedNL EF by echo this index admission - in sinus now. Pt somewhat bready, but BP stable and overall, poor functional capacity - he dies not have Class I indication for pacer now and I think given overall state of health, medical Rx is reasonable. Now HR stable - no pauses noted. Now PVCs - conservative rx advised. NO pacer planned now. 2. Intermittent bigeminy and generalized wide complex rhythms-generally suppressed on low dose of BB. Sinus now, rare controlled. 3. Hypertension-reasonable control on monotherapy with BB with ACEI held in the setting of renal failure - improved with RX. 4. Episodes of nausea and vomiting- consider PEG - family tentatively agreed. 5. Gait instability with signs of hygroma-had been in PT but transferred back to med-surg for AMS. Was initially followed by neurology - defer to neuro team. Unchanged. 6. Diabetes mellitus, status post pancreatectomy, stable now. 7. Hypothyroidism. 8. Pancytopenia with more pronounced leukopenia and thrombocytopenia. 9. Bradycardia-stable now to 40's at times by vital sign assessment with stable BP. NL TSH with actually mildly elevated Free T4 - clinical follow up expected now. 10.Urinary retention s/p Smith placement - urology follow. RYLEE PITT MD Dec 13, 2018 13:33
[2018-12-13] MEDS: SOD CHLORIDE 0.45% 1,000 ML IV SCH (13:42)
[2018-12-13] MEDS: NYSTATIN 30 GM POWDER BTL TOP SCH ×2 (16:54→21:45)
[2018-12-13] MEDS: metFORMIN 500 MG TAB PO SCH (17:59)
--- NOTE | 2018-12-13 21:52 | PN ---
Date/Time of Note Date/Time of Note DATE: 12/13/18 TIME: 21:52 Subjective awakable, doesn't like ngtube Objective Vitals Vital Signs Date Temp Pulse Resp B/P (MAP) Pulse Ox O2 O2 Flow FiO2 Time Delivery Rate 12/13/18 98.7 88 20 106/53 99 20:48 (70) 12/13/18 2.0 18:02 12/13/18 Nasal 09:30 Cannula Intake and Output 12/12/18 12/12/18 12/13/18 1515:00 23:00 07:00 IntakeIntake Total 880 ml 725 ml OutputOutput Total 3 ml BalanceBalance 877 ml 725 ml lying in bed, dry mucus, opens eyes, single word answers, rr syst m+, cta, no c/c/e Results Result Diagram: 12/12/18 0559 12/13/18 0551 Medications Medications Current Medications Levothyroxine Sodium (Synthroid) 137 mcg DAILY@06 PO Last administered on 12/13/18at 06:35; Admin Dose 137 MCG; Start 12/04/18 at 06:00 Aspirin (Aspirin) 81 mg DAILY PO Last administered on 12/13/18 09:34; Admin Dose 81 MG; Start 12/03/18 at 12:30 Rifaximin (Xifaxan) 550 mg DAILY PO Last administered on 12/13/18 09:33; Admin Dose 550 MG; Start 12/03/18 at 12:30 Amylase/Lipase/ Protease (Creon ([id number])) 1 cap WITH MEALS PO Last administered on 12/13/18 17:59; Admin Dose 1 CAP; Start 12/03/18 at 17:55 Metformin HCl (Glucophage) 500 mg WITH DINNER PO Last administered on 12/13/18 17:59; Admin Dose 500 MG; Start 12/03/18 at 17:55 Metoprolol Tartrate (Lopressor) 25 mg BID PO Last administered on 12/13/18 09:33; Admin Dose 25 MG; Start 12/03/18 at 21:00 Senna (Senokot) 1 tab DAILY PO Last administered on 12/13/18 09:34; Admin Dose 1 TAB; Start 12/04/18 at 09:00 Miscellaneous Information 1 ea NOTE XX ; Start 12/03/18 at 13:00 Glucose (Glutose) 15 gm Q15M PRN PO DECREASED GLUCOSE; Start 12/03/18 at 13:00 Glucose (Glutose) 22.5 gm Q15M PRN PO DECREASED GLUCOSE; Start 12/03/18 at 13:00 Dextrose (D50w Syringe) 25 ml Q15M PRN IV DECREASED GLUCOSE; Start 12/03/18 at 13:00 Dextrose (D50w Syringe) 50 ml Q15M PRN IV DECREASED GLUCOSE; Start 12/03/18 at 13:00 Glucagon (Glucagen) 1 mg Q15M PRN IM DECREASED GLUCOSE; Start 12/03/18 at 13:00 Glucose (Glutose) 15 gm Q15M PRN BUCCAL DECREASED GLUCOSE; Start 12/03/18 at 13:00 Clopidogrel Bisulfate (plaVIX) 75 mg DAILY PO Last administered on 12/08/18at 09:01; Admin Dose 75 MG; Start 12/05/18 at 09:00; Status Hold Diclofenac Sodium (Voltaren 1% Gel) 2 gm QID TP Last administered on 12/13/18at 21:45; Admin Dose 2 GM; Start 12/05/18 at 14:00 Magnesium Hydroxide (Milk Of Mag) 30 ml DAILY PRN PO constipation; Start 12/06/18 at 09:30 Megestrol Acetate (Megace Susp) 40 mg DAILY PO Last administered on 12/13/18at 09:33; Admin Dose 40 MG; Start 12/07/18 at 09:00 Cholecalciferol (Vitamin D) 2,000 unit DAILY PO Last administered on 12/13/18at 09:33; Admin Dose 2,000 UNIT; Start 12/06/18 at 10:30 Eye Lubricant (Artificial Tears Oph) 2 drop Q2H PRN BOTH EYES DRY EYES Last administered on 12/12/18 09:09; Admin Dose 2 DROP; Start 12/06/18 at 22:00 Insulin Glargine (Lantus) 6 units DAILY@0800 SC ; Start 12/09/18 at 08:00; Status Hold Ondansetron HCl (Zofran Inj) 4 mg Q4H PRN IV NAUSEA AND/OR VOMITING Last administered on 12/09/18at 12:18; Admin Dose 4 MG; Start 12/09/18 at 12:30; Status Hold Metoprolol Tartrate (Lopressor) 5 mg Q4H PRN IV HR>110 or significant PVC's; Start 12/09/18 at 13:00 Enalaprilat (Vasotec Iv) 0.625 mg Q6H PRN IV sbp>170; Start 12/10/18 at 12:30 Lansoprazole (Prevacid) 15 mg BID@06,18 NGT Last administered on 12/13/18at 17: 59; Admin Dose 15 MG; Start 12/13/18 at 06:00 Sodium Chloride 1,000 ml @ 30 mls/hr Q24H IV Last administered on 12/13/18at 13:42; Admin Dose 30 MLS/HR; Start 12/13/18 at 13:30 Nystatin (Nystatin Powder) 1 applic BID TOP Last administered on 12/13/18at 21:45; Admin Dose 1 APPLIC; Start 12/13/18 at 15:00 Dextrose/Sodium Chloride 1,000 ml @ 40 mls/hr Q24H IV ; Start 12/13/18 at 15:30 Insulin Aspart (Novolog Insulin Pen) NOVOLOG *MILD* ALGORI... Q6 SC ; Start 12/14/18 at 00:00 VTE Prophylaxis Risk score (from Ns)>0 risk: 5 SCD applied (from Ns): Yes Lines/Catheters IV Catheter Type: Saline Lock Central line still needed: No Smith in Place: No Assessment/Plan Assessment/Plan 1. ams/ tia/ cerebellum synd 2. uti 3. copd 4. arrhythemia/ htn/ pvd 5. 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 hypothyroid 8. ckd II/ anemia ---per neuro ---per pulm ---per cards ---GI ref for PEG tube place ---cont all supportive cares VIRGINIA CA MD Dec 13, 2018 21:52
[2018-12-14] VITALS (23 sets, daily range): BP systolic 91–136; BP diastolic 46–70; PULSE 57–72; RESP 13–22
[2018-12-14] MEDS: INSULIN ASPART [NOVOLOG] 3 ML PEN SC SCH ×6 (00:06→21:22)
[2018-12-14] MEDS: DEXTROSE 5%-0.45% NACL 1,000 ML IV SCH (00:10)
[2018-12-14] MEDS: LEVOTHYROXINE 137 MCG TAB PO SCH (06:00)
[2018-12-14] MEDS: LANSOPRAZOLE 15 MG CAP NGT SCH ×2 (06:00→17:36)
[2018-12-14] MEDS: CREON (24K-76K-120K) 1 CAP PO SCH ×3 (07:55→17:35)
[2018-12-14] MEDS: ASPIRIN 81 MG TAB PO SCH (08:09)
[2018-12-14] MEDS: CHOLECALCIFEROL 2,000 UNIT CAP PO SCH (08:09)
[2018-12-14] MEDS: METOPROLOL 25 MG TAB PO SCH ×2 (08:09→21:20)
[2018-12-14] MEDS: SENNA TAB PO SCH (08:09)
[2018-12-14] MEDS: MEGESTROL (40 MG/ML) 10ML CUP PO SCH (08:09)
[2018-12-14] MEDS: RIFAXIMIN 550 MG TAB PO SCH (08:09)
[2018-12-14] MEDS: DICLOFENAC SODIUM 1% GEL 100 GM TUBE TP SCH ×4 (09:00→21:20)
[2018-12-14] MEDS: BALSAM PERU/CASTOR OIL 60 GM TUBE TOP SCH ×2 (09:01→21:20)
[2018-12-14] MEDS: NYSTATIN 30 GM POWDER BTL TOP SCH ×2 (09:01→21:20)
--- NOTE | 2018-12-14 12:35 | PN ---
Date/Time of Note Date/Time of Note DATE: 12/14/18 TIME: 12:35 Subjective no complaints, drowsy Objective Vitals Vital Signs Date Temp Pulse Resp B/P (MAP) Pulse Ox O2 O2 Flow FiO2 Time Delivery Rate 12/14/18 98.0 66 21 136/57 96 Nasal 2.0 11:48 (83) Cannula Intake and Output 12/13/18 12/13/18 12/14/18 1515:00 23:00 07:00 IntakeIntake Total 540 ml OutputOutput Total 1100 ml BalanceBalance -560 ml in bed, opens eyes, hears, mumbling one word answers, rr syst m+, cta, no c/c/e, musc atrophy, dry mucus, moth breather+ Results Result Diagram: 12/12/1859 12/13/18 0551 Medications Medications Current Medications Levothyroxine Sodium (Synthroid) 137 mcg DAILY@06 PO Last administered on 12/13/18at 06:35; Admin Dose 137 MCG; Start 12/04/18 at 06:00 Aspirin (Aspirin) 81 mg DAILY PO Last administered on 12/13/18 09:34; Admin Dose 81 MG; Start 12/03/18 at 12:30 Rifaximin (Xifaxan) 550 mg DAILY PO Last administered on 12/13/18 09:33; Admin Dose 550 MG; Start 12/03/18 at 12:30 Amylase/Lipase/ Protease (Creon ([id number])) 1 cap WITH MEALS PO Last administered on 12/13/18 17:59; Admin Dose 1 CAP; Start 12/03/18 at 17:55 Metformin HCl (Glucophage) 500 mg WITH DINNER PO Last administered on 12/13/18 17:59; Admin Dose 500 MG; Start 12/03/18 at 17:55 Metoprolol Tartrate (Lopressor) 25 mg BID PO Last administered on 12/13/18 09:33; Admin Dose 25 MG; Start 12/03/18 at 21:00 Senna (Senokot) 1 tab DAILY PO Last administered on 12/13/18 09:34; Admin Dose 1 TAB; Start 12/04/18 at 09:00 Miscellaneous Information 1 ea NOTE XX ; Start 12/03/18 at 13:00 Glucose (Glutose) 15 gm Q15M PRN PO DECREASED GLUCOSE; Start 12/03/18 at 13:00 Glucose (Glutose) 22.5 gm Q15M PRN PO DECREASED GLUCOSE; Start 12/03/18 at 13:00 Dextrose (D50w Syringe) 25 ml Q15M PRN IV DECREASED GLUCOSE; Start 12/03/18 at 13:00 Dextrose (D50w Syringe) 50 ml Q15M PRN IV DECREASED GLUCOSE; Start 12/03/18 at 13:00 Glucagon (Glucagen) 1 mg Q15M PRN IM DECREASED GLUCOSE; Start 12/03/18 at 13:00 Glucose (Glutose) 15 gm Q15M PRN BUCCAL DECREASED GLUCOSE; Start 12/03/18 at 13:00 Clopidogrel Bisulfate (plaVIX) 75 mg DAILY PO Last administered on 12/08/18at 09:01; Admin Dose 75 MG; Start 12/05/18 at 09:00; Status Hold Diclofenac Sodium (Voltaren 1% Gel) 2 gm QID TP Last administered on 12/13/18at 21:45; Admin Dose 2 GM; Start 12/05/18 at 14:00 Magnesium Hydroxide (Milk Of Mag) 30 ml DAILY PRN PO constipation; Start 12/06/18 at 09:30 Megestrol Acetate (Megace Susp) 40 mg DAILY PO Last administered on 12/13/18 09:33; Admin Dose 40 MG; Start 12/07/18 at 09:00 Cholecalciferol (Vitamin D) 2,000 unit DAILY PO Last administered on 12/13/18 09:33; Admin Dose 2,000 UNIT; Start 12/06/18 at 10:30 Eye Lubricant (Artificial Tears Oph) 2 drop Q2H PRN BOTH EYES DRY EYES Last administered on 12/12/18 09:09; Admin Dose 2 DROP; Start 12/06/18 at 22:00 Insulin Glargine (Lantus) 6 units DAILY@0800 SC ; Start 12/09/18 at 08:00; Status Hold Ondansetron HCl (Zofran Inj) 4 mg Q4H PRN IV NAUSEA AND/OR VOMITING Last administered on 12/09/18at 12:18; Admin Dose 4 MG; Start 12/09/18 at 12:30; Status Hold Metoprolol Tartrate (Lopressor) 5 mg Q4H PRN IV HR>110 or significant PVC's; Start 12/09/18 at 13:00 Enalaprilat (Vasotec Iv) 0.625 mg Q6H PRN IV sbp>170; Start 12/10/18 at 12:30 Lansoprazole (Prevacid) 15 mg BID@06,18 NGT Last administered on 12/13/18at 17:59; Admin Dose 15 MG; Start 12/13/18 at 06:00 Sodium Chloride 1,000 ml @ 30 mls/hr Q24H IV Last administered on 12/13/18at 13:42; Admin Dose 30 MLS/HR; Start 12/13/18 at 13:30 Nystatin (Nystatin Powder) 1 applic BID TOP Last administered on 12/14/18at 09:01; Admin Dose 1 APPLIC; Start 12/13/18 at 15:00 Dextrose/Sodium Chloride 1,000 ml @ 40 mls/hr Q24H IV Last administered on 12/14/18at 00:10; Admin Dose 40 MLS/HR; Start 12/13/18 at 15:30 Insulin Aspart (Novolog Insulin Pen) NOVOLOG *MILD* ALGORI... Q4 SC Last administered on 12/14/18at 12:11; Admin Dose 1 UNIT; Start 12/14/18 at 09:00 VTE Prophylaxis Risk score (from Nsg)>0 risk: 7 SCD applied (from Ns): Yes Lines/Catheters IV Catheter Type: Saline Lock Central line still needed: No Smith in Place: No Assessment/Plan Assessment/Plan 1. PEG tube place/ dysphagia/ low eleanor intake--will need g tube feeding from now on up to 1 year & then re-eval po eleanor intake 2. 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 ams/ multi tia/ cerebellum synd 4. arrythemia/ htn/ pvd 5. copd 6. ckd Ii/ anemia 7. dm/ neuropathy 8. 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
[2018-12-14] MEDS: SOD CHLORIDE 0.45% 1,000 ML IV SCH (12:38)
--- NOTE | 2018-12-14 13:47 | PREAC ---
Date/Time of Note Date/Time of Note DATE: 12/14/18 TIME: 13:45 Anesthesia Eval and Record Evaluation Time Pre-Procedure Interview DATE: 12/14/18 TIME: 13:45 Age 88 Sex male NPO: 8 hrs Preoperative diagnosis dysphagia Planned procedure egd Past Medical History Past Medical History: Includes Cardio: HTN, Dyslipidemia Endo: Diabetes, Hypothyroid Neuro: Peripheral neuropathy, Other (dementia ) Renal: CKD GI: GERD Heme: Anemia Psych: Depression, Anxiety Surgery & Anesthesia Issues No known issue Meds Anticoagulation: No Beta Lionel within 24 hr: No Reason Beta Lionel not given: Pt. not on B-Lionel Active Scripts Acetaminophen* (Tylenol*) 325 Mg Tablet, 650 MG PO Q6H PRN for MILD PAIN(1-3)OR ELEVATED TEMP for 14 Days, TAB Prov:VIRGINIA CA MD 11/30/18 [Nursing Note] 1 EA EA No Conflict Check, 1 EA XX NOTE Prov:VIRGINIA CA MD 11/30/18 Megestrol Acetate (Megestrol Acetate) 400 Mg/10 Ml Oral.susp, 400 MG PO DAILY for 14 Days Prov:VIRGINIA CA MD 11/30/18 Metformin* (Glucophage* XR) 500 Mg Tab.sr.24h, 500 MG PO AC DINNER for 14 Days Prov:VIRGINIA CA MD 11/30/18 Levothyroxine Sodium* (Levothyroxine Sodium*) 150 Mcg Tablet, 150 MCG PO BEFORE BREAKFAST for 14 Days, TAB Prov:VIRGINIA CA MD 11/30/18 [Insulin Glargine] 100 UNITS/ML SOLN No Conflict Check, 15 UNITS SC DAILY Prov:VIRGINIA CA MD 11/30/18 Insulin Aspart* (Novolog Insulin Pen*) 100 Unit/Ml Soln, 0 UNIT SC WITH MEALS BEDTIME for 14 Days Prov:VIRGINIA CA MD 11/30/18 Glucagon HCl (Glucagon HCl) 1 Mg Vial, 1 MG IM Q15M PRN for DECREASED GLUCOSE for 14 Days, VIAL Prov:VIRGINIA CA MD 11/30/18 Magnesium Hydroxide* (Fox' MOM*) 30 Ml Susp, 30 ML PO DAILY PRN for constipation for 14 Days Prov:VIRGINIA CA MD 11/30/18 Docusate Sodium* (Colace*) 100 Mg Capsule, 100 MG PO BID PRN for CONSTIPATION for 14 Days, CAP Prov:VIRGINIA CA MD 11/30/18 Polyvinyl Alcohol* (Akwa Tears*) 1.4% - 15 Ml Drops, 2 DROP BOTH EYES QID for 14 Days, BOTTLE Prov:VIRGINIA CA MD 11/30/18 Dextrose* (D50W Syringe*) 50 Ml Soln, 50 ML IV Q15M PRN for DECREASED GLUCOSE for 14 Days Prov:VIRGINIA CA MD 11/30/18 Dextrose* (D50W Syringe*) 50 Ml Soln, 25 ML IV Q15M PRN for DECREASED GLUCOSE for 14 Days Prov:VIRGINIA CA MD 11/30/18 Dextrose (Glutose 15) 37.5 Gm Gel..gm., 15 GM BUCCAL Q15M PRN for DECREASED GLUCOSE for 14 Days Prov:VIRGINIA CA MD 11/30/18 Dextrose (Glutose 15) 37.5 Gm Gel..gm., 22.5 GM PO Q15M PRN for DECREASED GLUCOSE for 14 Days Prov:VIRGINIA CA MD 11/30/18 Dextrose (Glutose 15) 37.5 Gm Gel..gm., 15 GM PO Q15M PRN for DECREASED GLUCOSE for 14 Days Prov:VIRGINIA CA MD 11/30/18 [Accu-Chek] 1 EA EA No Conflict Check, 1 EA XX 02 Prov:VIRGINIA CA MD 11/30/18 Risperidone* (Risperdal*) 0.25 Mg Tablet, 0.25 MG PO BID PRN for agitation for 14 Days, TAB Prov:VIRGINIA CA MD 11/30/18 Gabapentin* (Gabapentin*) 100 Mg Capsule, 100 MG PO AM for 14 Days, CAP Prov:VIRGINIA CA MD 11/30/18 Gabapentin* (Gabapentin*) 300 Mg Capsule, 300 MG PO HS for 14 Days, CAP Prov:VIRGINIA CA MD 11/30/18 Metoprolol Tartrate* (Lopressor*) 25 Mg Tab, 25 MG PO BID for 14 Days, TAB Prov:VIRGINIA CA MD 11/30/18 Benazepril Hcl* (Benazepril Hcl*) 10 Mg Tablet, 10 MG PO DAILY for 14 Days, TAB Prov:VIRGINIA CA MD 11/30/18 Diphenhydramine Hcl* (Benadryl*) 25 Mg Cap, 25 MG PO HS PRN for insomnia for 15 Days, CAP Prov:VIRGINIA CA MD 11/30/18 Enoxaparin Sodium* (Enoxaparin Sodium*) 30 Mg/0.3 Ml Syringe, 30 MG SC DAILY for 15 Days Prov:VIRGINIA CA MD 11/30/18 Reported Medications Rifaximin* (Xifaxan*) 550 Mg Tablet, 550 MG PO DAILY, TAB 11/26/18 Omeprazole* (Omeprazole*) 40 Mg Capsule.dr, 40 MG PO DAILY, #30 CAP 11/24/18 Ergocalciferol (Vitamin D2) (VITAMIN D2) 50,000 Unit Capsule, 40041 UNIT PO Q SUN, CAP 11/24/18 Current Medications Levothyroxine Sodium (Synthroid) 137 mcg DAILY@06 PO Last administered on 12/13/18at 06:35; Admin Dose 137 MCG; Start 12/04/18 at 06:00 Aspirin (Aspirin) 81 mg DAILY PO Last administered on 12/13/18 09:34; Admin Do se 81 MG; Start 12/03/18 at 12:30 Rifaximin (Xifaxan) 550 mg DAILY PO Last administered on 12/13/18 09:33; Admin Dose 550 MG; Start 12/03/18 at 12:30 Amylase/Lipase/ Protease (Creon ([id number])) 1 cap WITH MEALS PO Last administered on 12/13/18 17:59; Admin Dose 1 CAP; Start 12/03/18 at 17:55 Metformin HCl (Glucophage) 500 mg WITH DINNER PO Last administered on 12/13/18 17:59; Admin Dose 500 MG; Start 12/03/18 at 17:55 Metoprolol Tartrate (Lopressor) 25 mg BID PO Last administered on 12/13/18 09:33; Admin Dose 25 MG; Start 12/03/18 at 21:00 Senna (Senokot) 1 tab DAILY PO Last administered on 12/13/18 09:34; Admin Dose 1 TAB; Start 12/04/18 at 09:00 Miscellaneous Information 1 ea NOTE XX ; Start 12/03/18 at 13:00 Glucose (Glutose) 15 gm Q15M PRN PO DECREASED GLUCOSE; Start 12/03/18 at 13:00 Glucose (Glutose) 22.5 gm Q15M PRN PO DECREASED GLUCOSE; Start 12/03/18 at 13:00 Dextrose (D50w Syringe) 25 ml Q15M PRN IV DECREASED GLUCOSE; Start 12/03/18 at 13:00 Dextrose (D50w Syringe) 50 ml Q15M PRN IV DECREASED GLUCOSE; Start 12/03/18 at 13:00 Glucagon (Glucagen) 1 mg Q15M PRN IM DECREASED GLUCOSE; Start 12/03/18 at 13:00 Glucose (Glutose) 15 gm Q15M PRN BUCCAL DECREASED GLUCOSE; Start 12/03/18 at 13:00 Clopidogrel Bisulfate (plaVIX) 75 mg DAILY PO Last administered on 12/08/18at 09:01; Admin Dose 75 MG; Start 12/05/18 at 09:00; Status Hold Diclofenac Sodium (Voltaren 1% Gel) 2 gm QID TP Last administered on 12/13/18 21:45; Admin Dose 2 GM; Start 12/05/18 at 14:00 Magnesium Hydroxide (Milk Of Mag) 30 ml DAILY PRN PO constipation; Start 12/06/18 at 09:30 Megestrol Acetate (Megace Susp) 40 mg DAILY PO Last administered on 12/13/18 09:33; Admin Dose 40 MG; Start 12/07/18 at 09:00 Cholecalciferol (Vitamin D) 2,000 unit DAILY PO Last administered on 12/13/18 09:33; Admin Dose 2,000 UNIT; Start 12/06/18 at 10:30 Eye Lubricant (Artificial Tears Oph) 2 drop Q2H PRN BOTH EYES DRY EYES Last administered on 12/12/18 09:09; Admin Dose 2 DROP; Start 12/06/18 at 22:00 Insulin Glargine (Lantus) 6 units DAILY@0800 SC ; Start 12/09/18 at 08:00; Status Hold Ondansetron HCl (Zofran Inj) 4 mg Q4H PRN IV NAUSEA AND/OR VOMITING Last administered on 12/09/18at 12:18; Admin Dose 4 MG; Start 12/09/18 at 12:30; Status Hold Metoprolol Tartrate (Lopressor) 5 mg Q4H PRN IV HR>110 or significant PVC's; Start 12/09/18 at 13:00 Enalaprilat (Vasotec Iv) 0.625 mg Q6H PRN IV sbp>170; Start 12/10/18 at 12:30 Lansoprazole (Prevacid) 15 mg BID@06,18 NGT Last administered on 12/13/18at 17:59; Admin Dose 15 MG; Start 12/13/18 at 06:00 Sodium Chloride 1,000 ml @ 30 mls/hr Q24H IV Last administered on 12/13/18at 13:42; Admin Dose 30 MLS/HR; Start 12/13/18 at 13:30 Nystatin (Nystatin Powder) 1 applic BID TOP Last administered on 12/14/18at 09:01; Admin Dose 1 APPLIC; Start 12/13/18 at 15:00 Dextrose/Sodium Chloride 1,000 ml @ 40 mls/hr Q24H IV Last administered on 12/14/18at 00:10; Admin Dose 40 MLS/HR; Start 12/13/18 at 15:30 Insulin Aspart (Novolog Insulin Pen) NOVOLOG *MILD* ALGORI... Q4 SC Last administered on 12/14/18at 12:11; Admin Dose 1 UNIT; Start 12/14/18 at 09:00 Meds reviewed: Yes Allergies Coded Allergies: Sulfa (Sulfonamide Antibiotics) (Verified Allergy, Unknown, 11/24/18) paroxetine (Verified Allergy, Unknown, 11/24/18) pramipexole (Verified Allergy, Unknown, 11/24/18) Allergies Reviewed: Yes Labs/Studies Labs Reviewed: Reviewed by anesthesiologist Result Diagram: 12/12/18 0559 12/13/18 0551 test: N/A Pre-procedure Exam Last vitals Vital Signs Date Temp Pulse Resp B/P (MAP) Pulse Ox O2 O2 Flow FiO2 Time Delivery Rate 12/14/18 98.4 67 18 102/56 100 Room Air 13:12 (71) 12/14/18 2.0 11:48 Airway: Adequate mouth opening, Adequate thyromental dist Mallampati: Mallampati IV Teeth: Normal Lung: Normal Heart: Normal ASA Physical Status ASA physical status: 4 Emergency: None Pre-operative Attestations Prior to commencing anesthesia and surgery, the patient was re-evaluated, there was verification of: *The patient's identity *The results of appropriate recent lab work and preoperative vital signs *The above evaluation not changing prior to induction *Anesthetic plan, risk benefits, alternative and complications discussed with patient/family; questions answered; patient/family understands, accepts and wishes to proceed. JARON HOGAN DO Dec 14, 2018 13:47
[2018-12-14] MEDS ORDERED: MIDAZOLAM 1 MG/ML 2 ML INJ ONE (13:48)
[2018-12-14] MEDS ORDERED: LIDOCAINE 2% (SDV) 5 ML INJ ONE (13:48)
[2018-12-14] MEDS ORDERED: CEFAZOLIN 2 GM/50 ML (PMX) 50 ML IVPB ONE (13:53)
--- NOTE | 2018-12-14 14:12 | PAC ---
Date/Time of Note Date/Time of Note DATE: 12/14/18 TIME: 14:12 Post-Anesthesia Notes Post-Anesthesia Note Last documented vital signs Vital Signs Date Temp Pulse Resp B/P (MAP) Pulse Ox O2 O2 Flow FiO2 Time Delivery Rate 12/14/18 98.4 67 18 102/56 100 Room Air 13:12 (71) 12/14/18 2.0 11:48 Activity: WNL Respiratory function: WNL Cardiovascular function: WNL Mental status: Baseline Pain reasonably controlled: Yes Hydration appropriate: Yes Nausea/Vomiting absent: Yes JARON HOGAN DO Dec 14, 2018 14:12
--- NOTE | 2018-12-14 14:34 | CONS ---
Assessment/Plan Assessment/Plan Hospital Course (Demo Recall) 1. Wide complex tachycardia-suppressed for most part on low dose BB as tolerated. Had an episode which looked more like abberrant AF when first admittedNL EF by echo this index admission 2. Intermittent bigeminy and generalized wide complex rhythms-generally suppressed on low dose of BB when given as tolerated but is having recurrently. NL EF by echo 3. Hypertension-reasonable control on monotherapy with BB with ACEI held in the setting of renal failure 4. Episodes of nausea and vomiting. 5. Gait instability with signs of hygroma-had been in PT but transferred back to med-surg for AMS. Was initially followed by neurology 6. Diabetes mellitus, status post pancreatectomy, status post Whipple. 7. Hypothyroidism. 8. Pancytopenia with more pronounced leukopenia and thrombocytopenia. 9. Bradycardia-stable for most part with intermittent to 40's at times by vital sign assessment with stable BP. NL TSH with actually mildly elevated Free T4. No defitine indication for PPM at this time per EP 10.urinary retention s/p arredondo placement 11. Encephalopathy-MRI with acute findings 12/10 Recc: -Tele -Continue low dose BB as tolerated and not given today due to G tube placement IVP PRN BB as necessary -Continue asa for now with plavix still held given decreasing/low platelet count -Continue creon -Continue synthroid -s/p EP eval by Brenda with no definite indication for PPM at this time -ongoing neuro eval of MS -will consider lexiscan to rul eout chronic ischemia lending to recurrent bigeminy Consultation Date/Type/Reason Admit Date/Time Dec 03, 2018 at 10:30 Initial Consult Date 12/03/18 Type of Consult Cardiology Reason for Consultation bigeminy Requesting Provider: VIRGINIA CA MD Date/Time of Note DATE: 12/14/18 TIME: 14:30 Exam/Review of Systems Vital Signs Vitals Vital Signs Date Temp Pulse Resp B/P (MAP) Pulse Ox O2 O2 Flow FiO2 Time Delivery Rate 12/14/18 98.4 67 18 102/56 100 Room Air 13:12 (71) 12/14/18 2.0 11:48 Intake and Output 12/13/18 12/13/18 12/14/18 1515:00 23:00 07:00 IntakeIntake Total 540 ml OutputOutput Total 1100 ml BalanceBalance -560 ml Exam Exam Review of Systems: CONSTITUTIONAL: No fevers, chills. PULMONARY: No sob CARDIOVASCULAR: No chest pain/palpitations GASTROINTESTINAL: No nausea/vomiting. GENITOURINARY: No hematuria/dysuria. MUSCULOSKELETAL: No myagias/arthalgias. PSYCHIATRIC: The patient denies depression. NEUROLOGIC: lethargic Constitutional: alert Psych: no complaints Head: normocephalic ENMT: mucosa pink and moist Neck: supple, jvd (8 cm water) Respiratory: clear to auscultation Cardiovascular: regular rate and rhythm Gastrointestinal: soft, non-tender Musculoskeletal: muscle tone (normal) Extremities: edema (none) Neurological: other (No focal deficits) Labs Result Diagram: 12/12/18 0559 12/13/18 0551 Results 24hrs Laboratory Tests Test 12/13/18 18:02 12/13/18 23:50 12/14/18 06:28 12/14/18 07:58 Bedside Glucose 254 H 219 148 194 Test 12/14/18 12:09 Bedside Glucose 174 Medications Medications Current Medications Levothyroxine Sodium (Synthroid) 137 mcg DAILY@06 PO Last administered on 12/13/18 06:35; Admin Dose 137 MCG; Start 12/04/18 at 06:00 Aspirin (Aspirin) 81 mg DAILY PO Last administered on 12/13/18 09:34; Admin Dose 81 MG; Start 12/03/18 at 12:30 Rifaximin (Xifaxan) 550 mg DAILY PO Last administered on 12/13/18 09:33; Admin Dose 550 MG; Start 12/03/18 at 12:30 Amylase/Lipase/ Protease (Creon ([id number])) 1 cap WITH MEALS PO Last administered on 12/13/18 17:59; Admin Dose 1 CAP; Start 12/03/18 at 17:55 Metformin HCl (Glucophage) 500 mg WITH DINNER PO Last administered on 12/13/18 17:59; Admin Dose 500 MG; Start 12/03/18 at 17:55 Metoprolol Tartrate (Lopressor) 25 mg BID PO Last administered on 12/13/18 09:33; Admin Dose 25 MG; Start 12/03/18 at 21:00 Senna (Senokot) 1 tab DAILY PO Last administered on 12/13/18 09:34; Admin Dose 1 TAB; Start 12/04/18 at 09:00 Miscellaneous Information 1 ea NOTE XX ; Start 12/03/18 at 13:00 Glucose (Glutose) 15 gm Q15M PRN PO DECREASED GLUCOSE; Start 12/03/18 at 13:00 Glucose (Glutose) 22.5 gm Q15M PRN PO DECREASED GLUCOSE; Start 12/03/18 at 13:00 Dextrose (D50w Syringe) 25 ml Q15M PRN IV DECREASED GLUCOSE; Start 12/03/18 at 13:00 Dextrose (D50w Syringe) 50 ml Q15M PRN IV DECREASED GLUCOSE; Start 12/03/18 at 13:00 Glucagon (Glucagen) 1 mg Q15M PRN IM DECREASED GLUCOSE; Start 12/03/18 at 13:00 Glucose (Glutose) 15 gm Q15M PRN BUCCAL DECREASED GLUCOSE; Start 12/03/18 at 13:00 Clopidogrel Bisulfate (plaVIX) 75 mg DAILY PO Last administered on 12/08/18at 09:01; Admin Dose 75 MG; Start 12/05/18 at 09:00; Status Hold Diclofenac Sodium (Voltaren 1% Gel) 2 gm QID TP Last administered on 12/13/18 21:45; Admin Dose 2 GM; Start 12/05/18 at 14:00 Magnesium Hydroxide (Milk Of Mag) 30 ml DAILY PRN PO constipation; Start 12/06/18 at 09:30 Megestrol Acetate (Megace Susp) 40 mg DAILY PO Last administered on 12/13/18 09:33; Admin Dose 40 MG; Start 12/07/18 at 09:00 Cholecalciferol (Vitamin D) 2,000 unit DAILY PO Last administered on 12/13/18 09:33; Admin Dose 2,000 UNIT; Start 12/06/18 at 10:30 Eye Lubricant (Artificial Tears Oph) 2 drop Q2H PRN BOTH EYES DRY EYES Last administered on 12/12/18 09:09; Admin Dose 2 DROP; Start 12/06/18 at 22:00 Insulin Glargine (Lantus) 6 units DAILY@0800 SC ; Start 12/09/18 at 08:00; Status Hold Ondansetron HCl (Zofran Inj) 4 mg Q4H PRN IV NAUSEA AND/OR VOMITING Last administered on 12/09/18 12:18; Admin Dose 4 MG; Start 12/09/18 at 12:30; Status Hold Metoprolol Tartrate (Lopressor) 5 mg Q4H PRN IV HR>110 or significant PVC's; Start 12/09/18 at 13:00 Enalaprilat (Vasotec Iv) 0.625 mg Q6H PRN IV sbp>170; Start 12/10/18 at 12:30 Lansoprazole (Prevacid) 15 mg BID@06,18 NGT Last administered on 12/13/18 17:59; Admin Dose 15 MG; Start 12/13/18 at 06:00 Sodium Chloride 1,000 ml @ 30 mls/hr Q24H IV Last administered on 12/13/18 13:42; Admin Dose 30 MLS/HR; Start 12/13/18 at 13:30 Nystatin (Nystatin Powder) 1 applic BID TOP Last administered on 12/14/18 09:01; Admin Dose 1 APPLIC; Start 12/13/18 at 15:00 Dextrose/Sodium Chloride 1,000 ml @ 40 mls/hr Q24H IV Last administered on 12/14/18 00:10; Admin Dose 40 MLS/HR; Start 12/13/18 at 15:30 Insulin Aspart (Novolog Insulin Pen) NOVOLOG *MILD* ALGORI... Q4 SC Last administered on 12/14/18 12:11; Admin Dose 1 UNIT; Start 12/14/18 at 09:00 [place] Dec 14, 2018 14:34
[2018-12-14] MEDS ORDERED: SOD CHLORIDE 0.45% 1,000 ML IV SCH (17:30)
[2018-12-14] MEDS: metFORMIN 500 MG TAB PO SCH (17:35)
[2018-12-14] MEDS: POTASSIUM CHLORIDE 10 MEQ in SOD CHLORIDE 0.45% 1,000 ML IV SCH (22:00)
--- NOTE | 2018-12-15 00:13 | GILP ---
DATE OF PROCEDURE: PROCEDURE: Esophagogastroduodenoscopy, percutaneous endoscopic gastrostomy tube placement. PREOPERATIVE DIAGNOSIS: The patient presenting with history of difficulty in swallowing. She has hi story of stroke and procedure at this time is performed to create access for long-term nutritional [place] pport. POSTOPERATIVE DIAGNOSIS: The patient presenting with history of difficulty in swallowing. She has h istory of stroke and procedure at this time is performed to create access for long-term nutritional s upport. PROCEDURE IN DETAIL: After the informed written consent was obtained, the patient was asked to lie o n the left lateral side. Intravenous anesthesia was given by anesthesiologist, Dr. Fan. When t he patient became somnolent, the Olympus video upper endoscope was inserted into the oropharynx, then into the esophagus, subsequently into the stomach and then into the duodenum. The stomach showed ev idence of hemorrhagic gastritis picture. Scope at this time was withdrawn to the level of the gastri c cavity. The anterior abdominal wall was prepared with Betadine and alcohol. Then 2 mL of 2% Xyloc lexus was infiltrated at the endoscopic illuminating site. At this time, a 5 mm incision was made by using the scalpel. Through this incision, a trocar was inserted into the stomach, and then through t he trocar a guidewire was inserted after removing the stylet. The guidewire was grabbed with a polyp ectomy snare and then the guidewire was brought out through the mouth along with the endoscope. To t his end of the guidewire, a #20 Microvasive G-tube was tied in a loop fashion and then it was brought out through the abdominal wall incision. The retention bumper was placed over the G-tube close to t he skin. Tapered end of the gastrostomy tube was cut, the adapter was placed and the procedure was t erminated. PLAN: Recommend starting G-tube feeding in the a.m. Dictated By: ENEIDA ALBA/GILBERT Conf#: [id number] DID#: [id number] CC: VIRGINIA CA MD;*EndCC*
[2018-12-15 00:45] VITALS: BP 130/61; PULSE 80; RESP 18
[2018-12-15] MEDS: INSULIN ASPART [NOVOLOG] 3 ML PEN SC SCH ×5 (01:47→23:57)
[2018-12-15 04:40] VITALS: BP 116/54; PULSE 77; RESP 16
[2018-12-15] MEDS: LEVOTHYROXINE 137 MCG TAB PO SCH (06:27)
[2018-12-15] MEDS: LANSOPRAZOLE 15 MG CAP NGT SCH ×2 (06:27→17:17)
[2018-12-15 07:16] VITALS: BP 143/65; PULSE 47; RESP 22
[2018-12-15] MEDS: ASPIRIN 81 MG TAB PO SCH (08:58)
[2018-12-15] MEDS: CHOLECALCIFEROL 2,000 UNIT CAP PO SCH (08:58)
[2018-12-15] MEDS: CREON (24K-76K-120K) 1 CAP PO SCH ×3 (08:58→17:17)
[2018-12-15] MEDS: RIFAXIMIN 550 MG TAB PO SCH (08:58)
[2018-12-15] MEDS: MEGESTROL (40 MG/ML) 10ML CUP PO SCH (08:58)
[2018-12-15] MEDS: METOPROLOL 25 MG TAB PO SCH (08:59)
[2018-12-15] MEDS: SENNA TAB PO SCH (09:51)
[2018-12-15] MEDS: DICLOFENAC SODIUM 1% GEL 100 GM TUBE TP SCH ×4 (09:52→21:43)
[2018-12-15] MEDS: NYSTATIN 30 GM POWDER BTL TOP SCH ×2 (09:52→21:43)
[2018-12-15] MEDS: BALSAM PERU/CASTOR OIL 60 GM TUBE TOP SCH ×2 (09:52→21:43)
[2018-12-15 10:58] VITALS: BP 111/55; PULSE 67; RESP 22
--- NOTE | 2018-12-15 12:48 | CONS ---
Assessment/Plan Assessment/Plan Hospital Course (Demo Recall) 1. Wide complex tachycardia-suppressed for most part on low dose BB as tolerated. Had an episode which looked more like abberrant AF when first admitted. NL EF by echo this index admission 2. Intermittent bigeminy and generalized wide complex rhythms-generally suppressed on low dose of BB when given as tolerated but is having recurrently. NL EF by echo 3. Hypertension-reasonable control on monotherapy with BB with ACEI held in the setting of renal failure 4. Episodes of nausea and vomiting. 5. Gait instability with signs of hygroma-had been in PT but transferred back to med-surg for AMS. Was initially followed by neurology 6. Diabetes mellitus, status post pancreatectomy, status post Whipple. 7. Hypothyroidism. 8. Pancytopenia with more pronounced leukopenia and thrombocytopenia. 9. Bradycardia-stable for most part with intermittent to 40's at times by vital sign assessment with stable BP. NL TSH with actually mildly elevated Free T4. No defitine indication for PPM at this time per EP 10.urinary retention s/p arredondo placement 11. Encephalopathy-MRI with acute findings 12/10. overall improved but still having somewhat 12. Dysphagia s/p g tube Recc: -Tele -Continue low dose BB as tolerated and use IVP PRN BB as necessary -Continue asa for now with plavix still held given decreasing/low platelet count -Continue creon -Continue synthroid -s/p EP eval by Brenda with no definite indication for PPM at this time -ongoing neuro eval of MS -will consider lexiscan tomorrow to rule out chronic ischemia lending to recurrent bigeminy as MS allows Consultation Date/Type/Reason Admit Date/Time Dec 03, 2018 at 10:30 Initial Consult Date 12/03/18 Type of Consult Cardiology Reason for Consultation Bigeminy Requesting Provider: VIRGINIA CA MD Date/Time of Note DATE: 12/15/18 TIME: 12:46 Exam/Review of Systems Vital Signs Vitals Vital Signs Date Temp Pulse Resp B/P (MAP) Pulse Ox O2 O2 Flow FiO2 Time Delivery Rate 12/15/18 98.0 67 22 111/55 100 Nasal 10:58 (73) Cannula 12/15/18 4.0 07:25 Intake and Output 12/14/18 12/14/18 12/15/18 1515:00 23:00 07:00 IntakeIntake Total 450 ml OutputOutput Total 503 ml 900 ml BalanceBalance -503 ml -450 ml Exam Exam Review of Systems: CONSTITUTIONAL: No fevers, chills. PULMONARY: No sob CARDIOVASCULAR: No chest pain/palpitations GASTROINTESTINAL: No nausea/vomiting. GENITOURINARY: No hematuria/dysuria. MUSCULOSKELETAL: No myagias/arthalgias. PSYCHIATRIC: The patient denies depression. NEUROLOGIC: No weakness Constitutional: alert Psych: no complaints Head: normocephalic ENMT: mucosa pink and moist Neck: supple, jvd (9 cm water) Respiratory: clear to auscultation Cardiovascular: regular rate and rhythm Gastrointestinal: soft, non-tender Musculoskeletal: muscle tone (normal) Extremities: edema (none) Neurological: other (No focal deficits) Labs Result Diagram: 12/12/18 0559 12/13/18 0551 Results 24hrs Laboratory Tests Test 12/14/18 16:58 12/14/18 21:19 12/15/18 01:31 12/15/18 05:54 Bedside Glucose 166 167 146 135 Test 12/15/18 12:00 Bedside Glucose 212 Medications Medications Current Medications Levothyroxine Sodium (Synthroid) 137 mcg DAILY@06 PO Last administered on 12/15/18 06:27; Admin Dose 137 MCG; Start 12/04/18 at 06:00 Aspirin (Aspirin) 81 mg DAILY PO Last administered on 12/15/18 08:58; Admin Dose 81 MG; Start 12/03/18 at 12:30 Rifaximin (Xifaxan) 550 mg DAILY PO Last administered on 12/15/18 08:58; Admin Dose 550 MG; Start 12/03/18 at 12:30 Amylase/Lipase/ Protease (Creon ([id number])) 1 cap WITH MEALS PO Last admin istered on 12/15/18 11:59; Admin Dose 1 CAP; Start 12/03/18 at 17:55 Metformin HCl (Glucophage) 500 mg WITH DINNER PO Last administered on 12/13/18 17:59; Admin Dose 500 MG; Start 12/03/18 at 17:55 Metoprolol Tartrate (Lopressor) 25 mg BID PO Last administered on 12/15/18 08:59; Admin Dose 25 MG; Start 12/03/18 at 21:00 Senna (Senokot) 1 tab DAILY PO Last administered on 12/15/18at 09:51; Admin Dose 1 TAB; Start 12/04/18 at 09:00 Miscellaneous Information 1 ea NOTE XX ; Start 12/03/18 at 13:00 Glucose (Glutose) 15 gm Q15M PRN PO DECREASED GLUCOSE; Start 12/03/18 at 13:00 Glucose (Glutose) 22.5 gm Q15M PRN PO DECREASED GLUCOSE; Start 12/03/18 at 13:00 Dextrose (D50w Syringe) 25 ml Q15M PRN IV DECREASED GLUCOSE; Start 12/03/18 at 13:00 Dextrose (D50w Syringe) 50 ml Q15M PRN IV DECREASED GLUCOSE; Start 12/03/18 at 13:00 Glucagon (Glucagen) 1 mg Q15M PRN IM DECREASED GLUCOSE; Start 12/03/18 at 13:00 Glucose (Glutose) 15 gm Q15M PRN BUCCAL DECREASED GLUCOSE; Start 12/03/18 at 13 :00 Clopidogrel Bisulfate (plaVIX) 75 mg DAILY PO Last administered on 12/08/18at 09:01; Admin Dose 75 MG; Start 12/05/18 at 09:00; Status Hold Diclofenac Sodium (Voltaren 1% Gel) 2 gm QID TP Last administered on 12/15/18at 12:02; Admin Dose 2 GM; Start 12/05/18 at 14:00 Magnesium Hydroxide (Milk Of Mag) 30 ml DAILY PRN PO constipation; Start 12/06/18 at 09:30 Megestrol Acetate (Megace Susp) 40 mg DAILY PO Last administered on 12/15/18at 08:58; Admin Dose 40 MG; Start 12/07/18 at 09:00 Cholecalciferol (Vitamin D) 2,000 unit DAILY PO Last administered on 12/15/18at 08:58; Admin Dose 2,000 UNIT; Start 12/06/18 at 10:30 Eye Lubricant (Artificial Tears Oph) 2 drop Q2H PRN BOTH EYES DRY EYES Last administered on 12/12/18at 09:09; Admin Dose 2 DROP; Start 12/06/18 at 22:00 Insulin Glargine (Lantus) 6 units DAILY@0800 SC ; Start 12/09/18 at 08:00; Status Hold Ondansetron HCl (Zofran Inj) 4 mg Q4H PRN IV NAUSEA AND/OR VOMITING Last administered on 12/09/18at 12:18; Admin Dose 4 MG; Start 12/09/18 at 12:30; Status Hold Metoprolol Tartrate (Lopressor) 5 mg Q4H PRN IV HR>110 or significant PVC's; Start 12/09/18 at 13:00 Enalaprilat (Vasotec Iv) 0.625 mg Q6H PRN IV sbp>170; Start 12/10/18 at 12:30 Lansoprazole (Prevacid) 15 mg BID@06,18 NGT Last administered on 12/15/18 06:27; Admin Dose 15 MG; Start 12/13/18 at 06:00 Nystatin (Nystatin Powder) 1 applic BID TOP Last administered on 12/15/18 09:52; Admin Dose 1 APPLIC; Start 12/13/18 at 15:00 Potassium Chloride 10 meq/ Sodium Chloride 1,005 ml @ 50 mls/hr Q20H6M IV Last administered on 12/14/18at 22:00; Admin Dose 50 MLS/HR; Start 12/14/18 at 18:00 Insulin Aspart (Novolog Insulin Pen) NOVOLOG *MILD* ALGORI... Q6 SC Last ad ministered on 12/15/18at 12:02; Admin Dose 2 UNIT; Start 12/15/18 at 12:00 [place] Dec 15, 2018 12:48
--- NOTE | 2018-12-15 13:39 | PN ---
Date/Time of Note Date/Time of Note DATE: 12/15/18 TIME: 13:39 Subjective in bed, easily opens eyes, no c/o pain Objective Vitals Vital Signs Date Temp Pulse Resp B/P (MAP) Pulse Ox O2 O2 Flow FiO2 Time Delivery Rate 12/15/18 98.0 67 22 111/55 100 Nasal 10:58 (73) Cannula 12/15/18 4.0 07:25 Intake and Output 12/14/18 12/14/18 12/15/18 1515:00 23:00 07:00 IntakeIntake Total 450 ml OutputOutput Total 503 ml 900 ml BalanceBalance -503 ml -450 ml dry mucus, ope mouth breather, rr syst m+, cta, no c/c/e Results Result Diagram: 12/12/1859 12/13/18 0551 Medications Medications Current Medications Levothyroxine Sodium (Synthroid) 137 mcg DAILY@06 PO Last administered on 12/15/18at 06:27; Admin Dose 137 MCG; Start 12/04/18 at 06:00 Aspirin (Aspirin) 81 mg DAILY PO Last administered on 12/15/18at 08:58; Admin Dose 81 MG; Start 12/03/18 at 12:30 Rifaximin (Xifaxan) 550 mg DAILY PO Last administered on 12/15/18at 08:58; Admin Dose 550 MG; Start 12/03/18 at 12:30 Amylase/Lipase/ Protease (Creon ([id number]-[id number])) 1 cap WITH MEALS PO Last administered on 12/15/18at 11:59; Admin Dose 1 CAP; Start 12/03/18 at 17:55 Metformin HCl (Glucophage) 500 mg WITH DINNER PO Last administered on 12/13/18at 17:59; Admin Dose 500 MG; Start 12/03/18 at 17:55 Metoprolol Tartrate (Lopressor) 25 mg BID PO Last administered on 12/15/18 08:59; Admin Dose 25 MG; Start 12/03/18 at 21:00 Senna (Senokot) 1 tab DAILY PO Last administered on 12/15/18 09:51; Admin Dose 1 TAB; Start 12/04/18 at 09:00 Miscellaneous Information 1 ea NOTE XX ; Start 12/03/18 at 13:00 Glucose (Glutose) 15 gm Q15M PRN PO DECREASED GLUCOSE; Start 12/03/18 at 13:00 Glucose (Glutose) 22.5 gm Q15M PRN PO DECREASED GLUCOSE; Start 12/03/18 at 13:00 Dextrose (D50w Syringe) 25 ml Q15M PRN IV DECREASED GLUCOSE; Start 12/03/18 at 13:00 Dextrose (D50w Syringe) 50 ml Q15M PRN IV DECREASED GLUCOSE; Start 12/03/18 at 13:00 Glucagon (Glucagen) 1 mg Q15M PRN IM DECREASED GLUCOSE; Start 12/03/18 at 13:00 Glucose (Glutose) 15 gm Q15M PRN BUCCAL DECREASED GLUCOSE; Start 12/03/18 at 13:00 Clopidogrel Bisulfate (plaVIX) 75 mg DAILY PO Last administered on 12/08/18 09:01; Admin Dose 75 MG; Start 12/05/18 at 09:00; Status Hold Diclofenac Sodium (Voltaren 1% Gel) 2 gm QID TP Last administered on 12/15/18at 12:02; Admin Dose 2 GM; Start 12/05/18 at 14:00 Magnesium Hydroxide (Milk Of Mag) 30 ml DAILY PRN PO constipation; Start 12/06/18 at 09:30 Megestrol Acetate (Megace Susp) 40 mg DAILY PO Last administered on 12/15/18 08:58; Admin Dose 40 MG; Start 12/07/18 at 09:00 Cholecalciferol (Vitamin D) 2,000 unit DAILY PO Last administered on 12/15/18 08:58; Admin Dose 2,000 UNIT; Start 12/06/18 at 10:30 Eye Lubricant (Artificial Tears Oph) 2 drop Q2H PRN BOTH EYES DRY EYES Last administered on 12/12/18 09:09; Admin Dose 2 DROP; Start 12/06/18 at 22:00 Insulin Glargine (Lantus) 6 units DAILY@0800 SC ; Start 12/09/18 at 08:00; Status Hold Ondansetron HCl (Zofran Inj) 4 mg Q4H PRN IV NAUSEA AND/OR VOMITING Last administered on 12/09/18at 12:18; Admin Dose 4 MG; Start 12/09/18 at 12:30; Status Hold Metoprolol Tartrate (Lopressor) 5 mg Q4H PRN IV HR>110 or significant PVC's; Start 12/09/18 at 13:00 Enalaprilat (Vasotec Iv) 0.625 mg Q6H PRN IV sbp>170; Start 12/10/18 at 12:30 Lansoprazole (Prevacid) 15 mg BID@06,18 NGT Last administered on 12/15/18at 06:27; Admin Dose 15 MG; Start 12/13/18 at 06:00 Nystatin (Nystatin Powder) 1 applic BID TOP Last administered on 12/15/18at 09:52; Admin Dose 1 APPLIC; Start 12/13/18 at 15:00 Potassium Chloride 10 meq/ Sodium Chloride 1,005 ml @ 50 mls/hr Q20H6M IV Last administered on 12/14/18at 22:00; Admin Dose 50 MLS/HR; Start 12/14/18 at 18:00 Insulin Aspart (Novolog Insulin Pen) NOVOLOG *MILD* ALGORI... Q6 SC Last administered on 12/15/18at 12:02; Admin Dose 2 UNIT; Start 12/15/18 at 12:00 VTE Prophylaxis Risk score (from Ns)>0 risk: 8 SCD applied (from Ns): Yes Lines/Catheters IV Catheter Type: Saline Lock Central line still needed: No Smith in Place: No Assessment/Plan Assessment/Plan 1. age related weak/ dysphagia--PEG tube feed up to 1 yr/ musc atrophy 2. 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 cm/ htn/ pvd 4. dm/ neuropathy 5. ckd II/ anemia 6. hypothyroid 7. 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
[2018-12-15] MEDS: POTASSIUM CHLORIDE 10 MEQ in SOD CHLORIDE 0.45% 1,000 ML IV SCH (14:06)
[2018-12-15 15:10] VITALS: BP 108/51; PULSE 59; RESP 20
[2018-12-15] MEDS: metFORMIN 500 MG TAB PO SCH (17:18)
[2018-12-15 19:22] VITALS: BP 109/53; PULSE 61; RESP 20
[2018-12-15] MEDS ORDERED: MAGNESIUM HYDROXIDE 30ML CUP GTB PRN (19:30)
[2018-12-15] MEDS ORDERED: ONDANSETRON 4 MG TAB GTB PRN (19:30)
[2018-12-15] MEDS: METOPROLOL 25 MG TAB GTB SCH (21:00)
[2018-12-15] MEDS: METOCLOPRAMIDE (1 MG/ML) 10 ML CUP GTB SCH (21:42)
[2018-12-16] VITALS (7 sets, daily range): BP systolic 98–123; BP diastolic 49–85; PULSE 60–76; RESP 18–22
[2018-12-16] MEDS: LANSOPRAZOLE 15 MG CAP GTB SCH ×2 (05:43→17:50)
[2018-12-16] MEDS: LEVOTHYROXINE 137 MCG TAB GTB SCH (05:43)
[2018-12-16] MEDS: METOCLOPRAMIDE (1 MG/ML) 10 ML CUP GTB SCH ×3 (05:43→21:48)
[2018-12-16] MEDS: INSULIN ASPART [NOVOLOG] 3 ML PEN SC SCH ×3 (06:12→18:03)
[2018-12-16] MEDS: ASPIRIN 81 MG TAB GTB SCH (08:17)
[2018-12-16] MEDS: CHOLECALCIFEROL 2,000 UNIT CAP GTB SCH (08:17)
[2018-12-16] MEDS: RIFAXIMIN 550 MG TAB GTB SCH (08:17)
[2018-12-16] MEDS: SENNA TAB GTB SCH (08:18)
[2018-12-16] MEDS: CREON (24K-76K-120K) 1 CAP GTB SCH ×3 (08:18→17:49)
[2018-12-16] MEDS: DICLOFENAC SODIUM 1% GEL 100 GM TUBE TP SCH ×4 (08:18→22:16)
[2018-12-16] MEDS: NYSTATIN 30 GM POWDER BTL TOP SCH ×2 (08:18→22:16)
[2018-12-16] MEDS: METOPROLOL 25 MG TAB GTB SCH ×2 (08:18→20:55)
[2018-12-16] MEDS: BALSAM PERU/CASTOR OIL 60 GM TUBE TOP SCH ×2 (08:19→22:16)
--- NOTE | 2018-12-16 12:01 | CONS ---
Consult Date/Type/Reason Admit Date/Time Dec 03, 2018 at 10:30 Initial Consult Date Requesting Provider: VIRGINIA CA MD Date/Time of Note DATE: 12/16/18 TIME: 11:58 Subjective NO acute events - pt stable - much better post PEG - rate controlled - con't supportive Rx. ROS: No fever, no chills, no nausea, no vomiting, no diarrhea/constipation No recent weight changes No chest pain, no PND, no orthopnea - mild SOB, PEG No dizziness, blurred vision No thirst, no heat or cold intolerance Objective Vitals Vital Signs Date Temp Pulse Resp B/P (MAP) Pulse Ox O2 O2 Flow FiO2 Time Delivery Rate 12/16/18 98.0 71 22 123/85 100 Nasal 11:19 (98) Cannula 12/16/18 4.0 08:23 Intake and Output 12/15/18 12/15/18 12/16/18 1515:00 23:00 07:00 IntakeIntake Total 110 ml 500 ml OutputOutput Total 400 ml 750 ml BalanceBalance -290 ml -250 ml Exam General: WN/WD/NAD, AOx 0 HEENT: Unicetric/atraumatic/EOMI (follows commands) NECK: JVD elevated, no thyromegaly Lymph: no lymphadenopathy HEART: regular with no S3, II/ systolic murmur at apex LUNGS: Coarse sounds ABD: soft, NT, ND, +BS - PEG in place : Intact Neuro: non focal SKIN: chronic changes EXT: trace edema Results/Medications Result Diagram: 12/16/18 0722 12/16/18 0722 Results 24 hrs Laboratory Tests Test 12/15/18 12:00 12/15/18 17:15 12/15/18 18:04 12/15/18 18:05 Bedside Glucose 212 208 Sodium Level 133 L Potassium Level 4.6 Chloride Level 103 Carbon Dioxide Level 23 Anion Gap 7 Blood Urea Nitrogen 28 H Creatinine 1.19 Est Glomerular Filtrat Rate mL/min Glucose Level 207 Calcium Level 8.4 Magnesium Level 2.0 Ammonia 34 H B-Type Natriuretic 1220 H Peptide Albumin 2.8 L Thyroid Stimulating 3.750 Hormone (TSH) Free Thyroxine 0.96 White Blood Count 7.7 # Red Blood Count 3.39 L Hemoglobin 11.1 L Hematocrit 31.9 L Mean Corpuscular 94.1 Volume Mean Corpuscular 32.7 Hemoglobin Mean Corpuscular 34.8 Hemoglobin Concent Red Cell 16.5 H Distribution Width Platelet Count 86 L Mean Platelet Volume 10.0 Immature 0.500 H Granulocytes % Neutrophils % 85.9 H Lymphocytes % 5.3 L Monocytes % 7.3 Eosinophils % 0.5 Basophils % 0.5 Nucleated Red Blood 0.0 Cells % Immature 0.040 H Granulocytes # Neutrophils # 6.6 Lymphocytes # 0.4 L Monocytes # 0.6 Eosinophils # 0.0 Basophils # 0.0 Nucleated Red Blood 0.0 Cells # Test 12/15/18 23:49 12/16/18 05:42 12/16/18 07:22 12/16/18 11:52 Bedside Glucose 202 194 209 White Blood Count 4.8 # Red Blood Count 3.39 L Hemoglobin 10.9 L Hematocrit 30.8 L Mean Corpuscular 90.9 Volume Mean Corpuscular 32.2 Hemoglobin Mean Corpuscular 35.4 Hemoglobin Concent Red Cell 16.5 H Distribution Width Platelet Count 107 #L Mean Platelet Volume 10.7 H Immature 0.400 Granulocytes % Neutrophils % 75.6 Lymphocytes % 9.4 L Monocytes % 11.3 H Eosinophils % 2.9 Basophils % 0.4 Nucleated Red Blood 0.0 Cells % Immature 0.020 Granulocytes # Neutrophils # 3.6 Lymphocytes # 0.5 L Monocytes # 0.5 Eosinophils # 0.1 Basophils # 0.0 Nucleated Red Blood 0.0 Cells # Sodium Level 135 Potassium Level 4.2 Chloride Level 105 Carbon Dioxide Level 22 Anion Gap 8 Blood Urea Nitrogen 33 H Creatinine 1.12 Est Glomerular Filtrat Rate mL/min Glucose Level 187 Calcium Level 8.4 B-Type Natriuretic 1010 H Peptide Home Meds Active Scripts Acetaminophen* (Tylenol*) 325 Mg Tablet, 650 MG PO Q6H PRN for MILD PAIN(1-3)OR ELEVATED TEMP for 14 Days, TAB Prov:VIRGINIA CA MD 11/30/18 [Nursing Note] 1 EA EA No Conflict Check, 1 EA XX NOTE Prov:VIRGINIA CA MD 11/30/18 Megestrol Acetate (Megestrol Acetate) 400 Mg/10 Ml Oral.susp, 400 MG PO DAILY for 14 Days Prov:VIRGINIA CA MD 11/30/18 Metformin* (Glucophage* XR) 500 Mg Tab.sr.24h, 500 MG PO AC DINNER for 14 Days Prov:VIRGINIA CA MD 11/30/18 Levothyroxine Sodium* (Levothyroxine Sodium*) 150 Mcg Tablet, 150 MCG PO BEFORE BREAKFAST for 14 Days, TAB Prov:VIRGINIA CA MD 11/30/18 [Insulin Glargine] 100 UNITS/ML SOLN No Conflict Check, 15 UNITS SC DAILY Prov:VIRGINIA CA MD 11/30/18 Insulin Aspart* (Novolog Insulin Pen*) 100 Unit/Ml Soln, 0 UNIT SC WITH MEALS BEDTIME for 14 Days Prov:VIRGINIA CA MD 11/30/18 Glucagon HCl (Glucagon HCl) 1 Mg Vial, 1 MG IM Q15M PRN for DECREASED GLUCOSE for 14 Days, VIAL Prov:VIRGINIA CA MD 11/30/18 Magnesium Hydroxide* (Fox' MOM*) 30 Ml Susp, 30 ML PO DAILY PRN for constipation for 14 Days Prov:VIRGINIA CA MD 11/30/18 Docusate Sodium* (Colace*) 100 Mg Capsule, 100 MG PO BID PRN for CONSTIPATION for 14 Days, CAP Prov:VIRGINIA CA MD 11/30/18 Polyvinyl Alcohol* (Akwa Tears*) 1.4% - 15 Ml Drops, 2 DROP BOTH EYES QID for 14 Days, BOTTLE Prov:VIRGINIA CA MD 11/30/18 Dextrose* (D50W Syringe*) 50 Ml Soln, 50 ML IV Q15M PRN for DECREASED GLUCOSE for 14 Days Prov:VIRGINIA AC MD 11/30/18 Dextrose* (D50W Syringe*) 50 Ml Soln, 25 ML IV Q15M PRN for DECREASED GLUCOSE for 14 Days Prov:VIRGINIA CA MD 11/30/18 Dextrose (Glutose 15) 37.5 Gm Gel..gm., 15 GM BUCCAL Q15M PRN for DECREASED GLUCOSE for 14 Days Prov:VIRGINIA CA MD 11/30/18 Dextrose (Glutose 15) 37.5 Gm Gel..gm., 22.5 GM PO Q15M PRN for DECREASED GLUCOSE for 14 Days Prov:VIRGINIA CA MD 11/30/18 Dextrose (Glutose 15) 37.5 Gm Gel..gm., 15 GM PO Q15M PRN for DECREASED GLUCOSE for 14 Days Prov:VIRGINIA CA MD 11/30/18 [Accu-Chek] 1 EA EA No Conflict Check, 1 EA XX 02 Prov:VIRGINIA CA MD 11/30/18 Risperidone* (Risperdal*) 0.25 Mg Tablet, 0.25 MG PO BID PRN for agitation for 14 Days, TAB Prov:VIRGINIA CA MD 11/30/18 Gabapentin* (Gabapentin*) 100 Mg Capsule, 100 MG PO AM for 14 Days, CAP Prov:VIRGINIA CA MD 11/30/18 Gabapentin* (Gabapentin*) 300 Mg Capsule, 300 MG PO HS for 14 Days, CAP Prov:VIRGINIA CA MD 11/30/18 Metoprolol Tartrate* (Lopressor*) 25 Mg Tab, 25 MG PO BID for 14 Days, TAB Prov:VIRGINIA CA MD 11/30/18 Benazepril Hcl* (Benazepril Hcl*) 10 Mg Tablet, 10 MG PO DAILY for 14 Days, TAB Prov:VIRGINIA CA MD 11/30/18 Diphenhydramine Hcl* (Benadryl*) 25 Mg Cap, 25 MG PO HS PRN for insomnia for 15 Days, CAP Prov:VIRGINIA CA MD 11/30/18 Enoxaparin Sodium* (Enoxaparin Sodium*) 30 Mg/0.3 Ml Syringe, 30 MG SC DAILY for 15 Days Prov:VIRGINIA CA MD 11/30/18 Reported Medications Rifaximin* (Xifaxan*) 550 Mg Tablet, 550 MG PO DAILY, TAB 11/26/18 Omeprazole* (Omeprazole*) 40 Mg Capsule.dr, 40 MG PO DAILY, #30 CAP 11/24/18 Ergocalciferol (Vitamin D2) (VITAMIN D2) 50,000 Unit Capsule, 24341 UNIT PO Q SUN, CAP 11/24/18 Medications Current Medications Miscellaneous Information 1 ea NOTE XX ; Start 12/03/18 at 13:00 Glucose (Glutose) 15 gm Q15M PRN PO DECREASED GLUCOSE; Start 12/03/18 at 13:00 Glucose (Glutose) 22.5 gm Q15M PRN PO DECREASED GLUCOSE; Start 12/03/18 at 13:00 Dextrose (D50w Syringe) 25 ml Q15M PRN IV DECREASED GLUCOSE; Start 12/03/18 at 13:00 Dextrose (D50w Syringe) 50 ml Q15M PRN IV DECREASED GLUCOSE; Start 12/03/18 at 13:00 Glucagon (Glucagen) 1 mg Q15M PRN IM DECREASED GLUCOSE; Start 12/03/18 at 13:00 Glucose (Glutose) 15 gm Q15M PRN BUCCAL DECREASED GLUCOSE; Start 12/03/18 at 13:00 Diclofenac Sodium (Voltaren 1% Gel) 2 gm QID TP Last administered on 12/16/18 08:18; Admin Dose 2 GM; Start 12/05/18 at 14:00 Eye Lubricant (Artificial Tears Oph) 2 drop Q2H PRN BOTH EYES DRY EYES Last administered on 12/12/18 09:09; Admin Dose 2 DROP; Start 12/06/18 at 22:00 Insulin Glargine (Lantus) 6 units DAILY@0800 SC ; Start 12/09/18 at 08:00; Status Hold Metoprolol Tartrate (Lopressor) 5 mg Q4H PRN IV HR>110 or significant PVC's; Start 12/09/18 at 13:00 Nystatin (Nystatin Powder) 1 applic BID TOP Last administered on 12/16/18 08:1 8; Admin Dose 1 APPLIC; Start 12/13/18 at 15:00 Insulin Aspart (Novolog Insulin Pen) NOVOLOG *MILD* ALGORI... Q6 SC Last administered on 12/16/18 06:12; Admin Dose 2 UNIT; Start 12/15/18 at 12:00 Aspirin (Aspirin) 81 mg DAILY GTB Last administered on 12/16/18 08:17; Admin Dose 81 MG; Start 12/16/18 at 09:00 Cholecalciferol (Vitamin D) 2,000 unit DAILY GTB Last administered on 12/16/18 08:17; Admin Dose 2,000 UNIT; Start 12/16/18 at 09:00 Amylase/Lipase/ Protease (Creon (15v-62p-019m)) 1 cap WITH MEALS GTB Last administered on 12/16/18 08:18; Admin Dose 1 CAP; Start 12/16/18 at 07:55 Lansoprazole (Prevacid) 15 mg BID@18 GTB Last administered on 12/16/18 05:43; Admin Dose 15 MG; Start 12/16/18 at 06:00 Levothyroxine Sodium (Synthroid) 137 mcg DAILY@06 GTB Last administered on 12/16/18at 05:43; Admin Dose 137 MCG; Start 12/16/18 at 06:00 Magnesium Hydroxide (Milk Of Mag) 30 ml DAILY PRN GTB constipation; Start 12/15/18 at 19:30 Metformin HCl (Glucophage) 500 mg WITH DINNER GTB ; Start 12/16/18 at 17:55 Metoprolol Tartrate (Lopressor) 25 mg BID GTB Last administered on 12/16/18at 08:18; Admin Dose 25 MG; Start 12/15/18 at 21:00 Rifaximin (Xifaxan) 550 mg DAILY GTB Last administered on 12/16/18at 08:17; Admin Dose 550 MG; Start 12/16/18 at 09:00 Senna (Senokot) 1 tab DAILY GTB Last administered on 12/16/18at 08:18; Admin Dose 1 TAB; Start 12/16/18 at 09:00 Ondansetron HCl (Zofran Tab) 4 mg Q6H PRN GTB NAUSEA AND/OR VOMITING; Start 12/15/18 at 19:30 Metoclopramide HCl (Reglan Liq) 10 mg Q8 GTB Last administered on 12/16/18 05:43; Admin Dose 10 MG; Start 12/15/18 at 22:00 Assessment/Plan Hospital Course (Demo Recall) 1. Wide complex tachycardia-suppreseed for most part on low dose BB as tolerated. Had an episode which looked more like abberrant AF when first admittedNL EF by echo this index admission - in sinus now. Pt somewhat bready, but BP stable and overall, poor functional capacity - he dies not have Class I indication for pacer now and I think given overall state of health, medical Rx is reasonable. Now HR stable - no pauses noted. Now PVCs - conservative rx advised. NO pacer planned now. Rate controlled - con;t to follow. 2. Intermittent bigeminy and generalized wide complex rhythms-generally suppressed on low dose of BB. Sinus now, rare controlled. 3. Hypertension-reasonable control on monotherapy with BB with ACEI held in the setting of renal failure - improved with RX. TREATED. 4. Episodes of nausea and vomiting- consider PEG - family tentatively agreed. 5. Gait instability with signs of hygroma-had been in PT but transferred back to med-surg for AMS. Was initially followed by neurology - defer to neuro team. Unchanged. 6. Diabetes mellitus, status post pancreatectomy, stable now. On meds. 7. Hypothyroidism. 8. Pancytopenia with more pronounced leukopenia and thrombocytopenia. 9. Bradycardia-stable now to 40's at times by vital sign assessment with stable BP. NL TSH with actually mildly elevated Free T4 - clinical follow up expected now. NO plan for pacer now. 10.Urinary retention s/p Smith placement - urology follow. RYLEE PITT MD Dec 16, 2018 12:01
[2018-12-16] MEDS ORDERED: UDREG GTB (15:08)
[2018-12-16] MEDS ORDERED: NST15PW TOP (15:08)
[2018-12-16] MEDS ORDERED: CHOL200073 GTB (15:08)
[2018-12-16] MEDS ORDERED: NOVO3I SC (15:08)
[2018-12-16] MEDS ORDERED: METF-849 GTB (15:08)
[2018-12-16] MEDS ORDERED: ASPI-831 GTB (15:08)
[2018-12-16] MEDS ORDERED: LEVO137T30 GTB (15:08)
[2018-12-16] MEDS ORDERED: UDMOM GTB (15:08)
[2018-12-16] MEDS ORDERED: METO-448 GTB (15:08)
[2018-12-16] MEDS ORDERED: LANS-6 GTB (15:08)
[2018-12-16] MEDS ORDERED: BALS60OI TOP (15:08)
[2018-12-16] MEDS ORDERED: LIPA1CAP6 GTB (15:08)
[2018-12-16] MEDS ORDERED: SENN-120 GTB (15:08)
[2018-12-16] MEDS ORDERED: RIFA550T4 GTB (15:08)
--- NOTE | 2018-12-16 15:12 | PN ---
Date/Time of Note Date/Time of Note DATE: 12/16/18 TIME: 15:12 Subjective no complaints Objective Vitals Vital Signs Date Temp Pulse Resp B/P (MAP) Pulse Ox O2 O2 Flow FiO2 Time Delivery Rate 12/16/18 98.0 71 22 123/85 100 Nasal 11:19 (98) Cannula 12/16/18 4.0 08:23 Intake and Output 12/15/18 12/15/18 12/16/18 1515:00 23:00 07:00 IntakeIntake Total 110 ml 500 ml OutputOutput Total 400 ml 750 ml BalanceBalance -290 ml -250 ml in bed, awake, a few words answers, rr syst m+, cta, no c/c/e, open mouth breather, dry mucus Results Result Diagram: 12/16/1872112/16/18721 Medications Medications Current Medications Miscellaneous Information 1 ea NOTE XX ; Start 12/03/18 at 13:00 Glucose (Glutose) 15 gm Q15M PRN PO DECREASED GLUCOSE; Start 12/03/18 at 13:00 Glucose (Glutose) 22.5 gm Q15M PRN PO DECREASED GLUCOSE; Start 12/03/18 at 13:00 Dextrose (D50w Syringe) 25 ml Q15M PRN IV DECREASED GLUCOSE; Start 12/03/18 at 13:00 Dextrose (D50w Syringe) 50 ml Q15M PRN IV DECREASED GLUCOSE; Start 12/03/18 at 13:00 Glucagon (Glucagen) 1 mg Q15M PRN IM DECREASED GLUCOSE; Start 12/03/18 at 13:00 Glucose (Glutose) 15 gm Q15M PRN BUCCAL DECREASED GLUCOSE; Start 12/03/18 at 13:00 Diclofenac Sodium (Voltaren 1% Gel) 2 gm QID TP Last administered on 12/16/18at 12:08; Admin Dose 2 GM; Start 12/05/18 at 14:00 Eye Lubricant (Artificial Tears Oph) 2 drop Q2H PRN BOTH EYES DRY EYES Last administered on 12/12/18at 09:09; Admin Dose 2 DROP; Start 12/06/18 at 22:00 Insulin Glargine (Lantus) 6 units DAILY@0800 SC ; Start 12/09/18 at 08:00; Status Hold Metoprolol Tartrate (Lopressor) 5 mg Q4H PRN IV HR>110 or significant PVC's; Start 12/09/18 at 13:00 Nystatin (Nystatin Powder) 1 applic BID TOP Last administered on 12/16/18 08:18; Admin Dose 1 APPLIC; Start 12/13/18 at 15:00 Insulin Aspart (Novolog Insulin Pen) NOVOLOG *MILD* ALGORI... Q6 SC Last administered on 12/16/18 12:11; Admin Dose 2 UNIT; Start 12/15/18 at 12:00 Aspirin (Aspirin) 81 mg DAILY GTB Last administered on 12/16/18 08:17; Admin Dose 81 MG; Start 12/16/18 at 09:00 Cholecalciferol (Vitamin D) 2,000 unit DAILY GTB Last administered on 12/16/18 08:17; Admin Dose 2,000 UNIT; Start 12/16/18 at 09:00 Amylase/Lipase/ Protease (Creon ([id number])) 1 cap WITH MEALS GTB Last administered on 12/16/18at 11:53; Admin Dose 1 CAP; Start 12/16/18 at 07:55 Lansoprazole (Prevacid) 15 mg BID@06,18 GTB Last administered on 12/16/18 05:43; Admin Dose 15 MG; Start 12/16/18 at 06:00 Levothyroxine Sodium (Synthroid) 137 mcg DAILY@06 GTB Last administered on 12/16/18 05:43; Admin Dose 137 MCG; Start 12/16/18 at 06:00 Magnesium Hydroxide (Milk Of Mag) 30 ml DAILY PRN GTB constipation; Start 12/15/18 at 19:30 Metformin HCl (Glucophage) 500 mg WITH DINNER GTB ; Start 12/16/18 at 17:55 Metoprolol Tartrate (Lopressor) 25 mg BID GTB Last administered on 12/16/18 08:18; Admin Dose 25 MG; Start 12/15/18 at 21:00 Rifaximin (Xifaxan) 550 mg DAILY GTB Last administered on 12/16/18 08:17; Admin Dose 550 MG; Start 12/16/18 at 09:00 Senna (Senokot) 1 tab DAILY GTB Last administered on 12/16/18 08:18; Admin Dose 1 TAB; Start 12/16/18 at 09:00 Ondansetron HCl (Zofran Tab) 4 mg Q6H PRN GTB NAUSEA AND/OR VOMITING; Start 12/15/18 at 19:30 Metoclopramide HCl (Reglan Liq) 10 mg Q8 GTB Last administered on 12/16/18at 14:35; Admin Dose 10 MG; Start 12/15/18 at 22:00 VTE Prophylaxis Risk score (from [facility])>0 risk: 7 SCD applied (from [facility]): Yes Lines/Catheters IV Catheter Type: Saline Lock Central line still needed: No Smith in Place: No Assessment/Plan Assessment/Plan 1. ams/ multi tia s/ cerebellum synd--more bed bound 2. 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 copd--o2 nc dep 4. arrythemia/ htn/ pvd--cardiac meds & anticoag dep 5. dm/ neuropathy--insulin dep 6. ckd II/ anemia--condom cath dep, b12 icc im dep 7. hypothyroid ---pt requires diabetic formula because standard formula will spike blood sugar levels resulting in nausea/ fatigue etc, which will diminish patient's quality of life. ---per neuro ---per diatitian ---per pulm ---per GI ---per cards ---per endo ---cont all supportive cares ---inc tube feed vol ---prep to home by tomorrow (malika cota) VIRGINIA CA MD Dec 16, 2018 15:12
--- NOTE | 2018-12-16 15:13 | DS ---
Date/Time of Note Date/Time of Note DATE: 12/17/18 TIME: 10:12 Discharge Summary Admission/Discharge Info Admit Date/Time Dec 03, 2018 at 10:30 Discharge Date/Time 12/17/2018 Discharge Diagnosis 1. ams/ multi tia s/ cerebellum synd 2. age related weakness/ musc atrophy/ dysphagia 3. arrythemia/ htn/ pvd 4. copd 5. severe gerd geronimo after whipple's 6. dm/ neuropathy 7. anxiety 8. hypothyroid 9. ckd II/ anemia Patient Condition: Guarded Consults neuro, cards, pulm, endo, acute rehab, GI, dietitian Procedures many blood/ urine tests, brain ct & mri, kub, cxr, carotid a doppler Hx of Present Illness shaking, unsteady gait, sob, anorexia, unbalanced for 72hrs Hospital Course did not tolerate sz med, did not tolerate benzo/ benadryl/ psych meds, responded well heart rate controlling meds, & vss stable, po intake reduced/ PEG place well received/ tube feed well taken, insulin sq well received, ivf & iv atbx for uti well tolerated & resolved & afebrile, PT/ OT/ ST well received & responded well up to transfer & ADL, all nursing cares were given & pt stable, Home Meds Active Scripts Insulin Aspart* (Novolog Insulin Pen*) 100 Unit/Ml Soln, 0 UNIT SC Q6 for 30 Days Prov:VIRGINIA MORRIS MD 12/16/18 Metformin* (Glucophage*) 500 Mg Tab, 500 MG GTB WITH DINNER for 30 Days, TAB Prov:VIRGINIA MORRIS MD 12/16/18 Balsam Crystal/[place] Oil (Venelex Ointment) 60 Gm Oint..gm., 1 APPLIC TOP BID for 30 Days Prov:VIRGINIA MORRIS MD 12/16/18 Nystatin* (Nyamyc* Powder) 1 Applic Powder, 1 APPLIC TOP BID for 30 Days Prov:VIRGINIA MORRIS MD 12/16/18 Cholecalciferol (Vitamin D3) (VITAMIN D-3) 2,000 Unit Capsule, 2000 UNIT GTB DAILY for 30 Days, CAP Prov:VIRGINIA MORRIS MD 12/16/18 Levothyroxine Sodium* (Synthroid*) 137 Mcg Tablet, 137 MCG GTB DAILY@06 for 30 Days, TAB Prov:VIRGINIA MORRIS MD 12/16/18 Sennosides* (Senna Lax*) 8.6 Mg Tablet, 1 TAB GTB DAILY for 30 Days, TAB Prov:VIRGINIA MORRIS MD 12/16/18 Metoclopramide* (Reglan*) 10 Mg/10 Ml Soln, 10 MG GTB Q8 for 30 Days Prov:VIRGINIA MORRIS MD 12/16/18 Lansoprazole (Heartburn Treatment 24 Hour) 15 Mg Capsule., 15 MG GTB BID@,18 for 30 Days Prov:VIRGINIA MORRIS MD 12/16/18 Gfziyt-Rbhitrma-Ckkfnjf* (Creon DR* 24,000) 24,000 L-76,000-120,000 Unit Capsule., 1 CAP GTB WITH MEALS for 30 Days Prov:VIRGINIA MORRIS MD 12/16/18 Aspirin (Aspirin) 81 Mg Chew, 81 MG GTB DAILY for 30 Days, TAB Prov:VIRGINIA MORRIS MD 12/16/18 Metoprolol Tartrate* (Lopressor*) 25 Mg Tab, 25 MG GTB BID for 30 Days, TAB Prov:VIRGINIA MORRIS MD 12/16/18 Rifaximin* (Xifaxan*) 550 Mg Tablet, 550 MG GTB DAILY for 30 Days, TAB Prov:VIRGINIA MORRIS MD 12/16/18 Magnesium Hydroxide* (Fox' MOM*) 30 Ml Susp, 30 ML GTB DAILY PRN for constipation for 30 Days Prov:VIRGINIA MORRIS MD 12/16/18 Polyvinyl Alcohol* (Akwa Tears*) 1.4% - 15 Ml Drops, 2 DROP BOTH EYES QID for 14 Days, BOTTLE Prov:VIRGINIA MORRIS MD 11/30/18 Discontinued Reported Medications Rifaximin* (Xifaxan*) 550 Mg Tablet, 550 MG PO DAILY, TAB 11/26/18 Omeprazole* (Omeprazole*) 40 Mg Capsule.dr, 40 MG PO DAILY, #30 CAP 11/24/18 Ergocalciferol (Vitamin D2) (VITAMIN D2) 50,000 Unit Capsule, 32398 UNIT PO Q SUN, CAP 11/24/18 Discontinued Scripts Acetaminophen* (Tylenol*) 325 Mg Tablet, 650 MG PO Q6H PRN for MILD PAIN(1-3)OR ELEVATED TEMP for 14 Days, TAB Prov:VIRGINIA MORRIS MD 11/30/18 [Nursing Note] 1 EA EA No Conflict Check, 1 EA XX NOTE Prov:VIRGINIA MORRIS MD 11/30/18 Megestrol Acetate (Megestrol Acetate) 400 Mg/10 Ml Oral.susp, 400 MG PO DAILY for 14 Days Prov:VIRGINIA MORRIS MD 11/30/18 Metformin* (Glucophage* XR) 500 Mg Tab.sr.24h, 500 MG PO AC DINNER for 14 Days Prov:VIRGINIA MORRIS MD 11/30/18 Levothyroxine Sodium* (Levothyroxine Sodium*) 150 Mcg Tablet, 150 MCG PO BEFORE BREAKFAST for 14 Days, TAB Prov:VIRGINIA MORRIS MD 11/30/18 [Insulin Glargine] 100 UNITS/ML SOLN No Conflict Check, 15 UNITS SC DAILY Prov:VIRGINIA MORRIS MD 11/30/18 Insulin Aspart* (Novolog Insulin Pen*) 100 Unit/Ml Soln, 0 UNIT SC WITH MEALS BEDTIME for 14 Days Prov:VIRGINIA MORRIS MD 11/30/18 Glucagon HCl (Glucagon HCl) 1 Mg Vial, 1 MG IM Q15M PRN for DECREASED GLUCOSE for 14 Days, VIAL Prov:VIRGINIA MORRIS MD 11/30/18 Docusate Sodium* (Colace*) 100 Mg Capsule, 100 MG PO BID PRN for CONSTIPATION for 14 Days, CAP Prov:VIRGINIA MORRIS MD 11/30/18 Dextrose* (D50W Syringe*) 50 Ml Soln, 50 ML IV Q15M PRN for DECREASED GLUCOSE for 14 Days Prov:VIRGINIA MORRIS MD 11/30/18 Dextrose* (D50W Syringe*) 50 Ml Soln, 25 ML IV Q15M PRN for DECREASED GLUCOSE for 14 Days Prov:VIRGINIA MORRIS MD 11/30/18 Dextrose (Glutose 15) 37.5 Gm Gel..gm., 15 GM BUCCAL Q15M PRN for DECREASED GLUCOSE for 14 Days Prov:VIRGINIA MORRIS MD 11/30/18 Dextrose (Glutose 15) 37.5 Gm Gel..gm., 22.5 GM PO Q15M PRN for DECREASED GLUCOSE for 14 Days Prov:VIRGINIA MORIRS MD 11/30/18 Dextrose (Glutose 15) 37.5 Gm Gel..gm., 15 GM PO Q15M PRN for DECREASED GLUCOSE for 14 Days Prov:VIRGINIA MORRIS MD 11/30/18 [Accu-Chek] 1 EA EA No Conflict Check, 1 EA XX 02 Prov:VIRGINIA MORRIS MD 11/30/18 Risperidone* (Risperdal*) 0.25 Mg Tablet, 0.25 MG PO BID PRN for agitation for 14 Days, TAB Prov:VIRGINIA MORRIS MD 11/30/18 Gabapentin* (Gabapentin*) 100 Mg Capsule, 100 MG PO AM for 14 Days, CAP Prov:VIRGINIA MORRIS MD 11/30/18 Gabapentin* (Gabapentin*) 300 Mg Capsule, 300 MG PO HS for 14 Days, CAP Prov:VIRGINIA MORRIS MD 11/30/18 Metoprolol Tartrate* (Lopressor*) 25 Mg Tab, 25 MG PO BID for 14 Days, TAB Prov:VIRGINIA MORRIS MD 11/30/18 Benazepril Hcl* (Benazepril Hcl*) 10 Mg Tablet, 10 MG PO DAILY for 14 Days, TAB Prov:VIRGINIA MORRIS MD 11/30/18 Diphenhydramine Hcl* (Benadryl*) 25 Mg Cap, 25 MG PO HS PRN for insomnia for 15 Days, CAP Prov:VIRGINIA MORRIS MD 11/30/18 Enoxaparin Sodium* (Enoxaparin Sodium*) 30 Mg/0.3 Ml Syringe, 30 MG SC DAILY for 15 Days Prov:VIRGINIA MORRIS MD 11/30/18 Follow-up Plan PMD will visit pt in his house within 1week, [facility] nurse & PT will follow, 2 care givers/ day will be avail, PEG tube feed of diabeta @40cc/hr with 60cc free water qid will continue & then increase as tolerated, o2 2liter/ min will continue, Primary Care Provider Virginia Morris MD Time spent on discharge: > 30 minutes Pending Labs Laboratory Tests Test 12/15/18 17:15 12/15/18 18:04 12/15/18 18:05 12/15/18 23:49 Bedside 208 202 Glucose mg/dL (70-220) mg/dL (70-220) Sodium Level 133 mmol/L (135-14 4) Potassium 4.6 Level mmol/L (3.5-5. 1) Chloride Level 103 mmol/L (97-110 ) Carbon Dioxide 23 Level mmol/L (21-31) Anion Gap 7 (5-13) Blood Urea 28 Nitrogen mg/dl (7-20) Creatinine 1.19 mg/dl (0.61-1. 24) Est Glomerular mL/min (>60) Filtrat Rate mL/min Glucose Level 207 mg/dl (70-220) Calcium Level 8.4 mg/dl (8.4-10. 2) Magnesium 2.0 Level mg/dl (1.7-2.5 ) Ammonia 34 umol/l (9-30) B-Type 1220 Natriuretic PG/ML (0-450) Peptide Albumin 2.8 g/dl (3.3-4.9) Thyroid 3.750 Stimulating MIU/L (0.465-4 Hormone (TSH) .680) Free Thyroxine 0.96 ng/dl (0.85-1. 93) White Blood 7.7 Count 10^3/ul (4.8-1 0.8) Red Blood 3.39 Count 10^6/ul (4.70- 6.10) Hemoglobin 11.1 g/dl (14.0-18. 0) Hematocrit 31.9 % (42.0-52.0) Mean 94.1 Corpuscular fl (82.0-101.0 Volume ) Mean 32.7 Corpuscular pg (29.0-33.0) Hemoglobin Mean 34.8 Corpuscular g/dl (32.0-37. Hemoglobin Conc 0) ent Red Cell 16.5 Distribution % (11.5-14.5) Width Platelet Count 86 10^3/UL (140-4 15) Mean Platelet 10.0 Volume fl (7.4-10.4) Immature 0.500 Granulocytes % % (0.001-0.429 ) Neutrophils % 85.9 % (39.0-77.0) Lymphocytes % 5.3 % (15.0-51.0) Monocytes % 7.3 % (0.0-11.0) Eosinophils % 0.5 % (0.0-7.0) Basophils % 0.5 % (0.0-2.0) Nucleated Red 0.0 Blood Cells % /100WBC (0.0-0 .0) Immature 0.040 Granulocytes # 10^3/ul (0.0-0 .031) Neutrophils # 6.6 10^3/ul (1.6-7 .5) Lymphocytes # 0.4 10^3/ul (0.8-2 .9) Monocytes # 0.6 10^3/ul (0.3-0 .9) Eosinophils # 0.0 10^3/ul (0.0-0 .5) Basophils # 0.0 10^3/ul (0.0-0 .1) Nucleated Red 0.0 Blood Cells # 10^3/ul (0.0-0 .0) Test 12/16/18 05:42 12/16/18 07:22 12/16/18 11:52 Bedside 194 209 Glucose mg/dL (70-220) mg/dL (70-220) White Blood 4.8 Count 10^3/ul (4.8-1 0.8) Red Blood 3.39 Count 10^6/ul (4.70- 6.10) Hemoglobin 10.9 g/dl (14.0-18. 0) Hematocrit 30.8 % (42.0-52.0) Mean 90.9 Corpuscular fl (82.0-101.0 Volume ) Mean 32.2 Corpuscular pg (29.0-33.0) Hemoglobin Mean 35.4 Corpuscular g/dl (32.0-37. Hemoglobin Conc 0) ent Red Cell 16.5 Distribution % (11.5-14.5) Width Platelet Count 107 10^3/UL (140-4 15) Mean Platelet 10.7 Volume fl (7.4-10.4) Immature 0.400 Granulocytes % % (0.001-0.429 ) Neutrophils % 75.6 % (39.0-77.0) Lymphocytes % 9.4 % (15.0-51.0) Monocytes % 11.3 % (0.0-11.0) Eosinophils % 2.9 % (0.0-7.0) Basophils % 0.4 % (0.0-2.0) Nucleated Red 0.0 Blood Cells % /100WBC (0.0-0 .0) Immature 0.020 Granulocytes # 10^3/ul (0.0-0 .031) Neutrophils # 3.6 10^3/ul (1.6-7 .5) Lymphocytes # 0.5 10^3/ul (0.8-2 .9) Monocytes # 0.5 10^3/ul (0.3-0 .9) Eosinophils # 0.1 10^3/ul (0.0-0 .5) Basophils # 0.0 10^3/ul (0.0-0 .1) Nucleated Red 0.0 Blood Cells # 10^3/ul (0.0-0 .0) Sodium Level 135 mmol/L (135-14 4) Potassium 4.2 Level mmol/L (3.5-5. 1) Chloride Level 105 mmol/L (97-110 ) Carbon Dioxide 22 Level mmol/L (21-31) Anion Gap 8 (5-13) Blood Urea 33 Nitrogen mg/dl (7-20) Creatinine 1.12 mg/dl (0.61-1. 24) Est Glomerular mL/min (>60) Filtrat Rate mL/min Glucose Level 187 mg/dl (70-220) Calcium Level 8.4 mg/dl (8.4-10. 2) B-Type 1010 Natriuretic PG/ML (0-450) Peptide VIRGINIA MORRIS MD Dec 16, 2018 15:13
[2018-12-16] MEDS: metFORMIN 500 MG TAB GTB SCH (17:49)
[2018-12-17] MEDS: INSULIN ASPART [NOVOLOG] 3 ML PEN SC SCH ×4 (00:47→17:40)
[2018-12-17 04:00] VITALS: BP 117/52; PULSE 74; RESP 18
[2018-12-17] MEDS: METOCLOPRAMIDE (1 MG/ML) 10 ML CUP GTB SCH ×3 (05:58→22:11)
[2018-12-17] MEDS: LEVOTHYROXINE 137 MCG TAB GTB SCH (05:58)
[2018-12-17] MEDS: LANSOPRAZOLE 15 MG CAP GTB SCH ×2 (05:58→17:32)
[2018-12-17 07:17] VITALS: BP 102/50; PULSE 66; RESP 20
[2018-12-17] MEDS: METOPROLOL 25 MG TAB GTB SCH ×3 (08:38→22:13)
[2018-12-17] MEDS: BALSAM PERU/CASTOR OIL 60 GM TUBE TOP SCH ×2 (08:40→22:10)
[2018-12-17] MEDS: RIFAXIMIN 550 MG TAB GTB SCH (08:40)
[2018-12-17] MEDS: SENNA TAB GTB SCH (08:40)
[2018-12-17] MEDS: ASPIRIN 81 MG TAB GTB SCH (08:40)
[2018-12-17] MEDS: CREON (24K-76K-120K) 1 CAP GTB SCH ×3 (08:40→17:32)
[2018-12-17] MEDS: NYSTATIN 30 GM POWDER BTL TOP SCH ×2 (08:40→22:10)
[2018-12-17] MEDS: CHOLECALCIFEROL 2,000 UNIT CAP GTB SCH (08:40)
[2018-12-17] MEDS: DICLOFENAC SODIUM 1% GEL 100 GM TUBE TP SCH ×4 (11:13→22:11)
[2018-12-17 12:29] VITALS: BP 146/63; PULSE 84; RESP 22
--- NOTE | 2018-12-17 14:29 | CONS ---
Consult Date/Type/Reason Admit Date/Time Dec 03, 2018 at 10:30 Initial Consult Date Requesting Provider: VIRGINIA CA MD Date/Time of Note DATE: 12/17/18 TIME: 14:22 Subjective Pt looks worse - had episodes of NSVT last night -suspicious for aspiration - per family - bringing up food - will advise hold d/c now - give BB as scheduled and investigate for possible PNA - I spoke with PMD - will hold feeds now pending CXR - pmd will follow. ROS: No fever, no chills, no nausea, no vomiting, no diarrhea/constipation - per nurse. Pt looks worse - more congested. Objective Vitals Vital Signs Date Temp Pulse Resp B/P (MAP) Pulse Ox O2 O2 Flow FiO2 Time Delivery Rate 12/17/18 98.0 84 22 146/63 98 Nasal 12:29 (90) Cannula 12/17/18 2.0 08:05 Intake and Output 12/16/18 12/16/18 12/17/18 1515:00 23:00 07:00 IntakeIntake Total 520 ml 680 ml OutputOutput Total 600 ml 580 ml BalanceBalance -80 ml 100 ml Exam General: WN/WD/NAD, AOx 0 - more ill appearing HEENT: Unicetric/atraumatic/EOMI (does not follow commands) NECK: JVD elevated, no thyromegaly Lymph: no lymphadenopathy HEART: regular with no S3, II/ systolic murmur at apex - coarse throughout LUNGS: Coarse sounds ABD: soft, NT, ND, +BS - PEG : Intact Neuro: non focal SKIN: chronic changes EXT: trace edema Results/Medications Result Diagram: 12/16/18 0722 12/16/18 0722 Results 24 hrs Laboratory Tests Test 12/16/18 17:48 12/16/18 20:00 12/17/18 00:06 12/17/18 05:57 Bedside Glucose 228 H 220 230 H Urine Color TRICIA Urine Clarity CLEAR Urine pH 5.0 Urine Specific 1.015 [place] Urine Ketones NEGATIVE Urine Nitrite NEGATIVE Urine Bilirubin NEGATIVE Urine Urobilinogen 2+ H Urine Leukocyte TRACE A Esterase Urine Microscopic 2 RBC Urine Microscopic 7 H WBC Urine Hemoglobin NEGATIVE Urine Glucose NEGATIVE Urine Total Protein NEGATIVE Test 12/17/18 12:34 Bedside Glucose 257 H Home Meds Active Scripts Insulin Aspart* (Novolog Insulin Pen*) 100 Unit/Ml Soln, 0 UNIT SC Q6 for 30 Days Prov:VIRGINIA CA MD 12/16/18 Metformin* (Glucophage*) 500 Mg Tab, 500 MG GTB WITH DINNER for 30 Days, TAB Prov:VIRGINIA CA MD 12/16/18 Balsam Crystal/[place] Oil (Venelex Ointment) 60 Gm Oint..gm., 1 APPLIC TOP BID for 30 Days Prov:VIRGINIA CA MD 12/16/18 Nystatin* (Nyamyc* Powder) 1 Applic Powder, 1 APPLIC TOP BID for 30 Days Prov:VIRGINIA CA MD 12/16/18 Cholecalciferol (Vitamin D3) (VITAMIN D-3) 2,000 Unit Capsule, 2000 UNIT GTB DAILY for 30 Days, CAP Prov:VIRGINIA CA MD 12/16/18 Levothyroxine Sodium* (Synthroid*) 137 Mcg Tablet, 137 MCG GTB DAILY@06 for 30 Days, TAB Prov:VIRGINIA CA MD 12/16/18 Sennosides* (Senna Lax*) 8.6 Mg Tablet, 1 TAB GTB DAILY for 30 Days, TAB Prov:VIRGINIA CA MD 12/16/18 Metoclopramide* (Reglan*) 10 Mg/10 Ml Soln, 10 MG GTB Q8 for 30 Days Prov:VIRGINIA CA MD 12/16/18 Lansoprazole (Heartburn Treatment 24 Hour) 15 Mg Capsule.dr, 15 MG GTB BID@06,18 for 30 Days Prov:VIRGINIA CA MD 12/16/18 Ozmbsx-Wjjibbtl-Txupnog* (Creon DR* 24,000) 24,000 L-76,000-120,000 Unit Capsule.dr, 1 CAP GTB WITH MEALS for 30 Days Prov:VIRGINIA CA MD 12/16/18 Aspirin (Aspirin) 81 Mg Chew, 81 MG GTB DAILY for 30 Days, TAB Prov:VIRGINIA CA MD 12/16/18 Metoprolol Tartrate* (Lopressor*) 25 Mg Tab, 25 MG GTB BID for 30 Days, TAB Prov:VIRGINIA CA MD 12/16/18 Rifaximin* (Xifaxan*) 550 Mg Tablet, 550 MG GTB DAILY for 30 Days, TAB Prov:VIRGINIA CA MD 12/16/18 Magnesium Hydroxide* (Fox' MOM*) 30 Ml Susp, 30 ML GTB DAILY PRN for constipation for 30 Days Prov:VIRGINIA CA MD 12/16/18 Polyvinyl Alcohol* (Akwa Tears*) 1.4% - 15 Ml Drops, 2 DROP BOTH EYES QID for 14 Days, BOTTLE Prov:VIRGINIA CA MD 11/30/18 Discontinued Reported Medications Rifaximin* (Xifaxan*) 550 Mg Tablet, 550 MG PO DAILY, TAB 11/26/18 Omeprazole* (Omeprazole*) 40 Mg Capsule.dr, 40 MG PO DAILY, #30 CAP 11/24/18 Ergocalciferol (Vitamin D2) (VITAMIN D2) 50,000 Unit Capsule, 49459 UNIT PO Q SUN, CAP 11/24/18 Discontinued Scripts Acetaminophen* (Tylenol*) 325 Mg Tablet, 650 MG PO Q6H PRN for MILD PAIN(1-3)OR ELEVATED TEMP for 14 Days, TAB Prov:VIRGINIA CA MD 11/30/18 [Nursing Note] 1 EA EA No Conflict Check, 1 EA XX NOTE Prov:VIRGINIA CA MD 11/30/18 Megestrol Acetate (Megestrol Acetate) 400 Mg/10 Ml Oral.susp, 400 MG PO DAILY for 14 Days Prov:VIRGINIA CA MD 11/30/18 Metformin* (Glucophage* XR) 500 Mg Tab.sr.24h, 500 MG PO AC DINNER for 14 Days Prov:VIRGINIA CA MD 11/30/18 Levothyroxine Sodium* (Levothyroxine Sodium*) 150 Mcg Tablet, 150 MCG PO BEFORE BREAKFAST for 14 Days, TAB Prov:VIRGINIA CA MD 11/30/18 [Insulin Glargine] 100 UNITS/ML SOLN No Conflict Check, 15 UNITS SC DAILY Prov:VIRGINIA CA MD 11/30/18 Insulin Aspart* (Novolog Insulin Pen*) 100 Unit/Ml Soln, 0 UNIT SC WITH MEALS BEDTIME for 14 Days Prov:VIRGINIA CA MD 11/30/18 Glucagon HCl (Glucagon HCl) 1 Mg Vial, 1 MG IM Q15M PRN for DECREASED GLUCOSE for 14 Days, VIAL Prov:VIRGINIA CA MD 11/30/18 Docusate Sodium* (Colace*) 100 Mg Capsule, 100 MG PO BID PRN for CONSTIPATION for 14 Days, CAP Prov:VIRGINIA CA MD 11/30/18 Dextrose* (D50W Syringe*) 50 Ml Soln, 50 ML IV Q15M PRN for DECREASED GLUCOSE for 14 Days Prov:VIRGINIA CA MD 11/30/18 Dextrose* (D50W Syringe*) 50 Ml Soln, 25 ML IV Q15M PRN for DECREASED GLUCOSE for 14 Days Prov:VIRGINIA CA MD 11/30/18 Dextrose (Glutose 15) 37.5 Gm Gel..gm., 15 GM BUCCAL Q15M PRN for DECREASED GLUCOSE for 14 Days Prov:VIRGINIA CA MD 11/30/18 Dextrose (Glutose 15) 37.5 Gm Gel..gm., 22.5 GM PO Q15M PRN for DECREASED GLUCOSE for 14 Days Prov:VIRGINIA CA MD 11/30/18 Dextrose (Glutose 15) 37.5 Gm Gel..gm., 15 GM PO Q15M PRN for DECREASED GLUCOSE for 14 Days Prov:VIRGINIA CA MD 11/30/18 [Accu-Chek] 1 EA EA No Conflict Check, 1 EA XX 02 Prov:VIRGINIA CA MD 11/30/18 Risperidone* (Risperdal*) 0.25 Mg Tablet, 0.25 MG PO BID PRN for agitation for 14 Days, TAB Prov:VIRGINIA CA MD 11/30/18 Gabapentin* (Gabapentin*) 100 Mg Capsule, 100 MG PO AM for 14 Days, CAP Prov:VIRGINIA CA MD 11/30/18 Gabapentin* (Gabapentin*) 300 Mg Capsule, 300 MG PO HS for 14 Days, CAP Prov:VIRGINIA CA MD 11/30/18 Metoprolol Tartrate* (Lopressor*) 25 Mg Tab, 25 MG PO BID for 14 Days, TAB Prov:VIRGINIA CA MD 11/30/18 Benazepril Hcl* (Benazepril Hcl*) 10 Mg Tablet, 10 MG PO DAILY for 14 Days, TAB Prov:VIRGINIA CA MD 11/30/18 Diphenhydramine Hcl* (Benadryl*) 25 Mg Cap, 25 MG PO HS PRN for insomnia for 15 Days, CAP Prov:VIRGINIA CA MD 11/30/18 Enoxaparin Sodium* (Enoxaparin Sodium*) 30 Mg/0.3 Ml Syringe, 30 MG SC DAILY for 15 Days Prov:VIRGINIA CA MD 11/30/18 Medications Current Medications Miscellaneous Information 1 ea NOTE XX ; Start 12/03/18 at 13:00 Glucose (Glutose) 15 gm Q15M PRN PO DECREASED GLUCOSE; Start 12/03/18 at 13:00 Glucose (Glutose) 22.5 gm Q15M PRN PO DECREASED GLUCOSE; Start 12/03/18 at 13:00 Dextrose (D50w Syringe) 25 ml Q15M PRN IV DECREASED GLUCOSE; Start 12/03/18 at 13:00 Dextrose (D50w Syringe) 50 ml Q15M PRN IV DECREASED GLUCOSE; Start 12/03/18 at 13:00 Glucagon (Glucagen) 1 mg Q15M PRN IM DECREASED GLUCOSE; Start 12/03/18 at 13:00 Glucose (Glutose) 15 gm Q15M PRN BUCCAL DECREASED GLUCOSE; Start 12/03/18 at 13:00 Diclofenac Sodium (Voltaren 1% Gel) 2 gm QID TP Last administered on 12/17/18at 13:31; Admin Dose 2 GM; Start 12/05/18 at 14:00 Eye Lubricant (Artificial Tears Oph) 2 drop Q2H PRN BOTH EYES DRY EYES Last administered on 12/12/18at 09:09; Admin Dose 2 DROP; Start 12/06/18 at 22:00 Insulin Glargine (Lantus) 6 units DAILY@0800 SC ; Start 12/09/18 at 08:00; Status Hold Metoprolol Tartrate (Lopressor) 5 mg Q4H PRN IV HR>110 or significant PVC's; Start 12/09/18 at 13:00 Nystatin (Nystatin Powder) 1 applic BID TOP Last administered on 12/17/18at 08: 40; Admin Dose 1 APPLIC; Start 12/13/18 at 15:00 Insulin Aspart (Novolog Insulin Pen) NOVOLOG *MILD* ALGORI... Q6 SC Last administered on 12/17/18at 12:41; Admin Dose 3 UNIT; Start 12/15/18 at 12:00 Aspirin (Aspirin) 81 mg DAILY GTB Last administered on 12/17/18 08:40; Admin Dose 81 MG; Start 12/16/18 at 09:00 Cholecalciferol (Vitamin D) 2,000 unit DAILY GTB Last administered on 12/17/18 08:40; Admin Dose 2,000 UNIT; Start 12/16/18 at 09:00 Amylase/Lipase/ Protease (Creon ([id number])) 1 cap WITH MEALS GTB Last administered on 12/17/18 12:35; Admin Dose 1 CAP; Start 12/16/18 at 07:55 Lansoprazole (Prevacid) 15 mg BID@,18 GTB Last administered on 12/17/18 05:58; Admin Dose 15 MG; Start 12/16/18 at 06:00 Levothyroxine Sodium (Synthroid) 137 mcg DAILY@06 GTB Last administered on 12/17/18 05:58; Admin Dose 137 MCG; Start 12/16/18 at 06:00 Magnesium Hydroxide (Milk Of Mag) 30 ml DAILY PRN GTB constipation; Start 12/15/18 at 19:30 Metformin HCl (Glucophage) 500 mg WITH DINNER GTB Last administered on 12/16/18 17:49; Admin Dose 500 MG; Start 12/16/18 at 17:55 Metoprolol Tartrate (Lopressor) 25 mg BID GTB Last administered on 12/17/18 12:35; Admin Dose 25 MG; Start 12/15/18 at 21:00 Rifaximin (Xifaxan) 550 mg DAILY GTB Last administered on 12/17/18 08:40; Admin Dose 550 MG; Start 12/16/18 at 09:00 Senna (Senokot) 1 tab DAILY GTB Last administered on 12/17/18 08:40; Admin Dose 1 TAB; Start 12/16/18 at 09:00 Ondansetron HCl (Zofran Tab) 4 mg Q6H PRN GTB NAUSEA AND/OR VOMITING; Start 12/15/18 at 19:30 Metoclopramide HCl (Reglan Liq) 10 mg Q8 GTB Last administered on 12/17/18 05:58; Admin Dose 10 MG; Start 12/15/18 at 22:00 Assessment/Plan Hospital Course (Demo Recall) 1. Wide complex tachycardia-suppreseed for most part on low dose BB as tolerated. Had an episode which looked more like abberrant AF when first admittedNL EF by echo this index admission - in sinus now. Pt somewhat bready, but BP stable and overall, poor functional capacity - he dies not have Class I indication for pacer now and I think given overall state of health, medical Rx is reasonable. Now HR stable - no pauses noted. Now PVCs - conservative rx advised. NO pacer planned now. Rate controlled - con;t to follow. NOw with recurrent NSVT - donot hold BB- will follow. 2. Intermittent bigeminy and generalized wide complex rhythms-generally lebron ppressed on low dose of BB. Sinus now, rare controlled. 3. Hypertension-reasonable control on monotherapy with BB with ACEI held in the setting of renal failure - improved with RX. TREATED. 4. Episodes of nausea and vomiting- consider PEG - family tentatively agreed. NOw with possible aspiation - hold feeds and check CXR. 5. Gait instability with signs of hygroma-had been in PT but transferred back to med-surg for AMS. Was initially followed by neurology - defer to neuro team. Unchanged. 6. Diabetes mellitus, status post pancreatectomy, stable now. On meds. 7. Hypothyroidism. 8. Pancytopenia with more pronounced leukopenia and thrombocytopenia. 9. Bradycardia-stable now to 40's at times by vital sign assessment with stable BP. NL TSH with actually mildly elevated Free T4 - clinical follow up expected now. NO plan for pacer now. 10.Urinary retention s/p Smith placement - urology follow. RYLEE PITT MD Dec 17, 2018 14:29
[2018-12-17 14:59] VITALS: BP 92/51; PULSE 61; RESP 20
--- NOTE | 2018-12-17 17:30 | PN ---
Date/Time of Note Date/Time of Note DATE: 12/17/18 TIME: 17:18 Assessment/Plan VTE Prophylaxis [place] [facility] [place]: 7 SCD applied [place] [facility] [place] Yes Pharmacological prophylaxis: NA/contraindicated Pharm contraindication: surgical contra (s/p recent G tube placement) Lines/Catheters IV Catheter Type (from [facility]): Peripheral IV Urinary Cath still in place: No Assessment/Plan Problems: (1) Ventricular tachycardia (paroxysmal) Status: Acute Comment: maybe be due to rebound tachycardia and hypertension when metoprolol was held this am. Rate and rhythm better controlled now but low bp may be contributing to patient's altered mental status. Will check with cardiology to see if there is an antiarrhythmic meds that does not drop his bp . (2) Encephalopathy Status: Acute Comment: Worsened mental status since yesterday . Recheck chest xrays, labs and start gentle hydration since patient appears to not tolerate feedings well with recent vomitting of large amount of feedings. 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 Surgery not indicated. Not safe for ambulation or p hysical therapy. Family declines seizure meds. (4) Vomiting Status: Acute Comment: Appears to be not tolerating G tube feedings . Hold feedings for now, will resume when mental status improves. Start gentle hydration IV. Check a mylase/lipase. Start PPI. (5) G tube feedings Status: Acute Comment: Patient does not seem to be able to tolerate feedings at this time. 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 (6) Hypothyroidism Status: Chronic (7) Diabetes mellitus type 2 in nonobese Onset Date: ~ 11/2003 Status: Chronic Comment: Continue basalglar. Hold metformin that was just started recently due to poor oral / swallowing ability. 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 Result Diagram: 12/16/18 0722 12/17/18 1318 Results 24hrs Laboratory Tests Test 12/16/18 17:48 12/16/18 20:00 12/17/18 00:06 12/17/18 05:57 Bedside Glucose 228 H 220 230 H Urine Color TRICIA Urine Clarity CLEAR Urine pH 5.0 Urine Specific 1.015 [place] Urine Ketones NEGATIVE Urine Nitrite NEGATIVE Urine Bilirubin NEGATIVE Urine Urobilinogen 2+ H Urine Leukocyte TRACE A Esterase Urine Microscopic 2 RBC Urine Microscopic 7 H WBC Urine Hemoglobin NEGATIVE Urine Glucose NEGATIVE Urine Total Protein NEGATIVE Test 12/17/18 12:34 12/17/18 13:18 Bedside Glucose 257 H Sodium Level 136 Potassium Level 4.6 Chloride Level 101 Carbon Dioxide Level 25 Anion Gap 10 Blood Urea Nitrogen 31 H Creatinine 1.10 Est Glomerular Filtrat Rate mL/min Glucose Level 245 H Calcium Level 9.0 Subjective 24 Hr Interval Summary Free Text/Dictation Patient had worsening of mental status since yesterday per family, now poorly responsive. Vomited this pm requiring holding of G tube feedings. Exam/Review of Systems Exam Vitals Vital Signs Date Temp Pulse Resp B/P (MAP) Pulse Ox O2 O2 Flow FiO2 Time Delivery Rate 12/17/18 97.5 61 20 92/51 (65) 99 Nasal 14:59 Cannula 12/17/18 2.0 08:05 Intake and Output 12/16/18 12/16/18 12/17/18 1515:00 23:00 07:00 IntakeIntake Total 520 ml 680 ml OutputOutput Total 600 ml 580 ml BalanceBalance -80 ml 100 ml Exam Patient is obtunded, nonresponsive to calls and touch. Had episode of nonsustained v. tach this pm when metoprolol held this am for low bp. Head: normocephalic, atraumatic Eyes: PERRL Respiratory: clear to auscultation Cardiovascular: regular rate and rhythm Gastrointestinal: soft, other (G tube site clean and dry) Musculoskeletal: nl extremities to inspection Extremities: normal pulses Neurological: unresponsive Results Results 24hrs Laboratory Tests Test 12/16/18 17:48 12/16/18 20:00 12/17/18 00:06 12/17/18 05:57 Bedside Glucose 228 H 220 230 H Urine Color TRICIA Urine Clarity CLEAR Urine pH 5.0 Urine Specific 1.015 [place] Urine Ketones NEGATIVE Urine Nitrite NEGATIVE Urine Bilirubin NEGATIVE Urine Urobilinogen 2+ H Urine Leukocyte TRACE A Esterase Urine Microscopic 2 RBC Urine Microscopic 7 H WBC Urine Hemoglobin NEGATIVE Urine Glucose NEGATIVE Urine Total Protein NEGATIVE Test 12/17/18 12:34 12/17/18 13:18 Bedside Glucose 257 H Sodium Level 136 Potassium Level 4.6 Chloride Level 101 Carbon Dioxide Level 25 Anion Gap 10 Blood Urea Nitrogen 31 H Creatinine 1.10 Est Glomerular Filtrat Rate mL/min Glucose Level 245 H Calcium Level 9.0 Medications Medication Current Medications Miscellaneous Information 1 ea NOTE XX ; Start 12/03/18 at 13:00 Glucose (Glutose) 15 gm Q15M PRN PO DECREASED GLUCOSE; Start 12/03/18 at 13:00 Glucose (Glutose) 22.5 gm Q15M PRN PO DECREASED GLUCOSE; Start 12/03/18 at 13:00 Dextrose (D50w Syringe) 25 ml Q15M PRN IV DECREASED GLUCOSE; Start 12/03/18 at 13:00 Dextrose (D50w Syringe) 50 ml Q15M PRN IV DECREASED GLUCOSE; Start 12/03/18 at 13:00 Glucagon (Glucagen) 1 mg Q15M PRN IM DECREASED GLUCOSE; Start 12/03/18 at 13:00 Glucose (Glutose) 15 gm Q15M PRN BUCCAL DECREASED GLUCOSE; Start 12/03/18 at 13:00 Diclofenac Sodium (Voltaren 1% Gel) 2 gm QID TP Last administered on 12/17/18at 13:31; Admin Dose 2 GM; Start 12/05/18 at 14:00 Eye Lubricant (Artificial Tears Oph) 2 drop Q2H PRN BOTH EYES DRY EYES Last administered on 12/12/18at 09:09; Admin Dose 2 DROP; Start 12/06/18 at 22:00 Insulin Glargine (Lantus) 6 units DAILY@0800 SC ; Start 12/09/18 at 08:00; Status Hold Metoprolol Tartrate (Lopressor) 5 mg Q4H PRN IV HR>110 or significant PVC's; Start 12/09/18 at 13:00 Nystatin (Nystatin Powder) 1 applic BID TOP Last administered on 12/17/18at 08: 40; Admin Dose 1 APPLIC; Start 12/13/18 at 15:00 Insulin Aspart (Novolog Insulin Pen) NOVOLOG *MILD* ALGORI... Q6 SC Last administered on 12/17/18at 12:41; Admin Dose 3 UNIT; Start 12/15/18 at 12:00 Aspirin (Aspirin) 81 mg DAILY GTB Last administered on 12/17/18at 08:40; Admin Dose 81 MG; Start 12/16/18 at 09:00 Cholecalciferol (Vitamin D) 2,000 unit DAILY GTB Last administered on 12/17/18 08:40; Admin Dose 2,000 UNIT; Start 12/16/18 at 09:00 Amylase/Lipase/ Protease (Creon ([id number])) 1 cap WITH MEALS GTB Last administered on 12/17/18 12:35; Admin Dose 1 CAP; Start 12/16/18 at 07:55 Lansoprazole (Prevacid) 15 mg BID@06,18 GTB Last administered on 12/17/18 05:58; Admin Dose 15 MG; Start 12/16/18 at 06:00 Levothyroxine Sodium (Synthroid) 137 mcg DAILY@06 GTB Last administered on 12/17/18 05:58; Admin Dose 137 MCG; Start 12/16/18 at 06:00 Magnesium Hydroxide (Milk Of Mag) 30 ml DAILY PRN GTB constipation; Start 12/15/18 at 19:30 Metformin HCl (Glucophage) 500 mg WITH DINNER GTB Last administered on 12/16/18 17:49; Admin Dose 500 MG; Start 12/16/18 at 17:55 Metoprolol Tartrate (Lopressor) 25 mg BID GTB Last administered on 12/17/18 12:35; Admin Dose 25 MG; Start 12/15/18 at 21:00 Rifaximin (Xifaxan) 550 mg DAILY GTB Last administered on 12/17/18 08:40; Admin Dose 550 MG; Start 12/16/18 at 09:00 Senna (Senokot) 1 tab DAILY GTB Last administered on 12/17/18 08:40; Admin Dose 1 TAB; Start 12/16/18 at 09:00 Ondansetron HCl (Zofran Tab) 4 mg Q6H PRN GTB NAUSEA AND/OR VOMITING; Start 12/15/18 at 19:30 Metoclopramide HCl (Reglan Liq) 10 mg Q8 GTB Last administered on 12/17/18 16:02; Admin Dose 10 MG; Start 12/15/18 at 22:00 JULIENNE MANTILLA MD Dec 17, 2018 17:30
[2018-12-17] MEDS: metFORMIN 500 MG TAB GTB SCH (17:32)
[2018-12-17 19:47] VITALS: BP 120/60; PULSE 63; RESP 19
[2018-12-17] MEDS ORDERED: D5-NS + KCL 20 MEQ 1,000 ML IV SCH (20:30)
[2018-12-17] MEDS ORDERED: SOD CHLORIDE 0.9% 500 ML IV ONE (23:00)
[2018-12-17] MEDS ORDERED: LACTULOSE 30ML CUP GTB PRN (23:30)
[2018-12-17] MEDS: LACTULOSE 30ML CUP GTB SCH (23:56)
[2018-12-18] MEDS ORDERED: LACTULOSE 30ML CUP GTB PRN
[2018-12-18] MEDS: INSULIN ASPART [NOVOLOG] 3 ML PEN SC SCH ×4 (00:16→18:30)
[2018-12-18 00:29] VITALS: BP 163/61; PULSE 72; RESP 21
[2018-12-18 04:06] VITALS: BP 153/64; PULSE 66; RESP 20
[2018-12-18] MEDS: LANSOPRAZOLE 15 MG CAP GTB SCH ×2 (05:28→18:15)
[2018-12-18] MEDS: LEVOTHYROXINE 137 MCG TAB GTB SCH (05:28)
[2018-12-18] MEDS: SENNA TAB GTB SCH (08:12)
[2018-12-18] MEDS: ASPIRIN 81 MG TAB GTB SCH (08:12)
[2018-12-18] MEDS: CREON (24K-76K-120K) 1 CAP GTB SCH ×3 (08:12→17:55)
[2018-12-18] MEDS: LACTULOSE 30ML CUP GTB SCH (08:12)
[2018-12-18] MEDS: METOPROLOL 25 MG TAB GTB SCH ×2 (08:12→21:00)
[2018-12-18] MEDS: RIFAXIMIN 550 MG TAB GTB SCH (08:13)
[2018-12-18] MEDS: BALSAM PERU/CASTOR OIL 60 GM TUBE TOP SCH ×2 (08:13→21:59)
[2018-12-18] MEDS: NYSTATIN 30 GM POWDER BTL TOP SCH ×2 (08:13→21:59)
[2018-12-18] MEDS: DICLOFENAC SODIUM 1% GEL 100 GM TUBE TP SCH ×4 (08:13→21:59)
[2018-12-18 08:14] VITALS: BP 142/73; PULSE 80; RESP 18
[2018-12-18] MEDS ORDERED: METHYLPREDNISOLONE 125 MG INJ IV ONE (10:00)
[2018-12-18] MEDS ORDERED: FUROSEMIDE 40 MG INJ IV ONE (10:00)
[2018-12-18] MEDS: LEVALBUTEROL (NEB) 1.25 MG/0.5 ML AMP HHN PRN ×2 (10:23→13:29)
[2018-12-18] MEDS ORDERED: LEVOFLOXACIN 750MG/D5W (PMX) 150 ML IVPB SCH (12:30)
[2018-12-18 12:41] VITALS: BP 137/75; PULSE 79; RESP 18
[2018-12-18] MEDS ORDERED: LEVOFLOXACIN 500MG/D5W (PMX) 100 ML IVPB SCH (13:00)
--- NOTE | 2018-12-18 13:52 | CONS ---
Consult Date/Type/Reason Admit Date/Time Dec 03, 2018 at 10:30 Initial Consult Date Requesting Provider: VIRGINIA CA MD Date/Time of Note DATE: 12/18/18 TIME: 13:50 Subjective Pt looks worse - labored Rx - family gearing toward palliative care - DNR now - pain Rx as needed. ROS: No fever, no chills, no nausea, no vomiting, no diarrhea/constipation - + SOB, per nurse Objective Vitals Vital Signs Date Temp Pulse Resp B/P (MAP) Pulse Ox O2 O2 Flow FiO2 Time Delivery Rate 12/18/18 94 15.0 13:30 12/18/18 63 24 Non 13:30 Rebreather Mask 12/18/18 98.0 137/75 12:41 (95) Intake and Output 12/17/18 12/17/18 12/18/18 1515:00 23:00 07:00 IntakeIntake Total 980 ml BalanceBalance 980 ml Exam General: WN/WD/NAD, AOx 0 labored breathing HEENT: Unicetric/atraumatic/EOMI (does not follow commands) NECK: JVD elevated, no thyromegaly Lymph: no lymphadenopathy HEART: regular with no S3, II/ systolic murmur at apex LUNGS: Coarse sounds ABD: soft, NT, ND, +BS - NGT : Intact Neuro: non focal SKIN: chronic changes EXT: trace edema Results/Medications Result Diagram: 12/18/18 0602 12/18/18 0602 Results 24 hrs Laboratory Tests Test 12/17/18 17:39 12/17/18 22:11 12/17/18 22:12 12/17/18 23:50 Bedside Glucose 227 H 251 H Ammonia 213 #H Troponin I < 0.012 Amylase Level < 30 Lipase 33 Test 12/18/18 05:30 12/18/18 05:58 12/18/18 06:02 12/18/18 09:57 Bedside Glucose 161 Hemoglobin A1c 5.9 White Blood Count 8.2 # Red Blood Count 4.01 L Hemoglobin 12.8 L Hematocrit 36.1 L Mean Corpuscular 90.0 Volume Mean Corpuscular 31.9 Hemoglobin Mean Corpuscular 35.5 Hemoglobin Concen t Red Cell 16.6 H Distribution Width Platelet Count 170 # Mean Platelet 9.8 Volume Immature 0.200 Granulocytes % Neutrophils % Segmented 51 Neutrophils % (Manual) Band Neutrophils 43 H % (Manual) Lymphocytes % Lymphocytes % 2 L (Manual) Monocytes % Monocytes % 4 (Manual) Eosinophils % Basophils % Nucleated Red 0.0 Blood Cells % Immature 0.020 Granulocytes # Neutrophils # Neutrophils # 4.5 (Manual) Band Neutrophils 3.5 H # Lymphocytes 0.1 L (Manual) Lymphocytes # Monocytes # Monocytes # 0.3 (Manual) Eosinophils # Basophils # Nucleated Red Blood Cells # Toxic Granulation 1+ Platelet Estimate NORMAL Giant Platelets 2 H Polychromasia 2+ Poikilocytosis 1+ Anisocytosis 2+ Microcytosis 1+ Ovalocytes 1+ Erythrocyte 39 H Sedimentation Rate Sodium Level 140 Potassium Level 4.9 Chloride Level 105 Carbon Dioxide 20 L Level Anion Gap 15 H Blood Urea 31 H Nitrogen Creatinine 1.09 Est Glomerular Filtrat Rate mL/min Glucose Level 173 Calcium Level 9.0 Magnesium Level 2.0 Total Bilirubin 2.9 H Direct Bilirubin 0.20 Indirect 2.7 H Bilirubin Aspartate Amino 59 H Transf (AST/SGOT) Alanine 42 Aminotransferase (ALT/SGPT) Alkaline 202 H Phosphatase Ammonia 167 H Troponin I 0.013 B-Type 1520 H Natriuretic Peptide Total Protein 5.9 L Albumin 3.1 L Globulin 2.80 Albumin/Globulin 1.10 Ratio Prealbumin 7.4 L Procalcitonin 1.06 H Thyroid 7.210 H Stimulating Hormone (TSH) Blood Gas Blood arterial Specimen Source Arterial Blood 12/18/2018 10:30: Date Drawn 52 AM Arterial Blood pH 7.314 L (Temp corrected) Arterial Blood 36.5 pCO2 (Temp correct) Arterial Blood 126.3 H pO2 (Temp corrected) Arterial Blood 18.1 L HCO3 Arterial Blood -7.3 L Base Excess Arterial Blood 97.5 Oxygen Saturation Pj Test ACCEPTAB Arterial Blood Left Radial Gas Puncture Site Arterial 0.4 Blood Carboxyhemo globin Arterial Blood 0.2 Methemoglobin Blood Gas A-a O2 550.2 H Differential Oxyhemoglobin 96.9 Percent Blood Gas 37.0 Temperature Blood Gas MASK - NRB Modality FiO2 100.0 Blood Gas DT Notified Whom Blood Gas 12/18/2018 10:41: Notified Time 32 AM Test 12/18/18 12:23 Bedside Glucose 193 Home Meds Active Scripts Insulin Aspart* (Novolog Insulin Pen*) 100 Unit/Ml Soln, 0 UNIT SC Q6 for 30 Days Prov:VIRGINIA CA MD 12/16/18 Metformin* (Glucophage*) 500 Mg Tab, 500 MG GTB WITH DINNER for 30 Days, TAB Prov:VIRGINIA CA MD 12/16/18 Balsam Gabriels/[place] Oil (Venelex Ointment) 60 Gm Oint..gm., 1 APPLIC TOP BID for 30 Days Prov:VIRGINIA CA MD 12/16/18 Nystatin* (Nyamyc* Powder) 1 Applic Powder, 1 APPLIC TOP BID for 30 Days Prov:VIRGINIA CA MD 12/16/18 Cholecalciferol (Vitamin D3) (VITAMIN D-3) 2,000 Unit Capsule, 2000 UNIT GTB DAILY for 30 Days, CAP Prov:VIRGINIA CA MD 12/16/18 Levothyroxine Sodium* (Synthroid*) 137 Mcg Tablet, 137 MCG GTB DAILY@06 for 30 Days, TAB Prov:VIRGINIA CA MD 12/16/18 Sennosides* (Senna Lax*) 8.6 Mg Tablet, 1 TAB GTB DAILY for 30 Days, TAB Prov:VIRGINIA CA MD 12/16/18 Metoclopramide* (Reglan*) 10 Mg/10 Ml Soln, 10 MG GTB Q8 for 30 Days Prov:VIRGINIA CA MD 12/16/18 Lansoprazole (Heartburn Treatment 24 Hour) 15 Mg Capsule.dr, 15 MG GTB BID@06,18 for 30 Days Prov:VIRGINIA CA MD 12/16/18 Jcpwph-Jrrivtbw-Uoydymo* (Creon DR* 24,000) 24,000 L-76,000-120,000 Unit Capsule., 1 CAP GTB WITH MEALS for 30 Days Prov:VIRGINIA CA MD 12/16/18 Aspirin (Aspirin) 81 Mg Chew, 81 MG GTB DAILY for 30 Days, TAB Prov:VIRGINIA CA MD 12/16/18 Metoprolol Tartrate* (Lopressor*) 25 Mg Tab, 25 MG GTB BID for 30 Days, TAB Prov:VIRGINIA CA MD 12/16/18 Rifaximin* (Xifaxan*) 550 Mg Tablet, 550 MG GTB DAILY for 30 Days, TAB Prov:VIRGINIA CA MD 12/16/18 Magnesium Hydroxide* (Fox' MOM*) 30 Ml Susp, 30 ML GTB DAILY PRN for constipation for 30 Days Prov:VIRGINIA CA MD 12/16/18 Polyvinyl Alcohol* (Akwa Tears*) 1.4% - 15 Ml Drops, 2 DROP BOTH EYES QID for 14 Days, BOTTLE Prov:VIRGINIA CA MD 11/30/18 Discontinued Reported Medications Rifaximin* (Xifaxan*) 550 Mg Tablet, 550 MG PO DAILY, TAB 11/26/18 Omeprazole* (Omeprazole*) 40 Mg Capsule.dr, 40 MG PO DAILY, #30 CAP 11/24/18 Ergocalciferol (Vitamin D2) (VITAMIN D2) 50,000 Unit Capsule, 78043 UNIT PO Q SUN, CAP 11/24/18 Discontinued Scripts Acetaminophen* (Tylenol*) 325 Mg Tablet, 650 MG PO Q6H PRN for MILD PAIN(1-3)OR ELEVATED TEMP for 14 Days, TAB Prov:VIRGINIA CA MD 11/30/18 [Nursing Note] 1 EA EA No Conflict Check, 1 EA XX NOTE Prov:VIRGINIA CA MD 11/30/18 Megestrol Acetate (Megestrol Acetate) 400 Mg/10 Ml Oral.susp, 400 MG PO DAILY for 14 Days Prov:VIRGINIA CA MD 11/30/18 Metformin* (Glucophage* XR) 500 Mg Tab.sr.24h, 500 MG PO AC DINNER for 14 Days Prov:VIRGINIA CA MD 11/30/18 Levothyroxine Sodium* (Levothyroxine Sodium*) 150 Mcg Tablet, 150 MCG PO BEFORE BREAKFAST for 14 Days, TAB Prov:VIRGINIA CA MD 11/30/18 [Insulin Glargine] 100 UNITS/ML SOLN No Conflict Check, 15 UNITS SC DAILY Prov:VIRGINIA CA MD 11/30/18 Insulin Aspart* (Novolog Insulin Pen*) 100 Unit/Ml Soln, 0 UNIT SC WITH MEALS BEDTIME for 14 Days Prov:VIRGINIA CA MD 11/30/18 Glucagon HCl (Glucagon HCl) 1 Mg Vial, 1 MG IM Q15M PRN for DECREASED GLUCOSE for 14 Days, VIAL Prov:VIRGINIA CA MD 11/30/18 Docusate Sodium* (Colace*) 100 Mg Capsule, 100 MG PO BID PRN for CONSTIPATION f or 14 Days, CAP Prov:VIRGINIA CA MD 11/30/18 Dextrose* (D50W Syringe*) 50 Ml Soln, 50 ML IV Q15M PRN for DECREASED GLUCOSE for 14 Days Prov:VIRGINIA CA MD 11/30/18 Dextrose* (D50W Syringe*) 50 Ml Soln, 25 ML IV Q15M PRN for DECREASED GLUCOSE for 14 Days Prov:VIRGINIA CA MD 11/30/18 Dextrose (Glutose 15) 37.5 Gm Gel..gm., 15 GM BUCCAL Q15M PRN for DECREASED GLUCOSE for 14 Days Prov:VIRGINIA CA MD 11/30/18 Dextrose (Glutose 15) 37.5 Gm Gel..gm., 22.5 GM PO Q15M PRN for DECREASED GLUCOSE for 14 Days Prov:VIRGINIA CA MD 11/30/18 Dextrose (Glutose 15) 37.5 Gm Gel..gm., 15 GM PO Q15M PRN for DECREASED GLUCOSE for 14 Days Prov:VIRGINIA CA MD 11/30/18 [Accu-Chek] 1 EA EA No Conflict Check, 1 EA XX 02 Prov:VIRGINIA CA MD 11/30/18 Risperidone* (Risperdal*) 0.25 Mg Tablet, 0.25 MG PO BID PRN for agitation for 14 Days, TAB Prov:VIRGINIA CA MD 11/30/18 Gabapentin* (Gabapentin*) 100 Mg Capsule, 100 MG PO AM for 14 Days, CAP Prov:VIRGINIA CA MD 11/30/18 Gabapentin* (Gabapentin*) 300 Mg Capsule, 300 MG PO HS for 14 Days, CAP Prov:VIRGINIA CA MD 11/30/18 Metoprolol Tartrate* (Lopressor*) 25 Mg Tab, 25 MG PO BID for 14 Days, TAB Prov:VIRGINIA CA MD 11/30/18 Benazepril Hcl* (Benazepril Hcl*) 10 Mg Tablet, 10 MG PO DAILY for 14 Days, TAB Prov:VIRGINIA CA MD 11/30/18 Diphenhydramine Hcl* (Benadryl*) 25 Mg Cap, 25 MG PO HS PRN for insomnia for 15 Days, CAP Prov:VIRGINIA CA MD 11/30/18 Enoxaparin Sodium* (Enoxaparin Sodium*) 30 Mg/0.3 Ml Syringe, 30 MG SC DAILY for 15 Days Prov:VIRGINIA CA MD 11/30/18 Medications Current Medications Miscellaneous Information 1 ea NOTE XX ; Start 12/03/18 at 13:00 Glucose (Glutose) 15 gm Q15M PRN PO DECREASED GLUCOSE; Start 12/03/18 at 13:00 Glucose (Glutose) 22.5 gm Q15M PRN PO DECREASED GLUCOSE; Start 12/03/18 at 13:00 Dextrose (D50w Syringe) 25 ml Q15M PRN IV DECREASED GLUCOSE; Start 12/03/18 at 13:00 Dextrose (D50w Syringe) 50 ml Q15M PRN IV DECREASED GLUCOSE; Start 12/03/18 at 13:00 Glucagon (Glucagen) 1 mg Q15M PRN IM DECREASED GLUCOSE; Start 12/03/18 at 13:00 Glucose (Glutose) 15 gm Q15M PRN BUCCAL DECREASED GLUCOSE; Start 12/03/18 at 13:00 Diclofenac Sodium (Voltaren 1% Gel) 2 gm QID TP Last administered on 12/18/18at 08:13; Admin Dose 2 GM; Start 12/05/18 at 14:00 Eye Lubricant (Artificial Tears Oph) 2 drop Q2H PRN BOTH EYES DRY EYES Last administered on 12/12/18at 09:09; Admin Dose 2 DROP; Start 12/06/18 at 22:00 Insulin Glargine (Lantus) 6 units DAILY@0800 SC ; Start 12/09/18 at 08:00; Status Hold Metoprolol Tartrate (Lopressor) 5 mg Q4H PRN IV HR>110 or significant PVC's; Start 12/09/18 at 13:00 Nystatin (Nystatin Powder) 1 applic BID TOP Last administered on 12/18/18at 08:13; Admin Dose 1 APPLIC; Start 12/13/18 at 15:00 Aspirin (Aspirin) 81 mg DAILY GTB Last administered on 12/18/18at 08:12; Admin Dose 81 MG; Start 12/16/18 at 09:00 Amylase/Lipase/ Protease (Creon ([id number])) 1 cap WITH MEALS GTB Last administered on 12/18/18 12:49; Admin Dose 1 CAP; Start 12/16/18 at 07:55 Lansoprazole (Prevacid) 15 mg BID@06,18 GTB Last administered on 12/18/18 05:28; Admin Dose 15 MG; Start 12/16/18 at 06:00 Levothyroxine Sodium (Synthroid) 137 mcg DAILY@06 GTB Last administered on 12/18/18 05:28; Admin Dose 137 MCG; Start 12/16/18 at 06:00 Magnesium Hydroxide (Milk Of Mag) 30 ml DAILY PRN GTB constipation; Start 12/15/18 at 19:30 Metoprolol Tartrate (Lopressor) 25 mg BID GTB Last administered on 12/18/18 08:12; Admin Dose 25 MG; Start 12/15/18 at 21:00 Rifaximin (Xifaxan) 550 mg DAILY GTB Last administered on 12/17/18 08:40; Admin Dose 550 MG; Start 12/16/18 at 09:00 Senna (Senokot) 1 tab DAILY GTB Last administered on 12/18/18 08:12; Admin Dose 1 TAB; Start 12/16/18 at 09:00 Ondansetron HCl (Zofran Tab) 4 mg Q6H PRN GTB NAUSEA AND/OR VOMITING Last ad ministered on 12/17/18 17:29; Admin Dose 4 MG; Start 12/15/18 at 19:30 Insulin Aspart (Novolog Insulin Pen) NOVOLOG *MODERATE* ALGORI... Q6 SC Last administered on 12/18/18 13:00; Admin Dose 4 UNIT; Start 12/18/18 at 00:00 Lactulose (Enulose) 30 gm BID GTB Last administered on 12/18/18 08:12; Admin Dose 30 GM; Start 12/18/18 at 00:00 Levalbuterol (Xopenex Neb) 1.25 mg Q4H RESP THERAPY PRN HHN WHEEZING Last administered on 12/18/18 13:29; Admin Dose 1.25 MG; Start 12/18/18 at 10:00 Levofloxacin/ Dextrose 100 ml @ 200 mls/hr Q24H IVPB Last administered on 6/30/19at 12:49; Admin Dose 200 MLS/HR; Start 12/18/18 at 13:00 Assessment/Plan Hospital Course (Demo Recall) 1. Wide complex tachycardia-suppreseed for most part on low dose BB as tolerated. Had an episode which looked more like abberrant AF when first admittedNL EF by echo this index admission - in sinus now. Pt somewhat bready, but BP stable and overall, poor functional capacity - he dies not have Class I indication for pacer now and I think given overall state of health, medical Rx is reasonable. Now HR stable - no pauses noted. Now PVCs - conservative rx advised. NO pacer planned now. Rate controlled - con;t to follow. NOw with recurrent NSVT - donot hold BB- will follow. NO new episodes now - pt with decompensation - likely to persie palliative Rx options 2. Intermittent bigeminy and generalized wide complex rhythms-generally suppressed on low dose of BB. Sinus now, rare controlled. 3. Hypertension-reasonable control on monotherapy with BB with ACEI held in the setting of renal failure - improved with RX. TREATED. 4. Episodes of nausea and vomiting- consider PEG - family tentatively agreed. NOw with possible aspiation - hold feeds and check CXR. 5. Gait instability with signs of hygroma-had been in PT but transferred back to med-surg for AMS. Was initially followed by neurology - defer to neuro team. Unchanged. 6. Diabetes mellitus, status post pancreatectomy, stable now. On meds. 7. Hypothyroidism. 8. Pancytopenia with more pronounced leukopenia and thrombocytopenia. 9. Bradycardia-stable now to 40's at times by vital sign assessment with stable BP. NL TSH with actually mildly elevated Free T4 - clinical follow up expected now. NO plan for pacer now. 10.Urinary retention s/p Smith placement - urology follow. - con't Rx RYLEE PITT MD Dec 18, 2018 13:52
[2018-12-18] MEDS ORDERED: morphine 2 MG INJ IV PRN (15:30)
[2018-12-18 15:38] VITALS: BP 117/56; PULSE 69; RESP 20
--- NOTE | 2018-12-18 16:11 | PN ---
Date/Time of Note Date/Time of Note DATE: 12/18/18 TIME: 15:33 Assessment/Plan VTE Prophylaxis Risk score (from Ns)>0 risk: 8 SCD applied (from Ns): Yes Pharmacological prophylaxis: NA/contraindicated Pharm contraindication: surgical contra (s/p recent PEG placement.) Lines/Catheters [facility]from [facility] Saline Lock Urinary Cath still in place: No Assessment/Plan Assessment/Plan (1) Respiratory distress Status: Acute Comment: probably due to aspiration pneumonia from acute change in mental status yesterday or after he vomitted. Will start antibiotic with Levaquin, respiratory treatments and, since patient has history of COPD, steroids IV. Also give furosemide since patient received significant amount of IVF yesterday. No biPAP per family's request. (2) Code status Status: Acute Comment: Discussed with family, Radha and daughter Lydia, who asked that patient be placed on DNR status since he has always indicated that quality of life is important to him. At this point, they requested no chest compression, no defibrillation, no intubation, no chemical resuscitation, not even BiPAP /cpap. If patient appears in pain or severe respiratory distress and does not appear to be improving on supportive care, then Morphine is requested but only if it is needed for comfort and not as a way to hasten . (3) Encephalopathy Status: Acute Comment: Altered mental status with obtundation since yesterday . Recheck chest xrays shows bibasilar infiltrates, labs notable for elevated ammonia. Unclear if encephalopathy is the cause or effect of aspiration pneumonitis. Will treat the pneumonia, hold tube feedings and use lactulose for ammonia build up. Hold IV fluids until chest congestion improves. 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 (4) Ventricular tachycardia (paroxysmal) Status: Acute Comment: May have been related to acute aspiration pneumonitis. Rate and rhythm better controlled now. (5) G tube feedings/ Dysphagia Status: Acute Comment: Hold feedings at this time, minimize oral meds, keep head of bed elevated due to history of GERD, dysphagia and high risk of aspiration. 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 (10) COPD Status: Acute on chronic Comment: Xopenex and steroids for possible copd exac from pneumonitis. Result Diagram: 12/18/18 0602 12/18/18 0602 Results 24hrs Laboratory Tests Test 12/17/18 17:39 12/17/18 22:11 12/17/18 22:12 12/17/18 23:50 Bedside Glucose 227 H 251 H Ammonia 213 #H Troponin I < 0.012 Amylase Level < 30 Lipase 33 Test 12/18/18 05:30 12/18/18 05:58 12/18/18 06:02 12/18/18 09:57 Bedside Glucose 161 Hemoglobin A1c 5.9 White Blood Count 8.2 # Red Blood Count 4.01 L Hemoglobin 12.8 L Hematocrit 36.1 L Mean Corpuscular 90.0 Volume Mean Corpuscular 31.9 Hemoglobin Mean Corpuscular 35.5 Hemoglobin Concen t Red Cell 16.6 H Distribution Width Platelet Count 170 # Mean Platelet 9.8 Volume Immature 0.200 Granulocytes % Neutrophils % Segmented 51 Neutrophils % (Manual) Band Neutrophils 43 H % (Manual) Lymphocytes % Lymphocytes % 2 L (Manual) Monocytes % Monocytes % 4 (Manual) Eosinophils % Basophils % Nucleated Red 0.0 Blood Cells % Immature 0.020 Granulocytes # Neutrophils # Neutrophils # 4.5 (Manual) Band Neutrophils 3.5 H # Lymphocytes 0.1 L (Manual) Lymphocytes # Monocytes # Monocytes # 0.3 (Manual) Eosinophils # Basophils # Nucleated Red Blood Cells # Toxic Granulation 1+ Platelet Estimate NORMAL Giant Platelets 2 H Polychromasia 2+ Poikilocytosis 1+ Anisocytosis 2+ Microcytosis 1+ Ovalocytes 1+ Erythrocyte 39 H Sedimentation Rate Sodium Level 140 Potassium Level 4.9 Chloride Level 105 Carbon Dioxide 20 L Level Anion Gap 15 H Blood Urea 31 H Nitrogen Creatinine 1.09 Est Glomerular Filtrat Rate mL/min Glucose Level 173 Calcium Level 9.0 Magnesium Level 2.0 Total Bilirubin 2.9 H Direct Bilirubin 0.20 Indirect 2.7 H Bilirubin Aspartate Amino 59 H Transf (AST/SGOT) Alanine 42 Aminotransferase (ALT/SGPT) Alkaline 202 H Phosphatase Ammonia 167 H Troponin I 0.013 B-Type 1520 H Natriuretic Peptide Total Protein 5.9 L Albumin 3.1 L Globulin 2.80 Albumin/Globulin 1.10 Ratio Prealbumin 7.4 L Procalcitonin 1.06 H Thyroid 7.210 H Stimulating Hormone (TSH) Blood Gas Blood arterial Specimen Source Arterial Blood 12/18/2018 10:30: Date Drawn 52 AM Arterial Blood pH 7.314 L (Temp corrected) Arterial Blood 36.5 pCO2 (Temp correct) Arterial Blood 126.3 H pO2 (Temp corrected) Arterial Blood 18.1 L HCO3 Arterial Blood -7.3 L Base Excess Arterial Blood 97.5 Oxygen Saturation Pj Test ACCEPTAB Arterial Blood Left Radial Gas Puncture Site Arterial 0.4 Blood Carboxyhemo globin Arterial Blood 0.2 Methemoglobin Blood Gas A-a O2 550.2 H Differential Oxyhemoglobin 96.9 Percent Blood Gas 37.0 Temperature Blood Gas MASK - NRB Modality FiO2 100.0 Blood Gas DT Notified Whom Blood Gas 12/18/2018 10:41: Notified Time 32 AM Test 12/18/18 12:23 Bedside Glucose 193 Subjective 24 Hr Interval Summary Free Text/Dictation Patient still nonresponsive and having more shortness of breath this am. Exam/Review of Systems Exam Vitals Vital Signs Date Temp Pulse Resp B/P (MAP) Pulse Ox O2 O2 Flow FiO2 Time Delivery Rate 12/18/18 94 15.0 13:30 12/18/18 63 24 Non 13:30 Rebreather Mask 12/18/18 98.0 137/75 12:41 (95) Intake and Output 12/17/18 12/17/18 12/18/18 1515:00 23:00 07:00 IntakeIntake Total 980 ml BalanceBalance 980 ml Exam No response to touch or calls. Eyes: nl conjunctiva Respiratory: crackles/rales, labored breathing Cardiovascular: regular rate and rhythm Gastrointestinal: soft, other (G tube site normal.) Musculoskeletal: nl extremities to inspection Neurological: unresponsive Results Results 24hrs Laboratory Tests Test 12/17/18 17:39 12/17/18 22:11 12/17/18 22:12 12/17/18 23:50 Bedside Glucose 227 H 251 H Ammonia 213 #H Troponin I < 0.012 Amylase Level < 30 Lipase 33 Test 12/18/18 05:30 12/18/18 05:58 12/18/18 06:02 12/18/18 09:57 Bedside Glucose 161 Hemoglobin A1c 5.9 White Blood Count 8.2 # Red Blood Count 4.01 L Hemoglobin 12.8 L Hematocrit 36.1 L Mean Corpuscular 90.0 Volume Mean Corpuscular 31.9 Hemoglobin Mean Corpuscular 35.5 Hemoglobin Concen t Red Cell 16.6 H Distribution Width Platelet Count 170 # Mean Platelet 9.8 Volume Immature 0.200 Granulocytes % Neutrophils % Segmented 51 Neutrophils % (Manual) Band Neutrophils 43 H % (Manual) Lymphocytes % Lymphocytes % 2 L (Manual) Monocytes % Monocytes % 4 (Manual) Eosinophils % Basophils % Nucleated Red 0.0 Blood Cells % Immature 0.020 Granulocytes # Neutrophils # Neutrophils # 4.5 (Manual) Band Neutrophils 3.5 H # Lymphocytes 0.1 L (Manual) Lymphocytes # Monocytes # Monocytes # 0.3 (Manual) Eosinophils # Basophils # Nucleated Red Blood Cells # Toxic Granulation 1+ Platelet Estimate NORMAL Giant Platelets 2 H Polychromasia 2+ Poikilocytosis 1+ Anisocytosis 2+ Microcytosis 1+ Ovalocytes 1+ Erythrocyte 39 H Sedimentation Rate Sodium Level 140 Potassium Level 4.9 Chloride Level 105 Carbon Dioxide 20 L Level Anion Gap 15 H Blood Urea 31 H Nitrogen Creatinine 1.09 Est Glomerular Filtrat Rate mL/min Glucose Level 173 Calcium Level 9.0 Magnesium Level 2.0 Total Bilirubin 2.9 H Direct Bilirubin 0.20 Indirect 2.7 H Bilirubin Aspartate Amino 59 H Transf (AST/SGOT) Alanine 42 Aminotransferase (ALT/SGPT) Alkaline 202 H Phosphatase Ammonia 167 H Troponin I 0.013 B-Type 1520 H Natriuretic Peptide Total Protein 5.9 L Albumin 3.1 L Globulin 2.80 Albumin/Globulin 1.10 Ratio Prealbumin 7.4 L Procalcitonin 1.06 H Thyroid 7.210 H Stimulating Hormone (TSH) Blood Gas Blood arterial Specimen Source Arterial Blood 12/18/2018 10:30: Date Drawn 52 AM Arterial Blood pH 7.314 L (Temp corrected) Arterial Blood 36.5 pCO2 (Temp correct) Arterial Blood 126.3 H pO2 (Temp corrected) Arterial Blood 18.1 L HCO3 Arterial Blood -7.3 L Base Excess Arterial Blood 97.5 Oxygen Saturation Pj Test ACCEPTAB Arterial Blood Left Radial Gas Puncture Site Arterial 0.4 Blood Carboxyhemo globin Arterial Blood 0.2 Methemoglobin Blood Gas A-a O2 550.2 H Differential Oxyhemoglobin 96.9 Percent Blood Gas 37.0 Temperature Blood Gas MASK - NRB Modality FiO2 100.0 Blood Gas DT Notified Whom Blood Gas 12/18/2018 10:41: Notified Time 32 AM Test 12/18/18 12:23 Bedside Glucose 193 Medications Medication Current Medications Miscellaneous Information 1 ea NOTE XX ; Start 12/03/18 at 13:00 Glucose (Glutose) 15 gm Q15M PRN PO DECREASED GLUCOSE; Start 12/03/18 at 13:00 Glucose (Glutose) 22.5 gm Q15M PRN PO DECREASED GLUCOSE; Start 12/03/18 at 13:00 Dextrose (D50w Syringe) 25 ml Q15M PRN IV DECREASED GLUCOSE; Start 12/03/18 at 13:00 Dextrose (D50w Syringe) 50 ml Q15M PRN IV DECREASED GLUCOSE; Start 12/03/18 at 13:00 Glucagon (Glucagen) 1 mg Q15M PRN IM DECREASED GLUCOSE; Start 12/03/18 at 13:00 Glucose (Glutose) 15 gm Q15M PRN BUCCAL DECREASED GLUCOSE; Start 12/03/18 at 13:00 Diclofenac Sodium (Voltaren 1% Gel) 2 gm QID TP Last administered on 12/18/18at 08:13; Admin Dose 2 GM; Start 12/05/18 at 14:00 Eye Lubricant (Artificial Tears Oph) 2 drop Q2H PRN BOTH EYES DRY EYES Last administered on 12/12/18at 09:09; Admin Dose 2 DROP; Start 12/06/18 at 22:00 Insulin Glargine (Lantus) 6 units DAILY@0800 SC ; Start 12/09/18 at 08:00; Status Hold Metoprolol Tartrate (Lopressor) 5 mg Q4H PRN IV HR>110 or significant PVC's; Start 12/09/18 at 13:00 Nystatin (Nystatin Powder) 1 applic BID TOP Last administered on 12/18/18at 08:13; Admin Dose 1 APPLIC; Start 12/13/18 at 15:00 Aspirin (Aspirin) 81 mg DAILY GTB Last administered on 12/18/18at 08:12; Admin Dose 81 MG; Start 12/16/18 at 09:00 Amylase/Lipase/ Protease (Creon ([id number])) 1 cap WITH MEALS GTB Last administered on 12/18/18 12:49; Admin Dose 1 CAP; Start 12/16/18 at 07:55 Lansoprazole (Prevacid) 15 mg BID@06,18 GTB Last administered on 12/18/18 05:28; Admin Dose 15 MG; Start 12/16/18 at 06:00 Levothyroxine Sodium (Synthroid) 137 mcg DAILY@06 GTB Last administered on 12/18/18 05:28; Admin Dose 137 MCG; Start 12/16/18 at 06:00 Magnesium Hydroxide (Milk Of Mag) 30 ml DAILY PRN GTB constipation; Start 12/15/18 at 19:30 Metoprolol Tartrate (Lopressor) 25 mg BID GTB Last administered on 12/18/18 08:12; Admin Dose 25 MG; Start 12/15/18 at 21:00 Rifaximin (Xifaxan) 550 mg DAILY GTB Last administered on 12/17/18 08:40; Admin Dose 550 MG; Start 12/16/18 at 09:00 Senna (Senokot) 1 tab DAILY GTB Last administered on 12/18/18 08:12; Admin Dose 1 TAB; Start 12/16/18 at 09:00 Ondansetron HCl (Zofran Tab) 4 mg Q6H PRN GTB NAUSEA AND/OR VOMITING Last administered on 12/17/18 17:29; Admin Dose 4 MG; Start 12/15/18 at 19:30 Insulin Aspart (Novolog Insulin Pen) NOVOLOG *MODERATE* ALGORI... Q6 SC Last administered on 12/18/18 13:00; Admin Dose 4 UNIT; Start 12/18/18 at 00:00 Lactulose (Enulose) 30 gm BID GTB Last administered on 12/18/18 08:12; Admin Dose 30 GM; Start 12/18/18 at 00:00 Levalbuterol (Xopenex Neb) 1.25 mg Q4H RESP THERAPY PRN HHN WHEEZING Last administered on 12/18/18 13:29; Admin Dose 1.25 MG; Start 12/18/18 at 10:00 Levofloxacin/ Dextrose 100 ml @ 200 mls/hr Q24H IVPB Last administered on 12/18/18 12:49; Admin Dose 200 MLS/HR; Start 12/18/18 at 13:00 JULIENNE MANTILLA MD Dec 18, 2018 15:56
[2018-12-18] MEDS ORDERED: AMPICILLIN/SULB 3 GM/NS (PMX) 100 ML IVPB SCH (18:00)
[2018-12-18 20:00] VITALS: BP 108/52; PULSE 61; RESP 20
[2018-12-18] MEDS ORDERED: LACTULOSE 30ML CUP GTB SCH (21:00)
[2018-12-19] MEDS ORDERED: morphine 2 MG INJ IV STA (00:17)
[2018-12-19] MEDS ORDERED: LORAZEPAM 2 MG INJ IV STA (00:27)
[2018-12-19] MEDS ORDERED: LORAZEPAM 2 MG INJ IM ONE (00:30)
--- NOTE | 2018-12-19 00:42 | EN ---
Date/Time of Note Date/Time of Note DATE: 12/19/18 TIME: 00:40 Event Note Medicine Medicine Event Note Rapid response note Rapid response was called for low blood pressure and sinus bradycardia, possible ST elevation [place] Rapid response called at approximately 12:10 AM Patient was seen and examined at the bedside. Patient was noted to the showing agonal respirations. His blood pressure was in 70s systolic. His heart rate was in the 40s and trending more bradycardic. EKG did show what looked to be possible ST elevations in inferior leads. Patient looked to be in agonal respirations and nonresponsive. Of note patient is a DNR/DNI. Family does not want any aggressive measures which I confirmed with the over the phone as well as from the primary doctor's latest progress note. I did speak with the over the phone as mentioned above and I have updated her on the condition of the patient. She was agreeable to making the patient comfortable so we would alleviate any suffering. I will put him currently on morphine as needed and Ativan. He was given a 2 mg morphine IV x1 as well as Ativan 1 mg IV x1 Vitals: Heart rate in the 40s, blood pressure 77/34 respirations 22 SPO2 80% on nonrebreather General: Nonresponsive, agonal breathing CVS: Sinus bradycardia Lungs: Agonal breathing, coarse breath sounds bilaterally Neuro: Eyes are open but he is nonresponsive, agonal breathing EKG: Sinus bradycardia, questionable ST elevations in lead III Assessment and plan: #1 suspect STEMI: Patient is a DNR/DNI. Patient appears to be actively dying. I did speak with the and updated her on the condition of the patient. She wishes to keep the patient comfortable. She is okay with morphine and Ativan for relaxation. We will do 2 mg morphine IV q. one hour for comfort. Ativan as needed for anxiety agitation. Will attempt to make the patient as comfortable as possible. Primary doctor was also made aware of the clinical condition by the RN. Greater than 30 minutes of critical care time spent on the care management this patient. NICOLLE ABAD Dec 19, 2018 00:42
[2018-12-19] MEDS ORDERED: LORAZEPAM 2 MG INJ IV PRN (01:00)
[2018-12-19] MEDS ORDERED: morphine 2 MG INJ IV PRN (01:00)
--- NOTE | 2018-12-19 07:16 | PN ---
Date/Time of Note Date/Time of Note DATE: 12/19/18 TIME: 07:16 Objective Vitals Vital Signs Date Temp Pulse Resp B/P (MAP) Pulse Ox O2 O2 Flow FiO2 Time Delivery Rate 12/18/18 95 15.0 21:11 12/18/18 Non 20:30 Rebreather 12/18/18 97.6 61 20 108/52 20:00 (70) Intake and Output 12/18/18 12/18/18 12/19/18 1515:00 23:00 07:00 IntakeIntake Total 1210 ml 120 ml OutputOutput Total 300 ml 900 ml BalanceBalance 910 ml -780 ml Results Result Diagram: 12/18/18 0602 12/18/18 0602 Medications Medications Current Medications Miscellaneous Information 1 ea NOTE XX ; Start 12/03/18 at 13:00 Glucose (Glutose) 15 gm Q15M PRN PO DECREASED GLUCOSE; Start 12/03/18 at 13:00 Glucose (Glutose) 22.5 gm Q15M PRN PO DECREASED GLUCOSE; Start 12/03/18 at 13:00 Dextrose (D50w Syringe) 25 ml Q15M PRN IV DECREASED GLUCOSE; Start 12/03/18 at 13:00 Dextrose (D50w Syringe) 50 ml Q15M PRN IV DECREASED GLUCOSE; Start 12/03/18 at 13:00 Glucagon (Glucagen) 1 mg Q15M PRN IM DECREASED GLUCOSE; Start 12/03/18 at 13:00 Glucose (Glutose) 15 gm Q15M PRN BUCCAL DECREASED GLUCOSE; Start 12/03/18 at 13:00 Diclofenac Sodium (Voltaren 1% Gel) 2 gm QID TP Last administered on 12/18/18at 21:59; Admin Dose 2 GM; Start 12/05/18 at 14:00 Eye Lubricant (Artificial Tears Oph) 2 drop Q2H PRN BOTH EYES DRY EYES Last administered on 12/12/18at 09:09; Admin Dose 2 DROP; Start 12/06/18 at 22:00 Insulin Glargine (Lantus) 6 units DAILY@0800 SC ; Start 12/09/18 at 08:00; Status Hold Metoprolol Tartrate (Lopressor) 5 mg Q4H PRN IV HR>110 or significant PVC's; Start 12/09/18 at 13:00 Nystatin (Nystatin Powder) 1 applic BID TOP Last administered on 12/18/18 21:59; Admin Dose 1 APPLIC; Start 12/13/18 at 15:00 Aspirin (Aspirin) 81 mg DAILY GTB Last administered on 12/18/18 08:12; Admin Dose 81 MG; Start 12/16/18 at 09:00 Amylase/Lipase/ Protease (Creon ([id number])) 1 cap WITH MEALS GTB Last administered on 12/18/18 12:49; Admin Dose 1 CAP; Start 12/16/18 at 07:55 Lansoprazole (Prevacid) 15 mg BID@06,18 GTB Last administered on 12/18/18 18:15; Admin Dose 15 MG; Start 12/16/18 at 06:00 Levothyroxine Sodium (Synthroid) 137 mcg DAILY@06 GTB Last administered on 12/18/18 05:28; Admin Dose 137 MCG; Start 12/16/18 at 06:00 Magnesium Hydroxide (Milk Of Mag) 30 ml DAILY PRN GTB constipation Last administered on 12/18/18 21:58; Admin Dose 30 ML; Start 12/15/18 at 19:30 Metoprolol Tartrate (Lopressor) 25 mg BID GTB Last administered on 12/18/18 08:12; Admin Dose 25 MG; Start 12/15/18 at 21:00 Rifaximin (Xifaxan) 550 mg DAILY GTB Last administered on 12/17/18 08:40; Admin Dose 550 MG; Start 12/16/18 at 09:00 Senna (Senokot) 1 tab DAILY GTB Last administered on 12/18/18 08:12; Admin Dose 1 TAB; Start 12/16/18 at 09:00 Ondansetron HCl (Zofran Tab) 4 mg Q6H PRN GTB NAUSEA AND/OR VOMITING Last ad ministered on 12/17/18 17:29; Admin Dose 4 MG; Start 12/15/18 at 19:30 Insulin Aspart (Novolog Insulin Pen) NOVOLOG *MODERATE* ALGORI... Q6 SC Last administered on 12/18/18 18:30; Admin Dose 4 UNIT; Start 12/18/18 at 00:00 Levalbuterol (Xopenex Neb) 1.25 mg Q4H RESP THERAPY PRN HHN WHEEZING Last administered on 12/18/18 13:29; Admin Dose 1.25 MG; Start 12/18/18 at 10:00 Levofloxacin/ Dextrose 100 ml @ 200 mls/hr Q24H IVPB Last administered on 12/18/18 12:49; Admin Dose 200 MLS/HR; Start 12/18/18 at 13:00 Lactulose (Enulose) 30 gm TID GTB Last administered on 12/18/18at 21:58; Admin Dose 30 GM; Start 12/18/18 at 21:00 Ampicillin Sodium/ Sulbactam Sodium 100 ml @ 100 mls/hr Q6 IVPB Last administered on 12/18/18 18:19; Admin Dose 100 MLS/HR; Start 12/18/18 at 18:00 Morphine Sulfate (morphine) 2 mg Q2H PRN IV COMFORT MEASURES; Start 12/19/18 at 01:00 Lorazepam (Ativan) 1 mg Q2H PRN IV AGITATION/ANXIETY; Start 12/19/18 at 01:00 VTE Prophylaxis Risk score (from Ns)>0 risk: 8 SCD applied (from [facility]): Yes Lines/Catheters IV Catheter Type: Saline Lock Smith in Place: No Assessment/Plan Hospital Course did not tolerate sz med, did not tolerate benzo/ benadryl/ psych meds, responded well heart rate controlling meds, & vss stable, po intake reduced/ PEG place well received/ tube feed well taken, insulin sq well received, ivf & iv atbx for uti well tolerated & resolved & afebrile, PT/ OT/ ST well received & responded well up to transfer & ADL, all nursing cares were given & pt stable, VIRGINIA CA MD Dec 19, 2018 07:16
--- NOTE | 2018-12-20 19:26 | DES ---
Date/Time of Note Date/Time of Note DATE: 12/19/18 TIME: 08:07 Discharge/ Summary Admission/Discharge Info Admit Date/Time Dec 03, 2018 at 10:30 Date/Time 12/19/2018 0125 am Final Diagnosis 1. resp arrest, pneumonitis, copd 2. arrythemia, htn, pvd 3. dm, neuropathy 4. multi tia s, cerebellum syndrome 5. age related weakness, dysphagia, PEG tube place 6. ckd II, UTI,anemia 7. anxiety, depression 8. h/o duod ca--s/p whipple's, bladder ca, prostate ca 9. DNR Preliminary Cause of resp arrest Admit History shaking, unsteady gait, sob, anorexia, unbalanced for 72hrs Hospital Course Pt was admitted into tele bed, after failing to stay awake enough to participate in 3hr daily acute rehab exercise, did not tolerate sz med, did not tolerate benzo/ benadryl/ psych meds, Pt stayed more sleepy than awake day after day, stayed more time in bed than oob, responded well with heart rate controlling meds, but bp tended to drop, po intake reduced/ PEG tube place well received/ tube feed well taken, but with incidence of coughs & vomiting, last 24hrs tube feed was held off, insulin sq well received, but after aspiration, with lung base infiltrate & uti, gluc level lucia & acquired more insulin dose, ivf & iv atbx were started, but in last 2 hrs, his bp & hr dropped, cardiac leads seem to show some st elevations, developed labored breathing, Pt became DNR with 's permission; morphine & ativan were given, Pt was pronounced at 12/19/2018 0125am; pupils fixed & dilated, no spontaneous breathing, no spontaneous pulses. VIRGINIA CA MD Dec 20, 2018 19:26
--- NOTE | 2018-12-20 19:40 | HP ---
Date/Time of Note Date/Time of Note DATE: 12/20/18 TIME: 19:30 Assessment/Plan VTE Prophylaxis Risk score (from Nsg)>0 risk: 8 SCD applied (from Ns): Yes Pharmacological prophylaxis: other (asa, plavix) Lines/Catheters IV Catheter Type (from Nrsg): Saline Lock Central line still needed: No Urinary Cath still in place: No Assessment/Plan Hospital Course Pt was admitted into tele bed, after failing to stay awake enough to participate in 3hr daily acute rehab exercise, did not tolerate sz med, did not tolerate benzo/ benadryl/ psych meds, Pt stayed more sleepy than awake day after day, stayed more time in bed than oob, responded well with heart rate controlling meds, but bp tended to drop, po intake reduced/ PEG tube place well received/ tube feed well taken, but with incidence of coughs & vomiting, last 24hrs tube feed was held off, insulin sq well received, but after aspiration, with lung base infiltrate & uti, gluc level lucia & acquired more insulin dose, ivf & iv atbx were started, but in last 2 hrs, his bp & hr dropped, cardiac leads seem to show some st elevations, developed labored breathing, Pt became DNR with 's permission; morphine & ativan were given, Pt was pronounced at 12/19/2018 0125am; pupils fixed & dilated, no spontaneou s breathing, no spontaneous pulses. Assessment/Plan 1. ams/ cerebellum synd/ many tia s 2. age related weak/ no more walking 3. copd 4. htn/ pvd 5. dm/ neuropathy 6. ckd II/ anemia 7. depression ---cards ref ---pulm ref ---neuro ref ---PT/ OT/ ST eval & exercises ---repeat brain ct/ mri/ cxr/ ekg/ blood & urine tests ---cont all supportive cares Result Diagram: 12/18/18 0602 12/18/18 0602 HPI/ROS Admit Date/Time Admit Date/Time Dec 03, 2018 at 10:30 Hx of Present Illness becoming more sleepy & drowsy, unable to participate in 3hrs/day acute rehab exercises, needed to be transferred to acute hospital wing PMH/Family/Social Past Medical History multi tia s, cerebellum syndrome, ams copd, htn, pvd, ckd II, anemia, dm, neuropathy, anxiety-depression, age related weakness, Coded Allergies: Sulfa (Sulfonamide Antibiotics) (Verified Allergy, Unknown, 11/24/18) paroxetine (Verified Allergy, Unknown, 11/24/18) pramipexole (Verified Allergy, Unknown, 11/24/18) Past Surgical History Whipple's Past Surgical Hx: other Family History Significant Family History: no pertinent family hx, COPD, diabetes, hypertension Social History Alcohol Use: rarely Smoking Status: Former smoker Drug Use: none Exam/Review of Systems Vital Signs Vitals Vital Signs Date Temp Pulse Resp B/P (MAP) Pulse Ox O2 O2 Flow FiO2 Time Delivery Rate 12/03/2018 86 20 134/63 97 ra Exam Exam in bed, open mouth breather, arousable, answering with one-two words, rr syst m+, cta, no c/c/e, VIRGINIA CA MD Dec 20, 2018 19:40
== END 2018-12-19 01:25 | disposition expired | DRG 70 ==
LOC: TEL 10:30
PROVIDERS: ADMIT Internal Medicine; ATTEND Internal Medicine
PROC: 0DH63UZ Insertion of Feeding Device into Stomach, Percutaneous Approach (ICD-10-PCS; 2018-12-14)
PROC: 0DJ08ZZ Inspection of Upper Intestinal Tract, Via Natural or Artificial Opening Endoscopic (ICD-10-PCS; principal; 2018-12-14 13:30)
DX: G46.4 Cerebellar stroke syndrome (principal); I21.3 ST elevation (STEMI) myocardial infarction of unspecified site; J69.0 Pneumonitis due to inhalation of food and vomit; G93.40 Encephalopathy, unspecified; G45.9 Transient cerebral ischemic attack, unspecified; D61.818 Other pancytopenia; N39.0 Urinary tract infection, site not specified; I47.2 Ventricular tachycardia; G11.9 Hereditary ataxia, unspecified; R09.2 Respiratory arrest; E11.22 Type 2 diabetes mellitus with diabetic chronic kidney disease; D69.6 Thrombocytopenia, unspecified; R13.10 Dysphagia, unspecified; E11.40 Type 2 diabetes mellitus with diabetic neuropathy, unspecified; J44.9 Chronic obstructive pulmonary disease, unspecified; I73.9 Peripheral vascular disease, unspecified; R00.1 Bradycardia, unspecified; R63.0 Anorexia; D64.9 Anemia, unspecified; N18.2 Chronic kidney disease, stage 2 (mild); F32.9 Major depressive disorder, single episode, unspecified; E03.9 Hypothyroidism, unspecified; K21.9 Gastro-esophageal reflux disease without esophagitis; F41.9 Anxiety disorder, unspecified; I12.9 Hypertensive chronic kidney disease with stage 1 through stage 4 chronic kidney disease, or unspecified chronic kidney disease; Z68.20 Body mass index [BMI] 20.0-20.9, adult; Z79.4 Long term (current) use of insulin; Z87.891 Personal history of nicotine dependence; Z85.068 Personal history of other malignant neoplasm of small intestine; Z85.46 Personal history of malignant neoplasm of prostate; Z85.51 Personal history of malignant neoplasm of bladder
CPT/HCPCS: 36600; 70450; 70552; 71045; 74018; 80048; 80053; 81001; 81003; 82040; 82140; 82150; 82607; 82746; 82803; 82962; 83036; 83690; 83735; 83880; 84134; 84145; 84425; 84439; 84443; 84484; 85025; 85610; 85651; 87086; 92526; 92610; 93005; 94640; 94664; 95819; 97110; 97163; 97167; 97530; 97535; J0295; J0690; J0744; J1815; J1940; J1956; J2060; J2250; J2270; J2405; J2930; J3475; J3480; J7040; J7042